=== PATIENT | female | born 1955 | race Caucasian/White ===

== ENCOUNTER 2017-09-12 22:23 | Inpatient (IN) | payer MEDICAID ==
[~2017-09-12 22:23] MED LIST: SUCCINYLCHOLINE CHLORIDE INJ 200 MG/10 ML VIAL ONE
[2017-09-12] MEDS ORDERED: SUCCINYLCHOLINE CHLORIDE INJ 200 MG/10 ML VIAL IV ONE (22:35)
[2017-09-12] MEDS ORDERED: ETOMIDATE INJ/PF 20 MG/10 ML SDV IV ONE ×2 (22:35→22:38)
[2017-09-12] MEDS ORDERED: CEFTRIAXONE 1 GM/D5W RTU 1 GM/50 ML RTUPB IV ONE (22:35)
[2017-09-12] MEDS ORDERED: PROPOFOL 100 ML IV ONE (22:38)
[2017-09-12 22:41] LABS: ABSOLUTE BASOPHILS # (AUTO) 0.1 10^3/uL (0.0-0.2); ABSOLUTE EOSINOPHILS # (AUTO) 0.3 10^3/uL (0.0-0.6); ABSOLUTE LYMPHOCYTES (AUTO) 1.5 10^3/uL (0.5-4.7); ABSOLUTE MONOCYTES (AUTO) 0.5 10^3/uL (0.1-1.4); ABSOLUTE NEUT (AUTO) 5.8 10^3/uL (1.7-8.2); BASOPHILS % (AUTO) 0.8 % (0-2); EOSINOPHILS % (AUTO) 3.3 % (0-6); HEMATOCRIT 36.4 % (36.0-47.0); LYMPHOCYTES % (AUTO) 17.9 % (13-45); MEAN CORPUSCULAR HEMOGLOBIN 29.7 pg (27.0-33.4); MEAN CORPUSCULAR HGB CONC 33.1 g/dL (32.0-36.0); MEAN CORPUSCULAR VOLUME 90 fl (80-97); MONOCYTES % (AUTO) 6.7 % (3-13); PLATELET COUNT 219 10^3/uL (150-450); RED BLOOD COUNT 4.05 10^6/uL (3.72-5.28); SEGMENTED NEUTROPHILS % (AUTO) 71.3 % (42-78); TOTAL CELLS COUNTED % (AUTO) 100 %; VENOUS BLOOD BASE EXCESS 1.1 mmol/L; VENOUS BLOOD HCO3 33.1 mmol/L (20-32); WHITE BLOOD COUNT 8.1 10^3/uL (4.0-10.5)
--- NOTE | 2017-09-12 22:42 | ER Document Report ---
ED General - General Stated Complaint: UNRESPONSIVE Time Seen by Provider: 09/12/17 22:23 Mode of Arrival: Medic Information source: Patient, Emergency Med Personnel Cannot obtain history due to: Unstable vital signs, Altered mental status Notes: Genevieve jang unknown age presents from home where she was found minimally responsive , O2 sats 42%. EMS notes patient was noted to have a history of COPD significant respiratory distress. They began bagging her and intermittently should become alert but was quite confused - HPI Onset: Other - unclear Onset/Duration: Sudden, Waxing and waning Quality of pain: No pain Severity: Severe Pain Level: Denies Associated symptoms: Nonproductive cough, Shortness of breath, Weakness Exacerbated by: Denies Relieved by: Denies Similar symptoms previously: No Recently seen / treated by doctor: No Past Medical History - General Information source: Emergency Med Personnel Cannot obtain history due to: Unstable vital signs, Altered mental status - Social History Smoking Status: Unknown if Ever Smoked Cigarette use (# per day): No Chew tobacco use (# tins/day): No Smoking Education Provided: No Family History: Reviewed & Not Pertinent - Unable to review due to patient's mental status Review of Systems - Review of Systems Notes: PHYSICAL EXAMINATION: GENERAL: Very ill-appearing female significant respiratory distress HEAD: Atraumatic, normocephalic. EYES: Pupils equal round and reactive to light, extraocular movements intact, conjunctiva are normal. ENT: Nares patent, oropharynx clear without exudates. Moist mucous membranes. NECK: Normal range of motion, supple without lymphadenopathy LUNGS coarse rhonchi at the right wheezing inspiratory expiratory all throughout HEART: Tachycardic ABDOMEN: Slightly distended abdomen Female : deferred Musculoskeletal: Normal range of motion, no pitting or edema. No cyanosis. NEUROLOGICAL: GCS 6 PSYCH: Unable to assess SKIN: Warm, Dry, normal turgor, no rashes or lesions noted. -: Yes ROS unobtainable due to patient's medical condition Physical Exam - Vital signs Vitals: Resp Pulse Ox 21 H 98 09/12/17 22:25 09/12/17 22:25 Course - Re-evaluation Re-evalutation: 09/12/17 22:40 Patient's GCS was noted to be 6, she did respond to some painful stimuli with opening her eyes momentarily and then become quite drowsy and unresponsive again , patient was on 15 L nonrebreather satting 94% but was not protecting her airway, therefore decision was made to intubate the patient immediately upon arrival 09/12/17 22:48 Patient's PCO2 is noted to be 102 pH of 7.1 09/13/17 00:06 Patient will be admitted to the hospitalist service, repeat VBG has been ordered patient will be taken off propofol and switched to Versed - Vital Signs Vital signs: Temp Pulse Resp BP Pulse Ox 25 H 107/92 H 100 09/12/17 23:16 09/12/17 23:16 09/13/17 00:01 - Laboratory Result Diagrams: 09/12/17 22:25 09/12/17 22:25 Laboratory results interpreted by me: 09/12/17 09/12/17 09/12/17 22:25 22:25 22:25 VBG pH 7.13 L* VBG pCO2 102.4 H* VBG HCO3 33.1 H Carbon Dioxide 34 H Glucose 171 H Lactic Acid 3.1 H - Diagnostic Test Radiology reviewed: Image reviewed - 1 view chest x-ray post intubation notes well placed ET tube, Reports reviewed - EKG Interpretation by Me EKG shows normal: Sinus rhythm, [place], Intervals, QRS Complexes Rate: Tachycardia When compared to previous EKG there are: Previous EKG unavailable Procedures - Intubation Orotracheal Time of Intubation: 20:20 Airway evaluation: Other - no teeth or denture Mallampati Classification: Class 4 Medications: Etomidate, Succinylcholine Intubation method: Orotracheal Blade type: Fahad Blade size: 4 ETT size: 7.0 ETT secured at: Gums ETT secured at (cm): 20 Breath Sounds after Intubation: Equal End tidal CO2 confirmed: Yes Post Intubation Xray: Yes Intubation Complications: No complications Critical Care Note - Critical Care Note Total time excluding time spent on procedures (mins): 84 Comments: 84 minutes of critical care time spent in direct contact evaluating and reevaluating the patient, treating symptoms, reviewing labs and studies and speaking with family and consultants excluding any procedures Discharge - Discharge Clinical Impression: COPD exacerbation, Respiratory failure requiring intubation, Hypercapnia Condition: Critical Disposition: ADMITTED INPATIENT Admitting Provider: Hospitalist Unit Admitted: ICU
[2017-09-12 22:43] LABS: VENOUS BLOOD PCO2 102.4 mmHg (35-63); VENOUS BLOOD PH 7.13 (7.30-7.42)
[2017-09-12 22:50] LABS: PROTHROMBIN TIME 13.7 SEC (11.4-15.4)
[2017-09-12 22:53] LABS: ALANINE AMINOTRANSFERASE 22 U/L (9-52); ALKALINE PHOSPHATASE 95 U/L (38-126); ANION GAP 9 (5-19); ASPARTATE AMINO TRANSFERASE 30 U/L (14-36); BILIRUBIN,DIRECT 0.3 mg/dL (0.0-0.4); BILIRUBIN,TOTAL 0.4 mg/dL (0.2-1.3); BLOOD UREA NITROGEN 10 mg/dL (7-20); CALCIUM 9.1 mg/dL (8.4-10.2); CARBON DIOXIDE 34 mmol/L (22-30); CHLORIDE 98 mmol/L (98-107); GLUCOSE 171 mg/dL (75-110); POTASSIUM 4.7 mmol/L (3.6-5.0); SODIUM 141.2 mmol/L (137-145); TOTAL PROTEIN 7.4 g/dL (6.3-8.2)
--- NOTE | 2017-09-12 23:19 | RADIOLOGY REPORT (SQ) ---
EXAM DESCRIPTION: CHEST SINGLE VIEW COMPLETED DATE/TIME: 09/12/2017 11:01 pm REASON FOR STUDY: post intubation COMPARISON: None. EXAM PARAMETERS: NUMBER OF VIEWS: One view. TECHNIQUE: Single frontal radiographic view of the chest acquired. RADIATION DOSE: NA LIMITATIONS: None. FINDINGS: LUNGS AND PLEURA: Mild bronchial wall thickening- central interstitial markings. No cons olidation, masses or pneumothorax. No pleural effusion. MEDIASTINUM AND HILAR STRUCTURES: No masses. Contour normal. HEART AND VASCULAR STRUCTURES: Heart normal in size. Normal vasculature. BONES: No acute findings. HARDWARE: Endotracheal tube tip overlies the mid trachea, approximately 3.7 cm above the level of the vane. Nasogastric catheter is present coiled in the body of the stomach. OTHER: No other significant finding. IMPRESSION: Endotracheal tube tip overlies the mid trachea, approximately 3.7 cm above the level of the vane. Nasogastric catheter is present coiled in the body of the stomach.Mild bronchial wall th ickening- central interstitial markings. No consolidation, masses or pneumothorax. No pleural effusi on. TECHNICAL DOCUMENTATION: JOB ID: [id number] [id number] 2010 [employer]- All Rights Reserved Reading location - IP/workstation name: [employer]
[2017-09-12] MEDS ORDERED: CEFAZOLIN INJ 1 GM VIAL ONE (23:48)
[2017-09-13] MEDS: NORMAL SALINE 1000 ML 1,000 ML IV PRN ×5 (00:01→20:06)
--- NOTE | 2017-09-13 00:04 | EKG REPORT ---
SEVERITY:- ABNORMAL ECG - SINUS TACHYCARDIA PROBABLE INFERIOR INFARCT, OLD : Confirmed by: Zen Mancilla 13-Sep-2017 00:03:40
[2017-09-13] MEDS: MIDAZOLAM HCL 50 MG/100 ML RTUINJ IV PRN (00:30)
[2017-09-13 00:43] LABS: APPEARANCE,URINE CLEAR; BILIRUBIN,URINE NEGATIVE (NEGATIVE); COLOR,URINE YELLOW; GLUCOSE, URINE NEGATIVE (NEGATIVE); KETONES,URINE NEGATIVE (NEGATIVE); LEUKOCYTE ESTERASE,URINE NEGATIVE (NEGATIVE); NITRITE,URINE NEGATIVE (NEGATIVE); PROTEIN,URINE NEGATIVE (NEGATIVE); URINE SPECIFIC GRAVITY 1.014
[2017-09-13] MEDS ORDERED: DEXTROSE 5%-WATER 250 ML with NOREPINEPHRINE BITARTRATE 4 MG IV PRN ×2 (01:28)
[2017-09-13] MEDS ORDERED: PROMETHAZINE HCL INJ 25 MG/1 ML VIAL IV PRN (01:28)
[2017-09-13] MEDS ORDERED: ALBUTEROL SULFATE 0.083% NEB 2.5 MG/3 ML AMPUL NEB PRN (01:28)
[2017-09-13] MEDS ORDERED: METHYLPREDNISOLONE INJ 40 MG/1 ML SDV IV ONE (02:00)
[2017-09-13] MEDS: IPRATROPIUM/ALBUTEROL 0.5-2.5 MG/3 ML AMPUL NEB SCH ×4 (02:06→20:38)
[2017-09-13 02:30] LABS: ARTERIAL BLOOD BASE EXCESS 0 mmol/L; ARTERIAL BLOOD H2CO3 2.24 mmol/L (1.05-1.35); ARTERIAL BLOOD HCO3 29.3 mmol/L (20-26); ARTERIAL BLOOD O2 SATURATION 99.4 % (94-98); ARTERIAL BLOOD PH 7.21 (7.35-7.45); ARTERIAL BLOOD PO2 250.8 mmHg (80-100); ARTERIAL BLOOD TOTAL CO2 31.6 mmol/L (21-25)
[2017-09-13 02:32] LABS: ARTERIAL BLOOD FIO2 60%
[2017-09-13 02:34] LABS: ARTERIAL BLOOD PCO2 74.4 mmHg (35-45)
[2017-09-13] MEDS ORDERED: LEVOFLOXACIN 500 MG/D5W RTU 500 MG/100 ML RTUPB IV ONE (03:00)
[2017-09-13] MEDS ORDERED: NOREPINEPHRINE BITARTRATE INJ/PF 4 MG/4 ML SDV IV ONE (04:02)
[2017-09-13] MEDS: PROPOFOL 100 ML IV PRN ×5 (04:30→22:09)
[2017-09-13] MEDS: HEPARIN SOD (PORCINE) 5,000 UNIT/ML 1 ML SYRINGE SUBCUT SCH ×3 (07:07→21:09)
[2017-09-13 07:22] LABS: HEMATOCRIT 34.6 % (36.0-47.0); HEMOGLOBIN 11.6 g/dL (12.0-15.5); MEAN CORPUSCULAR HEMOGLOBIN 29.8 pg (27.0-33.4); MEAN CORPUSCULAR HGB CONC 33.7 g/dL (32.0-36.0); MEAN CORPUSCULAR VOLUME 88 fl (80-97); PLATELET COUNT 201 10^3/uL (150-450); RED BLOOD COUNT 3.91 10^6/uL (3.72-5.28); WHITE BLOOD COUNT 9.7 10^3/uL (4.0-10.5)
[2017-09-13 07:40] LABS: ALANINE AMINOTRANSFERASE 27 U/L (9-52); ALBUMIN 3.2 g/dL (3.5-5.0); ALKALINE PHOSPHATASE 94 U/L (38-126); ANION GAP 8 (5-19); ASPARTATE AMINO TRANSFERASE 29 U/L (14-36); BILIRUBIN,DIRECT 0.4 mg/dL (0.0-0.4); BILIRUBIN,TOTAL 0.5 mg/dL (0.2-1.3); BLOOD UREA NITROGEN 8 mg/dL (7-20); CALCIUM 8.1 mg/dL (8.4-10.2); CARBON DIOXIDE 28 mmol/L (22-30); CHLORIDE 105 mmol/L (98-107); GLUCOSE 182 mg/dL (75-110); POTASSIUM 4.5 mmol/L (3.6-5.0); SODIUM 141.3 mmol/L (137-145); TOTAL PROTEIN 6.1 g/dL (6.3-8.2)
[2017-09-13 07:41] LABS: LIPASE 14.5 U/L (23-300)
--- NOTE | 2017-09-13 08:17 | PDOC H&P ---
History of Present Illness Patient complains of: Minimal responsiveness and hypoxia with reported oxygen saturation of 42% on room air. History of Present Illness: MARIAM GRANDE is a 65 year old female history of most likely COPD was admitted with above-mentioned complaints. The patient was admitted as a Mariam Grande. She was intubated in the ED so most of the history was obtained from the ED physician/ notes and nursing staff. According to the ED note, EMS was called to this patient's residence since she was found by unidentified person minimally responsive who told them that she had lung disease. Upon arrival, EMS found her very lethargic with oxygen saturation of 42%. They started bagging her and her oxygen saturation improved to 90% so she was transported to the hospital and got intubated in the ED. Per ED nursing staff, the patient was very somnolent but had episodes of full responsiveness although she was incoherent. There is no other history provided at this time. In the ED, her temperature was 97.2, heart rate 124, respiratory rate 21, blood pressure 125/92 with oxygen saturation of 98% on room air. She received 1 g Rocephin 1 and 2 L of normal saline since her blood pressure dropped after she was intubated and started on Propofol drip. She was then switched to Versed drip since Proprofol was not providing enough sedation and she was breathing over the vent. Past Medical History Medical History: Other Pulmonary Medical History: Reports: Chronic Obstructive Pulmonary Disease (COPD ) - unable to obtain at this time since patient is intubated and sedated. Past Surgical History Past Surgical History: Reports: Other - Unable to obtain at this time since the patient is intubated and sedated. Social History Smoking Status: Unknown if Ever Smoked Amount of Alcoholic Beverages Per Day: unknown Drugs: Other - unknown. - Advance Directive Resuscitation Status: Full Code Family History Family History: Other - Unable to obtain at this time since the patient is intubated and sedated. Parental Family History Reviewed: No - unable to obtain since patient is intubated and sedated. Children Family History Reviewed: No Sibling(s) Family History Reviewed.: No Medication/Allergy Home Medications: Unobtainable [Unobtainable] 09/13/17 Allergies/Adverse Reactions: No Known Allergies Allergy (Unverified 09/13/17 03:58) Review of Systems ROS unobtainable: Other - Unable to obtain at this time since the patient is intubated and sedated. Physical Exam Vital Signs: Temp Pulse Resp BP Pulse Ox 25 H 107/92 H 100 09/12/17 23:16 09/12/17 23:16 09/13/17 00:01 Intake & Output 09/11/17 09/12/17 09/13/17 06:59 06:59 06:59 Weight 53.7 kg General appearance: PRESENT: no acute distress, other - intubated and sedated. Head exam: PRESENT: atraumatic, normocephalic Eye exam: PRESENT: PERRLA - minimally reactive to light. Mouth exam: PRESENT: other - intubated. Neck exam: ABSENT: JVD Respiratory exam: PRESENT: decreased breath sounds. ABSENT: rales, rhonchi, wheezes Cardiovascular exam: PRESENT: +S1, +S2, tachycardia Pulses: PRESENT: normal dorsalis pedis pul GI/Abdominal exam: PRESENT: normal bowel sounds. ABSENT: distended, rebound, tenderness Rectal exam: PRESENT: deferred Musculoskeletal exam: PRESENT: other - unable to assess since intubated and sedated. Neurological exam: PRESENT: other - intubated and sedated. Skin exam: PRESENT: dry, warm. ABSENT: rash Results Laboratory Results: 09/12/17 22:25 09/12/17 22:25 09/12/17 09/12/17 09/12/17 22:25 22:25 22:25 WBC 8.1 RBC 4.05 Hgb 12.0 Hct 36.4 MCV 90 MCH 29.7 MCHC 33.1 RDW 13.0 Plt Count 219 Seg Neutrophils % 71.3 Lymphocytes % 17.9 Monocytes % 6.7 Eosinophils % 3.3 Basophils % 0.8 Absolute Neutrophils 5.8 Absolute Lymphocytes 1.5 Absolute Monocytes 0.5 Absolute Eosinophils 0.3 Absolute Basophils 0.1 VBG pH VBG pCO2 VBG HCO3 VBG Base Excess Sodium 141.2 Potassium 4.7 Chloride 98 Carbon Dioxide 34 H Anion Gap 9 BUN 10 Creatinine 0.84 Est GFR ( Amer) > 60 Est GFR (Non-Af Amer) > 60 Glucose 171 H Lactic Acid 3.1 H Calcium 9.1 Total Bilirubin 0.4 AST 30 ALT 22 Alkaline Phosphatase 95 Total Protein 7.4 Albumin 4.0 Urine Color Urine Appearance Urine pH Ur Specific Kendall Urine Protein Urine Glucose (UA) Urine Ketones Urine Blood Urine Nitrite Ur Leukocyte Esterase Urine WBC (Auto) Urine RBC (Auto) 09/12/17 09/12/17 22:25 23:40 WBC RBC Hgb Hct MCV MCH MCHC RDW Plt Count Seg Neutrophils % Lymphocytes % Monocytes % Eosinophils % Basophils % Absolute Neutrophils Absolute Lymphocytes Absolute Monocytes Absolute Eosinophils Absolute Basophils VBG pH 7.13 L* VBG pCO2 102.4 H* VBG HCO3 33.1 H VBG Base Excess 1.1 Sodium Potassium Chloride Carbon Dioxide Anion Gap BUN Creatinine Est GFR ( Amer) Est GFR (Non-Af Amer) Glucose Lactic Acid Calcium Total Bilirubin AST ALT Alkaline Phosphatase Total Protein Albumin Urine Color YELLOW Urine Appearance CLEAR Urine pH 5.0 Ur Specific Kendall 1.014 Urine Protein NEGATIVE Urine Glucose (UA) NEGATIVE Urine Ketones NEGATIVE Urine Blood NEGATIVE Urine Nitrite NEGATIVE Ur Leukocyte Esterase NEGATIVE Urine WBC (Auto) 1 Urine RBC (Auto) 1 EKG Comments: 12 lead EKG, sinus rhythm, ventricular rate 120, axis -60, QTC prolongation, poor R-wave propagation, low voltage. No previous EKG to compare. Impressions: Chest X-Ray 09/12/17 22:35 IMPRESSION: Endotracheal tube tip overlies the mid trachea, approximately 3.7 cm above the level of the vane. Nasogastric catheter is present coiled in the body of the stomach.Mild bronchial wall thickening- central interstitial markings. No consolidation, masses or pneumothorax. No pleural effusion. Assessment & Plan - Diagnosis (1) Acute encephalopathy Is this a current diagnosis for this admission?: Yes Plan: Most likely secondary to hypoxia and/or medications, less likely metabolic or infectious. UA and chest x-ray reviewed. The patient is currently intubated. Will follow-up UDS, alcohol, TSH and B12, ammonia levels. Further management as detailed below. (2) Acute and chronic respiratory failure, unspecified whether with hypoxia or hypercapnia Qualifiers: Respiratory failure complication: unspecified whether with hypoxia or hypercapnia Qualified Code(s): J96.20 - Acute and chronic respiratory failure , unspecified whether with hypoxia or hypercapnia Is this a current diagnosis for this admission?: Yes Plan: Secondary to COPD exacerbation most likely. She was intubated in the ED. Will cycle cardiac enzymes and repeat 12-lead EKG. Will also check proBNP and an echocardiogram. Will continue scheduled duonebs, IV Solu-Medrol and Levaquin. Pulmonary may need to be consulted for vent management. (3) Hypotension Qualifiers: Hypotension type: hypotension due to drug Qualified Code(s): I95.2 - Hypotension due to drugs Is this a current diagnosis for this admission?: Yes Plan: post intubation. The patient was initially on Propofol drip but since it was sedating enough she was switched to Versed drip. Her systolic blood pressure dropped down to 80s with MAP of 68. Will follow-up blood and urine cultures and start antibiotics as indicated. Will start pressors if indicated. (4) Lactic acidosis Is this a current diagnosis for this admission?: Yes Plan: Secondary to ischemia most likely. Her lactic acid dropped from 3.1-1.2 and there is no evidence of gap acidosis. Not sure if she was on any medications that can increase her lactic acid level. - Time Time Spent: Greater than 70 Minutes - Inpatient Certification Based on my medical assessment, after consideration of the patient's comorbidities, presenting symptoms, or acuity I expect that the services needed warrant INPATIENT care.: Yes I certify that my determination is in accordance with my understanding of Medicare's requirements for reasonable and necessary INPATIENT services [42 CFR 412.3e].: Yes
[2017-09-13 08:24] LABS: URINE AMPHETAMINES SCREEN NEGATIVE; URINE BARBITURATES SCREEN NEGATIVE; URINE BENZODIAZEPINES SCREEN NEGATIVE; URINE COCAINE SCREEN NEGATIVE; URINE MARIJUANA (THC) SCREEN NEGATIVE; URINE METHADONE SCREEN NEGATIVE; URINE PHENCYCLIDINE SCREEN NEGATIVE
[2017-09-13 09:13] LABS: ALCOHOL < 10 mg/dL (NONE DETECTED)
[2017-09-13 09:38] LABS: ARTERIAL BLOOD BASE EXCESS 1.4 mmol/L; ARTERIAL BLOOD FIO2 45%; ARTERIAL BLOOD H2CO3 1.68 mmol/L (1.05-1.35); ARTERIAL BLOOD HCO3 28.4 mmol/L (20-26); ARTERIAL BLOOD O2 SATURATION 97.1 % (94-98); ARTERIAL BLOOD PCO2 55.9 mmHg (35-45); ARTERIAL BLOOD PH 7.32 (7.35-7.45); ARTERIAL BLOOD PO2 100.6 mmHg (80-100); ARTERIAL BLOOD TOTAL CO2 30.1 mmol/L (21-25)
[2017-09-13] MEDS ORDERED: DEXTROSE 50%-WATER 25 GM/50 ML DISP.SYRIN IV PRN ×2 (10:09)
[2017-09-13] MEDS ORDERED: GLUCAGON,HUMAN RECOMB 1 MG INJ IM PRN (10:09)
[2017-09-13] MEDS ORDERED: DEXTROSE 40% GEL 15 GM TUBE PO PRN ×2 (10:09)
[2017-09-13] MEDS ORDERED: INSULIN LISPRO 100 UNIT/ML 3 ML VIAL SUBCUT PRN (10:09)
[2017-09-13] MEDS: PANTOPRAZOLE SODIUM 40 MG VIAL IV SCH (11:12)
--- NOTE | 2017-09-13 12:42 | XCELERA REPORT ---
[address] [address] Transthoracic Echocardiogram Report Name: ADY YEUNG Age: 61 yrs Gender: Female : 1955 Patient Status: Inpatient Patient Location: ICU^611^A Study Date: 09/13/2017 09:32 AM Height: 57 in Weight: 118 lb BSA: 1.4 m2 Procedure: A complete two-dimensional transthoracic echocardiogram was performed (2D, M-mode, spectral and color flow Doppler). The study was technically difficult with many images being suboptimal in quality. Reason For Study: hypoxia Ordering Physician: WALKER COTTON Performed By: Lena Graf Interpretation Summary The study was technically difficult with many images being suboptimal in quality. The left ventricular ejection fraction is preserved. Consider additional methods to assess LVEF such as MUGA scan, CTA heart, cardiac MRI, STEF, etc. if clinically indicated. There is borderline concentric left ventricular hypertrophy. The left ventricle is grossly normal size. Doppler measurements suggest pseudonormalized left ventricular relaxation, which is associated with grade II/IV or mild to moderate diastolic dysfunction Not all wall segments were well visualized. Wall motion cannot be accurately commented on, but no definite regional wall motion abnormalities noted. The right ventricle is mildly dilated. The right atrium is mildly dilated. The left atrial size is normal. There is no mitral valve stenosis. There is a trace amount of mitral regurgitation There is no aortic valve stenosis No aortic regurgitation is present. There is a trace to mild amount of tricuspid regurgitation Right ventricular systolic pressure is estimated to be elevated at 30- 40mmHg. There is mild pulmonary hypertension by echo The aortic root is not well visualized. The inferior vena cava appeared normal and decreased < 50% with respiration (RAP 10-15 mmHg) There is no pericardial effusion. MMode/2D Measurements & Calculations RVDd: 3.1 cm LVIDd: 3.3 cm FS: 44.1 % Ao root diam: 2.7 cm IVSd: 0.81 cm LVIDs: 1.9 cm EDV(Teich): 45.1 ml LVPWd: 0.83 cmESV(Teich): 10.6 ml Ao root area: 5.7 cm2 EF(Teich): 76.5 % LA dimension: 2.4 cm LVOT diam: 1.7 cm LVOT area: 2.3 cm2 Doppler Measurements & Calculations MV E max delma: MV P1/2t max delma: Ao V2 max: LV V1 max P.3 cm/sec 93.3 cm/sec 130.3 cm/sec 4.4 mmHg MV A max delma: MV P1/2t: 60.1 msec Ao max PG: LV V1 max: 137.7 cm/sec MVA(P1/2t): 3.7 cm2 6.8 mmHg 105.1 cm/sec MV E/A: 0.67 MV dec slope: WILLIE(V,D): 1.9 cm2 455.0 cm/sec2 PA V2 max: TR max delma: 84.4 cm/sec 243.2 cm/sec PA max P.8 mmHgTR max P.7 mmHg Left Ventricle The left ventricle is grossly normal size. There is borderline concentric left ventricular hypertrophy. The left ventricular ejection fraction is preserved. Consider additional methods to assess LVEF such as MUGA scan, CTA heart, cardiac MRI, STEF, etc. if clinically indicated. Doppler measurements suggest pseudonormalized left ventricular relaxation, which is associated with grade II/IV or mild to moderate diastolic dysfunction. Not all wall segments were well visualized. Wall motion cannot be accurately commented on, but no definite regional wall motion abnormalities noted. Right Ventricle The right ventricle is mildly dilated. The right ventricular systolic function is normal. Atria The right atrium is mildly dilated. The left atrial size is normal. A patent foramen ovale is suspected. Mitral Valve There is mild to moderate mitral annular calcification. There is no mitral valve stenosis. There is a trace amount of mitral regurgitation. Aortic Valve The aortic valve is not well visualized secondary to technical limitations. There is no aortic valve stenosis. No aortic regurgitation is present. Tricuspid Valve The tricuspid valve is not well visualized, but is grossly normal. There is no tricuspid stenosis. There is a trace to mild amount of tricuspid regurgitation. Right ventricular systolic pressure is estimated to be elevated at 30-40mmHg. There is mild pulmonary hypertension by echo. Pulmonic Valve The pulmonic valve is not well visualized. Great Vessels The aortic root is not well visualized. The inferior vena cava appeared normal and decreased < 50% with respiration (RAP 10-15 mmHg). Effusions There is no pericardial effusion. : WALKER COTTON > Zen Mancilla
--- NOTE | 2017-09-13 13:19 | EKG REPORT ---
SEVERITY:- BORDERLINE ECG - SINUS RHYTHM LEFT AXIS DEVIATION LOW VOLTAGE THROUGHOUT : Confirmed by: Ramu London MD 13-Sep-2017 13:18:16
[2017-09-13] MEDS: METHYLPREDNISOLONE INJ 40 MG/1 ML SDV IV SCH ×2 (13:38→21:09)
[2017-09-13] MEDS ORDERED: IPRATROPIUM/ALBUTEROL 0.5-2.5 MG/3 ML AMPUL NEB SCH (14:00)
[2017-09-13] MEDS ORDERED: LORAZEPAM 0.5 MG TABLET PO PRN (15:05)
--- NOTE | 2017-09-13 15:07 | PDOC PROGRESS REPORT ---
Subjective Progress Note for:: 09/13/17 Subjective:: Unable to obtain since sedated Review of systems Unable to obtain since sedated All significant laboratories and diagnostics have been reviewed Reason For Visit: ACUTE ON CHRONIC RESPIRATORY FAILURE Physical Exam Vital Signs: Temp Pulse Resp BP Pulse Ox 98 16 107/64 97 09/13/17 08:57 09/13/17 08:30 09/13/17 08:30 09/13/17 08:51 Intake & Output 09/12/17 09/13/17 09/14/17 06:59 06:59 06:59 Output Total 500 Balance -500 General appearance: PRESENT: other - sedated Head exam: PRESENT: atraumatic, normocephalic Eye exam: PRESENT: conjunctiva pink, EOMI, PERRLA Ear exam: PRESENT: normal external ear exam Mouth exam: PRESENT: moist Neck exam: PRESENT: full ROM. ABSENT: JVD, lymphadenopathy, tenderness Respiratory exam: PRESENT: clear to auscultation madhavi Cardiovascular exam: PRESENT: RRR. ABSENT: diastolic murmur, systolic murmur Vascular exam: PRESENT: normal capillary refill GI/Abdominal exam: PRESENT: normal bowel sounds, soft. ABSENT: tenderness Extremities exam: ABSENT: pedal edema Musculoskeletal exam: ABSENT: ambulatory Neurological exam: PRESENT: other - Sedated Skin exam: PRESENT: normal color Results Laboratory Results: 09/13/17 07:08 09/13/17 07:08 09/13/17 09/13/17 09/13/17 01:56 02:15 02:59 WBC RBC Hgb Hct MCV MCH MCHC RDW Plt Count Carbonic Acid 2.24 H HCO3/H2CO3 Ratio 13:1 ABG pH 7.21 L ABG pCO2 74.4 H* ABG pO2 250.8 H ABG HCO3 29.3 H ABG O2 Saturation 99.4 H ABG Base Excess 0 FiO2 60% Sodium Potassium Chloride Carbon Dioxide Anion Gap BUN Creatinine Est GFR ( Amer) Est GFR (Non-Af Amer) Glucose Lactic Acid 1.2 Calcium Magnesium Total Bilirubin AST ALT Alkaline Phosphatase Ammonia 16.0 Total Protein Albumin Lipase Vitamin B12 TSH 09/13/17 09/13/17 09/13/17 07:08 07:08 07:08 WBC 9.7 RBC 3.91 Hgb 11.6 L Hct 34.6 L MCV 88 MCH 29.8 MCHC 33.7 RDW 13.0 Plt Count 201 Carbonic Acid HCO3/H2CO3 Ratio ABG pH ABG pCO2 ABG pO2 ABG HCO3 ABG O2 Saturation ABG Base Excess FiO2 Sodium 141.3 Potassium 4.5 Chloride 105 Carbon Dioxide 28 Anion Gap 8 BUN 8 Creatinine 0.62 Est GFR ( Amer) > 60 Est GFR (Non-Af Amer) > 60 Glucose 182 H Lactic Acid Calcium 8.1 L Magnesium 1.7 Total Bilirubin 0.5 AST 29 ALT 27 Alkaline Phosphatase 94 Ammonia Total Protein 6.1 L Albumin 3.2 L Lipase 14.5 L Vitamin B12 TSH 09/13/17 09/13/17 09/13/17 07:08 07:08 09:30 WBC RBC Hgb Hct MCV MCH MCHC RDW Plt Count Carbonic Acid 1.68 H HCO3/H2CO3 Ratio 16:1 ABG pH 7.32 L ABG pCO2 55.9 H ABG pO2 100.6 H ABG HCO3 28.4 H ABG O2 Saturation 97.1 ABG Base Excess 1.4 FiO2 45% Sodium Potassium Chloride Carbon Dioxide Anion Gap BUN Creatinine Est GFR ( Amer) Est GFR (Non-Af Amer) Glucose Lactic Acid Calcium Magnesium Total Bilirubin AST ALT Alkaline Phosphatase Ammonia Total Protein Albumin Lipase Vitamin B12 411.0 TSH 1.28 09/13/17 09/13/17 01:56 07:08 Troponin I 0.018 0.016 Impressions: Chest X-Ray 09/12/17 22:35 IMPRESSION: Endotracheal tube tip overlies the mid trachea, approximately 3.7 cm above the level of the vane. Nasogastric catheter is present coiled in the body of the stomach.Mild bronchial wall thickening- central interstitial markings. No consolidation, masses or pneumothorax. No pleural effusion. Assessment & Plan - Diagnosis (1) Acute and chronic respiratory failure with hypoxia Is this a current diagnosis for this admission?: Yes Plan: Continue with ventilatory support. Will consult Dr. Mario (2) Acute encephalopathy Is this a current diagnosis for this admission?: Yes Plan: Appears to be secondary to CO2 narcosis (3) COPD exacerbation Is this a current diagnosis for this admission?: Yes Plan: We will continue nebulizer treatment and IV steroids. Continue Levaquin IV (4) Hypotension Qualifiers: Hypotension type: hypotension due to drug Qualified Code(s): I95.2 - Hypotension due to drugs Is this a current diagnosis for this admission?: Yes Plan: Will support with IV fluids and Levophed (5) Lactic acidosis Is this a current diagnosis for this admission?: Yes Plan: Likely due to hypoperfusion. Resolved - Time Time Spent with patient: 15-24 minutes Medications reviewed and adjusted accordingly: Yes Anticipated discharge: Home Within: Other - Uncertain at this time - Inpatient Certification Based on my medical assessment, after consideration of the patient's comorbidities, presenting symptoms, or acuity I expect that the services needed warrant INPATIENT care.: Yes I certify that my determination is in accordance with my understanding of Medicare's requirements for reasonable and necessary INPATIENT services [42 CFR 412.3e].: Yes Medical Necessity: Need Close Monitoring Due to Risk of Patient Decompensation, Need For IV Fluids, Need For Continuous Telemetry Monitoring, Need for Nebulizer Therapy and Monitoring of Response
--- NOTE | 2017-09-13 15:56 | PDOC CONSULTATION ---
Consultation Consult Date: 09/13/17 Consult reason:: Acute respiratory failure History of Present Illness Admission Date/PCP: 09/13/17 00:24 History of Present Illness: MARIAM CANTU is a 65 year old female Found unresponsive from on partially clothed was taken to the emergency room she remained on this unresponsive was found to be hypoxic she subsequently was intubated and currently presents in the ICU no family members are available or information from old records Past Medical History Pulmonary Medical History: Reports: Chronic Obstructive Pulmonary Disease (COPD ) - unable to obtain at this time since patient is intubated and sedated. Past Surgical History Past Surgical History: Reports: Other - Unable to obtain at this time since the patient is intubated and sedated. Social History Information Source: [facility] Records Smoking Status: Unknown if Ever Smoked Drugs: Other - unknown. - Advance Directive Resuscitation Status: Full Code Family History Family History: Other - Unable to obtain at this time since the patient is intubated and sedated. Parental Family History Reviewed: No Children Family History Reviewed: No Sibling(s) Family History Reviewed.: No Medication/Allergy Home Medications: Budesonide/Formoterol Fumarate [Symbicort Hfa 160-4.5 Mcg Inhaler 6 gm] 2 puff IH Q12 09/13/17 Bupropion HCl [Wellbutrin 75 Mg Tablet] 75 mg PO DAILY 09/13/17 Ergocalciferol (Vitamin D2) [Drisdol 50,000 Unit (1.25MG) Capsule] 50,000 unit PO .QWEEKLY MDD WILL UPDATE WHEN AWAKE 09/13/17 Lorazepam [Ativan 0.5 mg Tablet] 0.5 mg PO Q12HP PRN 09/13/17 Omeprazole 20 mg PO QAM 09/13/17 Paroxetine HCl [Paxil 20 mg Tablet] 20 mg PO QHS 09/13/17 Promethazine HCl [Phenergan 25 mg Tablet] 25 mg PO BIDP PRN 09/13/17 Tiotropium [place] [Spiriva Handihaler 18 mcg/dose (30 Dose)] 1 cap IH DAILY Tizanidine HCl [Zanaflex 4 Mg Tablet] 4 mg PO Q8HP PRN 09/13/17 Allergies/Adverse Reactions: No Known Allergies Allergy (Unverified 09/13/17 03:58) Review of Systems ROS unobtainable: Due to endotracheal tube Physical Exam Vital Signs: Temp Pulse Resp BP Pulse Ox 98 16 107/64 97 09/13/17 08:57 09/13/17 08:30 09/13/17 08:30 09/13/17 08:51 Intake & Output 09/12/17 09/13/17 09/14/17 06:59 06:59 06:59 Output Total 500 Balance -500 General appearance: PRESENT: no acute distress, disheveled, well-developed, well -nourished. ABSENT: cooperative Head exam: PRESENT: atraumatic, normocephalic Eye exam: PRESENT: conjunctiva pale. ABSENT: EOMI, nystagmus, periorbital swelling, scleral icterus Mouth exam: PRESENT: dry mucosa, neck supple, tongue midline, other - ET tube Neck exam: ABSENT: carotid bruit, JVD, lymphadenopathy, thyromegaly, tracheal deviation, tracheostomy Respiratory exam: PRESENT: decreased breath sounds, prolonged expiratory phas, rales, rhonchi, symmetrical, unlabored. ABSENT: retraction, stridor, tachypnea Cardiovascular exam: PRESENT: RRR, +S1, +S2, tachycardia Pulses: PRESENT: normal radial pulses GI/Abdominal exam: PRESENT: diminished bowel sounds, soft Extremities exam: ABSENT: clubbing, joint swelling, pedal edema Musculoskeletal exam: ABSENT: deformity, dislocation Neurological exam: ABSENT: awake, oriented to person Skin exam: PRESENT: dry, warm Results Laboratory Results: 09/13/17 07:08 09/13/17 07:08 09/13/17 09/13/17 09/13/17 01:56 02:15 02:59 WBC RBC Hgb Hct MCV MCH MCHC RDW Plt Count Carbonic Acid 2.24 H HCO3/H2CO3 Ratio 13:1 ABG pH 7.21 L ABG pCO2 74.4 H* ABG pO2 250.8 H ABG HCO3 29.3 H ABG O2 Saturation 99.4 H ABG Base Excess 0 FiO2 60% Sodium Potassium Chloride Carbon Dioxide Anion Gap BUN Creatinine Est GFR ( Amer) Est GFR (Non-Af Amer) Glucose Lactic Acid 1.2 Calcium Magnesium Total Bilirubin AST ALT Alkaline Phosphatase Ammonia 16.0 Total Protein Albumin Lipase Vitamin B12 TSH 09/13/17 09/13/17 09/13/17 07:08 07:08 07:08 WBC 9.7 RBC 3.91 Hgb 11.6 L Hct 34.6 L MCV 88 MCH 29.8 MCHC 33.7 RDW 13.0 Plt Count 201 Carbonic Acid HCO3/H2CO3 Ratio ABG pH ABG pCO2 ABG pO2 ABG HCO3 ABG O2 Saturation ABG Base Excess FiO2 Sodium 141.3 Potassium 4.5 Chloride 105 Carbon Dioxide 28 Anion Gap 8 BUN 8 Creatinine 0.62 Est GFR ( Amer) > 60 Est GFR (Non-Af Amer) > 60 Glucose 182 H Lactic Acid Calcium 8.1 L Magnesium 1.7 Total Bilirubin 0.5 AST 29 ALT 27 Alkaline Phosphatase 94 Ammonia Total Protein 6.1 L Albumin 3.2 L Lipase 14.5 L Vitamin B12 TSH 09/13/17 09/13/17 07:08 07:08 WBC RBC Hgb Hct MCV MCH MCHC RDW Plt Count Carbonic Acid HCO3/H2CO3 Ratio ABG pH ABG pCO2 ABG pO2 ABG HCO3 ABG O2 Saturation ABG Base Excess FiO2 Sodium Potassium Chloride Carbon Dioxide Anion Gap BUN Creatinine Est GFR ( Amer) Est GFR (Non-Af Amer) Glucose Lactic Acid Calcium Magnesium Total Bilirubin AST ALT Alkaline Phosphatase Ammonia Total Protein Albumin Lipase Vitamin B12 411.0 TSH 1.28 09/13/17 09/13/17 01:56 07:08 Troponin I 0.018 0.016 Impressions: Chest X-Ray 09/12/17 22:35 IMPRESSION: Endotracheal tube tip overlies the mid trachea, approximately 3.7 cm above the level of the vane. Nasogastric catheter is present coiled in the body of the stomach.Mild bronchial wall thickening- central interstitial markings. No consolidation, masses or pneumothorax. No pleural effusion. Assessment & Plan - Diagnosis (1) Acute and chronic respiratory failure with hypoxia Is this a current diagnosis for this admission?: Yes Plan: Hypoxia and hypercapnia as well as patient unable to protect airway (2) Acute encephalopathy Is this a current diagnosis for this admission?: Yes Plan: Currently etiology not known (3) COPD exacerbation Is this a current diagnosis for this admission?: Yes Plan: Generic Name Dose Route Start Last Admin Trade Name Freq PRN Reason Stop Dose Admin Albuterol 2.5 mg 09/13/17 01:28 Ventolin 0.083% Neb 2.5 Mg/3 Ml Ampul NEB 10/13/17 01:27 RTQ4HP PRN SHORTNESS OF BREATH Albuterol/Ipratropium 3 ml 09/13/17 02:00 09/13/17 14:34 Duoneb 3 Ml Ampul NEB 10/13/17 01:59 Not Given RTQ6 LAMBERTO Methylprednisolone Sodium Succinate 60 mg 09/13/17 14:00 09/13/17 13:38 Solu-Medrol Inj/Pf 40 Mg/1 Ml Sdv IV 10/13/17 13:59 60 mg Q8 LAMBERTO (4) Hypotension Qualifiers: Hypotension type: hypotension due to drug Qualified Code(s): I95.2 - Hypotension due to drugs Is this a current diagnosis for this admission?: Yes Plan: vasopressor - Time Total Critical Time (Minutes): 55
[2017-09-13] MEDS ORDERED: ERGOCALCIFEROL (VITAMIN D2) 50000 UNIT (1.25 MG) CAPSULE PO SCH (16:00)
[2017-09-13] MEDS: PAROXETINE HCL 20 MG TABLET PO SCH (21:08)
[2017-09-14] MEDS: MIDAZOLAM HCL 50 MG/100 ML RTUINJ IV PRN ×2 (01:35→17:03)
[2017-09-14] MEDS: IPRATROPIUM/ALBUTEROL 0.5-2.5 MG/3 ML AMPUL NEB SCH ×4 (02:15→20:16)
[2017-09-14 04:11] LABS: HEMATOCRIT 31.7 % (36.0-47.0); HEMOGLOBIN 10.6 g/dL (12.0-15.5); MEAN CORPUSCULAR HEMOGLOBIN 29.6 pg (27.0-33.4); MEAN CORPUSCULAR HGB CONC 33.6 g/dL (32.0-36.0); MEAN CORPUSCULAR VOLUME 88 fl (80-97); PLATELET COUNT 161 10^3/uL (150-450); RED BLOOD COUNT 3.59 10^6/uL (3.72-5.28); RED CELL DISTRIBUTION WIDTH 13.3 % (11.5-14.0); WHITE BLOOD COUNT 5.5 10^3/uL (4.0-10.5)
[2017-09-14 04:24] LABS: ALANINE AMINOTRANSFERASE 27 U/L (9-52); ALBUMIN 2.7 g/dL (3.5-5.0); ALKALINE PHOSPHATASE 75 U/L (38-126); ANION GAP 10 (5-19); ASPARTATE AMINO TRANSFERASE 23 U/L (14-36); BLOOD UREA NITROGEN 6 mg/dL (7-20); CARBON DIOXIDE 25 mmol/L (22-30); CHLORIDE 110 mmol/L (98-107); GLUCOSE 175 mg/dL (75-110); POTASSIUM 3.9 mmol/L (3.6-5.0); SODIUM 144.9 mmol/L (137-145); TOTAL PROTEIN 5.4 g/dL (6.3-8.2)
[2017-09-14 04:28] LABS: BILIRUBIN,TOTAL < 0.1 mg/dL (0.2-1.3)
[2017-09-14 05:15] LABS: ARTERIAL BLOOD BASE EXCESS 1.4 mmol/L; ARTERIAL BLOOD H2CO3 1.29 mmol/L (1.05-1.35); ARTERIAL BLOOD HCO3 26.3 mmol/L (20-26); ARTERIAL BLOOD O2 SATURATION 98.5 % (94-98); ARTERIAL BLOOD PCO2 42.7 mmHg (35-45); ARTERIAL BLOOD PH 7.41 (7.35-7.45); ARTERIAL BLOOD PO2 123.8 mmHg (80-100); ARTERIAL BLOOD TOTAL CO2 27.6 mmol/L (21-25)
[2017-09-14 05:18] LABS: ARTERIAL BLOOD FIO2 45%
[2017-09-14] MEDS: METHYLPREDNISOLONE INJ 40 MG/1 ML SDV IV SCH ×3 (06:00→21:10)
[2017-09-14] MEDS: HEPARIN SOD (PORCINE) 5,000 UNIT/ML 1 ML SYRINGE SUBCUT SCH ×3 (06:01→21:10)
--- NOTE | 2017-09-14 08:48 | RADIOLOGY REPORT (SQ) ---
EXAM DESCRIPTION: CHEST SINGLE VIEW COMPLETED DATE/TIME: 09/14/2017 6:52 am REASON FOR STUDY: resp failure COMPARISON: AP chest 09/12/2017 EXAM PARAMETERS: NUMBER OF VIEWS: One view. TECHNIQUE: Single frontal radiographic view of the chest acquired. RADIATION DOSE: NA LIMITATIONS: None. FINDINGS: LUNGS AND PLEURA: Patchy consolidation right lower lobe just above the hemidiaphragm, atel ectasis versus pneumonia. Left lung clear. No pleural effusions. No pneumothorax. MEDIASTINUM AND HILAR STRUCTURES: No masses. Contour normal. HEART AND VASCULAR STRUCTURES: Heart normal in size. Normal vasculature. BONES: No acute findings. HARDWARE: Endotracheal tube tip 3 cm above the vane. Nasogastric tube tip and side port in the sto mach. OTHER: No other significant finding. IMPRESSION: New right basilar airspace disease atelectasis versus pneumonia. Endotracheal tube tip 3 cm above the vane TECHNICAL DOCUMENTATION: JOB ID: [id number] [email or web address]- All Rights Reserved Reading location - IP/workstation name: [email or web address]
[2017-09-14] MEDS: PROPOFOL 100 ML IV PRN ×3 (09:57→20:41)
[2017-09-14] MEDS: PANTOPRAZOLE SODIUM 40 MG VIAL IV SCH (09:58)
[2017-09-14] MEDS: BUPROPION HCL 75 MG TABLET PO SCH (09:58)
[2017-09-14] MEDS ORDERED: LEVOFLOXACIN 500 MG/D5W RTU 500 MG/100 ML RTUPB IV SCH (10:00)
--- NOTE | 2017-09-14 12:56 | PDOC PROGRESS REPORT ---
Subjective Progress Note for:: 09/14/17 Subjective:: Unable to obtain since sedated. Daughter to bedside and states that her mother does not take her medicines regularly. She is supposed to use oxygen but she leaves the oxygen tank at her house. Patient's daughter also state that she has always taking care of her mother. Currently she lives with boyfriend that is a bad influence according to daughter. Patient does have history of hepatitis C. Accordingly the latest counts are low. Family was updated about patient's medical condition. Advised that probably patient will benefit from psychiatric evaluation since persists making bad choices in her life. Daughter advised to go to [facility]. Review of systems Unable to obtain since sedated All significant laboratories and diagnostics have been reviewed Reason For Visit: ACUTE ON CHRONIC RESPIRATORY FAILURE Physical Exam Vital Signs: Temp Pulse Resp BP Pulse Ox 97.2 F 92 20 119/68 99 09/14/17 05:55 09/14/17 02:15 09/14/17 06:00 09/14/17 05:20 09/14/17 06:00 Intake & Output 09/13/17 09/14/17 09/15/17 06:59 06:59 06:59 Intake Total 3724 Output Total 2055 Balance 1669 Weight 55.7 kg General appearance: PRESENT: other - sedated Head exam: PRESENT: atraumatic, normocephalic Eye exam: PRESENT: conjunctiva pink, EOMI, PERRLA Ear exam: PRESENT: normal external ear exam Mouth exam: PRESENT: neck supple Neck exam: ABSENT: full ROM, JVD, lymphadenopathy, tenderness Respiratory exam: PRESENT: clear to auscultation madhavi Cardiovascular exam: PRESENT: RRR. ABSENT: diastolic murmur, systolic murmur Vascular exam: PRESENT: normal capillary refill GI/Abdominal exam: PRESENT: normal bowel sounds, soft. ABSENT: distended Extremities exam: ABSENT: full ROM, pedal edema Musculoskeletal exam: ABSENT: ambulatory Neurological exam: PRESENT: other - sedated Skin exam: PRESENT: normal color Results Laboratory Results: 09/14/17 03:49 09/14/17 03:49 09/13/17 09/13/17 09/13/17 07:08 07:08 09:30 WBC RBC Hgb Hct MCV MCH MCHC RDW Plt Count Carbonic Acid 1.68 H HCO3/H2CO3 Ratio 16:1 ABG pH 7.32 L ABG pCO2 55.9 H ABG pO2 100.6 H ABG HCO3 28.4 H ABG O2 Saturation 97.1 ABG Base Excess 1.4 FiO2 45% Sodium Potassium Chloride Carbon Dioxide Anion Gap BUN Creatinine Est GFR ( Amer) Est GFR (Non-Af Amer) Glucose Lactic Acid Calcium Magnesium Total Bilirubin AST ALT Alkaline Phosphatase Total Protein Albumin Vitamin B12 411.0 TSH 1.28 09/13/17 09/13/17 09/14/17 09:50 12:45 03:49 WBC 5.5 RBC 3.59 L Hgb 10.6 L Hct 31.7 L MCV 88 MCH 29.6 MCHC 33.6 RDW 13.3 Plt Count 161 Carbonic Acid HCO3/H2CO3 Ratio ABG pH ABG pCO2 ABG pO2 ABG HCO3 ABG O2 Saturation ABG Base Excess FiO2 Sodium Potassium Chloride Carbon Dioxide Anion Gap BUN Creatinine Est GFR ( Amer) Est GFR (Non-Af Amer) Glucose Lactic Acid 0.6 L 0.7 Calcium Magnesium Total Bilirubin AST ALT Alkaline Phosphatase Total Protein Albumin Vitamin B12 TSH 09/14/17 09/14/17 03:49 04:50 WBC RBC Hgb Hct MCV MCH MCHC RDW Plt Count Carbonic Acid 1.29 HCO3/H2CO3 Ratio 20:1 ABG pH 7.41 ABG pCO2 42.7 ABG pO2 123.8 H ABG HCO3 26.3 H ABG O2 Saturation 98.5 H ABG Base Excess 1.4 FiO2 45% Sodium 144.9 Potassium 3.9 Chloride 110 H Carbon Dioxide 25 Anion Gap 10 BUN 6 L Creatinine 0.52 Est GFR ( Amer) > 60 Est GFR (Non-Af Amer) > 60 Glucose 175 H Lactic Acid Calcium 8.0 L Magnesium 1.8 Total Bilirubin < 0.1 L AST 23 ALT 27 Alkaline Phosphatase 75 Total Protein 5.4 L Albumin 2.7 L Vitamin B12 TSH 09/13/17 09/13/17 09/13/17 01:56 07:08 12:45 Troponin I 0.018 0.016 < 0.012 NT-Pro-B Natriuret Pep 09/14/17 03:49 Troponin I NT-Pro-B Natriuret Pep 859 Assessment & Plan - Diagnosis (1) Acute and chronic respiratory failure with hypoxia Is this a current diagnosis for this admission?: Yes Plan: Continues requiring ventilatory support. Dr Mario managing ventilator (2) Acute encephalopathy Is this a current diagnosis for this admission?: Yes Plan: Appears to be secondary to CO2 narcosis (3) COPD exacerbation Is this a current diagnosis for this admission?: Yes Plan: We will continue nebulizer treatment and IV steroids. Discontinue Levaquin IV and place on Zosyn since new right lower lobe infiltrate (4) Hypotension Qualifiers: Hypotension type: hypotension due to drug Qualified Code(s): I95.2 - Hypotension due to drugs Is this a current diagnosis for this admission?: Yes Plan: Improving (5) Lactic acidosis Is this a current diagnosis for this admission?: Yes Plan: Likely due to hypoperfusion. Resolved (6) Diastolic dysfunction with acute on chronic heart failure Is this a current diagnosis for this admission?: Yes Plan: Will start Lasix IV (7) Pulmonary hypertension Is this a current diagnosis for this admission?: Yes Plan: May relate to diastolic dysfunction vs cor pulmonale - Time Time Spent with patient: 15-24 minutes Medications reviewed and adjusted accordingly: Yes Anticipated discharge: Acute Rehab Within: Other - Unable to tell at this time - Inpatient Certification Based on my medical assessment, after consideration of the patient's comorbidities, presenting symptoms, or acuity I expect that the services needed warrant INPATIENT care.: Yes I certify that my determination is in accordance with my understanding of Medicare's requirements for reasonable and necessary INPATIENT services [42 CFR 412.3e].: Yes Medical Necessity: Need Close Monitoring Due to Risk of Patient Decompensation, Need for Nebulizer Therapy and Monitoring of Response, Need for IV Antibiotics
[2017-09-14] MEDS: FUROSEMIDE INJ/PF 20 MG/2 ML SDV IV SCH (17:04)
[2017-09-14] MEDS: PIPERACILLIN SODIUM/TAZOBACTAM 3.375 GM in NORMAL SALINE 100 ML IV SCH ×2 (17:07→23:32)
--- NOTE | 2017-09-14 18:32 | PDOC PROGRESS REPORT ---
Subjective Progress Note for:: 09/14/17 Subjective:: Intubated and sedated Reason For Visit: ACUTE ON CHRONIC RESPIRATORY FAILURE Physical Exam Vital Signs: Temp Pulse Resp BP Pulse Ox 97.0 F 94 20 97/57 L 99 09/14/17 08:00 09/14/17 08:35 09/14/17 08:35 09/14/17 08:00 09/14/17 08:35 Intake & Output 09/13/17 09/14/17 09/15/17 06:59 06:59 06:59 Intake Total 3724 Output Total 2055 60 Balance 1669 -60 Weight 55.7 kg General appearance: PRESENT: no acute distress, disheveled, well-developed, well -nourished. ABSENT: cooperative Head exam: PRESENT: atraumatic, normocephalic Eye exam: PRESENT: conjunctiva pale. ABSENT: nystagmus, periorbital swelling, scleral icterus Mouth exam: PRESENT: dry mucosa, neck supple, tongue midline, other - ET tube in place Teeth exam: PRESENT: edentulous Neck exam: ABSENT: carotid bruit, JVD, lymphadenopathy, thyromegaly, tracheal deviation, tracheostomy Respiratory exam: PRESENT: decreased breath sounds, prolonged expiratory phas, rales, rhonchi, symmetrical, unlabored. ABSENT: retraction, stridor, tachypnea Cardiovascular exam: PRESENT: RRR, +S1, +S2 Pulses: PRESENT: normal radial pulses GI/Abdominal exam: PRESENT: diminished bowel sounds, soft Gentrourinary exam: PRESENT: indwelling catheter Extremities exam: ABSENT: calf tenderness, clubbing, joint swelling Musculoskeletal exam: ABSENT: deformity, dislocation Neurological exam: ABSENT: awake, oriented to person Skin exam: PRESENT: dry, warm Results Laboratory Results: 09/14/17 03:49 09/14/17 03:49 09/13/17 09/13/17 09/13/17 07:08 09:30 09:50 WBC RBC Hgb Hct MCV MCH MCHC RDW Plt Count Carbonic Acid 1.68 H HCO3/H2CO3 Ratio 16:1 ABG pH 7.32 L ABG pCO2 55.9 H ABG pO2 100.6 H ABG HCO3 28.4 H ABG O2 Saturation 97.1 ABG Base Excess 1.4 FiO2 45% Sodium Potassium Chloride Carbon Dioxide Anion Gap BUN Creatinine Est GFR ( Amer) Est GFR (Non-Af Amer) Glucose Lactic Acid 0.6 L Calcium Magnesium Total Bilirubin AST ALT Alkaline Phosphatase Total Protein Albumin Vitamin B12 411.0 09/13/17 09/14/17 09/14/17 12:45 03:49 03:49 WBC 5.5 RBC 3.59 L Hgb 10.6 L Hct 31.7 L MCV 88 MCH 29.6 MCHC 33.6 RDW 13.3 Plt Count 161 Carbonic Acid HCO3/H2CO3 Ratio ABG pH ABG pCO2 ABG pO2 ABG HCO3 ABG O2 Saturation ABG Base Excess FiO2 Sodium 144.9 Potassium 3.9 Chloride 110 H Carbon Dioxide 25 Anion Gap 10 BUN 6 L Creatinine 0.52 Est GFR ( Amer) > 60 Est GFR (Non-Af Amer) > 60 Glucose 175 H Lactic Acid 0.7 Calcium 8.0 L Magnesium 1.8 Total Bilirubin < 0.1 L AST 23 ALT 27 Alkaline Phosphatase 75 Total Protein 5.4 L Albumin 2.7 L Vitamin B12 09/14/17 04:50 WBC RBC Hgb Hct MCV MCH MCHC RDW Plt Count Carbonic Acid 1.29 HCO3/H2CO3 Ratio 20:1 ABG pH 7.41 ABG pCO2 42.7 ABG pO2 123.8 H ABG HCO3 26.3 H ABG O2 Saturation 98.5 H ABG Base Excess 1.4 FiO2 45% Sodium Potassium Chloride Carbon Dioxide Anion Gap BUN Creatinine Est GFR ( Amer) Est GFR (Non-Af Amer) Glucose Lactic Acid Calcium Magnesium Total Bilirubin AST ALT Alkaline Phosphatase Total Protein Albumin Vitamin B12 09/13/17 09/13/17 09/13/17 01:56 07:08 12:45 Troponin I 0.018 0.016 < 0.012 NT-Pro-B Natriuret Pep 09/14/17 03:49 Troponin I NT-Pro-B Natriuret Pep 859 Impressions: Chest X-Ray 09/14/17 06:00 IMPRESSION: New right basilar airspace disease atelectasis versus pneumonia. Endotracheal tube tip 3 cm above the vane Assessment & Plan - Diagnosis (1) Acute and chronic respiratory failure with hypoxia Is this a current diagnosis for this admission?: Yes Plan: Became tachypnea and tachycardic as well as highly agitated during sedation vacation patient unable to protect airway (2) Acute encephalopathy Is this a current diagnosis for this admission?: Yes Plan: Currently etiology not known (3) COPD exacerbation Is this a current diagnosis for this admission?: Yes Plan: Generic Name Dose Route Start Last Admin Trade Name Freq PRN Reason Stop Dose Admin Albuterol 2.5 mg 09/13/17 01:28 Ventolin 0.083% Neb 2.5 Mg/3 Ml Ampul NEB 10/13/17 01:27 RTQ4HP PRN SHORTNESS OF BREATH Albuterol/Ipratropium 3 ml 09/13/17 02:00 09/13/17 14:34 Duoneb 3 Ml Ampul NEB 10/13/17 01:59 Not Given RTQ6 LAMBERTO Methylprednisolone Sodium Succinate 60 mg 09/13/17 14:00 09/13/17 13:38 Solu-Medrol Inj/Pf 40 Mg/1 Ml Sdv IV 10/13/17 13:59 60 mg Q8 LAMBERTO (4) Hypotension Qualifiers: Hypotension type: hypotension due to drug Qualified Code(s): I95.2 - Hypotension due to drugs Is this a current diagnosis for this admission?: Yes - Time Total Critical Time (Minutes): 40
[2017-09-14] MEDS: PAROXETINE HCL 20 MG TABLET PO SCH (21:10)
[2017-09-15] MEDS: PROPOFOL 100 ML IV PRN ×2 (01:52→05:31)
[2017-09-15] MEDS: IPRATROPIUM/ALBUTEROL 0.5-2.5 MG/3 ML AMPUL NEB SCH ×4 (02:20→21:01)
[2017-09-15 04:06] LABS: HEMATOCRIT 32.2 % (36.0-47.0); HEMOGLOBIN 10.8 g/dL (12.0-15.5); MEAN CORPUSCULAR HEMOGLOBIN 29.7 pg (27.0-33.4); MEAN CORPUSCULAR HGB CONC 33.6 g/dL (32.0-36.0); MEAN CORPUSCULAR VOLUME 89 fl (80-97); RED BLOOD COUNT 3.64 10^6/uL (3.72-5.28); RED CELL DISTRIBUTION WIDTH 13.6 % (11.5-14.0); WHITE BLOOD COUNT 4.6 10^3/uL (4.0-10.5)
[2017-09-15 04:18] LABS: ANION GAP 8 (5-19); BLOOD UREA NITROGEN 11 mg/dL (7-20); CALCIUM 8.3 mg/dL (8.4-10.2); CARBON DIOXIDE 27 mmol/L (22-30); CHLORIDE 109 mmol/L (98-107); GLUCOSE 165 mg/dL (75-110); POTASSIUM 3.4 mmol/L (3.6-5.0)
[2017-09-15 04:26] LABS: ABSOLUTE LYMPHOCYTES# (MANUAL) 0.1 10^3/uL (0.5-4.7); ABSOLUTE MONOCYTES # (MANUAL) 0.1 10^3/uL (0.1-1.4); ABSOLUTE NEUTROPHILS# (MANUAL) 4.4 10^3/uL (1.7-8.2); BASOPHILS % (MANUAL) 0 % (0-2); EOSINOPHILS % (MANUAL) 0 % (0-6); LYMPHOCYTES % (MANUAL) 3 % (13-45); MONOCYTES % (MANUAL) 2 % (3-13); SEGMENTED NEUTROPHILS % (MAN) 95 % (42-78); TOTAL CELLS COUNTED 100
[2017-09-15 04:27] LABS: PLATELET CLUMPS PRESENT; PLATELET COMMENT ADEQUATE
[2017-09-15 04:29] LABS: HYPOCHROMASIA SLIGHT; POLYCHROMASIA SLIGHT
[2017-09-15 04:30] LABS: PLATELET COUNT 187 10^3/uL (150-450)
[2017-09-15] MEDS: PIPERACILLIN SODIUM/TAZOBACTAM 3.375 GM in NORMAL SALINE 100 ML IV SCH ×4 (05:14→23:31)
[2017-09-15] MEDS: FUROSEMIDE INJ/PF 20 MG/2 ML SDV IV SCH ×2 (05:14→17:00)
[2017-09-15] MEDS: METHYLPREDNISOLONE INJ 40 MG/1 ML SDV IV SCH ×3 (05:15→17:00)
[2017-09-15] MEDS: HEPARIN SOD (PORCINE) 5,000 UNIT/ML 1 ML SYRINGE SUBCUT SCH ×3 (05:15→21:26)
[2017-09-15 05:19] LABS: ARTERIAL BLOOD BASE EXCESS 3.3 mmol/L; ARTERIAL BLOOD H2CO3 1.05 mmol/L (1.05-1.35); ARTERIAL BLOOD HCO3 26.4 mmol/L (20-26); ARTERIAL BLOOD O2 SATURATION 98.5 % (94-98); ARTERIAL BLOOD PO2 114.1 mmHg (80-100); ARTERIAL BLOOD TOTAL CO2 27.5 mmol/L (21-25)
[2017-09-15 05:20] LABS: ARTERIAL BLOOD FIO2 45%
[2017-09-15] MEDS: MIDAZOLAM HCL 50 MG/100 ML RTUINJ IV PRN (05:31)
[2017-09-15] MEDS ORDERED: POTASSIUM CHLORIDE 20 MEQ/15 ML UDCUP PO ONE (06:49)
--- NOTE | 2017-09-15 07:38 | RADIOLOGY REPORT (SQ) ---
EXAM DESCRIPTION: CHEST SINGLE VIEW CLINICAL HISTORY: 61 years Female, debra failure COMPARISON: One day prior. NUMBER OF VIEWS/TECHNIQUE: 1/AP FINDINGS: Small right basilar opacity-effusion, prominent interstitium, normal cardiac silhouette, atherosclerosis, adequate appearing endotracheal tube, adequate appearing enteric tube. No pneumothorax. No acute bone defect. IMPRESSION: No significant change.
[2017-09-15] MEDS: PANTOPRAZOLE SODIUM 40 MG VIAL IV SCH (09:02)
[2017-09-15] MEDS: BUPROPION HCL 75 MG TABLET PO SCH (09:41)
--- NOTE | 2017-09-15 11:23 | PDOC PROGRESS REPORT ---
Subjective Progress Note for:: 09/15/17 Subjective:: Intubated and sedated Reason For Visit: ACUTE ON CHRONIC RESPIRATORY FAILURE Physical Exam Vital Signs: Temp Pulse Resp BP Pulse Ox 97.9 F 90 20 114/63 98 09/14/17 23:53 09/15/17 07:41 09/15/17 06:21 09/15/17 06:21 09/15/17 06:21 Intake & Output 09/14/17 09/15/17 09/16/17 06:59 06:59 06:59 Intake Total 3724 1973 Output Total 7 5450 Balance 1669 -847 Weight 55.7 kg 55 kg General appearance: PRESENT: no acute distress, cooperative, disheveled Head exam: PRESENT: atraumatic, normocephalic Eye exam: PRESENT: conjunctiva pale, EOMI. ABSENT: nystagmus, periorbital swelling, scleral icterus Mouth exam: PRESENT: dry mucosa, neck supple, tongue midline, other - ET tube Neck exam: ABSENT: carotid bruit, JVD, lymphadenopathy, thyromegaly, tracheal deviation, tracheostomy Respiratory exam: PRESENT: decreased breath sounds, prolonged expiratory phas, rales, rhonchi, symmetrical, unlabored. ABSENT: retraction, stridor, tachypnea Cardiovascular exam: PRESENT: RRR, +S1, +S2, tachycardia Pulses: PRESENT: normal radial pulses GI/Abdominal exam: PRESENT: diminished bowel sounds, soft - [id number] Gentrourinary exam: PRESENT: indwelling catheter Extremities exam: PRESENT: joint swelling. ABSENT: calf tenderness, clubbing Musculoskeletal exam: ABSENT: deformity, dislocation Neurological exam: PRESENT: awake Skin exam: PRESENT: dry, warm Results Laboratory Results: 09/15/17 03:51 09/15/17 03:51 09/15/17 09/15/17 09/15/17 03:51 03:51 05:00 WBC 4.6 RBC 3.64 L Hgb 10.8 L Hct 32.2 L MCV 89 MCH 29.7 MCHC 33.6 RDW 13.6 Plt Count 187 Seg Neutrophils % Not Reportable Lymphocytes % Not Reportable Monocytes % Not Reportable Eosinophils % Not Reportable Basophils % Not Reportable Absolute Neutrophils Not Reportable Absolute Lymphocytes Not Reportable Absolute Monocytes Not Reportable Absolute Eosinophils Not Reportable Absolute Basophils Not Reportable Carbonic Acid 1.05 HCO3/H2CO3 Ratio 25:1 ABG pH 7.50 H ABG pCO2 35.0 ABG pO2 114.1 H ABG HCO3 26.4 H ABG O2 Saturation 98.5 H ABG Base Excess 3.3 FiO2 45% Sodium 144.0 Potassium 3.4 L Chloride 109 H Carbon Dioxide 27 Anion Gap 8 BUN 11 Creatinine 0.60 Est GFR ( Amer) > 60 Est GFR (Non-Af Amer) > 60 Glucose 165 H Calcium 8.3 L Magnesium 1.7 09/13/17 09/13/17 09/13/17 01:56 07:08 12:45 Troponin I 0.018 0.016 < 0.012 NT-Pro-B Natriuret Pep 09/14/17 03:49 Troponin I NT-Pro-B Natriuret Pep 859 Impressions: Chest X-Ray 09/15/17 06:00 IMPRESSION: No significant change. Assessment & Plan - Diagnosis (1) Acute and chronic respiratory failure with hypoxia Is this a current diagnosis for this admission?: Yes Plan: extubate (2) Acute encephalopathy Is this a current diagnosis for this admission?: Yes Plan: improved (3) COPD exacerbation Is this a current diagnosis for this admission?: Yes Plan: Generic Name Dose Route Start Last Admin Trade Name Freq PRN Reason Stop Dose Admin Albuterol 2.5 mg 09/13/17 01:28 Ventolin 0.083% Neb 2.5 Mg/3 Ml Ampul NEB 10/13/17 01:27 [id number] PRN SHORTNESS OF BREATH Albuterol/Ipratropium 3 ml 09/13/17 02:00 09/13/17 14:34 Duoneb 3 Ml Ampul NEB 10/13/17 01:59 Not Given RTQ6 LAMBERTO Methylprednisolone Sodium Succinate 60 mg 09/13/17 14:00 09/13/17 13:38 Solu-Medrol Inj/Pf 40 Mg/1 Ml Sdv IV 10/13/17 13:59 60 mg Q8 LAMBERTO (4) Hypotension Qualifiers: Hypotension type: hypotension due to drug Qualified Code(s): I95.2 - Hypotension due to drugs Is this a current diagnosis for this admission?: Yes - Time Total Critical Time (Minutes): 55
--- NOTE | 2017-09-15 15:18 | PDOC PROGRESS REPORT ---
Subjective Progress Note for:: 09/15/17 Subjective:: Unable to obtain since sedated. Daughter is at bedside and updated about patient 's medical condition Review of systems Unable to obtain since sedated All significant laboratories and diagnostics have been reviewed Reason For Visit: ACUTE ON CHRONIC RESPIRATORY FAILURE Physical Exam Vital Signs: Temp Pulse Resp BP Pulse Ox 97.9 F 100 20 114/63 98 09/14/17 23:53 09/15/17 02:20 09/15/17 06:21 09/15/17 06:21 09/15/17 06:21 Intake & Output 09/13/17 09/14/17 09/15/17 06:59 06:59 06:59 Intake Total 3724 1973 Output Total 9857 8700 Balance 1669 -847 Weight 55.7 kg 55 kg General appearance: PRESENT: other - Sedated Head exam: PRESENT: atraumatic, normocephalic Eye exam: PRESENT: conjunctiva pink, EOMI, PERRLA Ear exam: PRESENT: normal external ear exam Mouth exam: PRESENT: moist Neck exam: PRESENT: full ROM. ABSENT: JVD, lymphadenopathy, tenderness Respiratory exam: PRESENT: clear to auscultation madhavi Cardiovascular exam: PRESENT: RRR. ABSENT: diastolic murmur, systolic murmur Vascular exam: PRESENT: normal capillary refill GI/Abdominal exam: PRESENT: normal bowel sounds, soft. ABSENT: tenderness Extremities exam: PRESENT: full ROM, pedal edema Musculoskeletal exam: PRESENT: ambulatory Neurological exam: PRESENT: other - Sedated Skin exam: PRESENT: normal color Results Laboratory Results: 09/15/17 03:51 09/15/17 03:51 09/15/17 09/15/17 09/15/17 03:51 03:51 05:00 WBC 4.6 RBC 3.64 L Hgb 10.8 L Hct 32.2 L MCV 89 MCH 29.7 MCHC 33.6 RDW 13.6 Plt Count 187 Seg Neutrophils % Not Reportable Lymphocytes % Not Reportable Monocytes % Not Reportable Eosinophils % Not Reportable Basophils % Not Reportable Absolute Neutrophils Not Reportable Absolute Lymphocytes Not Reportable Absolute Monocytes Not Reportable Absolute Eosinophils Not Reportable Absolute Basophils Not Reportable Carbonic Acid 1.05 HCO3/H2CO3 Ratio 25:1 ABG pH 7.50 H ABG pCO2 35.0 ABG pO2 114.1 H ABG HCO3 26.4 H ABG O2 Saturation 98.5 H ABG Base Excess 3.3 FiO2 45% Sodium 144.0 Potassium 3.4 L Chloride 109 H Carbon Dioxide 27 Anion Gap 8 BUN 11 Creatinine 0.60 Est GFR ( Amer) > 60 Est GFR (Non-Af Amer) > 60 Glucose 165 H Calcium 8.3 L Magnesium 1.7 09/13/17 09/13/17 09/13/17 01:56 07:08 12:45 Troponin I 0.018 0.016 < 0.012 NT-Pro-B Natriuret Pep 09/14/17 03:49 Troponin I NT-Pro-B Natriuret Pep 859 Assessment & Plan - Diagnosis (1) Acute and chronic respiratory failure with hypoxia Is this a current diagnosis for this admission?: Yes Plan: Continues requiring ventilatory support. Dr Mario managing ventilator. Patient got agitated yesterday and did not tolerate weaning off (2) Acute encephalopathy Is this a current diagnosis for this admission?: Yes Plan: Appears to be secondary to CO2 narcosis. Order ammonia level (3) COPD exacerbation Is this a current diagnosis for this admission?: Yes Plan: We will continue nebulizer treatment and IV steroids. (4) Hypotension Qualifiers: Hypotension type: hypotension due to drug Qualified Code(s): I95.2 - Hypotension due to drugs Is this a current diagnosis for this admission?: Yes Plan: Resolved (5) Lactic acidosis Is this a current diagnosis for this admission?: Yes Plan: Likely due to hypoperfusion. Resolved (6) Diastolic dysfunction with acute on chronic heart failure Is this a current diagnosis for this admission?: Yes Plan: Continue Lasix IV and will start Norvasc (7) Pulmonary hypertension Is this a current diagnosis for this admission?: Yes Plan: May relate to diastolic dysfunction vs cor pulmonale (8) PNA (pneumonia) Qualifiers: Pneumonia type: due to unspecified organism Laterality: left Lung location: lower lobe of lung Qualified Code(s): J18.1 - Lobar pneumonia, unspecified organism Is this a current diagnosis for this admission?: Yes Plan: Continue Zosyn IV (9) HTN (hypertension) Qualifiers: Hypertension type: essential hypertension Qualified Code(s): I10 - Essential (primary) hypertension Is this a current diagnosis for this admission?: Yes Plan: Start Norvasc (10) History of hepatitis C Is this a current diagnosis for this admission?: No Plan: As per daughter stable - Time Time Spent with patient: 15-24 minutes Medications reviewed and adjusted accordingly: Yes Anticipated discharge: Acute Rehab - Unable to determine at this time - Inpatient Certification Based on my medical assessment, after consideration of the patient's comorbidities, presenting symptoms, or acuity I expect that the services needed warrant INPATIENT care.: Yes I certify that my determination is in accordance with my understanding of Medicare's requirements for reasonable and necessary INPATIENT services [42 CFR 412.3e].: Yes Medical Necessity: Need Close Monitoring Due to Risk of Patient Decompensation, Need for Nebulizer Therapy and Monitoring of Response, Need for IV Antibiotics
[2017-09-15] MEDS: ACETAMINOPHEN 325 MG TABLET PO PRN ×2 (16:47→21:26)
[2017-09-15] MEDS: AMLODIPINE BESYLATE 5 MG TABLET PO SCH (16:49)
[2017-09-15] MEDS: PAROXETINE HCL 20 MG TABLET PO SCH (21:25)
[2017-09-16] MEDS: IPRATROPIUM/ALBUTEROL 0.5-2.5 MG/3 ML AMPUL NEB SCH ×4 (02:55→20:13)
[2017-09-16 04:13] LABS: ABSOLUTE LYMPHOCYTES (AUTO) 0.7 10^3/uL (0.5-4.7); ABSOLUTE MONOCYTES (AUTO) 0.4 10^3/uL (0.1-1.4); ABSOLUTE NEUT (AUTO) 3.6 10^3/uL (1.7-8.2); BASOPHILS % (AUTO) 0.1 % (0-2); HEMATOCRIT 37.3 % (36.0-47.0); HEMOGLOBIN 12.3 g/dL (12.0-15.5); LYMPHOCYTES % (AUTO) 14.3 % (13-45); MEAN CORPUSCULAR HEMOGLOBIN 29.1 pg (27.0-33.4); MEAN CORPUSCULAR HGB CONC 32.9 g/dL (32.0-36.0); MEAN CORPUSCULAR VOLUME 88 fl (80-97); MONOCYTES % (AUTO) 8.5 % (3-13); PLATELET COUNT 190 10^3/uL (150-450); RED BLOOD COUNT 4.23 10^6/uL (3.72-5.28); RED CELL DISTRIBUTION WIDTH 13.6 % (11.5-14.0); SEGMENTED NEUTROPHILS % (AUTO) 77.1 % (42-78); TOTAL CELLS COUNTED % (AUTO) 100 %; WHITE BLOOD COUNT 4.7 10^3/uL (4.0-10.5)
[2017-09-16 04:34] LABS: ALANINE AMINOTRANSFERASE 40 U/L (9-52); ALBUMIN 3.4 g/dL (3.5-5.0); ALKALINE PHOSPHATASE 75 U/L (38-126); ANION GAP 13 (5-19); ASPARTATE AMINO TRANSFERASE 63 U/L (14-36); BILIRUBIN,DIRECT 0.5 mg/dL (0.0-0.4); BILIRUBIN,TOTAL 0.5 mg/dL (0.2-1.3); BLOOD UREA NITROGEN 18 mg/dL (7-20); CALCIUM 8.6 mg/dL (8.4-10.2); CARBON DIOXIDE 31 mmol/L (22-30); CHLORIDE 104 mmol/L (98-107); GLUCOSE 120 mg/dL (75-110); POTASSIUM 3.4 mmol/L (3.6-5.0); SODIUM 147.8 mmol/L (137-145); TOTAL PROTEIN 6.6 g/dL (6.3-8.2)
[2017-09-16] MEDS: PIPERACILLIN SODIUM/TAZOBACTAM 3.375 GM in NORMAL SALINE 100 ML IV SCH ×4 (05:39→23:14)
[2017-09-16] MEDS: METHYLPREDNISOLONE INJ 40 MG/1 ML SDV IV SCH ×2 (05:40→17:55)
[2017-09-16] MEDS: FUROSEMIDE INJ/PF 20 MG/2 ML SDV IV SCH (05:40)
[2017-09-16] MEDS: HEPARIN SOD (PORCINE) 5,000 UNIT/ML 1 ML SYRINGE SUBCUT SCH ×3 (05:40→21:40)
[2017-09-16 06:11] LABS: ARTERIAL BLOOD BASE EXCESS 7.2 mmol/L; ARTERIAL BLOOD H2CO3 1.18 mmol/L (1.05-1.35); ARTERIAL BLOOD HCO3 30.7 mmol/L (20-26); ARTERIAL BLOOD O2 SATURATION 95.7 % (94-98); ARTERIAL BLOOD PCO2 39.3 mmHg (35-45); ARTERIAL BLOOD PH 7.51 (7.35-7.45); ARTERIAL BLOOD PO2 71.4 mmHg (80-100); ARTERIAL BLOOD TOTAL CO2 31.9 mmol/L (21-25)
[2017-09-16 06:14] LABS: ARTERIAL BLOOD FIO2 2L
--- NOTE | 2017-09-16 06:45 | RADIOLOGY REPORT (SQ) ---
EXAM DESCRIPTION: CHEST SINGLE VIEW CLINICAL HISTORY: 61 years Female, resp failure COMPARISON: One day prior. NUMBER OF VIEWS/TECHNIQUE: 1/AP FINDINGS: Interval extubation. Small bilateral costophrenic obscuration/effusion, normal cardiac silhouette, and prominent interstitium. No pneumothorax. No acute bone defect. IMPRESSION: Interval extubation. Else, stable.
[2017-09-16] MEDS ORDERED: POTASSIUM CHLORIDE 20 MEQ/15 ML UDCUP PO ONE (07:38)
--- NOTE | 2017-09-16 11:53 | PDOC PROGRESS REPORT ---
Subjective Progress Note for:: 09/16/17 Subjective:: awake alert Reason For Visit: ACUTE ON CHRONIC RESPIRATORY FAILURE Physical Exam Vital Signs: Temp Pulse Resp BP Pulse Ox 98.6 F 92 14 136/71 H 95 09/16/17 05:43 09/16/17 07:44 09/16/17 06:03 09/16/17 06:03 09/16/17 06:03 Intake & Output 09/15/17 09/16/17 09/17/17 06:59 06:59 06:59 Intake Total 1973 749 Output Total 2820 1150 Balance -847 -460 Weight 55 kg 50 kg General appearance: PRESENT: no acute distress, cooperative, disheveled, well- developed, well-nourished Head exam: PRESENT: atraumatic, normocephalic Eye exam: PRESENT: conjunctiva pale, EOMI. ABSENT: nystagmus, periorbital swelling, scleral icterus Mouth exam: PRESENT: moist, neck supple, tongue midline Neck exam: ABSENT: carotid bruit, JVD, lymphadenopathy, thyromegaly, tracheal deviation, tracheostomy Respiratory exam: PRESENT: decreased breath sounds, prolonged expiratory phas, rales, rhonchi, unlabored. ABSENT: retraction, stridor, tachypnea Cardiovascular exam: PRESENT: RRR, +S1, +S2 Pulses: PRESENT: normal radial pulses GI/Abdominal exam: PRESENT: diminished bowel sounds, soft Extremities exam: ABSENT: calf tenderness, clubbing, joint swelling Musculoskeletal exam: ABSENT: deformity, dislocation Neurological exam: PRESENT: awake Skin exam: PRESENT: dry, warm Results Laboratory Results: 09/16/17 04:04 09/16/17 04:04 09/16/17 09/16/17 09/16/17 04:04 04:04 04:04 WBC 4.7 RBC 4.23 Hgb 12.3 Hct 37.3 MCV 88 MCH 29.1 MCHC 32.9 RDW 13.6 Plt Count 190 Seg Neutrophils % 77.1 Lymphocytes % 14.3 Monocytes % 8.5 Eosinophils % 0.0 Basophils % 0.1 Absolute Neutrophils 3.6 Absolute Lymphocytes 0.7 Absolute Monocytes 0.4 Absolute Eosinophils 0.0 Absolute Basophils 0.0 Carbonic Acid HCO3/H2CO3 Ratio ABG pH ABG pCO2 ABG pO2 ABG HCO3 ABG O2 Saturation ABG Base Excess FiO2 Sodium 147.8 H Potassium 3.4 L Chloride 104 Carbon Dioxide 31 H Anion Gap 13 BUN 18 Creatinine 0.72 Est GFR ( Amer) > 60 Est GFR (Non-Af Amer) > 60 Glucose 120 H Calcium 8.6 Magnesium 2.0 Total Bilirubin 0.5 AST 63 H ALT 40 Alkaline Phosphatase 75 Ammonia 14.6 Total Protein 6.6 Albumin 3.4 L 09/16/17 05:35 WBC RBC Hgb Hct MCV MCH MCHC RDW Plt Count Seg Neutrophils % Lymphocytes % Monocytes % Eosinophils % Basophils % Absolute Neutrophils Absolute Lymphocytes Absolute Monocytes Absolute Eosinophils Absolute Basophils Carbonic Acid 1.18 HCO3/H2CO3 Ratio 26:1 ABG pH 7.51 H ABG pCO2 39.3 ABG pO2 71.4 L ABG HCO3 30.7 H ABG O2 Saturation 95.7 ABG Base Excess 7.2 FiO2 2L Sodium Potassium Chloride Carbon Dioxide Anion Gap BUN Creatinine Est GFR ( Amer) Est GFR (Non-Af Amer) Glucose Calcium Magnesium Total Bilirubin AST ALT Alkaline Phosphatase Ammonia Total Protein Albumin 09/13/17 09/13/17 09/13/17 01:56 07:08 12:45 Troponin I 0.018 0.016 < 0.012 NT-Pro-B Natriuret Pep 09/14/17 03:49 Troponin I NT-Pro-B Natriuret Pep 859 Impressions: Chest X-Ray 09/16/17 06:00 IMPRESSION: Interval extubation. Else, stable. Assessment & Plan - Diagnosis (1) Acute and chronic respiratory failure with hypoxia Is this a current diagnosis for this admission?: Yes Plan: extubate (2) Acute encephalopathy Is this a current diagnosis for this admission?: Yes Plan: improved (3) COPD exacerbation Is this a current diagnosis for this admission?: Yes Plan: Generic Name Dose Route Start Last Admin Trade Name Freq PRN Reason Stop Dose Admin Albuterol 2.5 mg 09/13/17 01:28 Ventolin 0.083% Neb 2.5 Mg/3 Ml Ampul NEB 10/13/17 01:27 [id number] PRN SHORTNESS OF BREATH Albuterol/Ipratropium 3 ml 09/13/17 02:00 09/13/17 14:34 Duoneb 3 Ml Ampul NEB 10/13/17 01:59 Not Given RTQ6 LAMBERTO Methylprednisolone Sodium Succinate 60 mg 09/13/17 14:00 09/13/17 13:38 Solu-Medrol Inj/Pf 40 Mg/1 Ml Sdv IV 10/13/17 13:59 60 mg Q8 LAMBERTO (4) Hypotension Qualifiers: Hypotension type: hypotension due to drug Qualified Code(s): I95.2 - Hypotension due to drugs Is this a current diagnosis for this admission?: No - Time Total Critical Time (Minutes): 35
[2017-09-16] MEDS: BUPROPION HCL 75 MG TABLET PO SCH (11:55)
[2017-09-16] MEDS ORDERED: POTASSIUM CHLORIDE 20 MEQ/15 ML UDCUP ONE (11:58)
--- NOTE | 2017-09-16 14:14 | PDOC PROGRESS REPORT ---
Subjective Progress Note for:: 09/16/17 Subjective:: Patient denies any complaints but would like to have Joy removed. Patient states that she cannot remember what happened to her Patient extubated on September 15 and tolerated extubation Review of systems All organ systems evaluated and negative except as in subjective All significant laboratories and diagnostics have been reviewed Reason For Visit: ACUTE ON CHRONIC RESPIRATORY FAILURE Physical Exam Vital Signs: Temp Pulse Resp BP Pulse Ox 98.6 F 93 14 136/71 H 95 09/16/17 05:43 09/16/17 02:55 09/16/17 06:03 09/16/17 06:03 09/16/17 06:03 Intake & Output 09/15/17 09/16/17 09/17/17 06:59 06:59 06:59 Intake Total 1973 749 Output Total 2820 7270 Balance -847 4602 Weight 55 kg 50 kg General appearance: PRESENT: no acute distress, cooperative, well-developed, well-nourished Head exam: PRESENT: atraumatic, normocephalic Eye exam: PRESENT: conjunctiva pink, EOMI, PERRLA Ear exam: PRESENT: normal external ear exam Mouth exam: PRESENT: moist Neck exam: PRESENT: full ROM. ABSENT: JVD, lymphadenopathy, tenderness Respiratory exam: PRESENT: clear to auscultation madhavi Cardiovascular exam: PRESENT: RRR. ABSENT: diastolic murmur, systolic murmur Vascular exam: PRESENT: normal capillary refill GI/Abdominal exam: PRESENT: normal bowel sounds, soft. ABSENT: tenderness Extremities exam: PRESENT: full ROM. ABSENT: pedal edema Musculoskeletal exam: PRESENT: ambulatory Neurological exam: PRESENT: alert, awake, oriented to person, oriented to place , oriented to time, oriented to situation Psychiatric exam: PRESENT: appropriate affect, normal mood Skin exam: PRESENT: pallor Results Laboratory Results: 09/16/17 04:04 09/16/17 04:04 09/16/17 09/16/17 09/16/17 04:04 04:04 04:04 WBC 4.7 RBC 4.23 Hgb 12.3 Hct 37.3 MCV 88 MCH 29.1 MCHC 32.9 RDW 13.6 Plt Count 190 Seg Neutrophils % 77.1 Lymphocytes % 14.3 Monocytes % 8.5 Eosinophils % 0.0 Basophils % 0.1 Absolute Neutrophils 3.6 Absolute Lymphocytes 0.7 Absolute Monocytes 0.4 Absolute Eosinophils 0.0 Absolute Basophils 0.0 Carbonic Acid HCO3/H2CO3 Ratio ABG pH ABG pCO2 ABG pO2 ABG HCO3 ABG O2 Saturation ABG Base Excess FiO2 Sodium 147.8 H Potassium 3.4 L Chloride 104 Carbon Dioxide 31 H Anion Gap 13 BUN 18 Creatinine 0.72 Est GFR ( Amer) > 60 Est GFR (Non-Af Amer) > 60 Glucose 120 H Calcium 8.6 Magnesium 2.0 Total Bilirubin 0.5 AST 63 H ALT 40 Alkaline Phosphatase 75 Ammonia 14.6 Total Protein 6.6 Albumin 3.4 L 09/16/17 05:35 WBC RBC Hgb Hct MCV MCH MCHC RDW Plt Count Seg Neutrophils % Lymphocytes % Monocytes % Eosinophils % Basophils % Absolute Neutrophils Absolute Lymphocytes Absolute Monocytes Absolute Eosinophils Absolute Basophils Carbonic Acid 1.18 HCO3/H2CO3 Ratio 26:1 ABG pH 7.51 H ABG pCO2 39.3 ABG pO2 71.4 L ABG HCO3 30.7 H ABG O2 Saturation 95.7 ABG Base Excess 7.2 FiO2 2L Sodium Potassium Chloride Carbon Dioxide Anion Gap BUN Creatinine Est GFR ( Amer) Est GFR (Non-Af Amer) Glucose Calcium Magnesium Total Bilirubin AST ALT Alkaline Phosphatase Ammonia Total Protein Albumin 09/13/17 09/13/17 09/13/17 01:56 07:08 12:45 Troponin I 0.018 0.016 < 0.012 NT-Pro-B Natriuret Pep 09/14/17 03:49 Troponin I NT-Pro-B Natriuret Pep 859 Impressions: Chest X-Ray 09/16/17 06:00 IMPRESSION: Interval extubation. Else, stable. Assessment & Plan - Diagnosis (1) Acute and chronic respiratory failure with hypoxia Is this a current diagnosis for this admission?: Yes Plan: Extubated yesterday currently on nasal cannula. Patient advised to use oxygen as prescribed on a regular basis to improve respiratory status instead of leaving it at her daughter's house (2) Acute encephalopathy Is this a current diagnosis for this admission?: Yes Plan: Appears to be secondary to CO2 narcosis. Resolved. Ammonia level normal (3) COPD exacerbation Is this a current diagnosis for this admission?: Yes Plan: We will continue nebulizer treatment and IV steroids. (4) Hypotension Qualifiers: Hypotension type: hypotension due to drug Qualified Code(s): I95.2 - Hypotension due to drugs Is this a current diagnosis for this admission?: Yes Plan: Resolved. Due to starting of propofol (5) Lactic acidosis Is this a current diagnosis for this admission?: Yes Plan: Likely due to hypoperfusion. Resolved (6) Diastolic dysfunction with acute on chronic heart failure Is this a current diagnosis for this admission?: Yes Plan: Continue Norvasc and transition to oral Lasix (7) Pulmonary hypertension Is this a current diagnosis for this admission?: Yes Plan: May relate to diastolic dysfunction vs cor pulmonale. Optimize respiratory status and continue Lasix (8) PNA (pneumonia) Qualifiers: Pneumonia type: due to unspecified organism Laterality: left Lung location: lower lobe of lung Qualified Code(s): J18.1 - Lobar pneumonia, unspecified organism Is this a current diagnosis for this admission?: Yes Plan: Continue Zosyn IV (9) HTN (hypertension) Qualifiers: Hypertension type: essential hypertension Qualified Code(s): I10 - Essential (primary) hypertension Is this a current diagnosis for this admission?: Yes Plan: Start Norvasc (10) History of hepatitis C Is this a current diagnosis for this admission?: No Plan: As per daughter stable (11) Hypokalemia Is this a current diagnosis for this admission?: Yes Plan: Replace p.o. and trend - Time Time Spent with patient: 15-24 minutes Medications reviewed and adjusted accordingly: Yes Anticipated discharge: Acute Rehab Within: within 48 hours - Inpatient Certification Based on my medical assessment, after consideration of the patient's comorbidities, presenting symptoms, or acuity I expect that the services needed warrant INPATIENT care.: Yes I certify that my determination is in accordance with my understanding of Medicare's requirements for reasonable and necessary INPATIENT services [42 CFR 412.3e].: Yes Medical Necessity: Need Close Monitoring Due to Risk of Patient Decompensation, Need for Nebulizer Therapy and Monitoring of Response, Need for IV Antibiotics
--- NOTE | 2017-09-16 15:49 | Progress Note ---
Provider Note Provider Note: ID Consult Note Asked to review the patient's chart by Pharmacy. Pt not seen and examined. Reviewed VS, labs, imaging reports, provider reports. Ms. Loza is a 61 yo woman who was admitted on 09/13/17 with acute hypoxic respiratory failure and decreased responsiveness. She required intubation and mechanical ventilation. Her workup included chest x-rays that showed R basilar infiltrate. Blood cultures were negative x 3 days. Urine culture was negative. Tracheal aspirate grew Strep pneumoniae and normal jone. She was empirically given Levaquin on presentation for suspected COPD exacerbation, which was then changed to Zosyn. She was successfully extubated to supplemental O2 by [place]. Impression/Recommendations acute hypoxic respiratory failure due to pneumococcal pneumonia - The patient had hypoxia, respiratory failure, RLL infiltrate, and Strep pneumo isolated from tracheal aspirate; she is not bacteremic, and she improved on treatment that ought to be active against Strep pneumo, although broader than required now that the pathogen has been identified - Zosyn can be de-escalated to Rocephin 2 g IV daily to target Strep pneumo. - Duration of therapy is usually in the range of 5-7 days, depending on clinical response. Kei Richter MD, [facility] Infectious Diseases pager [phone]
[2017-09-16] MEDS: AMLODIPINE BESYLATE 5 MG TABLET PO SCH (17:55)
[2017-09-16] MEDS: PAROXETINE HCL 20 MG TABLET PO SCH (21:39)
[2017-09-17] MEDS: IPRATROPIUM/ALBUTEROL 0.5-2.5 MG/3 ML AMPUL NEB SCH ×4 (02:39→19:55)
[2017-09-17 04:04] LABS: ABSOLUTE LYMPHOCYTES (AUTO) 0.9 10^3/uL (0.5-4.7); ABSOLUTE MONOCYTES (AUTO) 0.5 10^3/uL (0.1-1.4); ABSOLUTE NEUT (AUTO) 3.2 10^3/uL (1.7-8.2); BASOPHILS % (AUTO) 0.5 % (0-2); EOSINOPHILS % (AUTO) 0.5 % (0-6); MEAN CORPUSCULAR HEMOGLOBIN 29.4 pg (27.0-33.4); MEAN CORPUSCULAR HGB CONC 33.4 g/dL (32.0-36.0); MEAN CORPUSCULAR VOLUME 88 fl (80-97); MONOCYTES % (AUTO) 10.6 % (3-13); PLATELET COUNT 190 10^3/uL (150-450); RED BLOOD COUNT 4.42 10^6/uL (3.72-5.28); RED CELL DISTRIBUTION WIDTH 13.6 % (11.5-14.0); SEGMENTED NEUTROPHILS % (AUTO) 69.4 % (42-78); TOTAL CELLS COUNTED % (AUTO) 100 %; WHITE BLOOD COUNT 4.6 10^3/uL (4.0-10.5)
[2017-09-17 04:21] LABS: ANION GAP 5 (5-19); BLOOD UREA NITROGEN 14 mg/dL (7-20); CALCIUM 8.7 mg/dL (8.4-10.2); CARBON DIOXIDE 38 mmol/L (22-30); CHLORIDE 100 mmol/L (98-107); GLUCOSE 125 mg/dL (75-110); POTASSIUM 3.8 mmol/L (3.6-5.0); SODIUM 143.4 mmol/L (137-145)
[2017-09-17] MEDS: PIPERACILLIN SODIUM/TAZOBACTAM 3.375 GM in NORMAL SALINE 100 ML IV SCH (05:54)
[2017-09-17] MEDS: METHYLPREDNISOLONE INJ 40 MG/1 ML SDV IV SCH (05:55)
[2017-09-17] MEDS: HEPARIN SOD (PORCINE) 5,000 UNIT/ML 1 ML SYRINGE SUBCUT SCH ×3 (05:55→21:10)
[2017-09-17] MEDS ORDERED: LANSOPRAZOLE 15 MG TAB.RAP.DR PO ONE (08:25)
[2017-09-17] MEDS: LORAZEPAM 0.5 MG TABLET PO PRN ×2 (08:57→14:24)
[2017-09-17] MEDS: IBUPROFEN 800 MG TABLET PO PRN (09:11)
[2017-09-17] MEDS: LACTOBACILLUS ACIDOPHILUS 250 MG TAB PO SCH ×2 (09:13→17:07)
[2017-09-17] MEDS: BUPROPION HCL 75 MG TABLET PO SCH (09:14)
[2017-09-17] MEDS ORDERED: TIZANIDINE HCL 4 MG TABLET PO ONE (09:30)
[2017-09-17] MEDS ORDERED: CEFTRIAXONE 2 GM/D5W RTU 2 GM/50 ML RTUPB IV SCH (10:00)
[2017-09-17] MEDS ORDERED: FUROSEMIDE 20 MG TABLET PO SCH (10:00)
[2017-09-17] MEDS ORDERED: PREDNISONE 20 MG TABLET PO SCH (10:00)
[2017-09-17] MEDS: TIZANIDINE HCL 4 MG TABLET PO SCH ×2 (13:23→17:08)
--- NOTE | 2017-09-17 15:39 | RADIOLOGY REPORT (SQ) ---
EXAM DESCRIPTION: CTA CHEST COMPLETED DATE/TIME: 09/17/2017 3:27 pm REASON FOR STUDY: eval for PE COMPARISON: None. TECHNIQUE: CT scan of the chest performed using helical scanning technique with dynamic intravenous contrast injection. Images reviewed with lung, soft tissue and bone windows. Reconstructed coronal and sagittal MPR images reviewed. Additional 3 dimensional post-processing performed to develop Maximal Intensity Projection images (MN P). All images stored on PACS. All CT scanners at this facility use dose modulation, iterative reconstruction, and/or weight based d osing when appropriate to reduce radiation dose to as low as reasonably achievable (ALARA). [facility]: Dose Right [facility]: CareDose [facility]: Dose Right [facility]: Teradose 4D [facility]: McPhy CONTRAST TYPE AND DOSE: contrast/concentration: Isovue 370.00 mg/ml; Total Contrast Delivered: 56.0 ml; Total Saline Delivered: 101.0 ml Contrast bolus optimized for the pulmonary arteries. Not diagnostic for the aorta. RENAL FUNCTION: GFR > 60. RADIATION DOSE: CT Rad equipment meets quality standard of care and radiation dose reduction techniq ues were employed. CTDIvol: 6.1 - 9.4 mGy. DLP: 228 mGy-cm. . LIMITATIONS: None. FINDINGS: LUNGS AND PLEURA: No masses, infiltrates, pneumothorax. No pleural effusions, calcificati ons. AORTA AND GREAT VESSELS: No aneurysm. Contrast bolus not optimized for the aorta. HEART: No pericardial effusion. PULMONARY ARTERIES: No emboli visualized in the main pulmonary arteries or the segmental branches. HILAR AND MEDIASTINAL STRUCTURES: No identified masses or abnormal nodes. HARDWARE: None in the chest. UPPER ABDOMEN: Limited exam. Cirrhosis. Chronic pancreatitis. THYROID AND OTHER SOFT TISSUES: No masses. No adenopathy. BONES: No acute findings. 3D MIPS: Confirm above findings. OTHER: No other significant finding. IMPRESSION: No PE. No acute findings in the chest. COMMENT: Quality ID # [id number]: Final reports with documentation of one or more dose reduction techniques (e.g., Automated exposure control, adjustment of the mA and/or kV according to patient size, use of iterative reconstruction technique) TECHNICAL DOCUMENTATION: JOB ID: [id number] [employer]- All Rights Reserved Reading location - IP/workstation name: [facility]
[2017-09-17] MEDS: AMLODIPINE BESYLATE 5 MG TABLET PO SCH (17:07)
--- NOTE | 2017-09-17 19:00 | PDOC PROGRESS REPORT ---
Subjective Progress Note for:: 09/17/17 Subjective:: Patient is breathing well this morning. She has a dry cough. No sputum. No chest pain. When she coughs her throat hurts and we talked about the likelihood that this is related to the ET tube that has now been removed. She feels that her heart is racing a little bit. She feels slightly anxious. No fevers or chills. She finally slept well last night. Appetite is improving. She is weak but ready to try to walk around the unit. No obvious pleuritic chest pain. Reason For Visit: ACUTE ON CHRONIC RESPIRATORY FAILURE Physical Exam Vital Signs: Temp Pulse Resp BP Pulse Ox 98.0 F 97 20 136/79 H 97 09/17/17 16:00 09/17/17 16:00 09/17/17 18:00 09/17/17 16:35 09/17/17 16:35 Intake & Output 09/16/17 09/17/17 09/18/17 06:59 06:59 06:59 Intake Total 749 824 864 Output Total 5350 1577 1310 Balance -4601 -753 -446 Weight 50 kg 48.5 kg General appearance: PRESENT: no acute distress, cooperative, thin Head exam: PRESENT: atraumatic, normocephalic Eye exam: PRESENT: EOMI. ABSENT: scleral icterus Ear exam: PRESENT: normal external ear exam Mouth exam: PRESENT: moist, neck supple, tongue midline Neck exam: PRESENT: lymphadenopathy. ABSENT: tenderness Respiratory exam: PRESENT: clear to auscultation madhavi, decreased breath sounds, unlabored. ABSENT: rales, rhonchi, wheezes Cardiovascular exam: PRESENT: tachycardia. ABSENT: systolic murmur Pulses: PRESENT: normal radial pulses Vascular exam: PRESENT: normal capillary refill GI/Abdominal exam: PRESENT: normal bowel sounds, soft. ABSENT: distended, mass , tenderness Rectal exam: PRESENT: deferred Extremities exam: ABSENT: pedal edema, tenderness Musculoskeletal exam: PRESENT: normal inspection Neurological exam: PRESENT: alert, awake, oriented to person, oriented to place , oriented to situation, CN II-XII grossly intact Psychiatric exam: PRESENT: anxious, appropriate affect Skin exam: PRESENT: dry, intact, warm Results Laboratory Results: 09/17/17 03:47 09/17/17 03:47 09/17/17 09/17/17 03:47 03:47 WBC 4.6 RBC 4.42 Hgb 13.0 Hct 39.0 MCV 88 MCH 29.4 MCHC 33.4 RDW 13.6 Plt Count 190 Seg Neutrophils % 69.4 Lymphocytes % 19.0 Monocytes % 10.6 Eosinophils % 0.5 Basophils % 0.5 Absolute Neutrophils 3.2 Absolute Lymphocytes 0.9 Absolute Monocytes 0.5 Absolute Eosinophils 0.0 Absolute Basophils 0.0 Sodium 143.4 Potassium 3.8 Chloride 100 Carbon Dioxide 38 H Anion Gap 5 BUN 14 Creatinine 0.65 Est GFR ( Amer) > 60 Est GFR (Non-Af Amer) > 60 Glucose 125 H Calcium 8.7 Magnesium 1.7 09/13/17 11:18 Tracheal Aspirate Gram Stain - Final 09/13/17 11:18 Tracheal Aspirate Sputum Culture - Final Streptococcus Pneumoniae Normal Marivel 09/13/17 09/13/17 09/13/17 01:56 07:08 12:45 Troponin I 0.018 0.016 < 0.012 NT-Pro-B Natriuret Pep 09/14/17 03:49 Troponin I NT-Pro-B Natriuret Pep 859 Impressions: Chest X-Ray 09/16/17 06:00 IMPRESSION: Interval extubation. Else, stable. Chest/Abdomen CTA 09/17/17 00:00 IMPRESSION: No PE. No acute findings in the chest. Assessment & Plan - Diagnosis (1) Acute and chronic respiratory failure with hypoxia Is this a current diagnosis for this admission?: Yes Plan: Multifactorial with COPD, heart failure and pneumonia all playing roles. Underlying conditions are being treated. Patient was intubated in the ER and yesterday with extubated. She is doing well and will continue current care. (2) CO2 narcosis Is this a current diagnosis for this admission?: Yes Plan: Resolved. This was th likely the main cause of her encephalopathy. (3) COPD exacerbation Is this a current diagnosis for this admission?: Yes Plan: Improving. No wheezing today. We will begin steroid taper. Patient has been tachycardic and feeling anxious and so I have stopped her [id number]-[id number] duo nebs and now they are as needed only. (4) Diastolic dysfunction with acute on chronic heart failure Is this a current diagnosis for this admission?: Yes Plan: Much improved. Continue oral Lasix. (5) History of hepatitis C Is this a current diagnosis for this admission?: No Plan: Patient was treated with Harvoni. 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 (6) Hypotension Qualifiers: Hypotension type: hypotension due to drug Qualified Code(s): I95.2 - Hypotension due to drugs Is this a current diagnosis for this admission?: Yes Plan: Resolved. Amlodipine restarted. Lasix restarted and she is tolerating these well. (7) PNA (pneumonia) Qualifiers: Pneumonia type: due to unspecified organism Laterality: left Lung location: lower lobe of lung Qualified Code(s): J18.1 - Lobar pneumonia, unspecified organism Is this a current diagnosis for this admission?: Yes Plan: Is growing strep pneumo in her lungs. We have de-escalated from Zosyn to ceftriaxone. Will continue antibiotics for 5-7 days. - Time Time Spent with patient: 35 or more minutes Smoking Cessation Education: 3 to 10 minutes Medications reviewed and adjusted accordingly: Yes - Inpatient Certification Based on my medical assessment, after consideration of the patient's comorbidities, presenting symptoms, or acuity I expect that the services needed warrant INPATIENT care.: Yes I certify that my determination is in accordance with my understanding of Medicare's requirements for reasonable and necessary INPATIENT services [42 CFR 412.3e].: Yes Medical Necessity: Need Close Monitoring Due to Risk of Patient Decompensation, Need For Continuous Telemetry Monitoring, Risk of Complication if Not Cared For in Hospital
[2017-09-17] MEDS: MELATONIN 3 MG TABLET PO SCH (21:09)
[2017-09-17] MEDS: BUDESONIDE/FORMOTEROL 160-4.5 MCG 60 PUFF/6 GM MDI IH SCH (21:09)
[2017-09-17] MEDS: PAROXETINE HCL 20 MG TABLET PO SCH (21:09)
[2017-09-18] MEDS: IBUPROFEN 800 MG TABLET PO PRN ×2 (03:10→12:16)
[2017-09-18] MEDS: LORAZEPAM 0.5 MG TABLET PO PRN (04:33)
[2017-09-18 04:59] LABS: HEMATOCRIT 40.2 % (36.0-47.0); HEMOGLOBIN 13.3 g/dL (12.0-15.5); MEAN CORPUSCULAR HEMOGLOBIN 29.2 pg (27.0-33.4); MEAN CORPUSCULAR HGB CONC 33.1 g/dL (32.0-36.0); MEAN CORPUSCULAR VOLUME 88 fl (80-97); PLATELET COUNT 167 10^3/uL (150-450); RED BLOOD COUNT 4.56 10^6/uL (3.72-5.28); RED CELL DISTRIBUTION WIDTH 13.2 % (11.5-14.0); WHITE BLOOD COUNT 4.9 10^3/uL (4.0-10.5)
[2017-09-18] MEDS: HEPARIN SOD (PORCINE) 5,000 UNIT/ML 1 ML SYRINGE SUBCUT SCH ×2 (05:29→13:50)
[2017-09-18 05:31] LABS: ANION GAP 9 (5-19); BLOOD UREA NITROGEN 17 mg/dL (7-20); CALCIUM 9.1 mg/dL (8.4-10.2); CARBON DIOXIDE 33 mmol/L (22-30); CHLORIDE 98 mmol/L (98-107); GLUCOSE 167 mg/dL (75-110); POTASSIUM 3.3 mmol/L (3.6-5.0); SODIUM 139.9 mmol/L (137-145)
[2017-09-18] MEDS: ACETAMINOPHEN 325 MG TABLET PO PRN ×2 (05:35→17:57)
[2017-09-18] MEDS ORDERED: PROMETHAZINE HCL 25 MG TABLET PO PRN (07:59)
[2017-09-18] MEDS ORDERED: LANSOPRAZOLE 15 MG TAB.RAP.DR PO ONE (09:00)
[2017-09-18 09:30] LABS: CREATINE KINASE MB 0.63 ng/mL (<4.55)
[2017-09-18 09:36] LABS: TROPONIN I < 0.012 ng/mL
[2017-09-18] MEDS ORDERED: PREDNISONE 20 MG TABLET PO SCH (10:00)
[2017-09-18] MEDS: POTASSIUM CHLORIDE 10 MEQ TABLET.SA PO SCH ×2 (10:05→13:49)
[2017-09-18] MEDS: LISINOPRIL 10 MG TABLET PO SCH (10:06)
[2017-09-18] MEDS: LACTOBACILLUS ACIDOPHILUS 250 MG TAB PO SCH ×2 (10:06→17:57)
[2017-09-18] MEDS: LORAZEPAM 0.5 MG TABLET PO SCH ×2 (10:07→17:59)
[2017-09-18] MEDS: BUPROPION HCL 75 MG TABLET PO SCH (10:07)
[2017-09-18] MEDS: TIZANIDINE HCL 4 MG TABLET PO SCH ×3 (10:08→18:00)
[2017-09-18] MEDS: BUDESONIDE/FORMOTEROL 160-4.5 MCG 60 PUFF/6 GM MDI IH SCH (10:09)
[2017-09-18] MEDS: TIOTROPIUM BROMIDE DPI 5 CAP/KIT (18 MCG/CAP) IH SCH (10:10)
[2017-09-18] MEDS: CEFUROXIME 500 MG TABLET PO SCH ×2 (10:25→18:00)
[2017-09-18 16:06] LABS: CREATINE KINASE MB 0.44 ng/mL (<4.55)
[2017-09-18 16:07] LABS: TROPONIN I < 0.012 ng/mL
--- NOTE | 2017-09-18 17:48 | PDOC PROGRESS REPORT ---
Subjective Progress Note for:: 09/18/17 Subjective:: Patient slept relatively well last night. No chest pain or difficulty breathing. No cough or sputum production. No fever or chills. She is feeling weak and would like to get up out of bed to chair and walk around the unit. She is eating relatively well. Is a little bit anxious. Reason For Visit: ACUTE ON CHRONIC RESPIRATORY FAILURE Physical Exam Vital Signs: Temp Pulse Resp BP Pulse Ox 97.8 F 113 H 14 118/74 95 09/18/17 12:00 09/18/17 08:00 09/18/17 12:00 09/18/17 12:11 09/18/17 12:00 Intake & Output 09/17/17 09/18/17 09/19/17 06:59 06:59 06:59 Intake Total 824 2135 Output Total 1577 2560 126 Balance -753 -425 -126 Weight 48.5 kg 49.5 kg General appearance: PRESENT: no acute distress, cooperative, thin Head exam: PRESENT: atraumatic, normocephalic Eye exam: PRESENT: EOMI, scleral icterus Mouth exam: PRESENT: tongue midline Respiratory exam: PRESENT: clear to auscultation madhavi, unlabored. ABSENT: rales , rhonchi, wheezes Cardiovascular exam: PRESENT: RRR. ABSENT: systolic murmur Pulses: PRESENT: normal radial pulses GI/Abdominal exam: PRESENT: normal bowel sounds, soft. ABSENT: distended, tenderness Extremities exam: PRESENT: +2 edema Neurological exam: PRESENT: alert, awake, oriented to person, oriented to place , oriented to situation, CN II-XII grossly intact Psychiatric exam: PRESENT: anxious, appropriate affect Skin exam: PRESENT: dry, intact, warm Results Laboratory Results: 09/18/17 04:47 09/18/17 04:47 09/18/17 09/18/17 09/18/17 04:47 04:47 08:45 WBC 4.9 RBC 4.56 Hgb 13.3 Hct 40.2 MCV 88 MCH 29.2 MCHC 33.1 RDW 13.2 Plt Count 167 Sodium 139.9 Potassium 3.3 L Chloride 98 Carbon Dioxide 33 H Anion Gap 9 BUN 17 Creatinine 0.57 Est GFR ( Amer) > 60 Est GFR (Non-Af Amer) > 60 Glucose 167 H Calcium 9.1 Magnesium 1.8 TSH 2.63 04/23/18 04/23/18 04/23/18 01:56 07:08 12:45 Creatine Kinase CK-MB (CK-2) Troponin I 0.018 0.016 < 0.012 NT-Pro-B Natriuret Pep 09/14/17 09/18/17 09/18/17 03:49 08:45 08:45 Creatine Kinase 27 L CK-MB (CK-2) 0.63 Troponin I < 0.012 NT-Pro-B Natriuret Pep 859 09/18/17 09/18/17 15:08 15:08 Creatine Kinase 23 L CK-MB (CK-2) 0.44 Troponin I < 0.012 NT-Pro-B Natriuret Pep Impressions: Chest X-Ray 09/16/17 06:00 IMPRESSION: Interval extubation. Else, stable. Chest/Abdomen CTA 09/17/17 00:00 IMPRESSION: No PE. No acute findings in the chest. Assessment & Plan - Diagnosis (1) Acute and chronic respiratory failure with hypoxia Is this a current diagnosis for this admission?: Yes Plan: This was a LT factorial acute respiratory failure with hypoxemia. Patient has COPD and also she has a strep pneumo pneumonia. She was extubated several days ago and has been doing well since. CTA of the chest was negative for PE. (2) CO2 narcosis Is this a current diagnosis for this admission?: Yes (3) COPD exacerbation Is this a current diagnosis for this admission?: Yes Plan: Probably due to continued tobacco use and pneumonia. She is back to her baseline. (4) Diastolic dysfunction with acute on chronic heart failure Is this a current diagnosis for this admission?: Yes Plan: Stable. Continue current Lasix dosing. She will remain on Lasix for discharge. (5) History of hepatitis C Is this a current diagnosis for this admission?: No Plan: Treated with Harvoni. Followed by gastroenterology. (6) Hypotension Qualifiers: Hypotension type: hypotension due to drug Qualified Code(s): I95.2 - Hypotension due to drugs Is this a current diagnosis for this admission?: Yes Plan: Resolved. Monitor blood pressure on telemetry. Her home meds have been restarted now. (7) PNA (pneumonia) Qualifiers: Pneumonia type: due to unspecified organism Laterality: left Lung location: lower lobe of lung Qualified Code(s): J18.1 - Lobar pneumonia, unspecified organism Is this a current diagnosis for this admission?: Yes Plan: Cryptococcal pneumonia. She is on a third-generation cefuroxime 500 mg po BID.For a total of 5 days. (8) Chronic back pain Is this a current diagnosis for this admission?: Yes Plan: Improved now that she has been started on her home dosing of tizanidine. (9) Anxiety disorder Qualifiers: Anxiety disorder type: generalized anxiety disorder Qualified Code(s): F41.1 - Generalized anxiety disorder Is this a current diagnosis for this admission?: Yes Plan: Improved now that she has been started on her home dosing of Ativan. (10) Tachycardia Is this a current diagnosis for this admission?: Yes Plan: Improved today. Improved with treatment of anxiety and back pain. Improved with discontinuation of ljenqf-[id number]-wwlbn duo nebs. Negative CTA of the chest. Cardiac enzymes negative. Continue to monitor closely. - Time Time Spent with patient: 35 or more minutes Medications reviewed and adjusted accordingly: Yes Anticipated discharge: Home - Inpatient Certification Based on my medical assessment, after consideration of the patient's comorbidities, presenting symptoms, or acuity I expect that the services needed warrant INPATIENT care.: Yes I certify that my determination is in accordance with my understanding of Medicare's requirements for reasonable and necessary INPATIENT services [42 CFR 412.3e].: Yes Medical Necessity: Significant Comorbidiites Make Outpatient Treatment Too Risky , Need Close Monitoring Due to Risk of Patient Decompensation, Risk of Complication if Not Cared For in Hospital
[2017-09-18] MEDS: AMLODIPINE BESYLATE 5 MG TABLET PO SCH (17:59)
[2017-09-18 22:00] LABS: CREATINE KINASE MB 0.41 ng/mL (<4.55)
[2017-09-18 22:03] LABS: TROPONIN I < 0.012 ng/mL
[2017-09-19] MEDS: MELATONIN 3 MG TABLET PO SCH (01:15)
[2017-09-19] MEDS: BUDESONIDE/FORMOTEROL 160-4.5 MCG 60 PUFF/6 GM MDI IH SCH ×2 (01:16→09:23)
[2017-09-19] MEDS: PAROXETINE HCL 20 MG TABLET PO SCH (01:16)
[2017-09-19] MEDS: HEPARIN SOD (PORCINE) 5,000 UNIT/ML 1 ML SYRINGE SUBCUT SCH ×3 (01:18→13:16)
[2017-09-19] MEDS: IBUPROFEN 800 MG TABLET PO PRN (05:48)
[2017-09-19] MEDS ORDERED: LANSOPRAZOLE 15 MG TAB.RAP.DR PO SCH (08:00)
[2017-09-19] MEDS ORDERED: LORAZEPAM 0.5 MG TABLET PO PRN (08:10)
[2017-09-19] MEDS: TIOTROPIUM BROMIDE DPI 5 CAP/KIT (18 MCG/CAP) IH SCH (09:23)
[2017-09-19] MEDS ORDERED: LORAZEPAM 1 MG TABLET ONE (09:23)
[2017-09-19] MEDS: CEFUROXIME 500 MG TABLET PO SCH (09:24)
[2017-09-19] MEDS: LISINOPRIL 10 MG TABLET PO SCH (09:24)
[2017-09-19] MEDS: TIZANIDINE HCL 4 MG TABLET PO SCH ×2 (09:25→13:15)
[2017-09-19] MEDS: LACTOBACILLUS ACIDOPHILUS 250 MG TAB PO SCH (09:25)
[2017-09-19] MEDS: BUPROPION HCL 75 MG TABLET PO SCH (09:26)
[2017-09-19 09:27] LABS: ANION GAP 11 (5-19); BLOOD UREA NITROGEN 18 mg/dL (7-20); CALCIUM 9.4 mg/dL (8.4-10.2); CARBON DIOXIDE 33 mmol/L (22-30); CHLORIDE 94 mmol/L (98-107); GLUCOSE 144 mg/dL (75-110); POTASSIUM 4.5 mmol/L (3.6-5.0); SODIUM 137.5 mmol/L (137-145)
[2017-09-19] MEDS ORDERED: PREDNISONE 10 MG TABLET PO SCH (10:00)
[2017-09-19] MEDS ORDERED: LORAZEPAM 1 MG TABLET PO ONE (10:00)
--- NOTE | 2017-09-19 14:15 | PDOC DISCHARGE SUMMARY ---
General - Admit/Disc Date/PCP Admission Date/Primary Care Provider: 09/13/17 00:24 Dr. Herrera Discharge Date: 09/19/17 - Discharge Diagnosis (1) Acute and chronic respiratory failure with hypoxia Is this a current diagnosis for this admission?: Yes Summary: Patient has known COPD. He wears oxygen at night at home. She is trying to quit smoking. She was found by neighbors obtunded. She was brought into the hospital with acute on chronic respiratory failure and underwent intubation. She was found to have a strep pneumo pneumonia. She was extubated, treated complete movement for strep pneumo pneumonia. Is back to her baseline. (2) CO2 narcosis Is this a current diagnosis for this admission?: Yes Summary: Secondary to lung infection and underlying COPD. Patient is now back to baseline. She is started back on her COPD meds as prescribed by her primary doctor. (3) COPD exacerbation Is this a current diagnosis for this admission?: Yes Summary: She was treated initially with intubation. She was successfully extubated. She has been on bronchodilators and steroids with a taper. I believe that the steroids are causing her to feel anxious and have a little bit of tachycardia and these are overall improving with steroid taper. She has been on steroids since the admission and due to the tachycardia and feelings of anxiety I am not going to discharge her on steroids. She is not wheezing. She feels back to baseline from a pulmonary perspective. She is motivated to quit smoking. (4) Diastolic dysfunction with acute on chronic heart failure Is this a current diagnosis for this admission?: Yes Summary: This was found on echocardiogram. Patient was diuresed with Lasix. I am sending her back out to her primary care doctor for continued care for the diastolic heart failure. She is being discharged on an JAIDA inhibitor and low- dose carvedilol. (5) History of hepatitis C Is this a current diagnosis for this admission?: No Summary: Treated with Harvoni, she reports full cure (6) Hypotension Is this a current diagnosis for this admission?: Yes Summary: Occurred after propofol administration. Resolved. Now she is on amlodipine and lisinopril for hypertension. (7) PNA (pneumonia) Is this a current diagnosis for this admission?: Yes Summary: Completed 7 days of treatment with Levaquin and then cephalosporins. (8) Chronic back pain Is this a current diagnosis for this admission?: Yes Summary: Patient continued on her tizanidine once she was extubated. Her chronic back pain is at baseline. (9) Anxiety disorder Is this a current diagnosis for this admission?: Yes Summary: When she was extubated she was started on her home Ativan. This made her feel somewhat less anxious but the anxiety did continue. She also felt a little jittery. She received several extra doses of Ativan. I think that the continued feelings of anxiety have to do with the prednisone which is being discontinued on day of discharge. (10) Tachycardia Is this a current diagnosis for this admission?: Yes Summary: Patient had an elevated d-dimer on admission. With this in the tachycardia we obtain CTA of the chest to evaluate for PE and none was found. She also had cardiac enzymes trended and those were negative. EKG not consistent with an acute coronary syndrome. Also we stopped her albuterol secondary to the tachycardia and she did well without it. I think the persistent mild tachycardia is related to steroids which are making her feel a little bit anxious as well. We anticipate that this will resolve in the next few days. She knows to return to medical care if it does not and if she continues to feel jittery and anxious. - Additional Information Resuscitation Status: Full Code Prescriptions: Amlodipine Besylate [Norvasc 5 mg Tablet] 5 mg PO QPM 30 Days #30 tablet Lisinopril [Prinivil 10 mg Tablet] 20 mg PO DAILY 30 Days #30 tablet Home Medications: Budesonide/Formoterol Fumarate [Symbicort HFA 160-4.5 mcg Inhaler 6 gm] 2 puff IH Q12 09/13/17 Bupropion HCl [Wellbutrin 75 mg Tablet] 75 mg PO DAILY 09/13/17 Ergocalciferol (Vitamin D2) [Drisdol 50,000 unit (1.25MG) Capsule] 50,000 unit PO .QWEEKLY MDD WILL UPDATE WHEN AWAKE 09/13/17 Lorazepam [Ativan 0.5 mg Tablet] 0.5 mg PO Q12HP PRN 09/13/17 Omeprazole 20 mg PO QAM 09/13/17 Paroxetine HCl [Paxil 20 mg Tablet] 20 mg PO QHS 09/13/17 Promethazine HCl [Phenergan 25 mg Tablet] 25 mg PO BIDP PRN 09/13/17 Tiotropium Coffey [Spiriva Handihaler 18 mcg/dose (30 Dose)] 1 cap IH DAILY Tizanidine HCl [Zanaflex 4 mg Tablet] 4 mg PO Q8HP PRN 09/13/17 Amlodipine Besylate [Norvasc 5 mg Tablet] 5 mg PO QPM 30 Days #30 tablet Lisinopril [Prinivil 10 mg Tablet] 20 mg PO DAILY 30 Days #30 tablet 09/19/17 Lorazepam [Ativan 0.5 mg Tablet] 0.5 mg PO Q8HP PRN tablet 09/19/17 History of Present Illness Patient complains of: pt obtunded: Minimal responsiveness and hypoxia with reported oxygen saturation of 42% on room air. History of Present Illness: ADY YEUNG is a 61 year old woman with history of most likely COPD was admitted with above-mentioned complaints. The patient was admitted as a [place] [place]. She was intubated in the ED so most of the history was obtained from the ED physician/notes and nursing staff. According to the ED note, EMS was called to this patient's residence since she was found by unidentified person minimally responsive who told them that she had lung disease. Upon arrival, EMS found her very lethargic with oxygen saturation of 42%. They started bagging her and her oxygen saturation improved to 90% so she was transported to the hospital and got intubated in the ED. Per ED nursing staff, the patient was very somnolent but had episodes of full responsiveness although she was incoherent. There is no other history provided at this time. In the ED, her temperature was 97.2, heart rate 124, respiratory rate 21, blood pressure 125/92 with oxygen saturation of 98% on room air. She received 1 g Rocephin 1 and 2 L of normal saline since her blood pressure dropped after she was intubated and started on Propofol drip. She was then switched to Versed drip since Proprofol was not providing enough sedation and she was breathing over the vent. Physical Exam Vital Signs: Temp Pulse Resp BP Pulse Ox 98.6 F 96 16 143/71 H 95 09/19/17 12:00 09/19/17 08:00 09/18/17 16:00 09/19/17 07:56 09/18/17 12:00 Intake & Output 09/18/17 09/19/17 09/20/17 06:59 06:59 06:59 Intake Total 2135 0 500 Output Total 2560 2626 200 Balance -425 -2626 300 Weight 49.5 kg General appearance: PRESENT: no acute distress, cooperative, thin Head exam: PRESENT: atraumatic, normocephalic Eye exam: PRESENT: EOMI Mouth exam: PRESENT: moist, tongue midline Respiratory exam: PRESENT: decreased breath sounds, prolonged expiratory phas, unlabored. ABSENT: rales, rhonchi, wheezes Cardiovascular exam: PRESENT: tachycardia. ABSENT: systolic murmur Pulses: PRESENT: normal radial pulses GI/Abdominal exam: PRESENT: normal bowel sounds, soft. ABSENT: distended, tenderness Extremities exam: ABSENT: pedal edema Neurological exam: PRESENT: alert, awake, oriented to person, oriented to place , oriented to situation, CN II-XII grossly intact Psychiatric exam: PRESENT: anxious, appropriate affect Skin exam: PRESENT: dry, intact, warm Results Laboratory Results: 09/18/17 04:47 09/19/17 09:03 09/19/17 09:03 Sodium 137.5 Potassium 4.5 Chloride 94 L Carbon Dioxide 33 H Anion Gap 11 BUN 18 Creatinine 0.64 Est GFR ( Amer) > 60 Est GFR (Non-Af Amer) > 60 Glucose 144 H Calcium 9.4 09/13/17 09/13/17 09/13/17 01:56 07:08 12:45 Creatine Kinase CK-MB (CK-2) Troponin I 0.018 0.016 < 0.012 NT-Pro-B Natriuret Pep 09/14/17 09/18/17 09/18/17 03:49 08:45 08:45 Creatine Kinase 27 L CK-MB (CK-2) 0.63 Troponin I < 0.012 NT-Pro-B Natriuret Pep 859 09/18/17 09/18/17 09/18/17 15:08 15:08 21:13 Creatine Kinase 23 L 20 L CK-MB (CK-2) 0.44 Troponin I < 0.012 NT-Pro-B Natriuret Pep 09/18/17 21:13 Creatine Kinase CK-MB (CK-2) 0.41 Troponin I < 0.012 NT-Pro-B Natriuret Pep Impressions: Chest X-Ray 09/16/17 06:00 IMPRESSION: Interval extubation. Else, stable. Chest/Abdomen CTA 09/17/17 00:00 IMPRESSION: No PE. No acute findings in the chest. Qualifiers - * PATIENT BEING DISCHARGED WITH ANY OF THE FOLLOWING DIAGNOSIS: Heart Failure HF Pt being discharged on ACEI for LVEF less than 40%?: No Reason(s) for not prescribing ACEI:: Not indicated HF Pt being discharged on ARBS for LVEF less than 40%?: No Reason(s) for not prescribing ARBS:: Not indicated HF Pt with Afib discharged with Warfarin?: No Reason(s) for not prescribing Warfarin:: Not indicated HF Pt discharged on evidence-based Beta Lalito:: Yes Plan Discharge Plan: Discharge to home. Return to medical care with concerning symptoms. Close follow-up with primary care doctor recommended. Precription's sent to her pharmacy [facility] on [address]. Time Spent: Greater than 30 Minutes
[2017-09-19 14:29] VITALS: BP 113/68
--- NOTE | 2017-09-19 15:41 | PDOC PROGRESS REPORT ---
Subjective Progress Note for:: 09/17/17 Subjective:: awake alert Reason For Visit: ACUTE ON CHRONIC RESPIRATORY FAILURE Physical Exam Vital Signs: Temp Pulse Resp BP Pulse Ox 98.0 F 112 H 15 132/63 H 95 09/17/17 08:00 09/17/17 08:41 09/17/17 10:00 09/17/17 09:08 09/17/17 09:08 Intake & Output 09/16/17 09/17/17 09/18/17 06:59 06:59 06:59 Intake Total 749 824 Output Total 5350 1577 200 Balance -4601 -753 -200 Weight 50 kg 48.5 kg General appearance: PRESENT: no acute distress, cooperative, disheveled Head exam: PRESENT: atraumatic, normocephalic Eye exam: PRESENT: conjunctiva pale, EOMI. ABSENT: nystagmus, periorbital swelling, scleral icterus Mouth exam: PRESENT: moist, neck supple, tongue midline Neck exam: ABSENT: carotid bruit, JVD, lymphadenopathy, thyromegaly, tracheal deviation, tracheostomy Respiratory exam: PRESENT: decreased breath sounds, prolonged expiratory phas, rhonchi, unlabored Cardiovascular exam: PRESENT: RRR, +S1, +S2 Pulses: PRESENT: normal radial pulses GI/Abdominal exam: PRESENT: diminished bowel sounds, soft Extremities exam: ABSENT: calf tenderness, clubbing, joint swelling Musculoskeletal exam: ABSENT: deformity, dislocation Neurological exam: PRESENT: alert, awake Skin exam: PRESENT: dry, warm Results Laboratory Results: 09/17/17 03:47 09/17/17 03:47 09/17/17 09/17/17 03:47 03:47 WBC 4.6 RBC 4.42 Hgb 13.0 Hct 39.0 MCV 88 MCH 29.4 MCHC 33.4 RDW 13.6 Plt Count 190 Seg Neutrophils % 69.4 Lymphocytes % 19.0 Monocytes % 10.6 Eosinophils % 0.5 Basophils % 0.5 Absolute Neutrophils 3.2 Absolute Lymphocytes 0.9 Absolute Monocytes 0.5 Absolute Eosinophils 0.0 Absolute Basophils 0.0 Sodium 143.4 Potassium 3.8 Chloride 100 Carbon Dioxide 38 H Anion Gap 5 BUN 14 Creatinine 0.65 Est GFR ( Amer) > 60 Est GFR (Non-Af Amer) > 60 Glucose 125 H Calcium 8.7 Magnesium 1.7 09/13/17 11:18 Tracheal Aspirate Gram Stain - Final 09/13/17 11:18 Tracheal Aspirate Sputum Culture - Final Streptococcus Pneumoniae Normal Marivel 09/13/17 09/13/17 09/13/17 01:56 07:08 12:45 Troponin I 0.018 0.016 < 0.012 NT-Pro-B Natriuret Pep 09/14/17 03:49 Troponin I NT-Pro-B Natriuret Pep 859 Impressions: Chest X-Ray 09/16/17 06:00 IMPRESSION: Interval extubation. Else, stable. Assessment & Plan - Diagnosis (1) Acute and chronic respiratory failure with hypoxia Is this a current diagnosis for this admission?: Yes Plan: stable post extubation (2) Acute encephalopathy Is this a current diagnosis for this admission?: Yes Plan: improved (3) COPD exacerbation Is this a current diagnosis for this admission?: Yes Plan: Generic Name Dose Route Start Last Admin Trade Name Freq PRN Reason Stop Dose Admin Albuterol 2.5 mg 09/13/17 01:28 Ventolin 0.083% Neb 2.5 Mg/3 Ml Ampul NEB 10/13/17 01:27 RTQ4HP PRN SHORTNESS OF BREATH Albuterol/Ipratropium 3 ml 09/13/17 02:00 09/13/17 14:34 Duoneb 3 Ml Ampul NEB 10/13/17 01:59 Not Given RTQ6 LAMBERTO Methylprednisolone Sodium Succinate 60 mg 09/13/17 14:00 09/13/17 13:38 Solu-Medrol Inj/Pf 40 Mg/1 Ml Sdv IV 10/13/17 13:59 60 mg Q8 LAMBERTO (4) Hypotension Qualifiers: Hypotension type: hypotension due to drug Qualified Code(s): I95.2 - Hypotension due to drugs Is this a current diagnosis for this admission?: Yes Plan: vasopressor - Time Total Critical Time (Minutes): 35
== END 2017-09-19 16:32 | disposition home or self-care (01) | DRG 208 ==
LOC: ER 22:23 → EH 09-13 00:24 → EDBD 09-13 00:24 → ICU 09-13 08:50
PROVIDERS: ADMIT Internal Medicine Geriatric Medicine; ATTEND Internal Medicine Geriatric Medicine
PROC: 5A1945Z Respiratory Ventilation, 24-96 Consecutive Hours (ICD-10-PCS; principal; 2017-09-12)
PROC: 0BH17EZ Insertion of Endotracheal Airway into Trachea, Via Natural or Artificial Opening (ICD-10-PCS; 2017-09-12)
PROC: 3E0F73Z Introduction of Anti-inflammatory into Respiratory Tract, Via Natural or Artificial Opening (ICD-10-PCS; 2017-09-13)
PROC: 5A09357 Assistance with Respiratory Ventilation, Less than 24 Consecutive Hours, Continuous Positive Airway Pressure (ICD-10-PCS; 2017-09-15)
DX: J96.21 Acute and chronic respiratory failure with hypoxia (principal); J13 Pneumonia due to Streptococcus pneumoniae; I50.33 Acute on chronic diastolic (congestive) heart failure; G93.40 Encephalopathy, unspecified; J44.1 Chronic obstructive pulmonary disease with (acute) exacerbation; J44.0 Chronic obstructive pulmonary disease with (acute) lower respiratory infection; E87.2 Acidosis; Z78.1 Physical restraint status; G89.29 Other chronic pain; M54.9 Dorsalgia, unspecified; R79.1 Abnormal coagulation profile; R00.0 Tachycardia, unspecified; I95.2 Hypotension due to drugs; I45.81 Long QT syndrome; I11.0 Hypertensive heart disease with heart failure; E87.6 Hypokalemia; F41.1 Generalized anxiety disorder; Z99.81 Dependence on supplemental oxygen; Z86.19 Personal history of other infectious and parasitic diseases; Z79.899 Other long term (current) drug therapy
CPT/HCPCS: 36415; 51702; 71045; 71275; 80048; 80053; 80307; 81001; 82140; 82550; 82553; 82607; 82803; 82962; 83605; 83690; 83735; 83880; 84443; 84484; 85025; 85027; 85379; 85610; 87040; 87070; 87077; 87086; 87205; 93005; 93010; 93306; 94002; 94003; 94640; 94799; 96365; 99291; 99292; J0330; J0696; J1644; J1815; J1940; J1956; J2250; J2543; J2550; J2704; J2920; J3490; J7030; J7060; J7512; J7620; S0164

== ENCOUNTER 2018-05-16 13:51 | Inpatient (IN) | payer MEDICAID ==
--- NOTE | 2018-05-16 14:42 | RADIOLOGY REPORT (SQ) ---
EXAM DESCRIPTION: CHEST SINGLE VIEW COMPLETED DATE/TIME: 05/16/2018 2:27 pm REASON FOR STUDY: BED 21 DB COMPARISON: CT angio chest 09/17/2017 AP chest 09/16/2017 EXAM PARAMETERS: NUMBER OF VIEWS: One view. TECHNIQUE: Single frontal radiographic view of the chest acquired. RADIATION DOSE: NA LIMITATIONS: None. FINDINGS: LUNGS AND PLEURA: Reticulonodular infiltrate in the periphery of the right lung, question new mild interstitial pulmonary edema. Chronic blunting of the right and left lateral costophrenic sulci. No pleural effusion or pneumothor ax. MEDIASTINUM AND HILAR STRUCTURES: No masses. Contour normal. HEART AND VASCULAR STRUCTURES: Heart normal in size. BONES: No acute findings. HARDWARE: None in the chest. OTHER: No other significant finding. IMPRESSION: Increased interstitial markings in the periphery of the right lung, question asymmetric interstitial pulmonary edema TECHNICAL DOCUMENTATION: JOB ID: [id number] [employer]- All Rights Reserved Reading location - IP/workstation name: [email or web address]
[2018-05-16 14:53] LABS: HEMATOCRIT 38.3 % (36.0-47.0); HEMOGLOBIN 12.8 g/dL (12.0-15.5); MEAN CORPUSCULAR HEMOGLOBIN 29.9 pg (27.0-33.4); MEAN CORPUSCULAR HGB CONC 33.5 g/dL (32.0-36.0); MEAN CORPUSCULAR VOLUME 89 fl (80-97); PLATELET COUNT 471 10^3/uL (150-450); RED BLOOD COUNT 4.29 10^6/uL (3.72-5.28); WHITE BLOOD COUNT 10.1 10^3/uL (4.0-10.5)
[2018-05-16 15:11] LABS: BLOOD UREA NITROGEN 6 mg/dL (7-20); CALCIUM 9.3 mg/dL (8.4-10.2); GLUCOSE 133 mg/dL (75-110)
[2018-05-16 15:12] LABS: ABSOLUTE LYMPHOCYTES# (MANUAL) 0.2 10^3/uL (0.5-4.7); ABSOLUTE MONOCYTES # (MANUAL) 0.6 10^3/uL (0.1-1.4); ABSOLUTE NEUTROPHILS# (MANUAL) 9.2 10^3/uL (1.7-8.2); ALANINE AMINOTRANSFERASE 17 U/L (9-52); ALBUMIN 3.7 g/dL (3.5-5.0); ALKALINE PHOSPHATASE 140 U/L (38-126); ASPARTATE AMINO TRANSFERASE 26 U/L (14-36); BASOPHILS % (MANUAL) 0 % (0-2); BILIRUBIN,DIRECT 0.3 mg/dL (0.0-0.4); BILIRUBIN,TOTAL 0.4 mg/dL (0.2-1.3); CHLORIDE 88 mmol/L (98-107); CREATINE KINASE 44 U/L (30-135); EOSINOPHILS % (MANUAL) 1 % (0-6); LYMPHOCYTES % (MANUAL) 2 % (13-45); MONOCYTES % (MANUAL) 6 % (3-13); POTASSIUM 4.7 mmol/L (3.6-5.0); SEGMENTED NEUTROPHILS % (MAN) 91 % (42-78); SODIUM 137.6 mmol/L (137-145); TOTAL CELLS COUNTED 100; TOTAL PROTEIN 7.8 g/dL (6.3-8.2); TOXIC GRANULATION 1+
[2018-05-16 15:13] LABS: PLATELET COMMENT ADEQUATE; PLATELET LARGE PRESENT
[2018-05-16 15:18] LABS: ANION GAP 10 (5-19)
[2018-05-16 15:23] LABS: CARBON DIOXIDE 40 mmol/L (22-30); CREATINE KINASE MB 3.65 ng/mL (<4.55)
[2018-05-16 15:26] LABS: TROPONIN I < 0.012 ng/mL
[2018-05-16] MEDS ORDERED: METHYLPREDNISOLONE INJ 125 MG/2 ML SDV IV ONE (16:17)
[2018-05-16] MEDS ORDERED: IPRATROPIUM/ALBUTEROL 0.5-2.5 MG/3 ML AMPUL NEB ONE (17:21)
--- NOTE | 2018-05-16 17:29 | ER Document Report ---
ED Respiratory Problem - General Chief Complaint: Respiratory Distress Stated Complaint: SHORTNESS OF BREATH Time Seen by Provider: 05/16/18 14:42 Notes: Patient is increasingly short of breath with difficulty breathing over the recent few days. She has a history of severe COPD and is on oxygen at home at 2 L whenever needed, and she wears it most of the time. When EMS picked patient up this afternoon, however, she was not wearing her oxygen and her O2 sat was 90%. She uses home inhalers but does not have a nebulizer. Continues to smoke, although she stopped smoking cigarettes about a week ago and is smoking the vaporized device. She says that she is having a productive cough with congestion. Unaware of any fever, however. EMS gave the patient a nebulizer treatment with albuterol and Atrovent. Patient has liver disease, secondary to hepatitis C. That has been treated. She is supposed to be on lactulose daily, but supposedly is not taking it during the past month. TRAVEL OUTSIDE OF THE [place] IN LAST 30 DAYS: No - Related Data Allergies/Adverse Reactions: acetaminophen [From Tylenol] Allergy (Mild, Verified 05/16/18 15:01) GI upset Past Medical History - Social History Smoking Status: Current Every Day Smoker Chew tobacco use (# tins/day): No Frequency of alcohol use: None Drug Abuse: None Family History: DM, Other Patient has suicidal ideation: No Patient has homicidal ideation: No - Past Medical History Cardiac Medical History: Denies: Hx Coronary Artery Disease Pulmonary Medical History: Reports: Hx COPD, Hx Pneumonia GI Medical History: Reports: Hx Cirrhosis, Hx Gastroesophageal Reflux Disease, Hx Hepatitis - Hepatitis c, Hx Liver Failure Musculoskeletal Medical History: Reports Hx Musculoskeletal Deformity, Reports Hx Musculoskeletal Trauma Psychiatric Medical History: Reports: Hx Anxiety, Hx Depression Infectious Medical History: Reports: Hx Hepatitis - c Past Surgical History: Reports: Hx Section, Hx Cholecystectomy, Hx Gynecologic Surgery - ovarian wedge., Hx Orthopedic Surgery - carpel tunnel, Hx Tonsillectomy, Other - Unable to obtain at this time since the patient is intubated and sedated. - Immunizations Immunizations up to date: Yes Hx Diphtheria, Pertussis, Tetanus Vaccination: Yes Review of Systems - Review of Systems Notes: REVIEW OF SYSTEMS: CONSTITUTIONAL : Denies fever. EENT: Denies eye, ear, nose or mouth or throat pain or other symptoms. CARDIOVASCULAR: Denies chest pain. RESPIRATORY: See HPI. GASTROINTESTINAL: Denies abdominal pain or nausea, vomiting, or diarrhea. GENITOURINARY: Denies difficulty or painful urinating, urinary frequency, blood in urine. MUSCULOSKELETAL: Denies back or neck pain. Denies joint pain or swelling. SKIN: Denies rash or skin lesions. NEUROLOGICAL: Denies LOC or altered mental status. Denies headache. Denies sensory loss or motor deficits. ALL OTHER SYSTEMS REVIEWED AND NEGATIVE. Physical Exam - Vital signs Vitals: Temp Resp Pulse Ox 98.6 F 25 H 89 L 05/16/18 13:58 05/16/18 13:58 05/16/18 13:58 Interpretation: Hypoxic Notes: PHYSICAL EXAMINATION: GENERAL: Frail, small framed individual weighs about 90 pounds. In no acute distress. O2 sat 89% on room air. HEAD: Atraumatic, normocephalic. EYES: Pupils equal round and reactive to light, extraocular movements intact. ENT: oropharynx clear without exudates. Moist mucous membranes. NECK: Normal range of motion, supple. LUNGS: Patient has mild diffuse scattered wheezes bilaterally. No rales heard. HEART: Regular rate and rhythm without murmurs. ABDOMEN: Soft, nontender. No guarding or rebound. No masses. BACK: No tenderness throughout entire back. EXTREMITIES: Normal range of motion without pain. Negative Homans bilaterally. No significant soft tissue swelling or edema present. NEUROLOGICAL: Normal speech, normal gait. Normal sensory, motor, and reflex exams. Awake, alert, and oriented x3. Cranial nerves normal. PSYCH: Normal mood, normal affect. SKIN: Warm, dry, no rashes. Course - Re-evaluation Re-evalutation: 05/16/18 17:29 Patient was given a couple of nebulizer treatments and Solu-Medrol 125 mg IV. - Vital Signs Vital signs: Temp Pulse Resp BP Pulse Ox 98.6 F 21 H 117/72 89 L 05/16/18 13:58 05/16/18 14:03 05/16/18 14:03 05/16/18 14:27 - Laboratory Result Diagrams: 05/16/18 14:14 05/16/18 14:14 Laboratory results interpreted by me: 05/16/18 05/16/18 05/16/18 14:14 14:14 16:26 Plt Count 471 H Seg Neuts % (Manual) 91 H Lymphocytes % (Manual) 2 L Abs Neuts (Manual) 9.2 H Abs Lymphs (Manual) 0.2 L Chloride 88 L Carbon Dioxide 40 H* BUN 6 L Glucose 133 H Alkaline Phosphatase 140 H Ammonia < 8.7 L - Diagnostic Test Radiology results interpreted by me: 05/16/18 17:47 Chest x-ray shows COPD. Some pleural reaction on the right which is been there for some time. - EKG Interpretation by Me EKG shows normal: Sinus rhythm Rate: Normal Rhythm: NSR Additional EKG results interpreted by me: 05/16/18 17:51 EKG shows normal sinus rhythm. Low voltage. No acute changes. Discharge - Discharge Clinical Impression: Acute and chronic respiratory failure with hypoxia, Tobacco abuse, COPD with acute exacerbation Condition: Stable Disposition: ADMITTED INPATIENT Admitting Provider: Hospitalist Unit Admitted: Telemetry Referrals: MAIKEL EVANS MD [Primary Care Provider] - Follow up as needed
--- NOTE | 2018-05-16 17:44 | EKG REPORT ---
SEVERITY:- BORDERLINE ECG - SINUS RHYTHM BORDERLINE LEFT AXIS DEVIATION LOW VOLTAGE IN FRONTAL LEADS BORDERLINE INFERIOR Q WAVES : Confirmed by: Zen Mancilla 16-May-2018 17:44:06
[2018-05-16] MEDS ORDERED: ALBUTEROL SULFATE 0.083% NEB 2.5 MG/3 ML AMPUL NEB PRN (17:58)
[2018-05-16] MEDS ORDERED: NORMAL SALINE 1000 ML 1,000 ML IV PRN (17:59)
[2018-05-16] MEDS ORDERED: AMLODIPINE BESYLATE 5 MG TABLET PO SCH (18:00)
--- NOTE | 2018-05-16 18:09 | PDOC H&P ---
History of Present Illness Admission Date/PCP: MAIKEL EVANS MD Patient complains of: SOB, cough History of Present Illness: ADY YEUNG is a 62 year old female, patient of Dr. Herrera who has a PMH of COPD-on O2 at night and intermittent during the day, history of hepatitis C, cirrhosis, diastolic dysfunction and hypertension who present with SOB. She says she has been feeling generally weak in the past 4 days and started developing progressive SOB and wheezing at home. She also reports of associated minimally productive cough. She denies recent sick contacts. Denies fever or chills. In the ER, she was noted to have bilateral wheezing with sats at 89% on room air. Chest x-ray shows a right lung infiltrate. She denies chest pain or palpitations. Past Medical History Cardiac Medical History: Denies: Coronary Artery Disease Pulmonary Medical History: Reports: Chronic Obstructive Pulmonary Disease (COPD), Pneumonia GI Medical History: Reports: Cirrhosis, Gastroesophageal Reflux Disease, Hepatitis - c Psychiatric Medical History: Reports: Depression Hematology: Denies: Anemia Past Surgical History Past Surgical History: Reports: Section, Cholecystectomy, Orthopedic Surgery - carpel tunnel, Tonsillectomy, Other - Unable to obtain at this time since the patient is intubated and sedated. Denies: Hysterectomy Social History Smoking Status: Current Every Day Smoker Frequency of Alcohol Use: None Hx Recreational Drug Use: No Drugs: None, Other Hx Prescription Drug Abuse: No Family History Family History: DM, Other Parental Family History Reviewed: Yes - no premature CAD Children Family History Reviewed: No Sibling(s) Family History Reviewed.: No Medication/Allergy Home Medications: Budesonide/Formoterol Fumarate [Symbicort HFA 160-4.5 mcg Inhaler 6 gm] 2 puff IH BID 10/24/16 Lorazepam [Ativan 0.5 mg Tablet] 0.5 mg PO Q8HP PRN 10/24/16 Omeprazole 20 mg PO DAILY 10/24/16 Oxycodone HCl [Oxy-Ir 5 mg Tablet] 7.5 mg PO Q12HP PRN 10/24/16 Paroxetine HCl [Paxil] 10 mg PO QAM 10/24/16 Tiotropium Rebecca [Spiriva Handihaler 18 mcg/dose (30 Dose)] 18 mcg IH DAILY 10/24/16 Guaifenesin [Mucinex Sr 600 mg Tablet.sa] 600 mg PO Q12 #14 tablet.sa 10/27/16 Levofloxacin [Levaquin 500 mg Tablet] 500 mg PO DAILY #10 tablet 10/27/16 Prednisone [Deltasone 20 mg Tablet] 20 mg PO DAILY #7 tablet 10/27/16 Budesonide/Formoterol Fumarate [Symbicort HFA 160-4.5 mcg Inhaler 6 gm] 2 puff IH Q12 09/13/17 Bupropion HCl [Wellbutrin 75 mg Tablet] 75 mg PO DAILY 09/13/17 Ergocalciferol (Vitamin D2) [Drisdol 50,000 unit (1.25MG) Capsule] 50,000 unit PO .QWEEKLY MDD WILL UPDATE WHEN AWAKE 09/13/17 Lorazepam [Ativan 0.5 mg Tablet] 0.5 mg PO Q12HP PRN 09/13/17 Omeprazole 20 mg PO QAM 09/13/17 Paroxetine HCl [Paxil 20 mg Tablet] 20 mg PO QHS 09/13/17 Promethazine HCl [Phenergan 25 mg Tablet] 25 mg PO BIDP PRN 09/13/17 Tiotropium Rebecca [Spiriva Handihaler 18 mcg/dose (30 Dose)] 1 cap IH DAILY 09/13/17 Tizanidine HCl [Zanaflex 4 mg Tablet] 4 mg PO Q8HP PRN 09/13/17 Amlodipine Besylate [Norvasc 5 mg Tablet] 5 mg PO QPM 30 Days #30 tablet 09/19/17 Carvedilol [Coreg 3.125 mg Tablet] 3.125 mg PO Q12 #60 tablet 09/19/17 Lisinopril [Prinivil 10 mg Tablet] 20 mg PO DAILY 30 Days #30 tablet 09/19/17 Lorazepam [Ativan 0.5 mg Tablet] 0.5 mg PO Q8HP PRN tablet 09/19/17 Allergies/Adverse Reactions: acetaminophen [From Tylenol] Allergy (Mild, Verified 05/16/18 15:01) GI upset Review of Systems All systems: reviewed and no additional remarkable complaints except as stated - as mentioned in HPI Physical Exam Vital Signs: Temp Pulse Resp BP Pulse Ox 98.6 F 21 H 117/72 89 L 05/16/18 13:58 05/16/18 14:03 05/16/18 14:03 05/16/18 14:27 Intake & Output 05/15/18 05/16/18 05/17/18 06:59 06:59 06:59 Weight 95 lb 0.308 oz General appearance: PRESENT: no acute distress, thin Head exam: PRESENT: atraumatic, normocephalic Eye exam: PRESENT: conjunctiva pink, EOMI, PERRLA. ABSENT: scleral icterus Ear exam: PRESENT: normal external ear exam Mouth exam: PRESENT: moist, tongue midline Neck exam: ABSENT: carotid bruit, JVD, lymphadenopathy, thyromegaly Respiratory exam: PRESENT: rhonchi, wheezes - bilateral wheezing. ABSENT: rales Cardiovascular exam: PRESENT: RRR. ABSENT: diastolic murmur, rubs, systolic murmur Pulses: PRESENT: normal dorsalis pedis pul GI/Abdominal exam: PRESENT: normal bowel sounds, soft. ABSENT: distended, guarding, mass, organolmegaly, rebound, tenderness Rectal exam: PRESENT: deferred Neurological exam: PRESENT: awake, oriented to person, oriented to place, oriented to time, oriented to situation, CN II-XII grossly intact. ABSENT: mot or sensory deficit Results Laboratory Results: 05/16/18 14:14 05/16/18 14:14 05/16/18 05/16/18 05/16/18 14:14 14:14 16:26 WBC 10.1 RBC 4.29 Hgb 12.8 Hct 38.3 MCV 89 MCH 29.9 MCHC 33.5 RDW 13.0 Plt Count 471 H Seg Neutrophils % Not Reportable Lymphocytes % Not Reportable Monocytes % Not Reportable Eosinophils % Not Reportable Basophils % Not Reportable Absolute Neutrophils Not Reportable Absolute Lymphocytes Not Reportable Absolute Monocytes Not Reportable Absolute Eosinophils Not Reportable Absolute Basophils Not Reportable Sodium 137.6 Potassium 4.7 Chloride 88 L Carbon Dioxide 40 H* Anion Gap 10 BUN 6 L Creatinine 0.60 Est GFR ( Amer) > 60 Est GFR (Non-Af Amer) > 60 Glucose 133 H Calcium 9.3 Total Bilirubin 0.4 AST 26 ALT 17 Alkaline Phosphatase 140 H Ammonia < 8.7 L Total Protein 7.8 Albumin 3.7 Urine Color Urine Appearance Urine pH Ur Specific Maud Urine Protein Urine Glucose (UA) Urine Ketones Urine Blood Urine Nitrite Ur Leukocyte Esterase Urine WBC (Auto) Urine RBC (Auto) 05/16/18 16:26 WBC RBC Hgb Hct MCV MCH MCHC RDW Plt Count Seg Neutrophils % Lymphocytes % Monocytes % Eosinophils % Basophils % Absolute Neutrophils Absolute Lymphocytes Absolute Monocytes Absolute Eosinophils Absolute Basophils Sodium Potassium Chloride Carbon Dioxide Anion Gap BUN Creatinine Est GFR ( Amer) Est GFR (Non-Af Amer) Glucose Calcium Total Bilirubin AST ALT Alkaline Phosphatase Ammonia Total Protein Albumin Urine Color Cancelled Urine Appearance Cancelled Urine pH Cancelled Ur Specific Maud Cancelled Urine Protein Cancelled Urine Glucose (UA) Cancelled Urine Ketones Cancelled Urine Blood Cancelled Urine Nitrite Cancelled Ur Leukocyte Esterase Cancelled Urine WBC (Auto) Cancelled Urine RBC (Auto) Cancelled 05/16/18 05/16/18 05/16/18 14:14 14:14 14:14 Creatine Kinase 44 CK-MB (CK-2) 3.65 Troponin I < 0.012 NT-Pro-B Natriuret Pep 628 Impressions: Chest X-Ray 05/16/18 13:53 IMPRESSION: Increased interstitial markings in the periphery of the right lung, question asymmetric interstitial pulmonary edema Assessment & Plan - Diagnosis (1) Acute respiratory failure with hypoxia and hypercarbia Is this a current diagnosis for this admission?: Yes Plan: Secondary to COPD exacerbation and pneumonia. Sats improved from 89% to 93% on 2L of NC. Will keep her on BIPAP tonight. (2) COPD with acute exacerbation Is this a current diagnosis for this admission?: Yes Plan: Continue IV steroids. Start scheduled breathing treatments. Start Levaquin for right sided pneumonia. Will also check for flu testing. Bicarb 40 on BMP. Will also check an ABG. (3) Pneumonia Is this a current diagnosis for this admission?: Yes Plan: Chest x-ray does show right sided infiltrate. Patient reports of minimally productive cough. Levaquin as mentioned. Sputum culture ordered. - Time Time Spent: 30 to 50 Minutes
[2018-05-16] MEDS: LEVOFLOXACIN 750 MG/D5W RTU 750 MG/150 ML RTUPB IV SCH (18:42)
[2018-05-16 18:56] LABS: ARTERIAL BLOOD BASE EXCESS 12.9 mmol/L; ARTERIAL BLOOD FIO2 2L; ARTERIAL BLOOD H2CO3 1.96 mmol/L (1.05-1.35); ARTERIAL BLOOD HCO3 40.1 mmol/L (20-24); ARTERIAL BLOOD O2 SATURATION 97.3 % (94-98); ARTERIAL BLOOD PCO2 65.2 mmHg (35-45); ARTERIAL BLOOD PH 7.41 (7.35-7.45); ARTERIAL BLOOD PO2 97.9 mmHg (80-100); ARTERIAL BLOOD TOTAL CO2 42.1 mmol/L (21-25)
[2018-05-16 19:20] LABS: A TYPE INFLUENZA AG POSITIVE (NEGATIVE); B INFLUENZA AG POSITIVE (NEGATIVE)
[2018-05-16] MEDS: IPRATROPIUM/ALBUTEROL 0.5-2.5 MG/3 ML AMPUL NEB SCH (20:22)
[2018-05-16] MEDS: METHYLPREDNISOLONE INJ 40 MG/1 ML SDV IV SCH (20:22)
[2018-05-16] MEDS: HEPARIN SOD (PORCINE) 5,000 UNIT/ML 1 ML SYRINGE SUBCUT SCH (22:57)
[2018-05-17] MEDS: IPRATROPIUM/ALBUTEROL 0.5-2.5 MG/3 ML AMPUL NEB SCH ×7 (00:07→23:30)
[2018-05-17] MEDS: METHYLPREDNISOLONE INJ 40 MG/1 ML SDV IV SCH ×3 (02:05→18:24)
[2018-05-17] MEDS ORDERED: (PENDING PHARMACY ID) (Levalbuterol Tartrate [Xopenex Hfa] 1 PUFF) IH PRN (11:16)
--- NOTE | 2018-05-17 11:30 | PDOC PROGRESS REPORT ---
Subjective Progress Note for:: 05/17/18 Subjective:: 05/[id number]-old female with history of COPD on home oxygen, history of hepatitis C liver cirrhosis hypertension diastolic dysfunction came into the ER with shortness of breath. No acute events in the last 24 hours under pulse oxes are on the 99% patient main concern is the anxiety. Reason For Visit: COPD EXACERBATION, PNA Physical Exam Vital Signs: Temp Pulse Resp BP Pulse Ox 97.5 F 110 H 19 153/83 H 100 05/17/18 08:31 05/17/18 09:11 05/17/18 10:40 05/17/18 08:48 05/17/18 10:40 Intake & Output 05/16/18 05/17/18 05/18/18 06:59 06:59 06:59 Intake Total 475 Balance 475 Weight 43.7 kg General appearance: PRESENT: mild distress Head exam: PRESENT: atraumatic Eye exam: PRESENT: PERRLA Neck exam: ABSENT: carotid bruit, JVD, lymphadenopathy, thyromegaly Respiratory exam: PRESENT: decreased breath sounds, rhonchi, wheezes Cardiovascular exam: PRESENT: tachycardia GI/Abdominal exam: PRESENT: normal bowel sounds, soft. ABSENT: distended, gua rding, mass, organolmegaly, rebound, tenderness Neurological exam: PRESENT: alert, awake, oriented to person, oriented to place, oriented to time, oriented to situation, CN II-XII grossly intact. ABSENT: motor sensory deficit Psychiatric exam: PRESENT: appropriate affect, normal mood. ABSENT: homicidal ideation, suicidal ideation Results Laboratory Results: 05/16/18 14:14 05/16/18 14:14 05/16/18 05/16/18 05/16/18 14:14 14:14 16:26 WBC 10.1 RBC 4.29 Hgb 12.8 Hct 38.3 MCV 89 MCH 29.9 MCHC 33.5 RDW 13.0 Plt Count 471 H Seg Neutrophils % Not Reportable Lymphocytes % Not Reportable Monocytes % Not Reportable Eosinophils % Not Reportable Basophils % Not Reportable Absolute Neutrophils Not Reportable Absolute Lymphocytes Not Reportable Absolute Monocytes Not Reportable Absolute Eosinophils Not Reportable Absolute Basophils Not Reportable Carbonic Acid HCO3/H2CO3 Ratio ABG pH ABG pCO2 ABG pO2 ABG HCO3 ABG O2 Saturation ABG Base Excess FiO2 Sodium 137.6 Potassium 4.7 Chloride 88 L Carbon Dioxide 40 H* Anion Gap 10 BUN 6 L Creatinine 0.60 Est GFR ( Amer) > 60 Est GFR (Non-Af Amer) > 60 Glucose 133 H Calcium 9.3 Total Bilirubin 0.4 AST 26 ALT 17 Alkaline Phosphatase 140 H Ammonia < 8.7 L Total Protein 7.8 Albumin 3.7 Urine Color Urine Appearance Urine pH Ur Specific [place] Urine Protein Urine Glucose (UA) Urine Ketones Urine Blood Urine Nitrite Ur Leukocyte Esterase Urine WBC (Auto) Urine RBC (Auto) 05/16/18 05/16/18 16:26 18:24 WBC RBC Hgb Hct MCV MCH MCHC RDW Plt Count Seg Neutrophils % Lymphocytes % Monocytes % Eosinophils % Basophils % Absolute Neutrophils Absolute Lymphocytes Absolute Monocytes Absolute Eosinophils Absolute Basophils Carbonic Acid 1.96 H HCO3/H2CO3 Ratio 20:1 ABG pH 7.41 ABG pCO2 65.2 H ABG pO2 97.9 ABG HCO3 40.1 H ABG O2 Saturation 97.3 ABG Base Excess 12.9 FiO2 2L Sodium Potassium Chloride Carbon Dioxide Anion Gap BUN Creatinine Est GFR ( Amer) Est GFR (Non-Af Amer) Glucose Calcium Total Bilirubin AST ALT Alkaline Phosphatase Ammonia Total Protein Albumin Urine Color Cancelled Urine Appearance Cancelled Urine pH Cancelled Ur Specific [place] Cancelled Urine Protein Cancelled Urine Glucose (UA) Cancelled Urine Ketones Cancelled Urine Blood Cancelled Urine Nitrite Cancelled Ur Leukocyte Esterase Cancelled Urine WBC (Auto) Cancelled Urine RBC (Auto) Cancelled 05/16/18 05/16/18 05/16/18 14:14 14:14 14:14 Creatine Kinase 44 CK-MB (CK-2) 3.65 Troponin I < 0.012 NT-Pro-B Natriuret Pep 628 Impressions: Chest X-Ray 05/16/18 13:53 IMPRESSION: Increased interstitial markings in the periphery of the right lung, question asymmetric interstitial pulmonary edema Assessment & Plan - Diagnosis (1) Acute and chronic respiratory failure with hypoxia Is this a current diagnosis for this admission?: Yes Plan: 05/17/2018-patient came in with acute on chronic respiratory failure with hypoxia and hypercapnia improving. This is secondary to COPD exacerbation and right-sided pneumonia. Patient is on BiPAP at the time of examination. (2) COPD with acute exacerbation Is this a current diagnosis for this admission?: Yes Plan: 05/09/2018-patient is on IV steroids, nebulizer treatments, started on Levaquin for right-sided pneumonia. She is on droplet isolation. Flu testing is pending. The bicarb on ABG is 40. I am going to repeat the ABG today. (3) Pneumonia Is this a current diagnosis for this admission?: Yes Plan: 05/17/2018 chest x-ray shows questionable right-sided infiltrate. Patient on Levaquin. Sputum cultures and blood cultures are pending. - Time Time Spent with patient: 15-24 minutes Smoking Cessation Education: 3 to 10 minutes Medications reviewed and adjusted accordingly: Yes Anticipated discharge: Home
[2018-05-17] MEDS: LANSOPRAZOLE 15 MG TAB.RAP.DR PO SCH (12:16)
[2018-05-17] MEDS: ALPRAZOLAM 0.25 MG TABLET PO PRN ×2 (12:27→21:12)
[2018-05-17] MEDS: LISINOPRIL 10 MG TABLET PO SCH (12:27)
[2018-05-17] MEDS: HEPARIN SOD (PORCINE) 5,000 UNIT/ML 1 ML SYRINGE SUBCUT SCH ×2 (12:28→21:14)
[2018-05-17 13:18] LABS: ARTERIAL BLOOD BASE EXCESS 6.6 mmol/L; ARTERIAL BLOOD H2CO3 1.47 mmol/L (1.05-1.35); ARTERIAL BLOOD HCO3 31.8 mmol/L (20-24); ARTERIAL BLOOD O2 SATURATION 98.3 % (94-98); ARTERIAL BLOOD PCO2 48.7 mmHg (35-45); ARTERIAL BLOOD PH 7.43 (7.35-7.45); ARTERIAL BLOOD PO2 116.6 mmHg (80-100); ARTERIAL BLOOD TOTAL CO2 33.3 mmol/L (21-25)
[2018-05-17 13:20] LABS: ARTERIAL BLOOD FIO2 2L
[2018-05-17] MEDS: BUSPIRONE HCL 10 MG TABLET PO SCH ×2 (15:44→21:12)
[2018-05-17] MEDS: TIOTROPIUM BROMIDE DPI 5 CAP/KIT (18 MCG/CAP) IH SCH (15:44)
[2018-05-17] MEDS: LEVOFLOXACIN 750 MG/D5W RTU 750 MG/150 ML RTUPB IV SCH (18:23)
[2018-05-17] MEDS: BUDESONIDE/FORMOTEROL 160-4.5 MCG 60 PUFF/6 GM MDI IH SCH (18:24)
[2018-05-17] MEDS: PAROXETINE HCL 20 MG TABLET PO SCH (21:12)
[2018-05-17] MEDS ORDERED: (PENDING PHARMACY ID) (Paroxetine Hcl [Paxil] 30 MG) PO SCH (22:00)
[2018-05-17] MEDS ORDERED: IBUPROFEN 800 MG TABLET PO PRN (22:12)
[2018-05-18] MEDS: METHYLPREDNISOLONE INJ 40 MG/1 ML SDV IV SCH ×3 (02:26→22:09)
[2018-05-18] MEDS: IPRATROPIUM/ALBUTEROL 0.5-2.5 MG/3 ML AMPUL NEB SCH ×5 (05:35→21:06)
[2018-05-18 05:40] LABS: MEAN CORPUSCULAR VOLUME 88 fl (80-97); PLATELET COUNT 355 10^3/uL (150-450); RED BLOOD COUNT 3.28 10^6/uL (3.72-5.28); RED CELL DISTRIBUTION WIDTH 12.8 % (11.5-14.0); WHITE BLOOD COUNT 6.1 10^3/uL (4.0-10.5)
[2018-05-18 05:42] LABS: HEMOGLOBIN 9.8 g/dL (12.0-15.5)
[2018-05-18 06:14] LABS: ABSOLUTE LYMPHOCYTES# (MANUAL) 0.2 10^3/uL (0.5-4.7); ABSOLUTE MONOCYTES # (MANUAL) 0.1 10^3/uL (0.1-1.4); ABSOLUTE NEUTROPHILS# (MANUAL) 5.8 10^3/uL (1.7-8.2); BASOPHILS % (MANUAL) 0 % (0-2); EOSINOPHILS % (MANUAL) 0 % (0-6); LYMPHOCYTES % (MANUAL) 4 % (13-45); MONOCYTES % (MANUAL) 1 % (3-13); SEGMENTED NEUTROPHILS % (MAN) 95 % (42-78); TOTAL CELLS COUNTED 100
[2018-05-18 06:16] LABS: HYPOCHROMASIA 2+; PLATELET CLUMPS PRESENT; PLATELET COMMENT ADEQUATE
[2018-05-18 06:22] LABS: ALANINE AMINOTRANSFERASE 17 U/L (9-52); ALBUMIN 2.8 g/dL (3.5-5.0); ALKALINE PHOSPHATASE 94 U/L (38-126); ANION GAP 5 (5-19); ASPARTATE AMINO TRANSFERASE 22 U/L (14-36); BILIRUBIN,DIRECT 0.1 mg/dL (0.0-0.4); BILIRUBIN,TOTAL 0.1 mg/dL (0.2-1.3); BLOOD UREA NITROGEN 14 mg/dL (7-20); CALCIUM 8.3 mg/dL (8.4-10.2); CARBON DIOXIDE 33 mmol/L (22-30); CHLORIDE 91 mmol/L (98-107); GLUCOSE 174 mg/dL (75-110); TOTAL PROTEIN 5.9 g/dL (6.3-8.2)
[2018-05-18] MEDS: BUSPIRONE HCL 10 MG TABLET PO SCH ×3 (06:39→22:10)
[2018-05-18] MEDS: LANSOPRAZOLE 15 MG TAB.RAP.DR PO SCH (06:39)
[2018-05-18] MEDS: LISINOPRIL 10 MG TABLET PO SCH ×2 (09:22→09:23)
[2018-05-18] MEDS: HEPARIN SOD (PORCINE) 5,000 UNIT/ML 1 ML SYRINGE SUBCUT SCH ×2 (09:23→22:14)
[2018-05-18] MEDS ORDERED: (PENDING PHARMACY ID) (Diltiazem Hcl [Diltiazem Er] 120 MG) PO SCH (10:00)
--- NOTE | 2018-05-18 12:03 | PDOC PROGRESS REPORT ---
Subjective Progress Note for:: 05/18/18 Subjective:: 05/[id number]-qrox-old female with history of COPD on home oxygen, history of hepatitis C liver cirrhosis hypertension diastolic dysfunction came into the ER with shortness of breath. No acute events in the last 24 hours under pulse oxes are on the 99% patient main concern is the anxiety. 05/18/2000 [id number] female admitted for COPD exacerbation and right lower lobe pneumonia she was positive for flu no acute events in the last 24 hours. Patient is complaining of nausea we started her on Zofran today. Reason For Visit: COPD EXACERBATION, PNA Physical Exam Vital Signs: Temp Pulse Resp BP Pulse Ox 98.0 F 118 H 18 142/75 H 96 05/18/18 11:04 05/18/18 11:04 05/18/18 11:04 05/18/18 11:04 05/18/18 11:04 Intake & Output 05/17/18 05/18/18 05/19/18 06:59 06:59 06:59 Intake Total 475 1506 Balance 475 1506 Weight 43.7 kg 46.6 kg General appearance: PRESENT: mild distress Head exam: PRESENT: atraumatic Eye exam: PRESENT: PERRLA Neck exam: ABSENT: carotid bruit, JVD, lymphadenopathy, thyromegaly Respiratory exam: PRESENT: decreased breath sounds, wheezes Cardiovascular exam: PRESENT: tachycardia GI/Abdominal exam: PRESENT: normal bowel sounds, soft. ABSENT: distended, guarding, mass, organolmegaly, rebound, tenderness Neurological exam: PRESENT: alert, awake, oriented to person, oriented to place, oriented to time, oriented to situation, CN II-XII grossly intact. ABSENT: motor sensory deficit Psychiatric exam: PRESENT: appropriate affect, normal mood. ABSENT: homicidal ideation, suicidal ideation Results Laboratory Results: 05/18/18 04:47 05/18/18 04:47 05/17/18 05/18/18 05/18/18 13:04 04:47 04:47 WBC 6.1 RBC 3.28 L Hgb 9.8 L D Hct 29.0 L MCV 88 MCH 30.0 MCHC 34.0 RDW 12.8 Plt Count 355 Seg Neutrophils % Not Reportable Lymphocytes % Not Reportable Monocytes % Not Reportable Eosinophils % Not Reportable Basophils % Not Reportable Absolute Neutrophils Not Reportable Absolute Lymphocytes Not Reportable Absolute Monocytes Not Reportable Absolute Eosinophils Not Reportable Absolute Basophils Not Reportable Carbonic Acid 1.47 H HCO3/H2CO3 Ratio 21:1 ABG pH 7.43 ABG pCO2 48.7 H ABG pO2 116.6 H ABG HCO3 31.8 H ABG O2 Saturation 98.3 H ABG Base Excess 6.6 FiO2 2L Sodium 129.0 L Potassium 5.0 Chloride 91 L Carbon Dioxide 33 H Anion Gap 5 BUN 14 Creatinine 0.64 Est GFR ( Amer) > 60 Est GFR (Non-Af Amer) > 60 Glucose 174 H Calcium 8.3 L Magnesium 1.3 L Total Bilirubin 0.1 L AST 22 ALT 17 Alkaline Phosphatase 94 Total Protein 5.9 L Albumin 2.8 L 05/16/18 05/16/18 05/16/18 14:14 14:14 14:14 Creatine Kinase 44 CK-MB (CK-2) 3.65 Troponin I < 0.012 NT-Pro-B Natriuret Pep 628 Impressions: Chest X-Ray 05/16/18 13:53 IMPRESSION: Increased interstitial markings in the periphery of the right lung, question asymmetric interstitial pulmonary edema Assessment & Plan - Diagnosis (1) Acute and chronic respiratory failure with hypoxia Is this a current diagnosis for this admission?: Yes Plan: 05/17/2018-patient came in with acute on chronic respiratory failure with hypoxia and hypercapnia improving. This is secondary to COPD exacerbation and right-sided pneumonia. Patient is on BiPAP at the time of examination. 05/18/2018-the plan today is to use the BiPAP as needed basis. Pulse oxes are 94-96% on 2 L today. Cocci and hypercapnia are improving. Latest ABG pH is 7.43/PCO2 48/PO2 116 bicarb is 31.8 pulse ox is 98%. Plan is to continue the present management. (2) COPD with acute exacerbation Is this a current diagnosis for this admission?: Yes Plan: 05/17/2018-patient is on IV steroids, nebulizer treatments, started on Levaquin for right-sided pneumonia. She is on droplet isolation. Flu testing is pending. The bicarb on ABG is 40. I am going to repeat the ABG today. 05/18/2018-patient has a long history of COPD on home oxygen admitted for COPD exacerbation patient is on IV Solu-Medrol getting scheduled nebs and she is also on Levaquin for right-sided pneumonia. Plan is to continue the present management. (3) Pneumonia Is this a current diagnosis for this admission?: Yes Plan: 05/17/2018 chest x-ray shows questionable right-sided infiltrate. Patient on Levaquin. Sputum cultures and blood cultures are pending. 05/18/2018 chest x-ray shows right-sided infiltrate patient is a Levaquin sputum cultures and blood cultures negative so far. (4) Influenza A Is this a current diagnosis for this admission?: Yes Plan: 05/18/2018 patient is positive for influenza A and B. We started her on droplet isolation and she is on Tamiflu 75 mg p.o. twice daily. - Time Time Spent with patient: 15-24 minutes Smoking Cessation Education: over 10 minutes Medications reviewed and adjusted accordingly: Yes Anticipated discharge: Home
[2018-05-18] MEDS: ONDANSETRON HCL INJ/PF 4 MG/2 ML SDV IV PRN (12:06)
[2018-05-18] MEDS: BUPROPION HCL 75 MG TABLET PO SCH (13:12)
[2018-05-18] MEDS: TIOTROPIUM BROMIDE DPI 5 CAP/KIT (18 MCG/CAP) IH SCH (13:12)
[2018-05-18] MEDS: BUDESONIDE/FORMOTEROL 160-4.5 MCG 60 PUFF/6 GM MDI IH SCH ×2 (13:12→17:08)
[2018-05-18] MEDS: ALPRAZOLAM 0.25 MG TABLET PO PRN ×2 (13:16→18:10)
[2018-05-18] MEDS: IBUPROFEN 600 MG TABLET PO PRN (14:23)
[2018-05-18] MEDS: LEVOFLOXACIN 750 MG/D5W RTU 750 MG/150 ML RTUPB IV SCH (17:06)
[2018-05-18] MEDS: DILTIAZEM HCL 120 MG CAP.SR.24H PO SCH (17:07)
[2018-05-18] MEDS: OSELTAMIVIR PHOSPHATE 75 MG CAPSULE PO SCH (17:08)
[2018-05-18] MEDS: PAROXETINE HCL 20 MG TABLET PO SCH (22:09)
[2018-05-19] MEDS: IPRATROPIUM/ALBUTEROL 0.5-2.5 MG/3 ML AMPUL NEB SCH ×7 (00:07→23:55)
[2018-05-19] MEDS: LANSOPRAZOLE 15 MG TAB.RAP.DR PO SCH (06:11)
[2018-05-19] MEDS: BUSPIRONE HCL 10 MG TABLET PO SCH ×3 (06:11→22:06)
[2018-05-19 07:17] LABS: HEMATOCRIT 30.6 % (36.0-47.0); HEMOGLOBIN 10.2 g/dL (12.0-15.5); MEAN CORPUSCULAR HGB CONC 33.4 g/dL (32.0-36.0); MEAN CORPUSCULAR VOLUME 90 fl (80-97); PLATELET COUNT 384 10^3/uL (150-450); RED BLOOD COUNT 3.41 10^6/uL (3.72-5.28); RED CELL DISTRIBUTION WIDTH 13.3 % (11.5-14.0); WHITE BLOOD COUNT 5.1 10^3/uL (4.0-10.5)
[2018-05-19 07:51] LABS: ALANINE AMINOTRANSFERASE 22 U/L (9-52); ALBUMIN 2.8 g/dL (3.5-5.0); ALKALINE PHOSPHATASE 72 U/L (38-126); ANION GAP 5 (5-19); ASPARTATE AMINO TRANSFERASE 26 U/L (14-36); BILIRUBIN,DIRECT 0.3 mg/dL (0.0-0.4); BILIRUBIN,TOTAL 0.3 mg/dL (0.2-1.3); BLOOD UREA NITROGEN 12 mg/dL (7-20); CALCIUM 8.5 mg/dL (8.4-10.2); CARBON DIOXIDE 33 mmol/L (22-30); CHLORIDE 98 mmol/L (98-107); GLUCOSE 170 mg/dL (75-110); SODIUM 136.4 mmol/L (137-145)
[2018-05-19 07:54] LABS: ABSOLUTE LYMPHOCYTES# (MANUAL) 0.5 10^3/uL (0.5-4.7); ABSOLUTE MONOCYTES # (MANUAL) 0.2 10^3/uL (0.1-1.4); ABSOLUTE NEUTROPHILS# (MANUAL) 4.4 10^3/uL (1.7-8.2); BASOPHILS % (MANUAL) 0 % (0-2); EOSINOPHILS % (MANUAL) 0 % (0-6); HYPOCHROMASIA SLIGHT; LYMPHOCYTES % (MANUAL) 9 % (13-45); MONOCYTES % (MANUAL) 4 % (3-13); PLATELET COMMENT ADEQUATE; SEGMENTED NEUTROPHILS % (MAN) 86 % (42-78); TOTAL CELLS COUNTED 100; TOXIC GRANULATION 2+; TOXIC VACUOLATION PRESENT
[2018-05-19] MEDS: HEPARIN SOD (PORCINE) 5,000 UNIT/ML 1 ML SYRINGE SUBCUT SCH ×2 (10:08→22:07)
[2018-05-19] MEDS: DILTIAZEM HCL 120 MG CAP.SR.24H PO SCH (10:11)
[2018-05-19] MEDS: TIOTROPIUM BROMIDE DPI 5 CAP/KIT (18 MCG/CAP) IH SCH (10:12)
[2018-05-19] MEDS: BUDESONIDE/FORMOTEROL 160-4.5 MCG 60 PUFF/6 GM MDI IH SCH ×2 (10:12→17:26)
[2018-05-19] MEDS: METHYLPREDNISOLONE INJ 40 MG/1 ML SDV IV SCH (10:13)
[2018-05-19] MEDS: LISINOPRIL 10 MG TABLET PO SCH (10:13)
[2018-05-19] MEDS: BUPROPION HCL 75 MG TABLET PO SCH (10:15)
[2018-05-19] MEDS: OSELTAMIVIR PHOSPHATE 75 MG CAPSULE PO SCH ×2 (10:15→17:26)
--- NOTE | 2018-05-19 12:41 | PDOC PROGRESS REPORT ---
Subjective Progress Note for:: 05/19/18 Subjective:: 05/17/[id number]-otpg-old female with history of COPD on home oxygen, history of hepatitis C liver cirrhosis hypertension diastolic dysfunction came into the ER with shortness of breath. No acute events in the last 24 hours under pulse oxes are on the 99% patient main concern is the anxiety. 05/18/2018 62-year-old female admitted for COPD exacerbation and right lower lobe pneumonia she was positive for flu no acute events in the last 24 hours. Patient is complaining of nausea we started her on Zofran today. 2017-no acute events in the last 24 hours. Patient is complaining of anxiety spells presently she is on Xanax 0.25 mg twice a day she wants to bump it up to 2.5 mg twice a day. She is afebrile. She is getting Tamiflu for influenza A/B positive. Reason For Visit: COPD EXACERBATION, PNA Physical Exam Vital Signs: Temp Pulse Resp BP Pulse Ox 98.0 F 109 H 16 151/72 H 100 05/19/18 12:06 05/19/18 12:06 05/19/18 12:06 05/19/18 12:06 05/19/18 12:06 Intake & Output 05/18/18 05/19/18 05/20/18 06:59 06:59 06:59 Intake Total 1506 1560 Balance 1506 1560 Weight 46.6 kg 47.1 kg General appearance: PRESENT: no acute distress Head exam: PRESENT: atraumatic Eye exam: PRESENT: PERRLA Mouth exam: PRESENT: moist Neck exam: ABSENT: carotid bruit, JVD, lymphadenopathy, thyromegaly Respiratory exam: PRESENT: decreased breath sounds. ABSENT: rhonchi, wheezes Cardiovascular exam: PRESENT: tachycardia GI/Abdominal exam: PRESENT: normal bowel sounds, soft. ABSENT: distended, guarding, mass, organolmegaly, rebound, tenderness Neurological exam: PRESENT: alert, awake, oriented to person, oriented to place, oriented to time, oriented to situation, CN II-XII grossly intact. ABSENT: motor sensory deficit Psychiatric exam: PRESENT: appropriate affect, normal mood. ABSENT: homicidal ideation, suicidal ideation Results Laboratory Results: 05/19/18 06:22 05/19/18 06:22 05/19/18 05/19/18 06:22 06:22 WBC 5.1 RBC 3.41 L Hgb 10.2 L Hct 30.6 L MCV 90 MCH 30.0 MCHC 33.4 RDW 13.3 Plt Count 384 Seg Neutrophils % Not Reportable Lymphocytes % Not Reportable Monocytes % Not Reportable Eosinophils % Not Reportable Basophils % Not Reportable Absolute Neutrophils Not Reportable Absolute Lymphocytes Not Reportable Absolute Monocytes Not Reportable Absolute Eosinophils Not Reportable Absolute Basophils Not Reportable Sodium 136.4 L Potassium 5.0 Chloride 98 Carbon Dioxide 33 H Anion Gap 5 BUN 12 Creatinine 0.57 Est GFR ( Amer) > 60 Est GFR (Non-Af Amer) > 60 Glucose 170 H Calcium 8.5 Total Bilirubin 0.3 AST 26 ALT 22 Alkaline Phosphatase 72 Total Protein 6.0 L Albumin 2.8 L 05/16/18 18:24 Sputum Gram Stain - Final 05/16/18 18:24 Sputum Sputum Culture - Final Morax.(Branhamella)Catarrhalis Greatly Reduced Normal Jone 05/16/18 05/16/18 05/16/18 14:14 14:14 14:14 Creatine Kinase 44 CK-MB (CK-2) 3.65 Troponin I < 0.012 NT-Pro-B Natriuret Pep 628 Impressions: Chest X-Ray 05/16/18 13:53 IMPRESSION: Increased interstitial markings in the periphery of the right lung, question asymmetric interstitial pulmonary edema Assessment & Plan - Diagnosis (1) Acute and chronic respiratory failure with hypoxia Is this a current diagnosis for this admission?: Yes Plan: 05/17/2018-patient came in with acute on chronic respiratory failure with hypoxia and hypercapnia improving. This is secondary to COPD exacerbation and right-sided pneumonia. Patient is on BiPAP at the time of examination. 05/18/2018-the plan today is to use the BiPAP as needed basis. Pulse oxes are 94-96% on 2 L today. hypoxia and hypercapnia are improving. Latest ABG pH is 7.43/PCO2 48/PO2 116 bicarb is 31.8 pulse ox is 98%. Plan is to continue the present management. 05/19/2018-patient is on 2 L oxygen via nasal cannula pulse ox is 94-96%. Patient is using BiPAP on as needed basis. Plan is to continue the present management. (2) COPD with acute exacerbation Is this a current diagnosis for this admission?: Yes Plan: 05/17/2018-patient is on IV steroids, nebulizer treatments, started on Levaquin for right-sided pneumonia. She is on droplet isolation. Flu testing is pending. The bicarb on ABG is 40. I am going to repeat the ABG today. 05/18/2018-patient has a long history of COPD on home oxygen admitted for COPD exacerbation patient is on IV Solu-Medrol getting scheduled nebs and she is also on Levaquin for right-sided pneumonia. Plan is to continue the present management. 2017-patient presently on IV Solu-Medrol, getting scheduled nebulizations, also levofloxacin for recent pneumonia. The cultures are negative so far. I am planning to decrease IV Solu-Medrol 40 mg every 12 hours to once a day dose. (3) Pneumonia Is this a current diagnosis for this admission?: Yes Plan: 05/17/2018 chest x-ray shows questionable right-sided infiltrate. Patient on Levaquin. Sputum cultures and blood cultures are pending. 05/18/2018 chest x-ray shows right-sided infiltrate patient is a Levaquin sputum cultures and blood cultures negative so far. 05/19/2018-patient is on IV Levaquin for right-sided infiltrate. Sputum culture came back positive for Branhemella catarrhalis. Probably it is normal respiratory jone. Pt Is afebrile. (4) Influenza A Is this a current diagnosis for this admission?: Yes Plan: 05/18/2018 patient is positive for influenza A and B. We started her on droplet isolation and she is on Tamiflu 75 mg p.o. twice daily. 05/19/2018 for influenza a and B patient is on Tamiflu 75 mg p.o. twice daily. - Time Time Spent with patient: 15-24 minutes Smoking Cessation Education: 3 to 10 minutes Medications reviewed and adjusted accordingly: Yes Anticipated discharge: Home
[2018-05-19] MEDS: ALPRAZOLAM 0.5 MG TABLET PO PRN ×2 (15:23→22:06)
[2018-05-19] MEDS: LEVOFLOXACIN 750 MG/D5W RTU 750 MG/150 ML RTUPB IV SCH (17:25)
[2018-05-19] MEDS: PAROXETINE HCL 20 MG TABLET PO SCH (22:05)
[2018-05-20] MEDS: IPRATROPIUM/ALBUTEROL 0.5-2.5 MG/3 ML AMPUL NEB SCH ×5 (03:58→20:50)
[2018-05-20] MEDS: BUSPIRONE HCL 10 MG TABLET PO SCH ×3 (05:35→21:00)
[2018-05-20] MEDS: LANSOPRAZOLE 15 MG TAB.RAP.DR PO SCH (05:35)
[2018-05-20] MEDS: METHYLPREDNISOLONE INJ 40 MG/1 ML SDV IV SCH (09:33)
[2018-05-20] MEDS: ALPRAZOLAM 0.5 MG TABLET PO PRN ×2 (09:34→15:19)
[2018-05-20] MEDS: HEPARIN SOD (PORCINE) 5,000 UNIT/ML 1 ML SYRINGE SUBCUT SCH ×2 (09:34→21:01)
[2018-05-20] MEDS: LISINOPRIL 10 MG TABLET PO SCH (09:34)
[2018-05-20] MEDS: DILTIAZEM HCL 120 MG CAP.SR.24H PO SCH (09:34)
[2018-05-20] MEDS: BUDESONIDE/FORMOTEROL 160-4.5 MCG 60 PUFF/6 GM MDI IH SCH ×2 (09:35→18:18)
[2018-05-20] MEDS: OSELTAMIVIR PHOSPHATE 75 MG CAPSULE PO SCH ×2 (09:36→18:32)
[2018-05-20] MEDS: BUPROPION HCL 75 MG TABLET PO SCH (09:37)
[2018-05-20] MEDS: IBUPROFEN 600 MG TABLET PO PRN (11:58)
--- NOTE | 2018-05-20 14:13 | PDOC PROGRESS REPORT ---
Subjective Progress Note for:: 05/20/18 Subjective:: 05/17/[id number]-hlcy-old female with history of COPD on home oxygen, history of hepatitis C liver cirrhosis hypertension diastolic dysfunction came into the ER with shortness of breath. No acute events in the last 24 hours under pulse oxes are on the 99% patient main concern is the anxiety. 05/18/2018 62-year-old female admitted for COPD exacerbation and right lower lobe pneumonia she was positive for flu no acute events in the last 24 hours. Patient is complaining of nausea we started her on Zofran today. 2017-no acute events in the last 24 hours. Patient is complaining of anxiety spells presently she is on Xanax 0.25 mg twice a day she wants to bump it up to 2.5 mg twice a day. She is afebrile. She is getting Tamiflu for influenza A/B positive. 05/20/2018-no acute events in the last 24 hours. Patient is complaining of not feeling well complaining of increased cough shortness of breath and wheezing today. Patient is afebrile. She is positive for influenza A and B. She is nn Tamiflu. Reason For Visit: COPD EXACERBATION, PNA Physical Exam Vital Signs: Temp Pulse Resp BP Pulse Ox 98.2 F 96 18 130/62 H 96 05/20/18 03:21 05/20/18 12:50 05/20/18 12:50 05/20/18 03:21 05/20/18 12:50 Intake & Output 05/19/18 05/20/18 05/21/18 06:59 06:59 06:59 Intake Total 1560 1140 Balance 1560 1140 Weight 47.1 kg 47.1 kg General appearance: PRESENT: mild distress Head exam: PRESENT: atraumatic Eye exam: PRESENT: PERRLA Mouth exam: PRESENT: moist Neck exam: ABSENT: carotid bruit, JVD, lymphadenopathy, thyromegaly Respiratory exam: PRESENT: decreased breath sounds, wheezes Cardiovascular exam: PRESENT: tachycardia GI/Abdominal exam: PRESENT: normal bowel sounds, soft. ABSENT: distended, guarding, mass, organolmegaly, rebound, tenderness Neurological exam: PRESENT: alert, awake, oriented to person, oriented to place, oriented to time, oriented to situation, CN II-XII grossly intact. ABSENT: motor sensory deficit Psychiatric exam: PRESENT: appropriate affect, normal mood. ABSENT: homicidal ideation, suicidal ideation Results Laboratory Results: 05/19/18 06:22 05/19/18 06:22 05/16/18 18:24 Sputum Gram Stain - Final 05/16/18 18:24 Sputum Sputum Culture - Final Morax.(Branhamella)Catarrhalis Greatly Reduced Normal Jone 05/16/18 05/16/18 05/16/18 14:14 14:14 14:14 Creatine Kinase 44 CK-MB (CK-2) 3.65 Troponin I < 0.012 NT-Pro-B Natriuret Pep 628 Impressions: Chest X-Ray 05/16/18 13:53 IMPRESSION: Increased interstitial markings in the periphery of the right lung, question asymmetric interstitial pulmonary edema Assessment & Plan - Diagnosis (1) Acute and chronic respiratory failure with hypoxia Is this a current diagnosis for this admission?: Yes Plan: 05/17/2018-patient came in with acute on chronic respiratory failure with hypoxia and hypercapnia improving. This is secondary to COPD exacerbation and right-sided pneumonia. Patient is on BiPAP at the time of examination. 05/18/2018-the plan today is to use the BiPAP as needed basis. Pulse oxes are 94-96% on 2 L today. hypoxia and hypercapnia are improving. Latest ABG pH is 7.43/PCO2 48/PO2 116 bicarb is 31.8 pulse ox is 98%. Plan is to continue the present management. 05/19/2018-patient is on 2 L oxygen via nasal cannula pulse ox is 94-96%. Patient is using BiPAP on as needed basis. Plan is to continue the present management. 05/20/2018-pulse ox on 2 L is 96%. Patient is using BiPAP on as needed basis. Acute on chronic respiratory failure with hypoxia and hypercapnia are improving. (2) COPD with acute exacerbation Is this a current diagnosis for this admission?: Yes Plan: 05/17/2018-patient is on IV steroids, nebulizer treatments, started on Levaquin for right-sided pneumonia. She is on droplet isolation. Flu testing is pending. The bicarb on ABG is 40. I am going to repeat the ABG today. 05/18/2018-patient has a long history of COPD on home oxygen admitted for COPD exacerbation patient is on IV Solu-Medrol getting scheduled nebs and she is also on Levaquin for right-sided pneumonia. Plan is to continue the present management. 2017-patient presently on IV Solu-Medrol, getting scheduled nebu lizations, also levofloxacin for recent pneumonia. The cultures are negative so far. I am planning to decrease IV Solu-Medrol 40 mg every 12 hours to once a day dose. 05/20/2018-patient has chronic history of COPD she is on IV steroids and scheduled nebulizer treatments she is also on Levaquin for right-sided pneumonia. The cultures are negative so far. (3) Pneumonia Is this a current diagnosis for this admission?: Yes Plan: 05/17/2018 chest x-ray shows questionable right-sided infiltrate. Patient on Levaquin. Sputum cultures and blood cultures are pending. 05/18/2018 chest x-ray shows right-sided infiltrate patient is a Levaquin sputum cultures and blood cultures negative so far. 05/19/2018-patient is on IV Levaquin for right-sided infiltrate. Sputum culture came back positive for Branhemella catarrhalis. Probably it is normal respiratory jone. Pt Is afebrile. 05/20/2018 chest x-ray shows right-sided infiltrate she is on levofloxacin 750 mg IV daily blood cultures are negative plan is to continue the present management. (4) Influenza A Is this a current diagnosis for this admission?: Yes Plan: 05/18/2018 patient is positive for influenza A and B. We started her on droplet isolation and she is on Tamiflu 75 mg p.o. twice daily. 05/19/2018 for influenza a and B patient is on Tamiflu 75 mg p.o. twice daily. 05/20/2018 patient is positive for influenza AMB on Tamiflu 75 mg p.o. twice daily she is also on droplet isolation. - Time Time Spent with patient: 15-24 minutes Smoking Cessation Education: 3 to 10 minutes Medications reviewed and adjusted accordingly: Yes Anticipated discharge: Home
[2018-05-20] MEDS: LEVOFLOXACIN 750 MG/D5W RTU 750 MG/150 ML RTUPB IV SCH (18:18)
[2018-05-20] MEDS: TIOTROPIUM BROMIDE DPI 5 CAP/KIT (18 MCG/CAP) IH SCH (20:02)
[2018-05-20] MEDS: PAROXETINE HCL 20 MG TABLET PO SCH (21:00)
[2018-05-21] MEDS: IPRATROPIUM/ALBUTEROL 0.5-2.5 MG/3 ML AMPUL NEB SCH ×4 (03:48→18:10)
[2018-05-21] MEDS: BUSPIRONE HCL 10 MG TABLET PO SCH ×3 (05:03→21:30)
[2018-05-21] MEDS: LANSOPRAZOLE 15 MG TAB.RAP.DR PO SCH (05:03)
[2018-05-21] MEDS: ALPRAZOLAM 0.5 MG TABLET PO PRN ×2 (06:19→21:30)
[2018-05-21] MEDS: ONDANSETRON HCL INJ/PF 4 MG/2 ML SDV IV PRN (08:19)
[2018-05-21] MEDS: HEPARIN SOD (PORCINE) 5,000 UNIT/ML 1 ML SYRINGE SUBCUT SCH ×2 (09:46→21:31)
[2018-05-21] MEDS: METHYLPREDNISOLONE INJ 40 MG/1 ML SDV IV SCH (09:46)
[2018-05-21] MEDS: LISINOPRIL 10 MG TABLET PO SCH (09:47)
[2018-05-21] MEDS: DILTIAZEM HCL 120 MG CAP.SR.24H PO SCH (09:47)
[2018-05-21] MEDS: BUDESONIDE/FORMOTEROL 160-4.5 MCG 60 PUFF/6 GM MDI IH SCH ×2 (09:48→17:19)
[2018-05-21] MEDS: BUPROPION HCL 75 MG TABLET PO SCH (09:49)
[2018-05-21] MEDS: OSELTAMIVIR PHOSPHATE 75 MG CAPSULE PO SCH ×2 (09:49→17:18)
[2018-05-21] MEDS: TIOTROPIUM BROMIDE DPI 5 CAP/KIT (18 MCG/CAP) IH SCH (12:11)
--- NOTE | 2018-05-21 12:41 | PDOC PROGRESS REPORT ---
Subjective Progress Note for:: 05/21/18 Subjective:: 05/17/[id number]-iwfy-old female with history of COPD on home oxygen, history of hepatitis C liver cirrhosis hypertension diastolic dysfunction came into the ER with shortness of breath. No acute events in the last 24 hours under pulse oxes are on the 99% patient main concern is the anxiety. 05/18/2018 62-year-old female admitted for COPD exacerbation and right lower lobe pneumonia she was positive for flu no acute events in the last 24 hours. Patient is complaining of nausea we started her on Zofran today. 2017-no acute events in the last 24 hours. Patient is complaining of anxiety spells presently she is on Xanax 0.25 mg twice a day she wants to bump it up to 2.5 mg twice a day. She is afebrile. She is getting Tamiflu for influenza A/B positive. 05/20/2018-no acute events in the last 24 hours. Patient is complaining of not feeling well complaining of increased cough shortness of breath and wheezing today. Patient is afebrile. She is positive for influenza A and B. She is on Tamiflu. 05/21/2018 no acute events in the last 24 hours. Patient is afebrile. Pulse ox on 2 L is 99%. Patient is complaints of nausea she got on Zofran today. Patient is refusing scheduled nebulization treatments. Reason For Visit: COPD EXACERBATION, PNA Physical Exam Vital Signs: Temp Pulse Resp BP Pulse Ox 97.9 F 103 H 20 136/64 H 99 05/21/18 11:35 05/21/18 11:35 05/21/18 11:35 05/21/18 11:35 05/21/18 11:35 Intake & Output 05/20/18 05/21/18 05/22/18 06:59 06:59 06:59 Intake Total 1140 1865 Balance 1140 1865 Weight 47.1 kg 47.1 kg General appearance: PRESENT: no acute distress Head exam: PRESENT: atraumatic Eye exam: PRESENT: PERRLA Mouth exam: PRESENT: moist Neck exam: ABSENT: carotid bruit, JVD, lymphadenopathy, thyromegaly Respiratory exam: PRESENT: decreased breath sounds, wheezes Cardiovascular exam: PRESENT: tachycardia GI/Abdominal exam: PRESENT: normal bowel sounds, soft. ABSENT: distended, gua rding, mass, organolmegaly, rebound, tenderness Neurological exam: PRESENT: alert, awake, oriented to person, oriented to place, oriented to time, oriented to situation, CN II-XII grossly intact. ABSENT: motor sensory deficit Psychiatric exam: PRESENT: appropriate affect, normal mood. ABSENT: homicidal ideation, suicidal ideation Results Laboratory Results: 05/19/18 06:22 05/19/18 06:22 05/16/18 05/16/18 05/16/18 14:14 14:14 14:14 Creatine Kinase 44 CK-MB (CK-2) 3.65 Troponin I < 0.012 NT-Pro-B Natriuret Pep 628 Impressions: Chest X-Ray 05/16/18 13:53 IMPRESSION: Increased interstitial markings in the periphery of the right lung, question asymmetric interstitial pulmonary edema Assessment & Plan - Diagnosis (1) Acute and chronic respiratory failure with hypoxia Is this a current diagnosis for this admission?: Yes Plan: 05/17/2018-patient came in with acute on chronic respiratory failure with hypoxia and hypercapnia improving. This is secondary to COPD exacerbation and right-sided pneumonia. Patient is on BiPAP at the time of examination. 05/18/2018-the plan today is to use the BiPAP as needed basis. Pulse oxes are 94-96% on 2 L today. hypoxia and hypercapnia are improving. Latest ABG pH is 7.43/PCO2 48/PO2 116 bicarb is 31.8 pulse ox is 98%. Plan is to continue the present management. 05/19/2018-patient is on 2 L oxygen via nasal cannula pulse ox is 94-96%. Patient is using BiPAP on as needed basis. Plan is to continue the present management. 05/20/2018-pulse ox on 2 L is 96%. Patient is using BiPAP on as needed basis. Acute on chronic respiratory failure with hypoxia and hypercapnia are improving. 05/21/2018 pulse ox is 99% on 2 L. She is using BiPAP on as needed basis. On examination chest bilateral entry was severely decreased secondary to COPD bilateral mild wheezing still present. The physical findings are much better than yesterday. The acute on chronic respiratory failure with hypoxia and hypercapnia resolving. Plan is to continue the present management. (2) COPD with acute exacerbation Is this a current diagnosis for this admission?: Yes Plan: 05/17/2018-patient is on IV steroids, nebulizer treatments, started on Levaquin for right-sided pneumonia. She is on droplet isolation. Flu testing is pending. The bicarb on ABG is 40. I am going to repeat the ABG today. 05/18/2018-patient has a long history of COPD on home oxygen admitted for COPD exacerbation patient is on IV Solu-Medrol getting scheduled nebs and she is also on Levaquin for right-sided pneumonia. Plan is to continue the present kaity gement. 2017-patient presently on IV Solu-Medrol, getting scheduled nebulizations, also levofloxacin for recent pneumonia. The cultures are negative so far. I am planning to decrease IV Solu-Medrol 40 mg every 12 hours to once a day dose. 05/20/2018-patient has chronic history of COPD she is on IV steroids and scheduled nebulizer treatments she is also on Levaquin for right-sided pneum onia. The cultures are negative so far. 05/21/2018 patient is on IV steroids Solu-Medrol 40 mg daily I switched her to prednisone 20 mg p.o. twice daily. She is getting levofloxacin for right-sided pneumonia. She is also on Tamiflu for influenza A and B. Going to follow her on regular basis. (3) Pneumonia Is this a current diagnosis for this admission?: Yes Plan: 05/17/2018 chest x-ray shows questionable right-sided infiltrate. Patient on Levaquin. Sputum cultures and blood cultures are pending. 05/18/2018 chest x-ray shows right-sided infiltrate patient is a Levaquin sputum cultures and blood cultures negative so far. 05/19/2018-patient is on IV Levaquin for right-sided infiltrate. Sputum culture came back positive for Branhemella catarrhalis. Probably it is normal respiratory jone. Pt Is afebrile. 05/20/2018 chest x-ray shows right-sided infiltrate she is on levofloxacin 750 mg IV daily blood cultures are negative plan is to continue the present management. 05/21/2018 patient has right-sided infiltrate on levofloxacin. Cultures are negative so far. Patient is afebrile. (4) Influenza A Is this a current diagnosis for this admission?: Yes Plan: 05/18/2018 patient is positive for influenza A and B. We started her on droplet isolation and she is on Tamiflu 75 mg p.o. twice daily. 05/19/2018 for influenza a and B patient is on Tamiflu 75 mg p.o. twice daily. 05/20/2018 patient is positive for influenza AMB on Tamiflu 75 mg p.o. twice daily she is also on droplet isolation. 05/21/2018 patient is positive for influenza A and B she is on droplet isolation. She is getting Tamiflu 75 mg p.o. twice daily. - Time Time Spent with patient: 15-24 minutes Smoking Cessation Education: over 10 minutes Medications reviewed and adjusted accordingly: Yes Anticipated discharge: Home
[2018-05-21] MEDS: PREDNISONE 20 MG TABLET PO SCH (17:17)
[2018-05-21] MEDS: LEVOFLOXACIN 750 MG/D5W RTU 750 MG/150 ML RTUPB IV SCH (17:18)
[2018-05-21] MEDS: PAROXETINE HCL 20 MG TABLET PO SCH (21:30)
[2018-05-22] MEDS: BUSPIRONE HCL 10 MG TABLET PO SCH ×3 (05:16→21:21)
[2018-05-22] MEDS: LANSOPRAZOLE 15 MG TAB.RAP.DR PO SCH (05:16)
[2018-05-22] MEDS: HEPARIN SOD (PORCINE) 5,000 UNIT/ML 1 ML SYRINGE SUBCUT SCH ×2 (10:28→21:21)
[2018-05-22] MEDS: DILTIAZEM HCL 120 MG CAP.SR.24H PO SCH (10:28)
[2018-05-22] MEDS: PREDNISONE 20 MG TABLET PO SCH ×2 (10:28→17:07)
[2018-05-22] MEDS: LISINOPRIL 10 MG TABLET PO SCH (10:29)
[2018-05-22] MEDS: BUPROPION HCL 75 MG TABLET PO SCH (10:30)
[2018-05-22] MEDS: OSELTAMIVIR PHOSPHATE 75 MG CAPSULE PO SCH ×2 (10:31→17:08)
[2018-05-22] MEDS: TIOTROPIUM BROMIDE DPI 5 CAP/KIT (18 MCG/CAP) IH SCH (10:31)
[2018-05-22] MEDS: BUDESONIDE/FORMOTEROL 160-4.5 MCG 60 PUFF/6 GM MDI IH SCH ×2 (10:31→17:07)
[2018-05-22] MEDS: ALPRAZOLAM 0.5 MG TABLET PO PRN ×2 (10:40→21:21)
--- NOTE | 2018-05-22 12:16 | PDOC PROGRESS REPORT ---
Subjective Progress Note for:: 05/22/18 Subjective:: 05/17/[id number]-uyhz-old female with history of COPD on home oxygen, history of hepatitis C liver cirrhosis hypertension diastolic dysfunction came into the ER with shortness of breath. No acute events in the last 24 hours under pulse oxes are on the 99% patient main concern is the anxiety. 05/18/2018 62-year-old female admitted for COPD exacerbation and right lower lobe pneumonia she was positive for flu no acute events in the last 24 hours. Patient is complaining of nausea we started her on Zofran today. 2017-no acute events in the last 24 hours. Patient is complaining of anxiety spells presently she is on Xanax 0.25 mg twice a day she wants to bump it up to 2.5 mg twice a day. She is afebrile. She is getting Tamiflu for influenza A/B positive. 05/20/2018-no acute events in the last 24 hours. Patient is complaining of not feeling well complaining of increased cough shortness of breath and wheezing today. Patient is afebrile. She is positive for influenza A and B. She is on Tamiflu. 05/21/2018 no acute events in the last 24 hours. Patient is afebrile. Pulse ox on 2 L is 99%. Patient is complaints of nausea she got on Zofran today. Patient is refusing scheduled nebulization treatments. 05/22/2018-no acute events in the last 24 hours. Patient pulse oxes are 100% on 2 L. Patient is still complaining of shortness of breath and wheezing Reason For Visit: COPD EXACERBATION, PNA Physical Exam Vital Signs: Temp Pulse Resp BP Pulse Ox 97.6 F 80 18 110/48 L 100 05/22/18 07:22 05/22/18 07:22 05/22/18 07:22 05/22/18 07:22 05/22/18 07:22 Intake & Output 05/21/18 05/22/18 05/23/18 06:59 06:59 06:59 Intake Total 1865 1020 Balance 1865 1020 Weight 47.1 kg 47.8 kg General appearance: PRESENT: no acute distress Head exam: PRESENT: atraumatic Eye exam: PRESENT: PERRLA Mouth exam: PRESENT: moist Neck exam: ABSENT: carotid bruit, JVD, lymphadenopathy, thyromegaly Respiratory exam: PRESENT: decreased breath sounds, wheezes Cardiovascular exam: PRESENT: tachycardia GI/Abdominal exam: PRESENT: normal bowel sounds, soft. ABSENT: distended, guarding, mass, organolmegaly, rebound, tenderness Neurological exam: PRESENT: alert, awake, oriented to person, oriented to place, oriented to time, oriented to situation, CN II-XII grossly intact. ABSENT: motor sensory deficit Psychiatric exam: PRESENT: appropriate affect, normal mood. ABSENT: homicidal ideation, suicidal ideation Results Laboratory Results: 05/19/18 06:22 05/19/18 06:22 05/16/18 21:45 Blood Blood Culture - Final NO GROWTH IN 5 DAYS 05/16/18 18:24 Blood Blood Culture - Final NO GROWTH IN 5 DAYS 05/16/18 05/16/18 05/16/18 14:14 14:14 14:14 Creatine Kinase 44 CK-MB (CK-2) 3.65 Troponin I < 0.012 NT-Pro-B Natriuret Pep 628 Impressions: Chest X-Ray 05/16/18 13:53 IMPRESSION: Increased interstitial markings in the periphery of the right lung, question asymmetric interstitial pulmonary edema Assessment & Plan - Diagnosis (1) Acute and chronic respiratory failure with hypoxia Is this a current diagnosis for this admission?: Yes Plan: 05/17/2018-patient came in with acute on chronic respiratory failure with hypoxia and hypercapnia improving. This is secondary to COPD exacerbation and right-sided pneumonia. Patient is on BiPAP at the time of examination. 05/18/2018-the plan today is to use the BiPAP as needed basis. Pulse oxes are 94-96% on 2 L today. hypoxia and hypercapnia are improving. Latest ABG pH is 7.43/PCO2 48/PO2 116 bicarb is 31.8 pulse ox is 98%. Plan is to continue the present management. 05/19/2018-patient is on 2 L oxygen via nasal cannula pulse ox is 94-96%. Julian bush is using BiPAP on as needed basis. Plan is to continue the present management. 05/20/2018-pulse ox on 2 L is 96%. Patient is using BiPAP on as needed basis. Acute on chronic respiratory failure with hypoxia and hypercapnia are improving. 05/21/2018 pulse ox is 99% on 2 L. She is using BiPAP on as needed basis. On examination chest bilateral entry was severely decreased secondary to COPD bilateral mild wheezing still present. The physical findings are much better than yesterday. The acute on chronic respiratory failure with hypoxia and hypercapnia resolving. Plan is to continue the present management. 05/22/2018-pulse ox is 99 200% on 2 L. Patient is not using the BiPAP anymore. On examination chest bilateral entry was severely decreased few areas of wheezing is present bilaterally. Acute on chronic respiratory failure with hypoxia and hypercapnia resolving. Plan is to continue the present management. Patient is on levofloxacin 750 mg IV daily and Tamiflu 75 mg p.o. twice daily and I am going to stop levofloxacin today. Cultures are negative. (2) COPD with acute exacerbation Is this a current diagnosis for this admission?: Yes Plan: 05/17/2018-patient is on IV steroids, nebulizer treatments, started on Levaquin for right-sided pneumonia. She is on droplet isolation. Flu testing is pe nding. The bicarb on ABG is 40. I am going to repeat the ABG today. 05/18/2018-patient has a long history of COPD on home oxygen admitted for COPD exacerbation patient is on IV Solu-Medrol getting scheduled nebs and she is also on Levaquin for right-sided pneumonia. Plan is to continue the present management. 2017-patient presently on IV Solu-Medrol, getting scheduled nebulizations, also levofloxacin for recent pneumonia. The cultures are negative so far. I am planning to decrease IV Solu-Medrol 40 mg every 12 hours to once a day dose. 05/20/2018-patient has chronic history of COPD she is on IV steroids and scheduled nebulizer treatments she is also on Levaquin for right-sided pneumonia. The cultures are negative so far. 05/21/2018 patient is on IV steroids Solu-Medrol 40 mg daily I switched her to prednisone 20 mg p.o. twice daily. She is getting levofloxacin for right-sided pneumonia. She is also on Tamiflu for influenza A and B. Going to follow her on regular basis. 05/22/2018-patient has history of COPD secondary to smoking. Patient is presently on prednisone 20 mg p.o. twice daily. She is also a right-sided pneumonia. She finished a course of levofloxacin. She is afebrile. Blood cultures are negative. She is getting Tamiflu for influenza a and B. (3) Pneumonia Is this a current diagnosis for this admission?: Yes Plan: 05/17/2018 chest x-ray shows questionable right-sided infiltrate. Patient on Levaquin. Sputum cultures and blood cultures are pending. 05/18/2018 chest x-ray shows right-sided infiltrate patient is a Levaquin sputum cultures and blood cultures negative so far. 05/19/2018-patient is on IV Levaquin for right-sided infiltrate. Sputum culture came back positive for Branhemella catarrhalis. Probably it is normal respiratory jone. Pt Is afebrile. 05/20/2018 chest x-ray shows right-sided infiltrate she is on levofloxacin 750 mg IV daily blood cultures are negative plan is to continue the present management. 05/21/2018 patient has right-sided infiltrate on levofloxacin. Cultures are negative so far. Patient is afebrile. 05/22/2018-patient received 1 week course of IV Levaquin. I am going to discontinue the antibiotic today. Patient is afebrile for the last 72 hours. (4) Influenza A Is this a current diagnosis for this admission?: Yes Plan: 05/18/2018 patient is positive for influenza A and B. We started her on droplet isolation and she is on Tamiflu 75 mg p.o. twice daily. 05/19/2018 for influenza a and B patient is on Tamiflu 75 mg p.o. twice daily. 05/20/2018 patient is positive for influenza AMB on Tamiflu 75 mg p.o. twice daily she is also on droplet isolation. 05/21/2018 patient is positive for influenza A and B she is on droplet isolation. She is getting Tamiflu 75 mg p.o. twice daily. 09/20/2017-. Patient is positive for influenza A and B she is on Tamiflu 75 mg p.o. twice daily I am going to give a course of 10 days. - Time Time Spent with patient: 15-24 minutes Medications reviewed and adjusted accordingly: Yes Anticipated discharge: Home
[2018-05-22] MEDS: IBUPROFEN 600 MG TABLET PO PRN (14:25)
[2018-05-22] MEDS: PAROXETINE HCL 20 MG TABLET PO SCH (21:20)
[2018-05-23] MEDS: LANSOPRAZOLE 15 MG TAB.RAP.DR PO SCH (05:55)
[2018-05-23] MEDS: BUSPIRONE HCL 10 MG TABLET PO SCH ×2 (05:55→14:34)
[2018-05-23] MEDS: LISINOPRIL 10 MG TABLET PO SCH (10:39)
[2018-05-23] MEDS: TIOTROPIUM BROMIDE DPI 5 CAP/KIT (18 MCG/CAP) IH SCH (10:44)
[2018-05-23] MEDS: BUDESONIDE/FORMOTEROL 160-4.5 MCG 60 PUFF/6 GM MDI IH SCH (10:45)
[2018-05-23] MEDS: HEPARIN SOD (PORCINE) 5,000 UNIT/ML 1 ML SYRINGE SUBCUT SCH (10:45)
[2018-05-23] MEDS: BUPROPION HCL 75 MG TABLET PO SCH (10:46)
[2018-05-23] MEDS: ALPRAZOLAM 0.5 MG TABLET PO PRN (10:46)
[2018-05-23] MEDS: PREDNISONE 20 MG TABLET PO SCH (10:46)
[2018-05-23] MEDS: DILTIAZEM HCL 120 MG CAP.SR.24H PO SCH (11:04)
[2018-05-23 12:27] VITALS: BP 116/60
[2018-05-23] MEDS: OSELTAMIVIR PHOSPHATE 75 MG CAPSULE PO SCH (14:33)
[2018-05-23] MEDS: IBUPROFEN 600 MG TABLET PO PRN (14:34)
--- NOTE | 2018-05-23 14:41 | PDOC DISCHARGE SUMMARY ---
General - Admit/Disc Date/PCP Admission Date/Primary Care Provider: 05/16/18 18:37 MAIKEL EVANS MD Discharge Date: 05/23/18 - Discharge Diagnosis (1) Acute and chronic respiratory failure with hypoxia Is this a current diagnosis for this admission?: Yes Summary: 05/17/2018-patient came in with acute on chronic respiratory failure with hypoxia and hypercapnia improving. This is secondary to COPD exacerbation and right-sided pneumonia. Patient is on BiPAP at the time of examination. 05/18/2018-the plan today is to use the BiPAP as needed basis. Pulse oxes are 94-96% on 2 L today. hypoxia and hypercapnia are improving. Latest ABG pH is 7.43/PCO2 48/PO2 116 bicarb is 31.8 pulse ox is 98%. Plan is to continue the present management. 05/19/2018-patient is on 2 L oxygen via nasal cannula pulse ox is 94-96%. Patient is using BiPAP on as needed basis. Plan is to continue the present management. 05/20/2018-pulse ox on 2 L is 96%. Patient is using BiPAP on as needed basis. Acute on chronic respiratory failure with hypoxia and hypercapnia are improving. 05/21/2018 pulse ox is 99% on 2 L. She is using BiPAP on as needed basis. On examination chest bilateral entry was severely decreased secondary to COPD bilateral mild wheezing still present. The physical findings are much better than yesterday. The acute on chronic respiratory failure with hypoxia and hy percapnia resolving. Plan is to continue the present management. 05/22/2018-pulse ox is 99 % on 2 L. Patient is not using the BiPAP anymore. On examination chest bilateral entry was severely decreased few areas of wheezing is present bilaterally. Acute on chronic respiratory failure with hypoxia and hypercapnia resolving. Plan is to continue the present management. Patient is on levofloxacin 750 mg IV daily and Tamiflu 75 mg p.o. twice daily and I am going to stop levofloxacin today. Cultures are negative. 05/23-patient looks much better denies any complaints today. Pulse ox is 100% on 2 L. On examination chest bilateral entry was decreased but no wheezing no crepitations. Hypoxia and hypercapnia resolving. Patient was also treated for influenza a and B+ with Tamiflu 75 mg p.o. twice daily. Antibiotics were discontinued yesterday. T-max is 97.6. Is going to go home on Tamiflu 75 mg p.o. twice daily for 5 days. Also gave her prednisone 20 mg p.o. twice daily for 5 days. Strongly advised to continue use the home oxygen at home. Patient is on 2-3 L of oxygen via nasal cannula at home. (2) COPD with acute exacerbation Is this a current diagnosis for this admission?: Yes Summary: 05/17/2018-patient is on IV steroids, nebulizer treatments, started on Levaquin for right-sided pneumonia. She is on droplet isolation. Flu testing is pending. The bicarb on ABG is 40. I am going to repeat the ABG today. 05/18/2018-patient has a long history of COPD on home oxygen admitted for COPD exacerbation patient is on IV Solu-Medrol getting scheduled nebs and she is also on Levaquin for right-sided pneumonia. Plan is to continue the present management. 2017-patient presently on IV Solu-Medrol, getting scheduled nebulizations, also levofloxacin for recent pneumonia. The cultures are negative so far. I am planning to decrease IV Solu-Medrol 40 mg every 12 hours to once a day dose. 05/20/2018-patient has chronic history of COPD she is on IV steroids and scheduled nebulizer treatments she is also on Levaquin for right-sided pneumonia. The cultures are negative so far. 05/21/2018 patient is on IV steroids Solu-Medrol 40 mg daily I switched her to prednisone 20 mg p.o. twice daily. She is getting levofloxacin for right-sided pneumonia. She is also on Tamiflu for influenza A and B. Going to follow her on regular basis. 05/22/2018-patient has history of COPD secondary to smoking. Patient is presently on prednisone 20 mg p.o. twice daily. She is also a right-sided pneumonia. She finished a course of levofloxacin. She is afebrile. Blood cultures are negative. She is getting Tamiflu for influenza a and B. 05/23/2018 patient has history of COPD on home oxygen according to the patient oxygen requirements are between 2-3 L. I put a request for meeting/event planner to resume the home oxygen. Patient is also go home on prednisone 10 mg p.o. twice daily twice a day for 5 days. (3) Pneumonia Is this a current diagnosis for this admission?: Yes Summary: 05/17/2018 chest x-ray shows questionable right-sided infiltrate. Patient on Levaquin. Sputum cultures and blood cultures are pending. 05/18/2018 chest x-ray shows right-sided infiltrate patient is a Levaquin sputum cultures and blood cultures negative so far. 05/19/2018-patient is on IV Levaquin for right-sided infiltrate. Sputum culture came back positive for Branhemella catarrhalis. Probably it is normal respiratory jone. Pt Is afebrile. 05/20/2018 chest x-ray shows right-sided infiltrate she is on levofloxacin 750 mg IV daily blood cultures are negative plan is to continue the present management. 05/21/2018 patient has right-sided infiltrate on levofloxacin. Cultures are negative so far. Patient is afebrile. 05/22/2018-patient received 1 week course of IV Levaquin. I am going to discontinue the antibiotic today. Patient is afebrile for the last 72 hours. 05/23/2018-initial chest x-ray shows right-sided infiltrate cultures are negative. She was treated with 1 week of IV Levaquin. We discontinued IV ant ibiotic therapies yesterday and pt is patient is afebrile. (4) Influenza A Is this a current diagnosis for this admission?: Yes Summary: 05/18/2018 patient is positive for influenza A and B. We started her on droplet isolation and she is on Tamiflu 75 mg p.o. twice daily. 05/19/2018 for influenza a and B patient is on Tamiflu 75 mg p.o. twice daily. 05/20/2018 patient is positive for influenza AMB on Tamiflu 75 mg p.o. twice daily she is also on droplet isolation. 05/21/2018 patient is positive for influenza A and B she is on droplet isolation. She is getting Tamiflu 75 mg p.o. twice daily. 05/23/2018-. Patient is positive for influenza A and B she is on Tamiflu 75 mg p.o. twice daily I am going to give a course of 5 more days to complete the course. - Additional Information Resuscitation Status: Full Code Discharge Diet: Cardiac Discharge Activity: Activity As Tolerated, Balance Activity w/Rest, Slowly Increase Activity Prescriptions: Oseltamivir Phosphate [Tamiflu 75 mg Capsule] 75 mg PO BID #10 capsule Prednisone [Deltasone 20 mg Tablet] 20 mg PO BID #10 tablet Home Medications: Budesonide/Formoterol Fumarate [Symbicort HFA 160-4.5 mcg Inhaler 6 gm] 2 puff IH BID 10/24/16 Omeprazole 20 mg PO DAILY 10/24/16 Tiotropium [place] [Spiriva Handihaler 18 mcg/dose (30 Dose)] 1 puff IH DAILY 10/24/16 Bupropion HCl [Wellbutrin 75 mg Tablet] 75 mg PO DAILY 09/13/17 Alprazolam [Xanax 0.25 mg Tablet] 0.25 mg PO BIDP PRN 05/16/18 Buspirone HCl [Buspar 10 mg Tablet] 10 mg PO TID 05/16/18 Diltiazem HCl [Diltiazem ER] 120 mg PO DAILY 05/16/18 Levalbuterol Tartrate [Xopenex Hfa] 1 puff IH Q4HP PRN 05/16/18 Lisinopril [Prinivil 10 mg Tablet] 10 mg PO DAILY 05/16/18 Paroxetine HCl [Paxil] 30 mg PO QHS 05/16/18 Oseltamivir Phosphate [Tamiflu 75 mg Capsule] 75 mg PO BID #10 capsule 05/23/18 Prednisone [Deltasone 20 mg Tablet] 20 mg PO BID #10 tablet 05/23/18 History of Present Illness History of Present Illness: ADY YEUNG is a 62 year old female patient of Dr. Herrera who has a PMH of COPD-on O2 at night and intermittent during the day, history of hepatitis C, cirrhosis, diastolic dysfunction and hy pertension who present with SOB. She says she has been feeling generally weak in the past 4 days and started developing progressive SOB and wheezing at home. She also reports of associated minimally productive cough. She denies recent sick contacts. Denies fever or chills. In the ER, she was noted to have bilateral wheezing with sats at 89% on room air. Chest x-ray shows a right lung infiltrate. She denies chest pain or palpitations. Physical Exam Vital Signs: Temp Pulse Resp BP Pulse Ox 98.0 F 99 19 116/60 100 05/23/18 13:45 05/23/18 13:45 05/23/18 13:45 05/23/18 13:45 05/23/18 13:45 Intake & Output 05/22/18 05/23/18 05/24/18 06:59 06:59 06:59 Intake Total 1020 1498 Balance 1020 1498 Weight 47.8 kg 47.3 kg General appearance: PRESENT: no acute distress Head exam: PRESENT: atraumatic Eye exam: PRESENT: PERRLA Mouth exam: PRESENT: moist Neck exam: ABSENT: carotid bruit, JVD, lymphadenopathy, thyromegaly Respiratory exam: PRESENT: decreased breath sounds Cardiovascular exam: PRESENT: RRR. ABSENT: diastolic murmur, rubs, systolic murmur GI/Abdominal exam: PRESENT: normal bowel sounds, soft. ABSENT: distended, guarding, mass, organolmegaly, rebound, tenderness Extremities exam: PRESENT: full ROM. ABSENT: calf tenderness, clubbing, pedal edema Neurological exam: PRESENT: alert, awake, oriented to person, oriented to place, oriented to time, oriented to situation, CN II-XII grossly intact. ABSENT: motor sensory deficit Psychiatric exam: PRESENT: appropriate affect, normal mood. ABSENT: homicidal ideation, suicidal ideation Results Laboratory Results: 05/19/18 06:22 05/19/18 06:22 05/16/18 05/16/18 05/16/18 14:14 14:14 14:14 Creatine Kinase 44 CK-MB (CK-2) 3.65 Troponin I < 0.012 NT-Pro-B Natriuret Pep 628 Impressions: Chest X-Ray 05/16/18 13:53 IMPRESSION: Increased interstitial markings in the periphery of the right lung, question asymmetric interstitial pulmonary edema Qualifiers - * PATIENT BEING DISCHARGED WITH ANY OF THE FOLLOWING DIAGNOSIS: No VTE patient discharged on overlapping Therapy?: Yes
== END 2018-05-23 14:50 | disposition home or self-care (01) | DRG 190 ==
LOC: ER 13:51 → EH 18:37 → 4S 21:07
PROVIDERS: ADMIT Hospitalist; ATTEND Hospitalist
PROC: 3E0F73Z Introduction of Anti-inflammatory into Respiratory Tract, Via Natural or Artificial Opening (ICD-10-PCS; 2018-05-16)
PROC: 5A09457 Assistance with Respiratory Ventilation, 24-96 Consecutive Hours, Continuous Positive Airway Pressure (ICD-10-PCS; principal; 2018-05-17)
DX: J44.1 Chronic obstructive pulmonary disease with (acute) exacerbation (principal); J18.9 Pneumonia, unspecified organism; J96.22 Acute and chronic respiratory failure with hypercapnia; J96.21 Acute and chronic respiratory failure with hypoxia; J10.00 Influenza due to other identified influenza virus with unspecified type of pneumonia; J44.0 Chronic obstructive pulmonary disease with (acute) lower respiratory infection; K21.9 Gastro-esophageal reflux disease without esophagitis; F32.9 Major depressive disorder, single episode, unspecified; F17.210 Nicotine dependence, cigarettes, uncomplicated; K74.60 Unspecified cirrhosis of liver; Z99.81 Dependence on supplemental oxygen; Z79.899 Other long term (current) drug therapy; Z90.49 Acquired absence of other specified parts of digestive tract; Z88.6 Allergy status to analgesic agent; Z86.19 Personal history of other infectious and parasitic diseases; Z83.3 Family history of diabetes mellitus
CPT/HCPCS: 36415; 36600; 71045; 80053; 82140; 82550; 82553; 82803; 83735; 83880; 84484; 85025; 87040; 87070; 87205; 87804; 93005; 93010; 94640; 94660; 96374; 99285; J1644; J1956; J2405; J2920; J2930; J3490; J7030; J7512; J7620

== ENCOUNTER → 2018-06-02 | Outpatient (CLI) | payer MEDICAID ==
--- NOTE | 2018-06-02 11:16 | WOMENS IMAGING REPORT ---
EXAM DESCRIPTION: U/S ABDOMEN LIMITED COMPLETED DATE/TIME: 06/02/2018 11:03 am REASON FOR STUDY: K70.30 K70.30 ALCOHOLIC CIRRHOSIS OF LIVER WITHOUT ASCITES R10.11 RIGHT UPPER QU ADRANT PAIN COMPARISON: None. TECHNIQUE: Dynamic and static grayscale images acquired of the abdomen and recorded on PACS. Additio nal selected color Doppler and spectral images recorded. LIMITATIONS: Limited visualization. Poor acoustical window FINDINGS: PANCREAS: Obscured. LIVER: Normal size Moderate to marked fatty infiltration. Sub capsular nodularity. LIVER VASCULATURE: Normal directional flow of the main portal vein and hepatic veins. GALLBLADDER: Surgically absent. ULTRASOUND-DETECTED NATH'S SIGN: Not applicable. INTRAHEPATIC DUCTS AND COMMON DUCT: CBD and intrahepatic ducts normal caliber. No filling defects. INFERIOR VENA CAVA: Normal flow. AORTA: No aneurysm. RIGHT KIDNEY: Normal size. Normal echogenicity. No solid or suspicious masses. No hydronephros is. No calcifications. PERITONEAL AND RIGHT PLEURAL SPACE: No ascites or effusions. OTHER: No other significant findings. IMPRESSION: Cirrhosis. Fatty liver. No ascites. TECHNICAL DOCUMENTATION: JOB ID: [id number]- All Rights Reserved Reading location - IP/workstation name: [email or web address]
== END ==
LOC: WI 10:32
PROVIDERS: ATTEND Internal Medicine Gastroenterology
DX: K70.30 Alcoholic cirrhosis of liver without ascites (principal); R10.11 Right upper quadrant pain
CPT/HCPCS: 76705

== ENCOUNTER 2018-11-04 15:17 | Inpatient (IN) | payer MEDICAID ==
[2018-11-04] MEDS ORDERED: IPRATROPIUM/ALBUTEROL 0.5-2.5 MG/3 ML AMPUL NEB ONE ×2 (15:22→16:15)
[2018-11-04 16:01] LABS: ABSOLUTE EOSINOPHILS # (AUTO) 0.1 10^3/uL (0.0-0.6); ABSOLUTE LYMPHOCYTES (AUTO) 0.2 10^3/uL (0.5-4.7); ABSOLUTE MONOCYTES (AUTO) 0.5 10^3/uL (0.1-1.4); ABSOLUTE NEUT (AUTO) 3.3 10^3/uL (1.7-8.2); BASOPHILS % (AUTO) 0.4 % (0-2); EOSINOPHILS % (AUTO) 1.4 % (0-6); HEMATOCRIT 32.3 % (36.0-47.0); HEMOGLOBIN 10.7 g/dL (12.0-15.5); LYMPHOCYTES % (AUTO) 5.8 % (13-45); MEAN CORPUSCULAR HEMOGLOBIN 28.5 pg (27.0-33.4); MEAN CORPUSCULAR HGB CONC 33.3 g/dL (32.0-36.0); MEAN CORPUSCULAR VOLUME 86 fl (80-97); MONOCYTES % (AUTO) 11.1 % (3-13); PLATELET COUNT 200 10^3/uL (150-450); RED BLOOD COUNT 3.76 10^6/uL (3.72-5.28); RED CELL DISTRIBUTION WIDTH 13.5 % (11.5-14.0); SEGMENTED NEUTROPHILS % (AUTO) 81.3 % (42-78); TOTAL CELLS COUNTED % (AUTO) 100 %; WHITE BLOOD COUNT 4.1 10^3/uL (4.0-10.5)
[2018-11-04 16:08] LABS: ALANINE AMINOTRANSFERASE 21 U/L (9-52); ALBUMIN 4.3 g/dL (3.5-5.0); ALKALINE PHOSPHATASE 99 U/L (38-126); ANION GAP 11 (5-19); ASPARTATE AMINO TRANSFERASE 22 U/L (14-36); BILIRUBIN,DIRECT 0.4 mg/dL (0.0-0.4); BILIRUBIN,TOTAL 0.6 mg/dL (0.2-1.3); BLOOD UREA NITROGEN 19 mg/dL (7-20); CALCIUM 9.3 mg/dL (8.4-10.2); CARBON DIOXIDE 31 mmol/L (22-30); CHLORIDE 88 mmol/L (98-107); GLUCOSE 179 mg/dL (75-110); POTASSIUM 4.4 mmol/L (3.6-5.0); TOTAL PROTEIN 7.8 g/dL (6.3-8.2)
--- NOTE | 2018-11-04 16:13 | RADIOLOGY REPORT (SQ) ---
EXAM DESCRIPTION: CHEST SINGLE VIEW COMPLETED DATE/TIME: 11/04/2018 4:01 pm REASON FOR STUDY: dyspnea COMPARISON: 05/16/2018 NUMBER OF VIEWS: One view. TECHNIQUE: Single frontal radiographic view of the chest acquired. LIMITATIONS: None. FINDINGS: LUNGS AND PLEURA: There is bilateral perihilar airspace disease. This appears slightly mo re prominent than noted in April. There is minimal blunting of the costophrenic angles consistent with pleural thickening or small effusions. The effusions appear smaller than noted in April. MEDIASTINUM AND HILAR STRUCTURES: No masses. Contour normal. HEART AND VASCULAR STRUCTURES: Heart normal in size. Normal vasculature. BONES: No acute findings. HARDWARE: None in the chest. OTHER: No other significant finding. IMPRESSION: Bilateral perihilar airspace disease right greater than left. Findings are suspicious f or atypical pneumonia. Possibly edema. There are small effusions. TECHNICAL DOCUMENTATION: JOB ID: [id number] [employer]- All Rights Reserved Reading location - IP/workstation name: [email or web address]
[2018-11-04 16:17] LABS: CREATINE KINASE MB 4.99 ng/mL (<4.55); NT PRO BNP 1000 pg/mL (5-900)
[2018-11-04 16:21] LABS: TROPONIN I < 0.012 ng/mL
[2018-11-04] MEDS ORDERED: LEVOFLOXACIN 750 MG/D5W RTU 750 MG/150 ML RTUPB IV ONE (16:55)
[2018-11-04] MEDS ORDERED: FUROSEMIDE INJ/PF 20 MG/2 ML SDV IV ONE (16:55)
[2018-11-04 17:06] LABS: APPEARANCE,URINE SLIGHTLY-CLOUDY; BILIRUBIN,URINE NEGATIVE (NEGATIVE); COLOR,URINE YELLOW; GLUCOSE, URINE NEGATIVE (NEGATIVE); KETONES,URINE NEGATIVE (NEGATIVE); LEUKOCYTE ESTERASE,URINE NEGATIVE (NEGATIVE); NITRITE,URINE NEGATIVE (NEGATIVE); PROTEIN,URINE 30 mg/dL (NEGATIVE); URINE SPECIFIC GRAVITY 1.013; UROBILINOGEN,URINE NEGATIVE mg/dL (<2.0)
--- NOTE | 2018-11-04 18:37 | EKG REPORT ---
SEVERITY:- OTHERWISE NORMAL ECG - SINUS TACHYCARDIA : Confirmed by: Ramu London MD 04-Nov-2018 18:37:18
--- NOTE | 2018-11-04 19:38 | RADIOLOGY REPORT (SQ) ---
EXAM DESCRIPTION: CT HEAD WITHOUT COMPLETED DATE/TIME: 11/04/2018 7:27 pm REASON FOR STUDY: altered mental status COMPARISON: None. TECHNIQUE: Axial images acquired through the brain without intravenous contrast. Images reviewed wi th bone, brain and subdural windows. Additional sagittal and coronal reconstructions were generated. Images stored on PACS. All CT scanners at this facility use dose modulation, iterative reconstruction, and/or weight based d osing when appropriate to reduce radiation dose to as low as reasonably achievable (ALARA). [facility]: Dose Right [facility]: CareDose [facility]: Dose Right [facility]: Teradose 4D [facility]: Smart Krikle RADIATION DOSE: CT Rad equipment meets quality standard of care and radiation dose reduction techniq ues were employed. CTDIvol: 53.2 mGy. DLP: 1017 mGy-cm. mGy. LIMITATIONS: None. FINDINGS: VENTRICLES: Appropriate for the patient's age. CEREBRUM: No masses. No hemorrhage. No midline shift. No evidence for acute infarction. Normal gra y/white matter differentiation. No areas of low density in the white matter. CEREBELLUM: No masses. No hemorrhage. No alteration of density. No evidence for acute infarction. EXTRAAXIAL SPACES: No fluid collections. No masses. ORBITS AND GLOBE: No intra- or extraconal masses. Normal contour of globe without masses. CALVARIUM: No fracture. PARANASAL SINUSES: No fluid or mucosal thickening. SOFT TISSUES: No mass or hematoma. OTHER: No other significant finding. IMPRESSION: NORMAL BRAIN CT WITHOUT CONTRAST. EVIDENCE OF ACUTE STROKE: NO. COMMENT: Quality ID # [id number]: Final reports with documentation of one or more dose reduction techniques (e.g., Automated exposure control, adjustment of the mA and/or kV according to patient size, use of iterative reconstruction technique) TECHNICAL DOCUMENTATION: JOB ID: [id number] [employer]- All Rights Reserved Reading location - IP/workstation name: [email or web address]
[2018-11-04 20:24] LABS: ARTERIAL BLOOD BASE EXCESS 3.5 mmol/L; ARTERIAL BLOOD HCO3 33.8 mmol/L (20-24); ARTERIAL BLOOD O2 SATURATION 94.9 % (94-98); ARTERIAL BLOOD PH 7.24 (7.35-7.45); ARTERIAL BLOOD PO2 88.8 mmHg (80-100); ARTERIAL BLOOD TOTAL CO2 36.2 mmol/L (21-25)
[2018-11-04 20:28] LABS: ARTERIAL BLOOD FIO2 92
[2018-11-04 20:30] LABS: ARTERIAL BLOOD PCO2 79.9 mmHg (35-45)
[2018-11-04] MEDS ORDERED: LORAZEPAM INJ 2 MG/1 ML VIAL IV ONE (21:04)
--- NOTE | 2018-11-04 21:26 | ER Document Report ---
ED General - General Chief Complaint: Shortness Of Breath Stated Complaint: DIFFICULTY BREATHING Time Seen by Provider: 11/04/18 15:42 Primary Care Provider: MAIKEL EVANS MD [Primary Care Provider] - Follow up as needed TRAVEL OUTSIDE OF THE [place] IN LAST 30 DAYS: No - HPI Notes: Patient is a 63-year-old female who presents to the emergency department for difficulty breathing. She is a very difficult historian. She states initially that she started feeling short of breath yesterday. She states she always coughs. She never lies flat. She states she quit smoking, but continues to vape. She denies any pain. I asked her about her medications. She produces a bag with multiple psychiatric medications, but no medications to treat cirrhosis or CHF, from which she suffers. I asked the patient if she is ever been on a medication like Lasix. She states "I went to see my doctor yesterday, and he started me on that." I asked her how she got to her doctor's office. She states that her daughter took her. Her voice was slightly altered. I asked her significant other, who I later find out as her boyfriend, if this is normal for her. He states to me that she is speaking normally. - Related Data Allergies/Adverse Reactions: acetaminophen [From Tylenol] Allergy (Mild, Verified 05/16/18 20:52) GI upset Past Medical History - General Information source: Patient, Relative, Friend, [facility] Records - Social History Smoking Status: Current Every Day Smoker Frequency of alcohol use: None Drug Abuse: None Family History: DM, Other Patient has suicidal ideation: No Patient has homicidal ideation: No - Past Medical History Cardiac Medical History: Reports: Hx Congestive Heart Failure Denies: Hx Coronary Artery Disease Pulmonary Medical History: Reports: Hx COPD, Hx Pneumonia Renal/ Medical History: Denies: Hx Peritoneal Dialysis GI Medical History: Reports: Hx Cirrhosis, Hx Gastroesophageal Reflux Disease, Hx Hepatitis - c, Hx Liver Failure Musculoskeletal Medical History: Reports Hx Musculoskeletal Deformity, Reports Hx Musculoskeletal Trauma Psychiatric Medical History: Reports: Hx Anxiety, Hx Depression Infectious Medical History: Reports: Hx Hepatitis - c Past Surgical History: Reports: Hx Section, Hx Cholecystectomy, Hx Gynecologic Surgery - ovarian wedge., Hx Orthopedic Surgery - carpel tunnel, Hx Tonsillectomy, Other - Unable to obtain at this time since the patient is intubated and sedated.. Denies: Hx Hysterectomy - Immunizations Immunizations up to date: Yes Hx Diphtheria, Pertussis, Tetanus Vaccination: Yes Review of Systems - Review of Systems Constitutional: No symptoms reported EENT: No symptoms reported Cardiovascular: No symptoms reported Respiratory: See HPI Gastrointestinal: No symptoms reported Genitourinary: No symptoms reported Musculoskeletal: No symptoms reported Skin: No symptoms reported Neurological/Psychological: No symptoms reported Physical Exam - Vital signs Vitals: Temp Pulse Resp BP Pulse Ox 97.6 F 112 H 20 158/72 H 91 L 11/04/18 15:21 11/04/18 15:21 11/04/18 15:21 11/04/18 15:21 11/04/18 15:21 - Notes Notes: This is a 63-year-old female who appears much older than her stated age, in no acute distress. Head is normocephalic and atraumatic. Pupils are equal and round, reactive to light. Oral mucosa is moist. No nuchal rigidity. Heart is re gular rate and rhythm, lungs reveal scattered rhonchi, expiratory wheezes, and inspiratory crackles at bilateral bases. Abdomen soft nontender, normoactive bowel sounds. Extremities without cyanosis, clubbing, edema. Posterior calves are nontender. Patient is awake and alert, oriented x3, but occasionally answers questions inappropriately. She has no gross facial asymmetry. She moves all 4 extremities spontaneously. Course - Re-evaluation Re-evalutation: 11/04/18 21:28 Patient presents to the emergency department for evaluation. She was placed on oxygen by nasal cannula, laboratory vesication's were obtained, EKG and x-ray were ordered. EKG felt to reveal any acute abnormality with the exception of mild tachycardia. Chest x-ray showed edema versus atypical pneumonia. She was treated with Levaquin and Lasix for this. She does have a very mild hyponatremia. During the course of her stay, I did continue to asked the patient why she was not on any medications for CHF. She states that she was at a doctor's appointment with her daughter yesterday. We did decide to contact her daughter, and an attempt to get a more complete history. The daughter states to me that she is very noncompliant. She states she fell twice yesterday. She states she took her to her doctor about 2 months ago, certainly not yesterday. She explains to me that her mother's voice is not normally like that. Her significant other has provided false history in the past. She insists that something has changed, and asks for further evaluation. Further investigation was ordered, including CT scan of the head, ABG. CT scan of the head was unremarkable, but ABG revealed significant CO2 retention and respiratory acidosis. Patient was placed on BiPAP. She did have some anxiety with that so Ativan was ordered. I spoke with Dr. Jefferson, he will admit the patient for further care. - Vital Signs Vital signs: Temp Pulse Resp BP Pulse Ox 97.6 F 112 H 23 H 144/91 H 90 L 11/04/18 15:21 11/04/18 15:21 11/04/18 20:02 11/04/18 19:00 11/04/18 20:02 - Laboratory Result Diagrams: 11/04/18 15:34 11/04/18 15:34 Laboratory results interpreted by me: 11/04/18 11/04/18 11/04/18 15:34 15:34 15:34 Hgb 10.7 L Hct 32.3 L Seg Neutrophils % 81.3 H Lymphocytes % 5.8 L Absolute Lymphocytes 0.2 L Carbonic Acid ABG pH ABG pCO2 ABG HCO3 ABG Total CO2 Sodium 130.0 L Chloride 88 L Carbon Dioxide 31 H Est GFR (Non-Af Amer) 56 L Glucose 179 H Ammonia CK-MB (CK-2) 4.99 H NT-Pro-B Natriuret Pep 1000 H Urine Protein Urine Blood 11/04/18 11/04/18 11/04/18 16:39 19:20 19:59 Hgb Hct Seg Neutrophils % Lymphocytes % Absolute Lymphocytes Carbonic Acid 2.40 H ABG pH 7.24 L ABG pCO2 79.9 H* ABG HCO3 33.8 H ABG Total CO2 36.2 H Sodium Chloride Carbon Dioxide Est GFR (Non-Af Amer) Glucose Ammonia < 8.7 L CK-MB (CK-2) NT-Pro-B Natriuret Pep Urine Protein 30 H Urine Blood SMALL H - Diagnostic Test Radiology reviewed: Reports reviewed Radiology results interpreted by me: 11/04/18 21:30 Chest X-Ray 11/04/18 15:51 IMPRESSION: Bilateral perihilar airspace disease right greater than left. Findings are suspicious for atypical pneumonia. Possibly edema. There are small effusions. Head CT 11/04/18 18:52 IMPRESSION: NORMAL BRAIN CT WITHOUT CONTRAST. EVIDENCE OF ACUTE STROKE: NO. - EKG Interpretation by Me Additional EKG results interpreted by me: 11/04/18 21:30 Sinus tachycardia with a rate of 106 bpm. Normal axis and intervals, no acute ST changes concerning for ischemia or infarction. No significant change when compared to prior study. Critical Care Note - Critical Care Note Total time excluding time spent on procedures (mins): 20 Discharge - Discharge Clinical Impression: COPD exacerbation, Acute encephalopathy, Acute respiratory failure with hypercapnia Condition: Stable Disposition: ADMITTED INPATIENT Admitting Provider: Ronny (Hospitalist) Unit Admitted: IMCU Referrals: MAIKEL EVANS MD [Primary Care Provider] - Follow up as needed
[2018-11-04] MEDS ORDERED: MORPHINE SULFATE 10 MG/ML INJ IV PRN (22:17)
[2018-11-04] MEDS ORDERED: ACETAMINOPHEN 325 MG TABLET PO PRN (22:17)
[2018-11-04] MEDS ORDERED: MAG HYDROX/AL HYDROX/SIMETH SUSP 30 ML UDCUP PO PRN (22:17)
[2018-11-04] MEDS ORDERED: LEVALBUTEROL HCL NEB 0.63 MG/3 ML AMPUL NEB PRN (22:17)
[2018-11-04] MEDS ORDERED: NICOTINE 21 MG/24 HR PATCH.TD24 TD PRN (22:17)
[2018-11-04] MEDS ORDERED: MAGNESIUM HYDROXIDE SUSP 30 ML UDCUP PO PRN (22:17)
[2018-11-04] MEDS ORDERED: ONDANSETRON HCL INJ/PF 4 MG/2 ML SDV IV PRN (22:20)
[2018-11-04] MEDS ORDERED: TEMAZEPAM 7.5 MG CAPSULE PO PRN (22:20)
[2018-11-04 23:25] LABS: CREATINE KINASE MB 5.79 ng/mL (<4.55)
[2018-11-04 23:29] LABS: TROPONIN I < 0.012 ng/mL
[2018-11-04 23:30] LABS: FREE T3 3.92 pg/mL (2.77-5.27); FREE T4 (FREE THYROXINE) 1.36 ng/dL (0.78-2.19)
[2018-11-04 23:36] LABS: ARTERIAL BLOOD BASE EXCESS 1.8 mmol/L; ARTERIAL BLOOD H2CO3 2.81 mmol/L (1.05-1.35); ARTERIAL BLOOD O2 SATURATION 89.7 % (94-98); ARTERIAL BLOOD PO2 74.3 mmHg (80-100); ARTERIAL BLOOD TOTAL CO2 35.8 mmol/L (21-25)
[2018-11-04 23:39] LABS: ARTERIAL BLOOD FIO2 30%; ARTERIAL BLOOD PCO2 93.5 mmHg (35-45); ARTERIAL BLOOD PH 7.17 (7.35-7.45)
[2018-11-05] MEDS: LEVALBUTEROL HCL NEB 1.25 MG/3 ML AMPUL NEB SCH ×2 (00:16→08:18)
[2018-11-05] MEDS: BUSPIRONE HCL 10 MG TABLET PO SCH ×3 (00:21→13:30)
--- NOTE | 2018-11-05 01:19 | PDOC H&P ---
History of Present Illness Admission Date/PCP: 11/04/2018 21:15 Lalito Herrera MD Patient complains of: Dyspnea History of Present Illness: ADY LOZA is a 63 year old female who presented to the emergency room with an acute onset of dyspnea. Patient gives a history of the she suddenly developed dyspnea a few hours prior to her arrival at the emergency room. She describes her dyspnea as severe and per her significant other who accompanied her to the emergency room she is also experiencing mental confusion since the onset of her dyspnea. She denies any other accompanying or associated signs or symptoms. She admits numerous prior similar episodes associated with her COPD and CHF. She has not identified any aggravating or ameliorating factors for her current episode of acute dyspnea. In the emergency room she was noted to have acute respiratory failure with hypoxia and hypercapnia and was subsequently started on BiPAP with significant improvement. Her BNP was elevated to 1000. I reviewed her chest x-ray from today (and several prior films for comparison) which shows acute changes of increased intravascular markings and small bilateral pleural effusions consistent with acute pulmonary edema, with chronic areas of interstitial fibrosis and moderate hyperinflation all consistent with moderate COPD. Past Medical History Past Medical History: The patient is a poor historian thus the veracity of her responses for the past medical history, past surgical history, social history, family medical history and review of systems is somewhat suspect. Cardiac Medical History: Reports: Congestive Heart Failure - Chronic diastolic congestive heart failure per echocardiogram, Hypertension Denies: Atrial Fibrillation, Coronary Artery Disease, Myocardial Infarction, Hyperlipidema Pulmonary Medical History: Reports: Chronic Obstructive Pulmonary Disease (COPD), Pneumonia, Respiratory Failure, Other - On home O2 @2L/min at night and prn. Denies: Asthma EENT Medical History: Denies: Cataracts, Ears - Hearing aids Neurological Medical History: Denies: Hemorrhagic CVA, Ischemic CVA, Seizures Endocrine Medical History: Denies: Diabetes Mellitus Type 1, Diabetes Mellitus Type 2, Hyperthyroidism, Hypothyroidism, Obesity Renal/ Medical History: Denies: Chronic Kidney Disease, Nephrolithiasis Malignancy Medical History: Reports: None GI Medical History: Reports: Cirrhosis, Gastroesophageal Reflux Disease, Hepatitis - Hepatitis C Denies: Crohn's Disease, Ulcerative Colitis Musculoskeltal Medical History: Denies: Arthritis, Gout Skin Medical History: Denies: Eczema, Psoriasis Psychiatric Medical History: Reports: Depression, Tobacco Dependency Denies: Alcohol Dependency, Substance Abuse Traumatic Medical History: Reports: None Hematology: Reports: Anemia - Chronic Denies: Bleeding Tendencies Infectious Medical History: Reports: Hepatitis C Past Surgical History Past Surgical History: Reports: Section, Cholecystectomy, Orthopedic Surgery - carpel tunnel, Tonsillectomy Social History Information Source: Patient Lives with: Spouse/Significant other Smoking Status: Current Every Day Smoker Frequency of Alcohol Use: None Hx Recreational Drug Use: No Drugs: None, Other Hx Prescription Drug Abuse: No - Advance Directive Resuscitation Status: Full Code Surrogate healthcare decision maker:: Doristika Loza Family History Family History: DM. denies: CAD Parental Family History Reviewed: Yes Children Family History Reviewed: No Sibling(s) Family History Reviewed.: Yes Medication/Allergy Home Medications: Budesonide/Formoterol Fumarate [Symbicort HFA 160-4.5 mcg Inhaler 6 gm] 2 puff IH BID 10/24/16 Omeprazole 20 mg PO DAILY 10/24/16 Tiotropium [place] [Spiriva Handihaler 18 mcg/dose (30 Dose)] 1 puff IH DAILY 10/24/16 Bupropion HCl [Wellbutrin 75 mg Tablet] 75 mg PO DAILY 09/13/17 Alprazolam [Xanax 0.25 mg Tablet] 0.25 mg PO BIDP PRN 05/16/18 Buspirone HCl [Buspar 10 mg Tablet] 10 mg PO TID 05/16/18 Diltiazem HCl [Diltiazem ER] 120 mg PO DAILY 05/16/18 Levalbuterol Tartrate [Xopenex Hfa] 1 puff IH Q4HP PRN 05/16/18 Lisinopril [Prinivil 10 mg Tablet] 10 mg PO DAILY 05/16/18 Paroxetine HCl [Paxil] 30 mg PO QHS 05/16/18 Oseltamivir Phosphate [Tamiflu 75 mg Capsule] 75 mg PO BID #10 capsule 05/23/18 Prednisone [Deltasone 20 mg Tablet] 20 mg PO BID #10 tablet 05/23/18 Allergies/Adverse Reactions: acetaminophen [From Tylenol] Allergy (Mild, Verified 05/16/18 20:52) GI upset Review of Systems Constitutional: ABSENT: chills, fever(s) Eyes: ABSENT: visual disturbances, other - Eye pain Ears: ABSENT: hearing changes, other - Ear pain Nose, Mouth, and Throat: ABSENT: mouth pain, sore throat Cardiovascular: PRESENT: as per HPI, dyspnea on exertion. ABSENT: chest pain, edema, palpitations Respiratory: PRESENT: as per HPI, dyspnea. ABSENT: cough Gastrointestinal: ABSENT: abdominal pain, constipation, diarrhea, nausea, vomiting Genitourinary: ABSENT: dysuria, hematuria Musculoskeletal: ABSENT: back pain, joint swelling, muscle weakness Integumentary: ABSENT: pruritus, rash Neurological: PRESENT: as per HPI, confusion. ABSENT: convulsions, focal weakness, memory loss, syncope Psychiatric: ABSENT: anxiety, depression, hallucinations Endocrine: ABSENT: cold intolerance, heat intolerance Hematologic/Lymphatic: ABSENT: easy bleeding, easy bruising Physical Exam Vital Signs: Temp Pulse Resp BP Pulse Ox 97.6 F 112 H 23 H 144/91 H 90 L 11/04/18 15:21 11/04/18 15:21 11/04/18 20:02 11/04/18 19:00 11/04/18 20:02 Intake & Output 11/02/18 11/03/18 11/04/18 23:59 23:59 23:59 Intake Total 150 Balance 150 Weight 49.895 kg General appearance: PRESENT: no acute distress, cooperative, thin, other - On BiPAP Head exam: PRESENT: atraumatic, normocephalic Eye exam: ABSENT: conjunctival injection, scleral icterus Ear exam: PRESENT: normal external ear exam. ABSENT: bleeding, drainage Mouth exam: PRESENT: dry mucosa, neck supple Neck exam: PRESENT: JVD - Bilateral at 30 degrees elevation. ABSENT: thyromeg ludmila, tracheal deviation Respiratory exam: PRESENT: decreased breath sounds - Bibasilar decreased breath sounds, prolonged expiratory phas - Moderately prolonged expiratory phase in all law, rales - Fine rales in the lower one third of the bilateral lung law, symmetrical, wheezes - Moderate expiratory wheezes in all law, other - On BiPAP Cardiovascular exam: PRESENT: gallop - S4 gallop noted, RRR. ABSENT: clicks, rubs Pulses: PRESENT: normal radial pulses, normal dorsalis pedis pul Vascular exam: PRESENT: normal capillary refill. ABSENT: pallor GI/Abdominal exam: PRESENT: normal bowel sounds, soft Rectal exam: PRESENT: deferred Extremities exam: ABSENT: joint swelling, pedal edema Musculoskeletal exam: PRESENT: full ROM, normal inspection Neurological exam: PRESENT: alert, oriented to person, oriented to place, oriented to time, oriented to situation, CN II-XII grossly intact. ABSENT: motor sensory deficit Psychiatric exam: PRESENT: appropriate affect, normal mood Skin exam: PRESENT: dry, intact, warm. ABSENT: jaundice, rash, urticaria Results Laboratory Results: 11/04/18 15:34 11/04/18 15:34 11/04/18 11/04/18 11/04/18 15:34 15:34 16:39 WBC 4.1 RBC 3.76 Hgb 10.7 L Hct 32.3 L MCV 86 MCH 28.5 MCHC 33.3 RDW 13.5 Plt Count 200 Seg Neutrophils % 81.3 H Lymphocytes % 5.8 L Monocytes % 11.1 Eosinophils % 1.4 Basophils % 0.4 Absolute Neutrophils 3.3 Absolute Lymphocytes 0.2 L Absolute Monocytes 0.5 Absolute Eosinophils 0.1 Absolute Basophils 0.0 Carbonic Acid HCO3/H2CO3 Ratio ABG pH ABG pCO2 ABG pO2 ABG HCO3 ABG O2 Saturation ABG Base Excess FiO2 Sodium 130.0 L Potassium 4.4 Chloride 88 L Carbon Dioxide 31 H Anion Gap 11 BUN 19 Creatinine 1.00 Est GFR ( Amer) > 60 Est GFR (Non-Af Amer) 56 L Glucose 179 H Calcium 9.3 Total Bilirubin 0.6 AST 22 ALT 21 Alkaline Phosphatase 99 Ammonia Total Protein 7.8 Albumin 4.3 Urine Color YELLOW Urine Appearance SLIGHTLY-CLOUDY Urine pH 5.0 Ur Specific [place] 1.013 Urine Protein 30 H Urine Glucose (UA) NEGATIVE Urine Ketones NEGATIVE Urine Blood SMALL H Urine Nitrite NEGATIVE Ur Leukocyte Esterase NEGATIVE Urine WBC (Auto) 8 Urine RBC (Auto) 0 11/04/18 11/04/18 19:20 19:59 WBC RBC Hgb Hct MCV MCH MCHC RDW Plt Count Seg Neutrophils % Lymphocytes % Monocytes % Eosinophils % Basophils % Absolute Neutrophils Absolute Lymphocytes Absolute Monocytes Absolute Eosinophils Absolute Basophils Carbonic Acid 2.40 H HCO3/H2CO3 Ratio 14:1 ABG pH 7.24 L ABG pCO2 79.9 H* ABG pO2 88.8 ABG HCO3 33.8 H ABG O2 Saturation 94.9 ABG Base Excess 3.5 FiO2 92 Sodium Potassium Chloride Carbon Dioxide Anion Gap BUN Creatinine Est GFR ( Amer) Est GFR (Non-Af Amer) Glucose Calcium Total Bilirubin AST ALT Alkaline Phosphatase Ammonia < 8.7 L Total Protein Albumin Urine Color Urine Appearance Urine pH Ur Specific [place] Urine Protein Urine Glucose (UA) Urine Ketones Urine Blood Urine Nitrite Ur Leukocyte Esterase Urine WBC (Auto) Urine RBC (Auto) 11/04/18 15:34 CK-MB (CK-2) 4.99 H Troponin I < 0.012 NT-Pro-B Natriuret Pep 1000 H Impressions: Chest X-Ray 11/04/18 15:51 IMPRESSION: Bilateral perihilar airspace disease right greater than left. Findings are suspicious for atypical pneumonia. Possibly edema. There are small effusions. Head CT 11/04/18 18:52 IMPRESSION: NORMAL BRAIN CT WITHOUT CONTRAST. EVIDENCE OF ACUTE STROKE: NO. Assessment and Plan - Diagnosis (1) Acute pulmonary edema with congestive heart failure Is this a current diagnosis for this admission?: Yes Plan: Patient will be treated for her acute pulmonary edema with intravenous Lasix, and nitroglycerin paste. Patient will have morphine sulfate 2 mg IV q. one hour as needed for severe dyspnea. She will be monitored closely on the IMCU floor. Daily CBC, metabolic profiles and magnesium levels will be followed as part of her therapeutic evaluation and monitoring. (2) Acute and chronic respiratory failure with hypercapnia Is this a current diagnosis for this admission?: Yes Plan: Patient be treated with supplemental oxygen and BiPAP. Further intervention will be determined and provided as necessary. (3) COPD with acute exacerbation Is this a current diagnosis for this admission?: Yes Plan: Patient will be treated with an aggressive pulmonary toilet utilizing Xopenex and Pulmicort via nebulizer therapy. Additionally she will receive supplemental oxygen and BiPAP as required. Her arterial blood gases will be followed closely as well her vital signs and compliance monitor. She will also receive intravenous Solu-Medrol with a bolus dose of 125 mg followed by 40 mg every 8 hours for 6 doses. (4) Chronic diastolic congestive heart failure Is this a current diagnosis for this admission?: Yes Plan: Patient has recently been off of her medication for heart failure. She will be restarted on appropriate heart failure medications over hospital course. Daily CBCs, metabolic profiles and magnesium levels will be followed to monitor her heart failure and therapy. (5) Tobacco abuse Is this a current diagnosis for this admission?: Yes Plan: Patient has been advised to discontinue use of cigarettes. Cessation counseling has been provided briefly. A nicotine patch is available for the patient's use. (6) Cirrhosis Qualifiers: Hepatic cirrhosis type: other cirrhosis Qualified Code(s): K74.69 - Other cirrhosis of liver Is this a current diagnosis for this admission?: Yes Plan: Patient will be continued on her usual doses of lactulose as required for her cirrhosis due to hepatitis C. - Time Time Spent with patient: 15-24 minutes Smoking Cessation Education: 3 to 10 minutes Medications reviewed and adjusted accordingly: Yes Anticipated discharge: Home - Inpatient Certification Based on my medical assessment, after consideration of the patient's comorbidities, presenting symptoms, or acuity I expect that the services needed warrant INPATIENT care.: Yes I certify that my determination is in accordance with my understanding of Medicare's requirements for reasonable and necessary INPATIENT services [42 CFR 412.3e].: Yes Medical Necessity: Significant Comorbidiites Make Outpatient Treatment Too Risky, Need Close Monitoring Due to Risk of Patient Decompensation, Need For Continuous Telemetry Monitoring, Need for Nebulizer Therapy and Monitoring of Response, Risk of Complication if Not Cared For in Hospital
[2018-11-05] MEDS: NITROGLYCERIN 2% OINTMENT 1 GM PACKET TP SCH ×2 (01:21→05:07)
[2018-11-05] MEDS: FUROSEMIDE INJ/PF 20 MG/2 ML SDV IV SCH ×3 (01:21→09:23)
[2018-11-05 02:02] LABS: ARTERIAL BLOOD BASE EXCESS 2.7 mmol/L; ARTERIAL BLOOD H2CO3 1.86 mmol/L (1.05-1.35); ARTERIAL BLOOD HCO3 30.2 mmol/L (20-24); ARTERIAL BLOOD PCO2 61.8 mmHg (35-45); ARTERIAL BLOOD PH 7.31 (7.35-7.45); ARTERIAL BLOOD PO2 83.4 mmHg (80-100); ARTERIAL BLOOD TOTAL CO2 32.1 mmol/L (21-25)
[2018-11-05 02:09] LABS: ARTERIAL BLOOD FIO2 28%
--- NOTE | 2018-11-05 03:24 | ADVANCED CARE ---
- Diagnosis (1) Acute pulmonary edema with congestive heart failure Diagnosis Current: Yes (2) Acute and chronic respiratory failure with hypercapnia Diagnosis Current: Yes (3) COPD with acute exacerbation Diagnosis Current: Yes (4) Chronic diastolic congestive heart failure Diagnosis Current: Yes (5) Tobacco abuse Diagnosis Current: Yes (6) Cirrhosis Diagnosis Current: Yes Attendance: The patient, myself and her significant other Resuscitation Status: Full Code Discussion: I discussed with the patient the fact that she may require intubation and ventilation. She seemed to understand but also seemed to be confused about whether or not this was something she never done even though I pointed out to her that she had been intubated on the last several admissions. She did not remember that at this time and I was concerned that her CO2 narcosis may be affecting her mentation. I discussed the possibility that she may require intubation with her significant other and he was unsure as to whether or not it was something that she would care to have done. I did ascertain from the patient that she intended for her surrogate medical decision maker to be Doris Loza, her daughter. The patient's significant other also agreed that she had on numerous occasions indicated that Doris Loza would be her choice to make decisions for her if she were unable to make them for herself. No discussion of the living will was undertaken. Care Planning Goals: #1. patient's CODE STATUS will be full code #2. Doris Loza will be listed as the patient's surrogate medical decision maker. Document(s) Completed: 1. Medical record and orders are created to reflect the patient's full CODE STATUS 2. Doris Loza is officially listed as the patient's surrogate medical decision maker. Time Spent: 19 minutes
[2018-11-05] MEDS: HEPARIN SOD (PORCINE) 5,000 UNIT/ML 1 ML SYRINGE SUBCUT SCH ×2 (05:06→13:30)
[2018-11-05 05:24] LABS: HEMATOCRIT 30.5 % (36.0-47.0); HEMOGLOBIN 10.4 g/dL (12.0-15.5); MEAN CORPUSCULAR HEMOGLOBIN 28.8 pg (27.0-33.4); MEAN CORPUSCULAR VOLUME 85 fl (80-97); PLATELET COUNT 176 10^3/uL (150-450); RED BLOOD COUNT 3.61 10^6/uL (3.72-5.28); RED CELL DISTRIBUTION WIDTH 13.3 % (11.5-14.0); WHITE BLOOD COUNT 4.2 10^3/uL (4.0-10.5)
[2018-11-05 05:49] LABS: ALANINE AMINOTRANSFERASE 18 U/L (9-52); ALBUMIN 4.1 g/dL (3.5-5.0); ALKALINE PHOSPHATASE 90 U/L (38-126); ANION GAP 12 (5-19); ASPARTATE AMINO TRANSFERASE 18 U/L (14-36); BILIRUBIN,DIRECT 0.3 mg/dL (0.0-0.4); BILIRUBIN,TOTAL 0.4 mg/dL (0.2-1.3); BLOOD UREA NITROGEN 15 mg/dL (7-20); CALCIUM 9.6 mg/dL (8.4-10.2); CARBON DIOXIDE 32 mmol/L (22-30); CHLORIDE 87 mmol/L (98-107); CHOLESTEROL 160.77 mg/dL (0-200); CREATINE KINASE 72 U/L (30-135); GLUCOSE 174 mg/dL (75-110); POTASSIUM 4.7 mmol/L (3.6-5.0); TOTAL PROTEIN 7.4 g/dL (6.3-8.2); TRIGLYCERIDES 87 mg/dL (<150)
[2018-11-05 06:00] LABS: CREATINE KINASE MB 5.12 ng/mL (<4.55); DIRECT LDL 77 mg/dL (<100); TROPONIN I 0.02 ng/mL
[2018-11-05] MEDS ORDERED: PANTOPRAZOLE SODIUM 20 MG TABLET.DR PO SCH (06:00)
[2018-11-05 06:50] LABS: ARTERIAL BLOOD BASE EXCESS 8.1 mmol/L; ARTERIAL BLOOD H2CO3 1.62 mmol/L (1.05-1.35); ARTERIAL BLOOD HCO3 33.9 mmol/L (20-24); ARTERIAL BLOOD O2 SATURATION 95.4 % (94-98); ARTERIAL BLOOD PCO2 53.9 mmHg (35-45); ARTERIAL BLOOD PH 7.42 (7.35-7.45); ARTERIAL BLOOD PO2 77.1 mmHg (80-100); ARTERIAL BLOOD TOTAL CO2 35.6 mmol/L (21-25)
[2018-11-05 06:51] LABS: ARTERIAL BLOOD FIO2 26%
[2018-11-05] MEDS ORDERED: BUDESONIDE NEB 0.5 MG/2 ML AMPUL NEB SCH (08:00)
[2018-11-05] MEDS: DOCUSATE SODIUM 100 MG CAPSULE PO SCH ×2 (09:23→09:27)
[2018-11-05] MEDS ORDERED: BUPROPION HCL 75 MG TABLET PO SCH (10:00)
[2018-11-05] MEDS ORDERED: LISINOPRIL 10 MG TABLET PO SCH (10:00)
[2018-11-05] MEDS ORDERED: TIOTROPIUM BROMIDE DPI 5 CAP/KIT (18 MCG/CAP) IH SCH (10:00)
[2018-11-05] MEDS ORDERED: LACTULOSE SYRUP 20 GM/30 ML UDCUP PO SCH (10:00)
[2018-11-05] MEDS ORDERED: METOPROLOL SUCCINATE 25 MG TAB.SR.24H PO SCH ×2 (10:00→12:30)
[2018-11-05 11:06] LABS: CREATINE KINASE MB 3.65 ng/mL (<4.55)
[2018-11-05 11:11] LABS: TROPONIN I < 0.012 ng/mL
--- NOTE | 2018-11-05 11:52 | PDOC PROGRESS REPORT ---
Subjective Progress Note for:: 11/05/18 Subjective:: ADY YEUNG is a 63 year old female who presented to the emergency room with an acute onset of dyspnea. Patient gives a history of the she suddenly developed dyspnea a few hours prior to her arrival at the emergency room. She describes her dyspnea as severe and per her significant other who accompanied her to the emergency room she is also experiencing mental confusion since the onset of her dyspnea. She denies any other accompanying or associated signs or symptoms. She admits numerous prior similar episodes associated with her COPD and CHF. She has not identified any aggravating or ameliorating factors for her current episode of acute dyspnea. In the emergency room she was noted to have acute respiratory failure with hypoxia and hypercapnia and was subsequently started on BiPAP with significant improvement. Her BNP was elevated to 1000. I reviewed her chest x-ray from today (and several prior films for comparison) which shows acute changes of increased intravascular markings and small bilateral pleural effusions consistent with acute pulmonary edema, with chronic areas of interstitial fibrosis and moderate hyperinflation all consistent with moderate COPD. 11/05/2018. On my encounter patient is comfortably resting in bed, not in any ap parent distress, alert oriented x4, cooperative with physical examination. Denies any fever, chills, nausea, vomiting, diarrhea, constipation or any urinary symptoms. SBP 176-122, T-max 98.0, pulse 28370, RR 1624, SPO2 9099 2 L NC 11/04/2018 pH 7.17, PCO2 93.5, PO2 74.3, bicarb 33, FiO2 30%. 11/05/2018 pH 7.42, PCO2 52.9, PO2 77.1, bicarb 33.9, FiO2 26%. 131.0, potassium 4.7, bicarb 32, BUN 15, creatinine 0.68. Troponin less than 0.0122, proBNP 1000, WBC 4.2, hemoglobin 10.4, platelets 176. Reason For Visit: ACUTE RESPIRATORY FAILURE WITH HYPERCAPNIA Physical Exam Vital Signs: Temp Pulse Resp BP Pulse Ox 98.0 F 106 H 20 122/65 94 11/05/18 03:18 11/05/18 08:20 11/05/18 08:20 11/05/18 03:18 11/05/18 08:20 Intake & Output 11/04/18 11/05/18 11/06/18 06:59 06:59 06:59 Intake Total 250 Balance 250 Weight 50.4 kg General appearance: PRESENT: no acute distress, well-developed, well-nourished Head exam: PRESENT: atraumatic, normocephalic Respiratory exam: PRESENT: clear to auscultation madhavi, wheezes. ABSENT: rales, rhonchi GI/Abdominal exam: PRESENT: normal bowel sounds, soft. ABSENT: distended, guarding, mass, organolmegaly, rebound, tenderness Extremities exam: PRESENT: full ROM. ABSENT: calf tenderness, clubbing, pedal edema Neurological exam: PRESENT: alert, awake, oriented to person, oriented to place, oriented to time, oriented to situation, CN II-XII grossly intact. ABSENT: motor sensory deficit Skin exam: PRESENT: dry, intact, warm. ABSENT: cyanosis, rash Results Laboratory Results: 11/05/18 05:15 11/05/18 05:15 11/04/18 11/04/18 11/04/18 15:34 15:34 16:39 WBC 4.1 RBC 3.76 Hgb 10.7 L Hct 32.3 L MCV 86 MCH 28.5 MCHC 33.3 RDW 13.5 Plt Count 200 Seg Neutrophils % 81.3 H Lymphocytes % 5.8 L Monocytes % 11.1 Eosinophils % 1.4 Basophils % 0.4 Absolute Neutrophils 3.3 Absolute Lymphocytes 0.2 L Absolute Monocytes 0.5 Absolute Eosinophils 0.1 Absolute Basophils 0.0 Carbonic Acid HCO3/H2CO3 Ratio ABG pH ABG pCO2 ABG pO2 ABG HCO3 ABG O2 Saturation ABG Base Excess FiO2 Sodium 130.0 L Potassium 4.4 Chloride 88 L Carbon Dioxide 31 H Anion Gap 11 BUN 19 Creatinine 1.00 Est GFR ( Amer) > 60 Est GFR (Non-Af Amer) 56 L Glucose 179 H Calcium 9.3 Magnesium Total Bilirubin 0.6 AST 22 ALT 21 Alkaline Phosphatase 99 Ammonia Total Protein 7.8 Albumin 4.3 Triglycerides Cholesterol LDL Cholesterol Direct VLDL Cholesterol HDL Cholesterol TSH Free T4 Free T3 pg/mL Urine Color YELLOW Urine Appearance SLIGHTLY-CLOUDY Urine pH 5.0 Ur Specific [place] 1.013 Urine Protein 30 H Urine Glucose (UA) NEGATIVE Urine Ketones NEGATIVE Urine Blood SMALL H Urine Nitrite NEGATIVE Ur Leukocyte Esterase NEGATIVE Urine WBC (Auto) 8 Urine RBC (Auto) 0 06/11/04/18 11/04/18 19:20 19:59 22:40 WBC RBC Hgb Hct MCV MCH MCHC RDW Plt Count Seg Neutrophils % Lymphocytes % Monocytes % Eosinophils % Basophils % Absolute Neutrophils Absolute Lymphocytes Absolute Monocytes Absolute Eosinophils Absolute Basophils Carbonic Acid 2.40 H HCO3/H2CO3 Ratio 14:1 ABG pH 7.24 L ABG pCO2 79.9 H* ABG pO2 88.8 ABG HCO3 33.8 H ABG O2 Saturation 94.9 ABG Base Excess 3.5 FiO2 92 Sodium Potassium Chloride Carbon Dioxide Anion Gap BUN Creatinine Est GFR ( Amer) Est GFR (Non-Af Amer) Glucose Calcium Magnesium Total Bilirubin AST ALT Alkaline Phosphatase Ammonia < 8.7 L Total Protein Albumin Triglycerides Cholesterol LDL Cholesterol Direct VLDL Cholesterol HDL Cholesterol TSH Free T4 1.36 Free T3 pg/mL 3.92 Urine Color Urine Appearance Urine pH Ur Specific [place] Urine Protein Urine Glucose (UA) Urine Ketones Urine Blood Urine Nitrite Ur Leukocyte Esterase Urine WBC (Auto) Urine RBC (Auto) 11/04/18 11/05/18 11/05/18 23:15 01:50 05:15 WBC RBC Hgb Hct MCV MCH MCHC RDW Plt Count Seg Neutrophils % Lymphocytes % Monocytes % Eosinophils % Basophils % Absolute Neutrophils Absolute Lymphocytes Absolute Monocytes Absolute Eosinophils Absolute Basophils Carbonic Acid 2.81 H 1.86 H HCO3/H2CO3 Ratio 11:1 16:1 ABG pH 7.17 L* 7.31 L ABG pCO2 93.5 H* 61.8 H ABG pO2 74.3 L 83.4 ABG HCO3 33.0 H 30.2 H ABG O2 Saturation 89.7 L 95.0 ABG Base Excess 1.8 2.7 FiO2 30% 28% Sodium 131.0 L Potassium 4.7 Chloride 87 L Carbon Dioxide 32 H Anion Gap 12 BUN 15 Creatinine 0.68 Est GFR ( Amer) > 60 Est GFR (Non-Af Amer) > 60 Glucose 174 H Calcium 9.6 Magnesium 1.6 Total Bilirubin 0.4 AST 18 ALT 18 Alkaline Phosphatase 90 Ammonia Total Protein 7.4 Albumin 4.1 Triglycerides 87 Cholesterol 160.77 LDL Cholesterol Direct 77 VLDL Cholesterol 17.0 HDL Cholesterol 71 TSH Free T4 Free T3 pg/mL Urine Color Urine Appearance Urine pH Ur Specific [place] Urine Protein Urine Glucose (UA) Urine Ketones Urine Blood Urine Nitrite Ur Leukocyte Esterase Urine WBC (Auto) Urine RBC (Auto) 11/05/18 11/05/18 11/05/18 05:15 05:15 05:15 WBC 4.2 RBC 3.61 L Hgb 10.4 L Hct 30.5 L MCV 85 MCH 28.8 MCHC 34.0 RDW 13.3 Plt Count 176 Seg Neutrophils % Lymphocytes % Monocytes % Eosinophils % Basophils % Absolute Neutrophils Absolute Lymphocytes Absolute Monocytes Absolute Eosinophils Absolute Basophils Carbonic Acid HCO3/H2CO3 Ratio ABG pH ABG pCO2 ABG pO2 ABG HCO3 ABG O2 Saturation ABG Base Excess FiO2 Sodium Potassium Chloride Carbon Dioxide Anion Gap BUN Creatinine Est GFR ( Amer) Est GFR (Non-Af Amer) Glucose Calcium Magnesium Total Bilirubin AST ALT Alkaline Phosphatase Ammonia 12.2 Total Protein Albumin Triglycerides Cholesterol LDL Cholesterol Direct VLDL Cholesterol HDL Cholesterol TSH 0.52 Free T4 Free T3 pg/mL Urine Color Urine Appearance Urine pH Ur Specific [place] Urine Protein Urine Glucose (UA) Urine Ketones Urine Blood Urine Nitrite Ur Leukocyte Esterase Urine WBC (Auto) Urine RBC (Auto) 11/05/18 06:20 WBC RBC Hgb Hct MCV MCH MCHC RDW Plt Count Seg Neutrophils % Lymphocytes % Monocytes % Eosinophils % Basophils % Absolute Neutrophils Absolute Lymphocytes Absolute Monocytes Absolute Eosinophils Absolute Basophils Carbonic Acid 1.62 H HCO3/H2CO3 Ratio 20:1 ABG pH 7.42 ABG pCO2 53.9 H ABG pO2 77.1 L ABG HCO3 33.9 H ABG O2 Saturation 95.4 ABG Base Excess 8.1 FiO2 26% Sodium Potassium Chloride Carbon Dioxide Anion Gap BUN Creatinine Est GFR ( Amer) Est GFR (Non-Af Amer) Glucose Calcium Magnesium Total Bilirubin AST ALT Alkaline Phosphatase Ammonia Total Protein Albumin Triglycerides Cholesterol LDL Cholesterol Direct VLDL Cholesterol HDL Cholesterol TSH Free T4 Free T3 pg/mL Urine Color Urine Appearance Urine pH Ur Specific [place] Urine Protein Urine Glucose (UA) Urine Ketones Urine Blood Urine Nitrite Ur Leukocyte Esterase Urine WBC (Auto) Urine RBC (Auto) 11/04/18 11/04/18 11/04/18 15:34 22:40 22:40 Creatine Kinase 97 CK-MB (CK-2) 4.99 H 5.79 H Troponin I < 0.012 < 0.012 NT-Pro-B Natriuret Pep 1000 H 11/05/18 11/05/18 11/05/18 05:15 05:15 10:11 Creatine Kinase 72 60 CK-MB (CK-2) 5.12 H Troponin I 0.020 NT-Pro-B Natriuret Pep 11/05/18 10:22 Creatine Kinase CK-MB (CK-2) 3.65 Troponin I < 0.012 NT-Pro-B Natriuret Pep Impressions: Chest X-Ray 11/04/18 15:51 IMPRESSION: Bilateral perihilar airspace disease right greater than left. Findings are suspicious for atypical pneumonia. Possibly edema. There are small effusions. Head CT 11/04/18 18:52 IMPRESSION: NORMAL BRAIN CT WITHOUT CONTRAST. EVIDENCE OF ACUTE STROKE: NO. Assessment and Plan - Diagnosis (1) Acute and chronic respiratory failure with hypercapnia Is this a current diagnosis for this admission?: Yes Plan: Due to acute COPD/CHF exacerbation. Not on home oxygen. Significant improvement since admission. Continue supplemental oxygen, duo nebs, IV steroids, BiPAP, cardiac diet, volume restriction, IV Lasix, beta-blockers, JAIDA. 11/05/2018: SBP 176-122, T-max 98.0, pulse 26047, RR 1624, SPO2 9099 2 L NC pH 7.42, PCO2 52.9, PO2 77.1, bicarb 33.9, FiO2 26%. Troponin less than 0.0122, proBNP 1000, WBC 4.2, hemoglobin 10.4, platelets 176. 11/04/2018 pH 7.17, PCO2 93.5, PO2 74.3, bicarb 33, FiO2 30%. (2) Acute on chronic diastolic heart failure Is this a current diagnosis for this admission?: Yes Plan: Acute on chronic diastolic heart failure with preserved ejection fraction. Denies any history of CAD. proBNP 1000. Troponins <0.0 122. EKG sinus tachycardia. TSH/T3/T4 WNL. 09/13/2017. 2D echo preserved ejection fraction. II/IV moderate diastolic dysfunction. RVSP 30-44 mmHg mild pulmonary hypertension. Cardiac diet, volume restriction, JAIDA, beta blockers, IV Lasix, daily weights. Outpatient PCP and cardiology follow-up. (3) COPD with acute exacerbation Is this a current diagnosis for this admission?: Yes Plan: As per #1. (4) HTN (hypertension) Qualifiers: Hypertension type: essential hypertension Qualified Code(s): I10 - Es sential (primary) hypertension Is this a current diagnosis for this admission?: No Plan: Not controlled. Continue lisinopril 10 mg p.o. daily, Toprol-XL 25 mg p.o. daily, Lasix 20 mg p.o. twice daily. 11/05/2018: SBP 176-122, T-max 98.0, pulse 08170, RR 1624. (5) Tobacco abuse Is this a current diagnosis for this admission?: Yes Plan: As per patient she quit 3 months ago. NicoDerm patch. (6) Hyponatremia Is this a current diagnosis for this admission?: Yes Plan: Hypotonic hyponatremia. Likely due to acute diastolic heart failure. As per #2. BMP tomorrow. Monitor for seizures.
[2018-11-05] MEDS ORDERED: METHYLPREDNISOLONE INJ 40 MG/1 ML SDV IV SCH (12:30)
[2018-11-05 14:03] VITALS: BP 96/55
[2018-11-05] MEDS ORDERED: FUROSEMIDE 20 MG TABLET PO SCH (18:00)
== END 2018-11-05 15:04 | disposition left against medical advice (07) | DRG 189 ==
LOC: ER 15:17 → EH 21:40 → 3S 11-05 00:05
PROVIDERS: ADMIT Emergency Medicine; ATTEND Emergency Medicine
DX: J96.22 Acute and chronic respiratory failure with hypercapnia (principal); I50.33 Acute on chronic diastolic (congestive) heart failure; J44.1 Chronic obstructive pulmonary disease with (acute) exacerbation; E87.1 Hypo-osmolality and hyponatremia; I11.0 Hypertensive heart disease with heart failure; J96.01 Acute respiratory failure with hypoxia; K21.9 Gastro-esophageal reflux disease without esophagitis; K74.60 Unspecified cirrhosis of liver; B19.20 Unspecified viral hepatitis C without hepatic coma; F41.8 Other specified anxiety disorders; F17.290 Nicotine dependence, other tobacco product, uncomplicated; Z79.51 Long term (current) use of inhaled steroids; Z79.52 Long term (current) use of systemic steroids; Z79.899 Other long term (current) drug therapy
CPT/HCPCS: 36415; 36600; 70450; 71045; 80048; 80053; 80061; 80076; 81001; 82140; 82550; 82553; 82803; 83036; 83735; 83880; 84439; 84443; 84481; 84484; 85025; 85027; 87040; 93005; 93010; 94640; 94660; 96365; 96366; 96375; 99285; J1644; J1940; J1956; J2060; J2270; J2405; J2920; J3490; J7620

== ENCOUNTER 2018-12-07 10:37 | Inpatient (IN) | payer MEDICAID ==
[2018-12-07] MEDS ORDERED: KETOROLAC TROMETHAMINE INJ/PF 30 MG/1 ML SDV IV ONE (11:07)
[2018-12-07 11:12] LABS: ABSOLUTE EOSINOPHILS # (AUTO) 0.2 10^3/uL (0.0-0.6); ABSOLUTE LYMPHOCYTES (AUTO) 0.6 10^3/uL (0.5-4.7); ABSOLUTE MONOCYTES (AUTO) 0.5 10^3/uL (0.1-1.4); ABSOLUTE NEUT (AUTO) 6.1 10^3/uL (1.7-8.2); BASOPHILS % (AUTO) 0.4 % (0-2); HEMATOCRIT 33.4 % (36.0-47.0); HEMOGLOBIN 10.9 g/dL (12.0-15.5); LYMPHOCYTES % (AUTO) 8.1 % (13-45); MEAN CORPUSCULAR HEMOGLOBIN 27.8 pg (27.0-33.4); MEAN CORPUSCULAR HGB CONC 32.6 g/dL (32.0-36.0); MEAN CORPUSCULAR VOLUME 85 fl (80-97); MONOCYTES % (AUTO) 7.2 % (3-13); PLATELET COUNT 190 10^3/uL (150-450); RED BLOOD COUNT 3.92 10^6/uL (3.72-5.28); RED CELL DISTRIBUTION WIDTH 13.5 % (11.5-14.0); SEGMENTED NEUTROPHILS % (AUTO) 81.3 % (42-78); TOTAL CELLS COUNTED % (AUTO) 100 %; WHITE BLOOD COUNT 7.6 10^3/uL (4.0-10.5)
[2018-12-07 11:35] LABS: ALANINE AMINOTRANSFERASE 35 U/L (9-52); ALBUMIN 3.7 g/dL (3.5-5.0); ALKALINE PHOSPHATASE 104 U/L (38-126); ANION GAP 6 (5-19); ASPARTATE AMINO TRANSFERASE 79 U/L (14-36); BILIRUBIN,DIRECT 0.3 mg/dL (0.0-0.4); BILIRUBIN,TOTAL 0.3 mg/dL (0.2-1.3); BLOOD UREA NITROGEN 16 mg/dL (7-20); CALCIUM 9.2 mg/dL (8.4-10.2); CARBON DIOXIDE 35 mmol/L (22-30); CHLORIDE 99 mmol/L (98-107); GLUCOSE 119 mg/dL (75-110); POTASSIUM 4.4 mmol/L (3.6-5.0)
--- NOTE | 2018-12-07 11:39 | ER Document Report ---
Entered by DANIELLE GARY SCRIBE 12/07/18 1057 Acting as scribe for:ROSHNI STANLEY MD ED Fall <DA JUNG - Last Filed: 12/07/18 20:24> - General TRAVEL OUTSIDE OF THE [place] IN LAST 30 DAYS: No <ROSHNI STANLEY - Last Filed: 12/08/18 06:13> - General Chief Complaint: Fall Stated Complaint: FALL Time Seen by Provider: 12/07/18 10:43 Notes: Patient is a 63-year-old female arriving via EMS presenting to the emergency department after she had a fall. Patient states that she has been falling frequently recently, she felt dizzy yesterday and fell. Patient states that she thinks it is her back. Patient states that last night she fell out of bed, she could not get up till someone found her and called EMS. Patient states that her hips feel bad, especially when walking. Patient denies feeling like her legs give out. (DANIELLE GARY) Patient is a 63-year-old female arriving via EMS presenting to the emergency department after she had a fall. Patient states that she has been falling frequently recently, she felt dizzy yesterday and fell. Patient states that she thinks it is her back. Patient states that last night she fell out of bed, she could not get up till someone found her and called EMS. Patient states that her hips feel bad, especially when walking. Patient denies feeling like her legs give out. On further questioning, patient states he did not lay on the floor more than 20 minutes. (ROSHNI STANLEY) - Related data Allergies/Adverse Reactions: acetaminophen [From Tylenol] Allergy (Mild, Verified 05/16/18 20:52) GI upset Past Medical History - General Information source: Patient - Social History Smoking Status: Current Every Day Smoker Cigarette use (# per day): No - vape Chew tobacco use (# tins/day): No Frequency of alcohol use: None Drug Abuse: None Family History: DM - Past Medical History Cardiac Medical History: Reports: Hx Congestive Heart Failure - Chronic diastolic congestive heart failure per echocardiogram, Hx Hypertension Pulmonary Medical History: Reports: Hx COPD, Hx Pneumonia, Hx Respiratory Failure GI Medical History: Reports: Hx Cirrhosis, Hx Gastroesophageal Reflux Disease, Hx Hepatitis - Hepatitis C, Hx Liver Failure Musculoskeletal Medical History: Reports Hx Musculoskeletal Deformity, Reports Hx Musculoskeletal Trauma Psychiatric Medical History: Reports: Hx Anxiety, Hx Depression Infectious Medical History: Reports: Hx Hepatitis - Hepatitis C Past Surgical History: Reports: Hx Section, Hx Cholecystectomy, Hx Gynecologic Surgery - ovarian wedge., Hx Orthopedic Surgery - carpel tunnel, Hx Tonsillectomy, Other - Unable to obtain at this time since the patient is intubated and sedated. - Immunizations Immunizations up to date: Yes Hx Diphtheria, Pertussis, Tetanus Vaccination: Yes <JADENROSHNI - Last Filed: 12/08/18 06:13> Review of Systems - Review of Systems Constitutional: No symptoms reported EENT: No symptoms reported Cardiovascular: No symptoms reported Respiratory: No symptoms reported Gastrointestinal: No symptoms reported Genitourinary: No symptoms reported Female Genitourinary: No symptoms reported Musculoskeletal: See HPI, Other - fall Skin: No symptoms reported Hematologic/Lymphatic: No symptoms reported Neurological/Psychological: No symptoms reported -: Yes All other systems reviewed and negative <ROSHNI STANLEY - Last Filed: 12/08/18 06:13> Physical Exam <JADENROSHNI - Last Filed: 12/08/18 06:13> - Vital signs Vitals: Temp Pulse Resp BP Pulse Ox 98.1 F 98 16 108/50 L 94 12/07/18 10:43 12/07/18 10:43 12/07/18 10:43 12/07/18 10:43 12/07/18 10:43 - Notes Notes: Physical Exam: General: Alert, appears well. HEENT: Normocephalic. Atraumatic. PERRL. Extraocular movements intact. Oropharynx clear. Neck: Supple. Non-tender. Back: Lumbar musculature tenderness to palpation. Respiratory: No respiratory distress. Faint wheezes bilaterally. Cardiovascular: Regular rate and rhythm. Abdominal: Normal Inspection. Non-tender. No distension. Normal Bowel Sounds. Back: Non-tender. No deformity or step off. Extremities: Moves all four extremities. Upper extremities: Skin tear at the dorsal aspect of the forearm. Normal ROM. Lower extremities: Hyperreflexic, toes go down. No edema. Normal ROM. Neurological: Normal cognition. AAOx4. Normal speech. Psychological: Normal affect. Normal Mood. Skin: Warm. Dry. Normal color. (DANIELLE GARY) Physical Exam: General: Alert, appears well. HEENT: Normocephalic. Atraumatic. PERRL. Extraocular movements intact. Oropharynx clear. Neck: Supple. Non-tender. Back: Lumbar musculature tenderness to palpation. Respiratory: No respiratory distress. Faint wheezes bilaterally. Cardiovascular: Regular rate and rhythm. Abdominal: Normal Inspection. Non-tender. No distension. Normal Bowel Sounds. Back: Non-tender. No deformity or step off. Extremities: Moves all four extremities. Upper extremities: Skin tear at the dorsal aspect of the forearm. Normal ROM. Lower extremities: Hyperreflexic, toes go down. No edema. Normal ROM. Neurological: Normal cognition. AAOx4. Normal speech. Psychological: Normal affect. Normal Mood. Skin: Warm. Dry. Normal color. (ROSHNI STANLEY) Course - Laboratory Result Diagrams: 12/07/18 11:00 12/07/18 11:00 - Diagnostic Test Radiology reviewed: Image reviewed, Reports reviewed <DA JUNG - Last Filed: 12/07/18 20:24> - Laboratory Result Diagrams: 12/07/18 11:00 12/07/18 11:00 - Transfer of Care Care transferred to following provider: Dr. Jung <ROSHNI STANLEY - Last Filed: 12/08/18 06:13> - Re-evaluation Re-evalutation: Lumbar Spine X-Ray 12/07/18 10:56 IMPRESSION: No compression fractures related to the history of falls. Significant progression of disc degeneration L1-L2 predominately on the right. Marked progression of sclerotic change involving the adjacent cortical endplates and disc space narrowing may be related to disc degeneration and arthritic involvement however chronic inflammatory change cannot be excluded based on rapid progression and radiographic appearance. Stable moderate disc space narrowing L4-L5. . Lumbar Spine MRI 12/07/18 13:29 IMPRESSION: Multilevel significant central and foraminal encroachment. Advanced degenerative disc changes at L1-2. 12/07/18 17:07 Patient received in signout by Dr. Stanley with MRI pending. MRI was obtained and showed multi-level significant central and foraminal encroachment and advanced degenerative disc changes at L1 and L2. Patient reevaluated and has normal strength, range of motion. She is tender over the spinous processes of her entire lumbar spine. I did speak to Dr Montemayor who requested that the films be reviewed by neurosurgery prior to admission in case patient needs immediate neurosurgery intervention. 12/07/18 17:20 I spoke to Ta Gentile from neurosurgery at [facility] and reviewed the patient's MRI. He does not feel that this MRI warrants any immediate neurosurgery intervention. (DA JUNG) - Vital Signs Vital signs: Temp Pulse Resp BP Pulse Ox 98.2 F 81 18 160/83 H 94 12/07/18 19:00 12/07/18 19:00 12/07/18 19:00 12/07/18 19:00 12/07/18 19:00 - Laboratory Laboratory results interpreted by me: 12/07/18 12/07/18 12/07/18 11:00 11:00 11:00 Hgb 10.9 L Hct 33.4 L Seg Neutrophils % 81.3 H Lymphocytes % 8.1 L ESR Carbon Dioxide 35 H Glucose 119 H AST 79 H Ammonia Creatine Kinase 2205 H CK-MB (CK-2) 11.50 H C-Reactive Protein Urine Bilirubin Ur Leukocyte Esterase 12/07/18 12/07/18 12/07/18 11:00 11:00 11:09 Hgb Hct Seg Neutrophils % Lymphocytes % ESR 74 H Carbon Dioxide Glucose AST Ammonia < 8.7 L Creatine Kinase CK-MB (CK-2) C-Reactive Protein 157.7 H Urine Bilirubin Ur Leukocyte Esterase 12/07/18 11:56 Hgb Hct Seg Neutrophils % Lymphocytes % ESR Carbon Dioxide Glucose AST Ammonia Creatine Kinase CK-MB (CK-2) C-Reactive Protein Urine Bilirubin SMALL H Ur Leukocyte Esterase SMALL H - Transfer of Care Notes: 12/07/18 15:35 Patient has been discussed with Dr. Montemayor for possible admission. The patient is going to have an MRI of her lumbar spine prior to decisions about whether or not to keep her at this facility. (ROSHNI STANLEY) Discharge - Discharge Admitting Provider: Albina (Hospitalist) Unit Admitted: Telemetry <DA JUNG - Last Filed: 12/07/18 20:24> <ROSHNI STANLEY - Last Filed: 12/08/18 06:13> - Discharge Clinical Impression: Muscle weakness, Lumbar back pain Rhabdomyolysis Qualifiers: Rhabdomyolysis type: non-traumatic Qualified Code(s): M62.82 - Rhabdomyolysis Urinary tract infection Qualifiers: Urinary tract infection type: site unspecified Hematuria presence: without hematuria Qualified Code(s): N39.0 - Urinary tract infection, site not specified Condition: Good Disposition: ADMITTED INPATIENT Scribe Attestation: 12/07/18 11:39 I personally performed the services described in the documentation, reviewed and edited the documentation which was dictated to the scribe in my presence, and it accurately records my words and actions. (ROSHNI STANLEY) I personally performed the services described in the documentation, reviewed and edited the documentation which was dictated to the scribe in my presence, and it accurately records my words and actions.
[2018-12-07 11:42] LABS: CREATINE KINASE 2205 U/L (30-135)
[2018-12-07 11:47] LABS: TROPONIN I < 0.012 ng/mL
--- NOTE | 2018-12-07 12:00 | RADIOLOGY REPORT (SQ) ---
EXAM DESCRIPTION: L SPINE WHOLE COMPLETED DATE/TIME: 12/07/2018 11:32 am REASON FOR STUDY: Multiple falls, LBP, "back gives way" COMPARISON: 06/24/2016 NUMBER OF VIEWS: Five views including obliques. TECHNIQUE: AP, lateral, oblique, and sacral radiographic images acquired of the lumbar spine. LIMITATIONS: None. FINDINGS: MINERALIZATION: Normal. SEGMENTATION: Normal. No transitional anatomy. ALIGNMENT: Stable mild scoliotic angulation convex to the right. Stable since the previous study. VERTEBRAE: Maintained height. No fracture or worrisome bone lesion. DISCS: Severe disc degeneration L1-L2 greater on the right where there is extensive sclerotic change of the adjacent cortical endplates and disc space narrowing. Significant progression since the previ ous study. Most likely related to chronic disc degeneration however associated chronic inflammation or discitis cannot be excluded based on radiographic appearance and rapid change. Moderate disc spac e narrowing L4-L5. POSTERIOR ELEMENTS: Pedicles and facets are intact. No pars defect or posterior arch defects. HARDWARE: None in the spine. PARASPINAL SOFT TISSUES: Calcification left upper quadrant may be related to chronic pancreatitis is noted previously. PELVIS: Intact as visualized. No fractures or worrisome bone lesions. SI joints intact. OTHER: No other significant finding. IMPRESSION: No compression fractures related to the history of falls. Significant progression of di sc degeneration L1-L2 predominately on the right. Marked progression of sclerotic change involving t he adjacent cortical endplates and disc space narrowing may be related to disc degeneration and arthr itic involvement however chronic inflammatory change cannot be excluded based on rapid progression an d radiographic appearance. Stable moderate disc space narrowing L4-L5. . TECHNICAL DOCUMENTATION: JOB ID: [id number] [employer]- All Rights Reserved Reading location - IP/workstation name: [email or web address]
[2018-12-07 12:04] LABS: APPEARANCE,URINE CLOUDY; BILIRUBIN,URINE SMALL (NEGATIVE); COLOR,URINE YELLOW; GLUCOSE, URINE NEGATIVE (NEGATIVE); KETONES,URINE NEGATIVE (NEGATIVE); LEUKOCYTE ESTERASE,URINE SMALL (NEGATIVE); NITRITE,URINE NEGATIVE (NEGATIVE); PROTEIN,URINE NEGATIVE (NEGATIVE); URINE SPECIFIC GRAVITY 1.017; UROBILINOGEN,URINE NEGATIVE mg/dL (<2.0)
[2018-12-07 12:18] LABS: ADD MANUAL MICROSCOPIC YES; BACTERIA,URINE TRACE /HPF
[2018-12-07] MEDS ORDERED: NORMAL SALINE 1000 ML 1,000 ML IV ONE ×2 (12:43→15:36)
[2018-12-07] MEDS ORDERED: OXYCODONE HCL IR 5 MG TABLET PO ONE (13:57)
[2018-12-07 14:38] LABS: C-REACTIVE PROTEIN 157.7 mg/L (<10.0)
--- NOTE | 2018-12-07 16:40 | RADIOLOGY REPORT (SQ) ---
EXAM DESCRIPTION: MRI LUMBAR SPINE WITHOUT COMPLETED DATE/TIME: 12/07/2018 4:12 pm REASON FOR STUDY: Low back pain COMPARISON: Lumbar MRI 03/13/2017, 10/09/2013 TECHNIQUE: Sagittal and Axial imaging includes T1, T2, STIR and gradient echo sequences. Coronal T2/ HASTE imaging. LIMITATIONS: None. FINDINGS: VISUALIZED UPPER ABDOMEN: Limited evaluation. No acute or suspicious findings suggested. SEGMENTATION: No transitional anatomy. The lowest well-developed disc space is labeled L5-S1. ALIGNMENT: Anatomic. VERTEBRAE: No compression deformities. BONE MARROW: Markedly abnormal L1-2 space with high-grade disc space loss of height, [id number] gray earance and mixed edematous and sclerotic vertebral body endplate changes. No paraspinal phlegmon or abscess. DISC SIGNAL: Diffuse decreased T2 weighted intervertebral disc signal. High-grade disc space loss of height at L1-2 and L4-5 POSTERIOR ELEMENTS: Generally intact. No pars defect evident. HARDWARE: None in the spine. CORD AND CONUS: Normal in size and signal intensity. Conus at the T12-L1 level. SOFT TISSUES: No aortic aneurysm seen. No bulky retroperitoneal adenopathy or mass. No paraspinal mas s or fluid. T10-11: At the top of the field of view. Bilateral facet arthropathy causes mild foraminal narrowin g. No central stenosis. T11-12: Bilateral facet arthropathy and minimal posterior disc bulging. No central or foraminal fitz nosis. T12-L1: No central or foraminal stenosis L1-L2: Broad diffuse posterior disc bulging, mild posterior bony spurring, mild bilateral facet and l igament hypertrophy. Borderline central canal narrowing. Mild bilateral foraminal stenosis right gr eater than left. L2-L3: Mild posterior disc bulging, mild bilateral facet and ligament hypertrophy. No central stenos is. Mild bilateral inferior foraminal narrowing. L3-L4: Broad diffuse posterior disc bulge and bony spurring is present with bulky bilateral facet hyp ertrophy. There is mild central canal narrowing. Moderate bilateral foraminal narrowing is present without exiting L3 nerve root impingement. L4-L5: Broad diffuse posterior disc bulge and bony spurring is present with moderate bilateral facet and ligament hypertrophy. Borderline central canal narrowing. Moderate right, mild left foraminal n arrowing. No exiting L4 nerve root impingement L5-S1: Mild diffuse posterior disc bulging, mild bilateral facet and ligament hypertrophy. No centra l stenosis. Mild bilateral inferior foraminal narrowing without exit L5 nerve root impingement LOWER THORACIC: Incompletely imaged. No stenosis seen. SACRUM: Visualized upper sacrum intact. OTHER: No other significant findings. IMPRESSION: Multilevel significant central and foraminal encroachment. Advanced degenerative disc changes at L1-2. TECHNICAL DOCUMENTATION: JOB ID: [id number] [employer]- All Rights Reserved Reading location - IP/workstation name: [email or web address]
[2018-12-07] MEDS ORDERED: MORPHINE SULFATE 10 MG/ML INJ IV ONE (17:09)
[2018-12-07] MEDS ORDERED: PROMETHAZINE HCL 25 MG TABLET PO PRN (18:43)
[2018-12-07] MEDS ORDERED: MAG HYDROX/AL HYDROX/SIMETH SUSP 30 ML UDCUP PO PRN (18:43)
[2018-12-07] MEDS ORDERED: OXYCODONE-ACETAMINOPHEN 5-325 MG TABLET PO PRN (18:43)
[2018-12-07] MEDS ORDERED: ACETAMINOPHEN 325 MG TABLET PO PRN (18:43)
[2018-12-07] MEDS ORDERED: ALBUTEROL SULFATE HFA (90 MCG/PUFF) 200 PUFF/8.5 GM MDI IH PRN (18:53)
[2018-12-07] MEDS ORDERED: IPRATROPIUM/ALBUTEROL 0.5-2.5 MG/3 ML AMPUL NEB PRN (18:55)
[2018-12-07] MEDS: OXYCODONE HCL IR 5 MG TABLET PO PRN (20:01)
--- NOTE | 2018-12-07 20:58 | PDOC H&P ---
History of Present Illness Admission Date/PCP: 12/07/18 17:43 JAYY ESCOBAR Patient complains of: Increased back pain with multiple falls History of Present Illness: ADY LOZA is a 63 year old female with a history of COPD, anxiety and depression and significant degenerative disc disease with chronic back pain. She states that over the last week or so she has been experiencing multiple falls. She does not have any prodrome of dizziness. Several of the falls came in the morning when she was getting out of bed and stood from a sitting position. Several have occurred while she is ambulating. She fell today and states that she was only on the floor for 20 to 30 minutes. She denies loss of consciousness. She does report occasional lightheadedness and nausea but no vomiting. Urinalysis was suggestive of cystitis. MRI showed multilevel disc di sease but no acute compression. She was referred to the hospital service for admission and evaluation. Past Medical History Cardiac Medical History: Reports: Congestive Heart Failure - Chronic diastolic congestive heart failure per echocardiogram, Hypertension Denies: Atrial Fibrillation, Coronary Artery Disease, Myocardial Infarction, Hyperlipidema Pulmonary Medical History: Reports: Chronic Obstructive Pulmonary Disease (COPD) , Pneumonia, Respiratory Failure Denies: Asthma Neurological Medical History: Denies: Seizures Endocrine Medical History: Denies: Diabetes Mellitus Type 1, Diabetes Mellitus Type 2, Hyperthyroidism, Hypothyroidism GI Medical History: Reports: Cirrhosis, Gastroesophageal Reflux Disease, Hepatitis - Hepatitis C Denies: Crohn's Disease, Ulcerative Colitis Musculoskeltal Medical History: Denies: Arthritis, Gout Skin Medical History: Denies: Eczema, Psoriasis Psychiatric Medical History: Reports: Depression Hematology: Reports: Anemia - Chronic Denies: Bleeding Tendencies Past Surgical History Past Surgical History: Reports: Section, Cholecystectomy, Orthopedic Surgery - carpel tunnel, Tonsillectomy, Other - Unable to obtain at this time since the patient is intubated and sedated. Denies: Hysterectomy Social History Information Source: Patient, [facility] Lives with: Alone Smoking Status: Current Every Day Smoker Frequency of Alcohol Use: None Hx Recreational Drug Use: No Drugs: None, Other Hx Prescription Drug Abuse: No - Advance Directive Resuscitation Status: Do Not Resuscitate Surrogate healthcare decision maker:: She has her daughter Doris Loza as the designated decision maker Family History Family History: DM, Other - Patient reports to this provider that she is adopted Parental Family History Reviewed: No - Patient is adopted Children Family History Reviewed: Yes Sibling(s) Family History Reviewed.: NA Medication/Allergy Home Medications: Budesonide/Formoterol Fumarate [Symbicort HFA 160-4.5 mcg Inhaler 6 gm] 2 puff I H Q12 10/24/16 Omeprazole 20 mg PO DAILY 10/24/16 Alprazolam [Xanax 0.25 mg Tablet] 0.25 mg PO BIDP PRN 05/16/18 Buspirone HCl [Buspar 10 mg Tablet] 10 mg PO Q8 05/16/18 Paroxetine HCl [Paxil] 30 mg PO QHS 05/16/18 Albuterol Sulfate [Proair Hfa Inhalation Aerosol 8.5 gm Mdi] 2 puff IH Q4HP PRN 11/05/18 Bupropion HCl [Wellbutrin 100 mg Tablet] 100 mg PO DAILY 11/05/18 Promethazine HCl [Phenergan 25 mg Tablet] 25 mg PO BIDP PRN 11/05/18 Ibuprofen [Motrin 800 mg Tablet] 800 mg PO Q8HP PRN 12/07/18 Allergies/Adverse Reactions: acetaminophen [From Tylenol] Allergy (Mild, Verified 05/16/18 20:52) GI upset Review of Systems Constitutional: PRESENT: fatigue. ABSENT: chills, fever(s), headache(s) Eyes: ABSENT: visual disturbances Ears: ABSENT: hearing changes Nose, Mouth, and Throat: ABSENT: mouth pain, sore throat, vertigo Cardiovascular: ABSENT: chest pain, dyspnea on exertion, edema, palpitations Respiratory: ABSENT: cough, dyspnea, sputum Gastrointestinal: PRESENT: heartburn, nausea. ABSENT: abdominal pain, constipation, diarrhea, vomiting Genitourinary: ABSENT: difficulty urinating, dysuria, hematuria Musculoskeletal: PRESENT: back pain - Chronic Integumentary: ABSENT: diaphoresis, rash, wounds Neurological: PRESENT: abnormal speech - Slow speech, frequent falls. ABSENT: restless legs, syncope, tremor(s), vertigo Psychiatric: ABSENT: anxiety, depression, hallucinations Endocrine: ABSENT: cold intolerance, flushing, heat intolerance, polydipsia, polyphagia, polyuria Hematologic/Lymphatic: ABSENT: easy bleeding, easy bruising Allergic/Immunologic: ABSENT: seasonal rhinorrhea Physical Exam Vital Signs: Temp Pulse Resp BP Pulse Ox 97.9 F 90 18 127/89 H 94 12/07/18 16:37 12/07/18 16:37 12/07/18 16:37 12/07/18 16:37 12/07/18 16:37 Intake & Output 12/06/18 12/07/18 12/08/18 06:59 06:59 06:59 Weight 51.2 kg General appearance: PRESENT: no acute distress, cooperative, thin, well- developed Head exam: PRESENT: atraumatic, normocephalic Eye exam: PRESENT: conjunctiva pale, EOMI, PERRLA. ABSENT: scleral icterus Ear exam: PRESENT: normal external ear exam Mouth exam: PRESENT: dry mucosa, tongue midline Neck exam: PRESENT: full ROM. ABSENT: JVD, lymphadenopathy, thyromegaly, tracheostomy Respiratory exam: PRESENT: clear to auscultation madhavi, symmetrical, unlabored. ABSENT: accessory muscle use, rales, rhonchi, tachypnea, wheezes Cardiovascular exam: PRESENT: RRR, +S1, +S2. ABSENT: systolic murmur Pulses: PRESENT: normal radial pulses, normal dorsalis pedis pul GI/Abdominal exam: PRESENT: normal bowel sounds, soft. ABSENT: distended, guarding, tenderness Rectal exam: PRESENT: deferred Gentrourinary exam: ABSENT: indwelling catheter Extremities exam: ABSENT: calf tenderness, joint swelling, pedal edema Musculoskeletal exam: PRESENT: normal inspection Neurological exam: PRESENT: alert, awake, oriented to person, oriented to place, oriented to time, oriented to situation, CN II-XII grossly intact, other - Slow to develop answers to questions Psychiatric exam: PRESENT: flat affect. ABSENT: agitated, anxious Focused psych exam: ABSENT: delusional, restlessness Skin exam: PRESENT: dry, pallor, warm. ABSENT: rash Results Laboratory Results: 12/07/18 11:00 12/07/18 11:00 12/07/18 12/07/18 12/07/18 11:00 11:00 11:00 WBC 7.6 RBC 3.92 Hgb 10.9 L Hct 33.4 L MCV 85 MCH 27.8 MCHC 32.6 RDW 13.5 Plt Count 190 Seg Neutrophils % 81.3 H Lymphocytes % 8.1 L Monocytes % 7.2 Eosinophils % 3.0 Basophils % 0.4 Absolute Neutrophils 6.1 Absolute Lymphocytes 0.6 Absolute Monocytes 0.5 Absolute Eosinophils 0.2 Absolute Basophils 0.0 Sodium 140.0 Potassium 4.4 Chloride 99 Carbon Dioxide 35 H Anion Gap 6 BUN 16 Creatinine 0.73 Est GFR ( Amer) > 60 Est GFR (Non-Af Amer) > 60 Glucose 119 H Calcium 9.2 Magnesium 1.7 Total Bilirubin 0.3 AST 79 H ALT 35 Alkaline Phosphatase 104 Ammonia C-Reactive Protein 157.7 H Total Protein 7.0 Albumin 3.7 Urine Color Urine Appearance Urine pH Ur Specific [place] Urine Protein Urine Glucose (UA) Urine Ketones Urine Blood Urine Nitrite Ur Leukocyte Esterase 12/07/18 12/07/18 11:09 11:56 WBC RBC Hgb Hct MCV MCH MCHC RDW Plt Count Seg Neutrophils % Lymphocytes % Monocytes % Eosinophils % Basophils % Absolute Neutrophils Absolute Lymphocytes Absolute Monocytes Absolute Eosinophils Absolute Basophils Sodium Potassium Chloride Carbon Dioxide Anion Gap BUN Creatinine Est GFR ( Amer) Est GFR (Non-Af Amer) Glucose Calcium Magnesium Total Bilirubin AST ALT Alkaline Phosphatase Ammonia < 8.7 L C-Reactive Protein Total Protein Albumin Urine Color YELLOW Urine Appearance CLOUDY Urine pH 5.0 Ur Specific [place] 1.017 Urine Protein NEGATIVE Urine Glucose (UA) NEGATIVE Urine Ketones NEGATIVE Urine Blood NEGATIVE Urine Nitrite NEGATIVE Ur Leukocyte Esterase SMALL H 12/07/18 12/07/18 11:00 11:00 Creatine Kinase 2205 H CK-MB (CK-2) 11.50 H Troponin I < 0.012 Impressions: Lumbar Spine X-Ray 12/07/18 10:56 IMPRESSION: No compression fractures related to the history of falls. Significant progression of disc degeneration L1-L2 predominately on the right. Marked progression of sclerotic change involving the adjacent cortical endplates and disc space narrowing may be related to disc degeneration and arthritic involvement however chronic inflammatory change cannot be excluded based on rapid progression and radiographic appearance. Stable moderate disc space narrowing L4-L5. . Lumbar Spine MRI 12/07/18 13:29 IMPRESSION: Multilevel significant central and foraminal encroachment. Advanced degenerative disc changes at L1-2. Assessment and Plan - Diagnosis (1) Urinary tract infection Qualifiers: Urinary tract infection type: site unspecified Hematuria presence: without hematuria Qualified Code(s): N39.0 - Urinary tract infection, site not specified Is this a current diagnosis for this admission?: Yes Plan: 12/07/2018-the patient's UA is suggestive of infection. I will place her on IV ceftriaxone awaiting urine culture results. (2) Rhabdomyolysis Qualifiers: Rhabdomyolysis type: non-traumatic Qualified Code(s): M62.82 - Rhabdomyolysis Is this a current diagnosis for this admission?: Yes Plan: 12/07/2018-according to the patient she was only on the floor for approximately 20 to 30 minutes yet her creatinine kinase level is over 2000. She has positive inflammatory markers. C-reactive protein and sed rate are markedly elevated. I am unsure of the etiology of this. For the rhabdo she will get IV fluids and we will continue to monitor her creatinine kinase levels. (3) Chronic obstructive pulmonary disease (COPD) Qualifiers: COPD type: unspecified COPD Qualified Code(s): J44.9 - Chronic obstructive pulmonary disease, unspecified Is this a current diagnosis for this admission?: Yes Plan: 12/07/2018-her COPD appears to be stable. There is no evidence of infection. We will continue her inhaler therapy or formulary substitution as appropriate. Nebulizer treatments are available as needed. I do not feel there is a need for systemic steroids for her COPD. (4) Chronic pain Qualifiers: Chronic pain type: other chronic pain Qualified Code(s): G89.29 - Other chronic pain Is this a current diagnosis for this admission?: Yes Plan: 12/07/2018-chronic pain due to severe degenerative disc disease affecting despite all the lumbar levels. She takes ibuprofen at home but she reports this does not seem to help. I have ordered naproxen as a scheduled dose. We will try a Lidoderm patch. There is also oxycodone 5 mg on an as-needed basis. Her inflammatory markers are elevated. I am not sure how this relates to her pain. I have ordered an antinuclear antibody study with reflex tomorrow. (5) Anemia, normocytic normochromic Is this a current diagnosis for this admission?: Yes Plan: 12/07/2018-the patient has anemia. Her MCV is 85. We will continue to monitor her CBC especially since she will be getting IV fluids. (6) History of hepatitis C Is this a current diagnosis for this admission?: Yes Plan: 12/07/2018-the patient has a history of hepatitis C with cirrhosis. She was a heavy drinker and so the cirrhosis may more likely be related to alcohol. Will monitor transaminases. (7) Cirrhosis Qualifiers: Hepatic cirrhosis type: alcoholic cirrhosis Is this a current diagnosis for this admission?: Yes Plan: 12/07/2018-the patient has a history of heavy alcohol use. She has cirrhosis. This would account for the slight abnormality of her transaminases. Her elevated inflammatory markers could be related to her chronic liver disease. We will continue to monitor her enzymes. With her history of heavy alcohol use her presentation might be consistent with mild Warnicke's encephalopathy. It is hard to determine at this point. - Time Time Spent with patient: 35 or more minutes Medications reviewed and adjusted accordingly: Yes Anticipated discharge: Home - Inpatient Certification Based on my medical assessment, after consideration of the patient's clark rbidities, presenting symptoms, or acuity I expect that the services needed warrant INPATIENT care.: Yes I certify that my determination is in accordance with my understanding of Medicare's requirements for reasonable and necessary INPATIENT services [42 CFR 412.3e].: Yes Medical Necessity: Need For IV Fluids, Need for IV Antibiotics Post Hospital Care: D/C Research & Analytics Manager Documentation
--- NOTE | 2018-12-07 21:00 | ADVANCED CARE ---
- Diagnosis (1) Urinary tract infection Diagnosis Current: Yes (2) Rhabdomyolysis Diagnosis Current: Yes (3) Chronic obstructive pulmonary disease (COPD) Diagnosis Current: Yes (4) Chronic pain Diagnosis Current: Yes (5) Anemia, normocytic normochromic Diagnosis Current: Yes (6) History of hepatitis C Diagnosis Current: Yes (7) Cirrhosis Diagnosis Current: Yes Attendance: Myself and the patient Resuscitation Status: Do Not Resuscitate Discussion: The patient is already a DO NOT RESUSCITATE. She designated her daughter just come on to make decisions if she were incapacitated. She does not want attempts at resuscitation which is not unreasonable considering her past medical history. Care Planning Goals: To be determined Document(s) Completed: None at this time. Time Spent: 16 minutes
[2018-12-07] MEDS: BUSPIRONE HCL 10 MG TABLET PO SCH (21:30)
[2018-12-07] MEDS: PAROXETINE HCL 20 MG TABLET PO SCH (21:30)
[2018-12-07] MEDS: CEFTRIAXONE SODIUM 1,000 MG in DEXTROSE 5%-WATER 50 ML IV SCH (21:33)
[2018-12-07] MEDS ORDERED: (PENDING PHARMACY ID) (Paroxetine Hcl [Paxil] 30 MG) PO SCH (22:00)
[2018-12-07] MEDS ORDERED: FAMOTIDINE 20 MG TABLET PO SCH (22:00)
[2018-12-08] MEDS: OXYCODONE HCL IR 5 MG TABLET PO PRN ×3 (02:13→18:33)
[2018-12-08] MEDS: NORMAL SALINE 1000 ML 1,000 ML IV PRN ×3 (02:14→17:02)
[2018-12-08] MEDS: BUSPIRONE HCL 10 MG TABLET PO SCH ×3 (06:13→22:33)
[2018-12-08] MEDS: PANTOPRAZOLE SODIUM 40 MG TABLET.DR PO SCH (06:13)
[2018-12-08 06:26] LABS: ANION GAP 5 (5-19); BLOOD UREA NITROGEN 14 mg/dL (7-20); C-REACTIVE PROTEIN 62.1 mg/L (<10.0); CALCIUM 8.5 mg/dL (8.4-10.2); CARBON DIOXIDE 29 mmol/L (22-30); CHLORIDE 106 mmol/L (98-107); CREATINE KINASE 1166 U/L (30-135); GLUCOSE 110 mg/dL (75-110); POTASSIUM 4.4 mmol/L (3.6-5.0); SODIUM 140.2 mmol/L (137-145)
[2018-12-08] MEDS: NAPROXEN 375 MG TABLET PO SCH ×2 (08:03→17:01)
--- NOTE | 2018-12-08 08:24 | PDOC PROGRESS REPORT ---
Subjective Progress Note for:: 12/08/18 Subjective:: Patient is sitting in bed eating breakfast. She is complaining of aches and pains all over. Reason For Visit: RABDOMYOLYSIS,MUSCLE WEAKNESS,LUMBAR BACK PAIN, Physical Exam Vital Signs: Temp Pulse Resp BP Pulse Ox 98.2 F 81 18 160/83 H 94 12/07/18 19:00 12/07/18 19:00 12/07/18 19:00 12/07/18 19:00 12/07/18 19:00 Intake & Output 12/07/18 12/08/18 12/09/18 06:59 06:59 06:59 Intake Total 2450 Output Total 600 Balance 1850 Weight 51.9 kg General appearance: PRESENT: cooperative, mild distress, well-developed - But frail-appearing Head exam: PRESENT: atraumatic, normocephalic Eye exam: PRESENT: conjunctiva pale, scleral icterus Ear exam: PRESENT: normal external ear exam Mouth exam: PRESENT: dry mucosa, tongue midline Teeth exam: PRESENT: edentulous Respiratory exam: PRESENT: rhonchi - Right side, symmetrical, unlabored. ABSENT: rales, tachypnea, wheezes Cardiovascular exam: PRESENT: RRR, +S1, +S2 GI/Abdominal exam: PRESENT: normal bowel sounds, soft. ABSENT: distended, guarding, tenderness Rectal exam: PRESENT: deferred Gentrourinary exam: ABSENT: indwelling catheter Extremities exam: ABSENT: pedal edema Musculoskeletal exam: PRESENT: other - Decreased muscle mass Neurological exam: PRESENT: alert, awake, oriented to person, oriented to place, oriented to time, oriented to situation, CN II-XII grossly intact Psychiatric exam: PRESENT: appropriate affect - Affect reflects her discomfort. ABSENT: agitated, anxious Focused psych exam: ABSENT: delusional, restlessness Results Laboratory Results: 12/07/18 11:00 12/08/18 05:11 12/07/18 12/07/18 12/07/18 11:00 11:00 11:00 WBC 7.6 RBC 3.92 Hgb 10.9 L Hct 33.4 L MCV 85 MCH 27.8 MCHC 32.6 RDW 13.5 Plt Count 190 Seg Neutrophils % 81.3 H Lymphocytes % 8.1 L Monocytes % 7.2 Eosinophils % 3.0 Basophils % 0.4 Absolute Neutrophils 6.1 Absolute Lymphocytes 0.6 Absolute Monocytes 0.5 Absolute Eosinophils 0.2 Absolute Basophils 0.0 Sodium 140.0 Potassium 4.4 Chloride 99 Carbon Dioxide 35 H Anion Gap 6 BUN 16 Creatinine 0.73 Est GFR ( Amer) > 60 Est GFR (Non-Af Amer) > 60 Glucose 119 H Calcium 9.2 Magnesium 1.7 Total Bilirubin 0.3 AST 79 H ALT 35 Alkaline Phosphatase 104 Ammonia C-Reactive Protein 157.7 H Total Protein 7.0 Albumin 3.7 Urine Color Urine Appearance Urine pH Ur Specific Cross Urine Protein Urine Glucose (UA) Urine Ketones Urine Blood Urine Nitrite Ur Leukocyte Esterase 12/07/18 12/07/18 12/08/18 11:09 11:56 05:11 WBC RBC Hgb Hct MCV MCH MCHC RDW Plt Count Seg Neutrophils % Lymphocytes % Monocytes % Eosinophils % Basophils % Absolute Neutrophils Absolute Lymphocytes Absolute Monocytes Absolute Eosinophils Absolute Basophils Sodium 140.2 Potassium 4.4 Chloride 106 Carbon Dioxide 29 Anion Gap 5 BUN 14 Creatinine 0.63 Est GFR ( Amer) > 60 Est GFR (Non-Af Amer) > 60 Glucose 110 Calcium 8.5 Magnesium 1.7 Total Bilirubin AST ALT Alkaline Phosphatase Ammonia < 8.7 L C-Reactive Protein 62.1 H Total Protein Albumin Urine Color YELLOW Urine Appearance CLOUDY Urine pH 5.0 Ur Specific Cross 1.017 Urine Protein NEGATIVE Urine Glucose (UA) NEGATIVE Urine Ketones NEGATIVE Urine Blood NEGATIVE Urine Nitrite NEGATIVE Ur Leukocyte Esterase SMALL H 12/07/18 12/07/18 12/08/18 11:00 11:00 05:11 Creatine Kinase 2205 H 1166 H CK-MB (CK-2) 11.50 H Troponin I < 0.012 12/08/18 05:11 Creatine Kinase CK-MB (CK-2) 5.22 H Troponin I Impressions: Lumbar Spine X-Ray 12/07/18 10:56 IMPRESSION: No compression fractures related to the history of falls. Significant progression of disc degeneration L1-L2 predominately on the right. Marked progression of sclerotic change involving the adjacent cortical endplates and disc space narrowing may be related to disc degeneration and arthritic i nvolvement however chronic inflammatory change cannot be excluded based on rapid progression and radiographic appearance. Stable moderate disc space narrowing L4-L5. . Lumbar Spine MRI 12/07/18 13:29 IMPRESSION: Multilevel significant central and foraminal encroachment. Advanced degenerative disc changes at L1-2. Assessment and Plan - Diagnosis (1) Urinary tract infection Qualifiers: Urinary tract infection type: site unspecified Hematuria presence: without hematuria Qualified Code(s): N39.0 - Urinary tract infection, site not specified Is this a current diagnosis for this admission?: Yes Plan: 12/07/2018-the patient's UA is suggestive of infection. I will place her on IV ceftriaxone awaiting urine culture results. 12/08/2018-culture results still pending. Continue current antibiotics. (2) Rhabdomyolysis Qualifiers: Rhabdomyolysis type: non-traumatic Qualified Code(s): M62.82 - Rhabd omyolysis Is this a current diagnosis for this admission?: Yes Plan: 12/07/2018-according to the patient she was only on the floor for approximately 20 to 30 minutes yet her creatinine kinase level is over 2000. She has positive inflammatory markers. C-reactive protein and sed rate are markedly elevated. I am unsure of the etiology of this. For the rhabdo she will get IV fluids and we will continue to monitor her creatinine kinase levels. 12/08/2018-creatinine kinase has decreased. It is down to 1166. We will continue IV fluids and encourage p.o. fluids. Renal function remains normal. I have encouraged fluid oral intake as well (3) Chronic obstructive pulmonary disease (COPD) Qualifiers: COPD type: unspecified COPD Qualified Code(s): J44.9 - Chronic obstructive pulmonary disease, unspecified Is this a current diagnosis for this admission?: Yes Plan: 12/07/2018-her COPD appears to be stable. There is no evidence of infection. We will continue her inhaler therapy or formulary substitution as appropriate. Nebulizer treatments are available as needed. I do not feel there is a need for systemic steroids for her COPD. 12/08/2018-continue scheduled combination inhaler with nebs available if needed. No systemic steroids at this point required. (4) Chronic pain Qualifiers: Chronic pain type: other chronic pain Qualified Code(s): G89.29 - Other chronic pain Is this a current diagnosis for this admission?: Yes Plan: 12/07/2018-chronic pain due to severe degenerative disc disease affecting despite all the lumbar levels. She takes ibuprofen at home but she reports this does not seem to help. I have ordered naproxen as a scheduled dose. We will try a Lidoderm patch. There is also oxycodone 5 mg on an as-needed basis. Her inflammatory markers are elevated. I am not sure how this relates to her pain. I have ordered an antinuclear antibody study with reflex tomorrow. 12/08/2018-severe lumbar degenerative disc disease that causes pain. Also the patient reports aches and pains from her multiple falls. Trial of Lidoderm patch and naproxen instead of ibuprofen. Oxycodone available. Consider ketorolac as well. (5) Anemia, normocytic normochromic Is this a current diagnosis for this admission?: Yes Plan: 12/07/2018-the patient has anemia. Her MCV is 85. We will continue to monitor her CBC especially since she will be getting IV fluids. 12/08/2018-I will add an iron supplement and multivitamin. (6) History of hepatitis C Is this a current diagnosis for this admission?: Yes Plan: 12/07/2018-the patient has a history of hepatitis C with cirrhosis. She was a heavy drinker and so the cirrhosis may more likely be related to alcohol. Will monitor transaminases. 12/08/2018-we will continue to monitor. It is possible that this is the cause of the elevated inflammatory markers. No tenderness at this time. (7) Cirrhosis Qualifiers: Hepatic cirrhosis type: alcoholic cirrhosis Is this a current diagnosis for this admission?: Yes Plan: 12/07/2018-the patient has a history of heavy alcohol use. She has cirrhosis. This would account for the slight abnormality of her transaminases. Her elevated inflammatory markers could be related to her chronic liver disease. We will continue to monitor her enzymes. With her history of heavy alcohol use her presentation might be consistent with mild Warnicke's encephalopathy. It is hard to determine at this point. 12/08/2018-likely due to a combination of history of alcohol and hepatitis C. We will continue to monitor. - Time Time Spent with patient: 15-24 minutes Medications reviewed and adjusted accordingly: Yes Anticipated discharge: Home
[2018-12-08] MEDS: DOCUSATE SODIUM 100 MG CAPSULE PO SCH ×2 (09:23→17:01)
[2018-12-08] MEDS: MULTIVITAMIN TABLET PO SCH (09:23)
[2018-12-08] MEDS: BUPROPION HCL 100 MG TABLET PO SCH (09:24)
[2018-12-08] MEDS: FERROUS SULFATE 325 MG TABLET PO SCH (09:24)
[2018-12-08] MEDS: LACTOBACILLUS ACIDOPHILUS 250 MG TAB PO SCH ×2 (09:24→17:01)
[2018-12-08] MEDS: LIDOCAINE 5% (700 MG) TRANSDERMAL ADH..PATCH TP SCH (09:25)
[2018-12-08] MEDS: ENOXAPARIN SODIUM INJ 40 MG/0.4 ML DISP.SYRIN SUBCUT SCH (09:25)
[2018-12-08] MEDS: FLUTICASONE/VILANTEROL 200-25 MCG/DOSE IH SCH (09:25)
[2018-12-08] MEDS ORDERED: CEFTRIAXONE 1 GM/D5W RTU 1 GM/50 ML RTUPB IV SCH (10:00)
[2018-12-08] MEDS ORDERED: IPRATROPIUM/ALBUTEROL 0.5-2.5 MG/3 ML AMPUL NEB SCH (14:00)
[2018-12-08] MEDS: CEFTRIAXONE SODIUM 1,000 MG in DEXTROSE 5%-WATER 50 ML IV SCH (17:23)
[2018-12-08] MEDS: PAROXETINE HCL 20 MG TABLET PO SCH (22:32)
[2018-12-09 05:26] LABS: ANION GAP 6 (5-19); BLOOD UREA NITROGEN 11 mg/dL (7-20); CALCIUM 8.4 mg/dL (8.4-10.2); CARBON DIOXIDE 26 mmol/L (22-30); CHLORIDE 109 mmol/L (98-107); CREATINE KINASE 719 U/L (30-135); GLUCOSE 99 mg/dL (75-110); POTASSIUM 4.3 mmol/L (3.6-5.0); SODIUM 140.8 mmol/L (137-145)
[2018-12-09] MEDS: PANTOPRAZOLE SODIUM 40 MG TABLET.DR PO SCH (06:41)
[2018-12-09] MEDS: OXYCODONE HCL IR 5 MG TABLET PO PRN (06:41)
[2018-12-09] MEDS: BUSPIRONE HCL 10 MG TABLET PO SCH (06:41)
[2018-12-09] MEDS: NAPROXEN 375 MG TABLET PO SCH (07:37)
[2018-12-09] MEDS: NORMAL SALINE 1000 ML 1,000 ML IV PRN (09:00)
--- NOTE | 2018-12-09 09:00 | RADIOLOGY REPORT (SQ) ---
EXAM DESCRIPTION: CHEST SINGLE VIEW COMPLETED DATE/TIME: 12/09/2018 8:49 am REASON FOR STUDY: copd COMPARISON: Chest films 11/04/2018, 05/16/2018 CT angio chest 09/17/2017 EXAM PARAMETERS: NUMBER OF VIEWS: One view. TECHNIQUE: Single frontal radiographic view of the chest acquired. RADIATION DOSE: NA LIMITATIONS: None. FINDINGS: LUNGS AND PLEURA: There are Anshu lines at both lung bases worrisome for mild fluid overl oad or interstitial edema. Trace fluid in the right minor fissure. No fluffy alveolar infiltrates worrisome for alveolar edema or pneumonia. No pneumothorax. MEDIASTINUM AND HILAR STRUCTURES: No masses. Contour normal. HEART AND VASCULAR STRUCTURES: No cardiomegaly BONES: No acute findings. HARDWARE: None in the chest. OTHER: No other significant finding. IMPRESSION: Anshu lines from mild interstitial edema TECHNICAL DOCUMENTATION: JOB ID: [id number] [employer]- All Rights Reserved Reading location - IP/workstation name: [email or web address]
[2018-12-09] MEDS: FERROUS SULFATE 325 MG TABLET PO SCH (09:29)
[2018-12-09] MEDS: BUPROPION HCL 100 MG TABLET PO SCH (09:29)
[2018-12-09] MEDS: MULTIVITAMIN TABLET PO SCH (09:29)
[2018-12-09] MEDS: LACTOBACILLUS ACIDOPHILUS 250 MG TAB PO SCH (09:29)
[2018-12-09] MEDS: DOCUSATE SODIUM 100 MG CAPSULE PO SCH (09:29)
[2018-12-09] MEDS: FLUTICASONE/VILANTEROL 200-25 MCG/DOSE IH SCH (09:30)
[2018-12-09] MEDS: LIDOCAINE 5% (700 MG) TRANSDERMAL ADH..PATCH TP SCH (09:30)
[2018-12-09] MEDS: ENOXAPARIN SODIUM INJ 40 MG/0.4 ML DISP.SYRIN SUBCUT SCH (09:30)
[2018-12-09 11:52] VITALS: BP 133/63
[2018-12-09 16:05] LABS: ANTINUCLEAR ANTIBODIES Negative (Negative)
--- NOTE | 2018-12-09 18:10 | PDOC DISCHARGE SUMMARY ---
General - Admit/Disc Date/PCP Admission Date/Primary Care Provider: 12/07/18 17:43 JAYY VIVIENNEANALIA Discharge Date: 12/09/18 - Discharge Diagnosis (1) Urinary tract infection Is this a current diagnosis for this admission?: No Summary: The patient had a small positive leukocyte esterase with 10-20 white blood cells per high-power field. There is also trace bacteria noted. Urine was submitted for culture and the patient was placed on ceftriaxone. After 48 hours the urine culture was no growth and so they are in fact was no cystitis. (2) Rhabdomyolysis Is this a current diagnosis for this admission?: Yes Summary: The patient had an elevated creatinine kinase of 2200. Yesterday dropped to 1100 and it was 841 yesterday and 719 today. Because it continues to decrease I am going to send her home. I have encouraged her to drink lots of fluids. Her C-reactive protein was elevated as well. This may be an inflammatory condition. Her CHARLIE was negative however and her C-reactive protein dropped from 150-60. She will follow-up with Dr. Herrera and will need some repeat blood work. (3) Chronic obstructive pulmonary disease (COPD) Is this a current diagnosis for this admission?: Yes Summary: Her COPD has been stable during this admission. She will return to her outpatient inhaler regimen. Because the COPD was stable I did not place her on any steroid therapy. (4) Chronic pain Is this a current diagnosis for this admission?: Yes Summary: The patient has significant pain from her sciatica as well as severe degenerative lumbar disc disease. An MRI performed showed multilevel disease without severe compression. The case was discussed with neurosurgery at an outside hospital and they felt it was not the primary reason for her falling but she should have an outpatient follow-up with a specialist. She did tell me that Dr. Herrera has had her see a back specialist. This may likely have been neuro or orthopedic surgery. Her last MRI was believe over a year ago. It may be worth having a follow-up visit to compare the 2 studies. I have ordered home health to continue physical therapy at home. (5) Anemia, normocytic normochromic Is this a current diagnosis for this admission?: Yes Summary: Continue with healthy diet and suggest multivitamin and iron supplement. (6) History of hepatitis C Is this a current diagnosis for this admission?: Yes Summary: I believe her hepatitis C is not active at this time. She did not have marked elevation of her transaminases. It likely has contributed to cirrhosis. This certainly could contribute to an elevated C-reactive protein. (7) Cirrhosis Is this a current diagnosis for this admission?: Yes Summary: Patient has history of alcohol and hepatitis C. As noted above her transaminases are not markedly elevated. She does not exhibit any ascites. I believe her condition is quite stable at this time. - Additional Information Resuscitation Status: Do Not Resuscitate Discharge Diet: Regular Discharge Activity: Activity As Tolerated Prescriptions: Lidocaine [Lidoderm 5% (700 mg) Transdermal Patch] 1 patch TP DAILY 30 Days #30 adh..patch Oxycodone HCl [Oxy-Ir 5 mg Tablet] 5 mg PO Q6HP PRN 5 Days #10 tablet PRN Reason: Home Medications: Budesonide/Formoterol Fumarate [Symbicort HFA 160-4.5 mcg Inhaler 6 gm] 2 puff IH Q12 10/24/16 Omeprazole 20 mg PO DAILY 10/24/16 Alprazolam [Xanax 0.25 mg Tablet] 0.25 mg PO BIDP PRN 05/16/18 Buspirone HCl [Buspar 10 mg Tablet] 10 mg PO Q8 05/16/18 Paroxetine HCl [Paxil] 30 mg PO QHS 05/16/18 Albuterol Sulfate [Proair HFA Inhalation Aerosol 8.5 gm MDI] 2 puff IH Q4HP PRN 11/05/18 Bupropion HCl [Wellbutrin 100 mg Tablet] 100 mg PO DAILY 11/05/18 Promethazine HCl [Phenergan 25 mg Tablet] 25 mg PO BIDP PRN 11/05/18 Ibuprofen [Motrin 800 mg Tablet] 800 mg PO Q8HP PRN 12/07/18 Ferrous Sulfate [Feosol 325 mg Tablet] 325 mg PO DAILY tablet 12/09/18 Lidocaine [Lidoderm 5% (700 mg) Transdermal Patch] 1 patch TP DAILY 30 Days #30 adh..patch 12/09/18 Multivitamin [Tab-A-Dread (Multiple Vitamin) Tablet] 1 tab PO DAILY tablet 12/09/18 Oxycodone HCl [Oxy-Ir 5 mg Tablet] 5 mg PO Q6HP PRN 5 Days #10 tablet 12/09/18 History of Present Illness Patient complains of: Weakness and multiple falls History of Present Illness: ADY YEUNG is a 63 year old female with a history of COPD, anxiety and depression and significant degenerative disc disease with chronic back pain. She states that over the last week or so she has been experiencing multiple falls. She does not have any prodrome of dizziness. Several of the falls came in the morning when she was getting out of bed and stood from a sitting position. Several have occurred while she is ambulating. She fell today and states that she was only on the floor for 20 to 30 minutes. She denies loss of consciousness. She does report occasional lightheadedness and nausea but no vomiting. Urinalysis was suggestive of cystitis. MRI showed multilevel disc disease but no acute compression. She was referred to the hospital service for admission and evaluation. Hospital Course Hospital Course: The patient had a fairly unremarkable hospital course. With fluids the patient's creatinine kinase has been decreasing. She still has significant back pain but this is a chronic condition I have ordered home health to continue with physical therapy. Her back is been quite uncomfortable in the hospital bed. I explained that she would probably be more comfortable at home and home health should be able to visit her starting tomorrow. Physical Exam Vital Signs: Temp Pulse Resp BP Pulse Ox 98.5 F 87 16 133/63 H 94 12/09/18 11:51 12/09/18 11:51 12/09/18 11:51 12/09/18 11:51 12/09/18 11:51 Intake & Output 12/08/18 12/09/18 12/10/18 06:59 06:59 06:59 Intake Total 2450 4969 Output Total 600 2500 Balance 1850 2469 Weight 51.9 kg 52.2 kg General appearance: PRESENT: cooperative, mild distress, thin, well-developed Head exam: PRESENT: atraumatic, normocephalic, other - Temporal wasting Respiratory exam: PRESENT: clear to auscultation madhavi, symmetrical, unlabored. ABSENT: accessory muscle use, rales, rhonchi, tachypnea, wheezes Cardiovascular exam: PRESENT: RRR, +S1, +S2 GI/Abdominal exam: PRESENT: normal bowel sounds, soft. ABSENT: distended, tenderness Neurological exam: PRESENT: alert, awake, oriented to person, oriented to place, oriented to time, oriented to situation, CN II-XII grossly intact Psychiatric exam: PRESENT: appropriate affect. ABSENT: agitated, anxious Focused psych exam: ABSENT: delusional, restlessness Results Laboratory Results: 12/07/18 11:00 12/09/18 03:56 12/09/18 03:56 Sodium 140.8 Potassium 4.3 Chloride 109 H Carbon Dioxide 26 Anion Gap 6 BUN 11 Creatinine 0.62 Est GFR ( Amer) > 60 Est GFR (Non-Af Amer) > 60 Glucose 99 Calcium 8.4 Magnesium 1.6 12/07/18 12/07/18 12/08/18 11:00 11:00 05:11 Creatine Kinase 2205 H 1166 H CK-MB (CK-2) 11.50 H Troponin I < 0.012 12/08/18 12/08/18 12/09/18 05:11 16:30 03:56 Creatine Kinase 841 H 719 H CK-MB (CK-2) 5.22 H Troponin I Impressions: Lumbar Spine X-Ray 12/07/18 10:56 IMPRESSION: No compression fractures related to the history of falls. Significant progression of disc degeneration L1-L2 predominately on the right. Marked progression of sclerotic change involving the adjacent cortical endplates and disc space narrowing may be related to disc degeneration and arthritic involvement however chronic inflammatory change cannot be excluded based on rapid progression and radiographic appearance. Stable moderate disc space narrowing L4-L5. . Lumbar Spine MRI 12/07/18 13:29 IMPRESSION: Multilevel significant central and foraminal encroachment. Advanced degenerative disc changes at L1-2. Chest X-Ray 12/09/18 06:00 IMPRESSION: Anshu lines from mild interstitial edema Qualifiers - * PATIENT BEING DISCHARGED WITH ANY OF THE FOLLOWING DIAGNOSIS: No Acute Heart Failure - Is this a Heart Failure Patient?: No Plan Time Spent: Greater than 30 Minutes
== END 2018-12-09 13:10 | disposition home or self-care (01) | DRG 690 ==
LOC: ER 10:37 → EH 17:43 → 4N 18:53
PROVIDERS: ADMIT Hospitalist; ATTEND Hospitalist
DX: N39.0 Urinary tract infection, site not specified (principal); M62.82 Rhabdomyolysis; I50.32 Chronic diastolic (congestive) heart failure; M51.36 Other intervertebral disc degeneration, lumbar region; E86.0 Dehydration; F32.9 Major depressive disorder, single episode, unspecified; J44.9 Chronic obstructive pulmonary disease, unspecified; G89.29 Other chronic pain; D64.9 Anemia, unspecified; K70.30 Alcoholic cirrhosis of liver without ascites; B19.20 Unspecified viral hepatitis C without hepatic coma; F10.20 Alcohol dependence, uncomplicated; F41.9 Anxiety disorder, unspecified; I11.0 Hypertensive heart disease with heart failure; K21.9 Gastro-esophageal reflux disease without esophagitis; Z66 Do not resuscitate; F17.210 Nicotine dependence, cigarettes, uncomplicated; Z60.2 Problems related to living alone; Z79.899 Other long term (current) drug therapy; Z79.1 Long term (current) use of non-steroidal anti-inflammatories (NSAID); Z88.6 Allergy status to analgesic agent
CPT/HCPCS: 36415; 71045; 72110; 72148; 80048; 80053; 81001; 82140; 82550; 82553; 83735; 84484; 85025; 85652; 86038; 86140; 87040; 87086; 96361; 96374; 99285; J0696; J1650; J1885; J3490; J7030; J7060

== ENCOUNTER 2019-01-07 10:32 | Observation (INO) | payer MEDICAID ==
[2019-01-07 10:48] LABS: ABSOLUTE EOSINOPHILS # (AUTO) 0.3 10^3/uL (0.0-0.6); ABSOLUTE LYMPHOCYTES (AUTO) 0.9 10^3/uL (0.5-4.7); ABSOLUTE MONOCYTES (AUTO) 0.4 10^3/uL (0.1-1.4); ABSOLUTE NEUT (AUTO) 3.4 10^3/uL (1.7-8.2); BASOPHILS % (AUTO) 0.5 % (0-2); EOSINOPHILS % (AUTO) 5.3 % (0-6); HEMATOCRIT 38.2 % (36.0-47.0); HEMOGLOBIN 12.3 g/dL (12.0-15.5); LYMPHOCYTES % (AUTO) 17.4 % (13-45); MEAN CORPUSCULAR HEMOGLOBIN 26.8 pg (27.0-33.4); MEAN CORPUSCULAR HGB CONC 32.2 g/dL (32.0-36.0); MEAN CORPUSCULAR VOLUME 83 fl (80-97); MONOCYTES % (AUTO) 7.8 % (3-13); PLATELET COUNT 218 10^3/uL (150-450); RED BLOOD COUNT 4.58 10^6/uL (3.72-5.28); RED CELL DISTRIBUTION WIDTH 14.4 % (11.5-14.0); TOTAL CELLS COUNTED % (AUTO) 100 %; WHITE BLOOD COUNT 4.9 10^3/uL (4.0-10.5)
[2019-01-07 11:11] LABS: ALBUMIN 4.2 g/dL (3.5-5.0); ALKALINE PHOSPHATASE 103 U/L (38-126); ANION GAP 11 (5-19); ASPARTATE AMINO TRANSFERASE 35 U/L (14-36); BILIRUBIN,DIRECT 0.3 mg/dL (0.0-0.4); BILIRUBIN,TOTAL 0.4 mg/dL (0.2-1.3); BLOOD UREA NITROGEN 13 mg/dL (7-20); CALCIUM 9.2 mg/dL (8.4-10.2); CARBON DIOXIDE 31 mmol/L (22-30); CHLORIDE 96 mmol/L (98-107); CREATINE KINASE 40 U/L (30-135); GLUCOSE 117 mg/dL (75-110); POTASSIUM 4.3 mmol/L (3.6-5.0); TOTAL PROTEIN 7.5 g/dL (6.3-8.2)
[2019-01-07 11:23] LABS: CREATINE KINASE MB 1.08 ng/mL (<4.55)
[2019-01-07 11:27] LABS: TROPONIN I < 0.012 ng/mL
--- NOTE | 2019-01-07 11:41 | ER Document Report ---
ED Syncope and Near Syncope - General Chief Complaint: Syncope Stated Complaint: WEAKNESS Time Seen by Provider: 01/07/19 11:10 Primary Care Provider: JAYY ESCOBAR MD [Primary Care Provider] - Follow up as needed Notes: Patient brought in by EMS after having had a syncopal episode. Patient is currently awake and able to provide a reliable history except she does not remember what happened when she passed out. Patient says that she was feeling lightheaded and dizzy while walking from her residence to her car and did not make it to the car and does not remember what happened after that. No family is here, but the episode was witnessed by 3 members of the family. EMS relates that the patient was unconscious when they arrived and responsive only to painful stimuli. Patient's blood pressure was 74/48 by EMS and her initial oxygen saturation was 79% on room air. Patient says that she did not have any c hest pain. No headache. No recent illness or fevers. She does have a history of pneumonias frequently. Has been on a ventilator once in the past. Patient has a history of COPD and is on oxygen at nighttime and as needed during the day. She was carrying it with her but not using her oxygen when this episode occurred. EMS gave saline bolus of 150 mL. TRAVEL OUTSIDE OF THE [place] IN LAST 30 DAYS: No - Related Data Allergies/Adverse Reactions: acetaminophen [From Tylenol] Allergy (Mild, Verified 05/16/18 20:52) GI upset Past Medical History - Social History Smoking Status: Current Every Day Smoker - Smokes vapes cigarettes Frequency of alcohol use: None - Stop drinking alcohol in 2017 Family History: Reviewed & Not Pertinent, DM Patient has suicidal ideation: No Patient has homicidal ideation: No - Past Medical History Cardiac Medical History: Reports: Hx Congestive Heart Failure - Chronic diastolic congestive heart failure per echocardiogram, Hx Hypertension Pulmonary Medical History: Reports: Hx COPD, Hx Pneumonia, Hx Respiratory Failure Denies: Hx Asthma Neurological Medical History: Denies: Hx Seizures Endocrine Medical History: Denies: Hx Diabetes Mellitus Type 1, Hx Diabetes Mellitus Type 2, Hx Hyperthyroidism, Hx Hypothyroidism Renal/ Medical History: Denies: Hx Peritoneal Dialysis GI Medical History: Reports: Hx Cirrhosis, Hx Gastroesophageal Reflux Disease, Hx Hepatitis - Hepatitis C, Hx Liver Failure. Denies: Hx Crohn's Disease, Hx Ulcerative Colitis Musculoskeletal Medical History: Denies Hx Arthritis, Denies Hx Gout, Reports Hx Musculoskeletal Deformity, Reports Hx Musculoskeletal Trauma Skin Medical History: Denies Hx Eczema, Denies Hx Psoriasis Psychiatric Medical History: Reports: Hx Anxiety, Hx Depression Infectious Medical History: Reports: Hx Hepatitis - Hepatitis C Past Surgical History: Reports: Hx Section, Hx Cholecystectomy, Hx Gynecologic Surgery - ovarian wedge., Hx Orthopedic Surgery - carpel tunnel, Hx Tonsillectomy, Other - Unable to obtain at this time since the patient is intubated and sedated.. Denies: Hx Hysterectomy - Immunizations Immunizations up to date: Yes Hx Diphtheria, Pertussis, Tetanus Vaccination: Yes Review of Systems - Review of Systems Notes: REVIEW OF SYSTEMS: CONSTITUTIONAL : Denies fever. EENT: Denies eye, ear, nose or mouth or throat pain or other symptoms. CARDIOVASCULAR: Denies chest pain. RESPIRATORY: Denies cough, chest congestion, but some shortness of breath. GASTROINTESTINAL: Denies abdominal pain or nausea, vomiting, or diarrhea. GENITOURINARY: Denies difficulty or painful urinating, urinary frequency, blood in urine. MUSCULOSKELETAL: Denies back or neck pain. Denies joint pain or swelling. SKIN: Denies rash or skin lesions. NEUROLOGICAL: See HPI. ALL OTHER SYSTEMS REVIEWED AND NEGATIVE. Physical Exam - Vital signs Vitals: Resp 18 01/07/19 10:39 Interpretation: Hypotensive - Minimal, probably normal for her, given her small stature. Notes: PHYSICAL EXAMINATION: GENERAL: in no acute distress. On O2. Answers questions appropriately. Oriented. HEAD: Atraumatic, normocephalic. EYES: Pupils equal round and reactive to light, extraocular movements intact. ENT: oropharynx clear without exudates. Moist mucous membranes. NECK: Normal range of motion, supple. No carotid bruits heard. Fluid LUNGS: Breath sounds clear and equal bilaterally. HEART: Regular rate and rhythm without murmurs. ABDOMEN: Soft, nontender. No guarding or rebound. No masses. BACK: No tenderness throughout entire back. EXTREMITIES: Normal range of motion without pain. NEUROLOGICAL: Normal speech, normal gait. Normal sensory, motor, and reflex exams. Awake, alert, and oriented x3. PSYCH: Normal mood, normal affect. SKIN: Warm, dry, no rashes. Course - Re-evaluation Re-evalutation: 01/07/19 14:20 Patient's pCO2 on a venous blood gas was 73. BiPAP was started. Patient has been previously intubated and I asked her if she wanted to be intubated again and she said no. I contacted hospitalist to have the patient admitted. - Vital Signs Vital signs: Temp Pulse Resp BP Pulse Ox 97.5 F 14 112/71 99 01/07/19 10:50 01/07/19 14:00 01/07/19 12:02 01/07/19 14:00 - Laboratory Result Diagrams: 01/07/19 10:09 01/07/19 10:09 Laboratory results interpreted by me: 01/07/19 01/07/19 01/07/19 10:09 10:09 13:12 MCH 26.8 L RDW 14.4 H VBG pH 7.24 L VBG pCO2 73.4 H* Chloride 96 L Carbon Dioxide 31 H Glucose 117 H - Diagnostic Test Radiology results interpreted by me: 01/07/19 14:22 Chest x-ray is normal. No acute findings. - EKG Interpretation by Me EKG shows normal: Sinus rhythm Rate: Normal Rhythm: NSR Critical Care Note - Critical Care Note Total time excluding time spent on procedures (mins): 15 Discharge - Discharge Clinical Impression: Syncope, Hypercarbia, COPD (chronic obstructive pulmonary disease) Condition: Stable Disposition: ADMITTED INPATIENT Admitting Provider: Malinda (Hospitalist) Unit Admitted: Telemetry Referrals: JAYY ESCOBAR MD [Primary Care Provider] - Follow up as needed
[2019-01-07 12:08] LABS: APPEARANCE,URINE CLEAR; BILIRUBIN,URINE NEGATIVE (NEGATIVE); COLOR,URINE YELLOW; GLUCOSE, URINE NEGATIVE (NEGATIVE); KETONES,URINE NEGATIVE (NEGATIVE); LEUKOCYTE ESTERASE,URINE NEGATIVE (NEGATIVE); NITRITE,URINE NEGATIVE (NEGATIVE); PROTEIN,URINE NEGATIVE (NEGATIVE); URINE SPECIFIC GRAVITY 1.009; UROBILINOGEN,URINE NEGATIVE mg/dL (<2.0)
[2019-01-07 12:23] LABS: URINE AMPHETAMINES SCREEN NEGATIVE; URINE BARBITURATES SCREEN NEGATIVE; URINE BENZODIAZEPINES SCREEN UNCONFIRMED POSITIVE; URINE COCAINE SCREEN NEGATIVE; URINE MARIJUANA (THC) SCREEN NEGATIVE; URINE METHADONE SCREEN NEGATIVE; URINE PHENCYCLIDINE SCREEN NEGATIVE
--- NOTE | 2019-01-07 12:33 | RADIOLOGY REPORT (SQ) ---
EXAM DESCRIPTION: CHEST SINGLE VIEW COMPLETED DATE/TIME: 01/07/2019 11:48 am REASON FOR STUDY: copd sob COMPARISON: 12/09/2018 EXAM PARAMETERS: NUMBER OF VIEWS: One view. TECHNIQUE: Single frontal radiographic view of the chest acquired. RADIATION DOSE: NA LIMITATIONS: None. FINDINGS: LUNGS AND PLEURA: Overall diminished interstitial markings demonstrated on comparison imag ing, noting chronic blunting of the bilateral costophrenic angles. No focal consolidation, large ple ural effusion, or pneumothorax. MEDIASTINUM AND HILAR STRUCTURES: No masses. Contour normal. HEART AND VASCULAR STRUCTURES: Heart normal in size. Normal vasculature. BONES: No acute findings. HARDWARE: None in the chest. OTHER: No other significant finding. IMPRESSION: NO ACUTE RADIOGRAPHIC FINDING IN THE CHEST. TECHNICAL DOCUMENTATION: JOB ID: [id number] [employer]- All Rights Reserved Reading location - IP/workstation name: [email or web address]
[2019-01-07 13:22] LABS: VENOUS BLOOD BASE EXCESS 1.9 mmol/L; VENOUS BLOOD PH 7.24 (7.30-7.42)
[2019-01-07 13:24] LABS: VENOUS BLOOD PCO2 73.4 mmHg (35-63)
[2019-01-07 14:30] LABS: ARTERIAL BLOOD BASE EXCESS 4.5 mmol/L; ARTERIAL BLOOD FIO2 2L; ARTERIAL BLOOD H2CO3 1.92 mmol/L (1.05-1.35); ARTERIAL BLOOD HCO3 32.1 mmol/L (20-24); ARTERIAL BLOOD O2 SATURATION 96.3 % (94-98); ARTERIAL BLOOD PCO2 63.9 mmHg (35-45); ARTERIAL BLOOD PH 7.32 (7.35-7.45); ARTERIAL BLOOD PO2 92.7 mmHg (80-100); ARTERIAL BLOOD TOTAL CO2 34.1 mmol/L (21-25)
[2019-01-07] MEDS ORDERED: MAGNESIUM HYDROXIDE SUSP 30 ML UDCUP PO PRN (14:36)
[2019-01-07] MEDS ORDERED: MAG HYDROX/AL HYDROX/SIMETH SUSP 30 ML UDCUP PO PRN (14:36)
[2019-01-07] MEDS ORDERED: ONDANSETRON HCL INJ/PF 4 MG/2 ML SDV IV PRN (14:36)
[2019-01-07] MEDS ORDERED: ACETAMINOPHEN 325 MG TABLET PO PRN (14:36)
[2019-01-07] MEDS ORDERED: ALBUTEROL SULFATE 0.083% NEB 2.5 MG/3 ML AMPUL NEB PRN (14:36)
[2019-01-07] MEDS: NORMAL SALINE 1000 ML 1,000 ML IV PRN (15:25)
[2019-01-07] MEDS: IPRATROPIUM/ALBUTEROL 0.5-2.5 MG/3 ML AMPUL NEB SCH (15:25)
--- NOTE | 2019-01-07 16:14 | RADIOLOGY REPORT (SQ) ---
EXAM DESCRIPTION: CT HEAD WITHOUT COMPLETED DATE/TIME: 01/07/2019 4:05 pm REASON FOR STUDY: SNYNCOPE COMPARISON: 11/04/2018 TECHNIQUE: Axial images acquired through the brain without intravenous contrast. Images reviewed wi th bone, brain and subdural windows. Additional sagittal and coronal reconstructions were generated. Images stored on PACS. All CT scanners at this facility use dose modulation, iterative reconstruction, and/or weight based d osing when appropriate to reduce radiation dose to as low as reasonably achievable (ALARA). [facility]: Dose Right [facility]: CareDose [facility]: Dose Right [facility]: Teradose 4D [facility]: TicTacTi RADIATION DOSE: mGy. LIMITATIONS: None. FINDINGS: VENTRICLES: Normal size and contour. CEREBRUM: No masses. No hemorrhage. No midline shift. No evidence for acute infarction. Normal gra y/white matter differentiation. No areas of low density in the white matter. CEREBELLUM: No masses. No hemorrhage. No alteration of density. No evidence for acute infarction. EXTRAAXIAL SPACES: No fluid collections. No masses. ORBITS AND GLOBE: No intra- or extraconal masses. Normal contour of globe without masses. CALVARIUM: No fracture. PARANASAL SINUSES: Minimal fluid right maxillary sinus. SOFT TISSUES: No mass or hematoma. OTHER: No other significant finding. IMPRESSION: NORMAL BRAIN CT WITHOUT CONTRAST. EVIDENCE OF ACUTE STROKE: NO. COMMENT: Quality ID # [id number]: Final reports with documentation of one or more dose reduction techniques (e.g., Automated exposure control, adjustment of the mA and/or kV according to patient size, use of iterative reconstruction technique) TECHNICAL DOCUMENTATION: JOB ID: [id number] [employer]- All Rights Reserved Reading location - IP/workstation name: [email or web address]
[2019-01-07] MEDS ORDERED: NICOTINE 7 MG/24 HR PATCH.TD24 TD PRN (18:13)
--- NOTE | 2019-01-07 18:13 | PDOC H&P ---
History of Present Illness Admission Date/PCP: 01/07/19 14:31 JAYY ESCOBAR Patient complains of: Syncopal episode with collapse History of Present Illness: ADY LOZA is a 63 year old female with a past medical history significant for COPD (oxygen dependent), hypertension, diastolic CHF, anxiety, depression, and opiate dependent chronic pain who presented to the emergency department via EMS today after a syncopal episode. Per EMS report, patient was walking to her car off oxygen when she had a witnessed syncopal event. Upon EMS arrival, patient was found to be hypotensive with a room air oxygen saturation in the mid 70s. She was placed on a nonrebreather and quickly became alert. Evaluation in the emergency department reveals hypotension (96/59) respiratory acidosis with hypercapnia, unremarkable chemistry, no normal troponin and ammonia, negative urinalysis, UDS positive for benzodiazepines (prescribed), EKG demonstrating sinus rhythm, benign chest x-ray and head CT. She is referred to the hospitalist service for admission and management of the above-stated complaints and findings. Past Medical History Cardiac Medical History: Reports: Congestive Heart Failure - Diastolic, Hypertension Denies: Atrial Fibrillation, Coronary Artery Disease, Myocardial Infarction, Hyperlipidema Pulmonary Medical History: Reports: Chronic Obstructive Pulmonary Disease (COPD), Pneumonia, Respiratory Failure Denies: Asthma EENT Medical History: Reports: None Neurological Medical History: Denies: Ischemic CVA, Seizures Endocrine Medical History: Reports: None Renal/ Medical History: Reports: None Malignancy Medical History: Reports: None GI Medical History: Reports: Cirrhosis, Gastroesophageal Reflux Disease, Other - Cirrhosis Denies: Crohn's Disease, Ulcerative Colitis Musculoskeltal Medical History: Denies: Arthritis, Gout Skin Medical History: Denies: Eczema, Psoriasis Psychiatric Medical History: Reports: Alcohol Dependency, Depression, General Anxiety Disorder, Tobacco Dependency Hematology: Reports: Anemia Denies: Bleeding Tendencies Infectious Medical History: Reports: Hepatitis C Past Surgical History Past Surgical History: Reports: Section, Cholecystectomy, Orthopedic Surgery - carpel tunnel, Tonsillectomy Denies: Hysterectomy Social History Information Source: Patient Lives with: Family Smoking Status: Current Every Day Smoker - Smokes vapes cigarettes Frequency of Alcohol Use: None Hx Recreational Drug Use: No Drugs: None, Other Hx Prescription Drug Abuse: No - Advance Directive Resuscitation Status: Full Code Surrogate healthcare decision maker:: Patient's daughter, Doris Loza Family History Family History: Reviewed & Not Pertinent, DM Parental Family History Reviewed: Yes Children Family History Reviewed: Yes Sibling(s) Family History Reviewed.: Yes Medication/Allergy Home Medications: Budesonide/Formoterol Fumarate [Symbicort HFA 160-4.5 mcg Inhaler 6 gm] 2 puff IH Q12 10/24/16 Omeprazole 20 mg PO DAILY 10/24/16 Alprazolam [Xanax 0.25 mg Tablet] 0.25 mg PO Q12HP PRN 05/16/18 Buspirone HCl [Buspar 10 mg Tablet] 10 mg PO Q8 05/16/18 Paroxetine HCl [Paxil] 30 mg PO QHS 05/16/18 Albuterol Sulfate [Proair HFA Inhalation Aerosol 8.5 gm MDI] 2 puff IH Q4HP PRN 11/05/18 Bupropion HCl [Wellbutrin 100 mg Tablet] 100 mg PO DAILY 11/05/18 Promethazine HCl [Phenergan 25 mg Tablet] 25 mg PO BIDP PRN 11/05/18 Ibuprofen [Motrin 800 mg Tablet] 800 mg PO Q8HP PRN 12/07/18 Ferrous Sulfate [Feosol 325 mg Tablet] 325 mg PO DAILY tablet 12/09/18 Lidocaine [Lidoderm 5% (700 mg) Transdermal Patch] 1 patch TP DAILY 30 Days #30 adh..patch 12/09/18 Multivitamin [Tab-A-Dread (Multiple Vitamin) Tablet] 1 tab PO DAILY tablet 12/09/18 Oxycodone HCl [Oxy-Ir 5 mg Tablet] 5 mg PO Q6HP PRN 01/07/19 Allergies/Adverse Reactions: acetaminophen [From Tylenol] Allergy (Mild, Verified 05/16/18 20:52) GI upset Review of Systems Constitutional: ABSENT: chills, fever(s), headache(s), weight gain, weight loss Eyes: ABSENT: visual disturbances Ears: ABSENT: hearing changes Cardiovascular: ABSENT: chest pain, dyspnea on exertion, edema, orthropnea, pa lpitations Respiratory: PRESENT: dyspnea. ABSENT: cough, hemoptysis Gastrointestinal: ABSENT: abdominal pain, constipation, diarrhea, hematemesis, hematochezia, nausea, vomiting Genitourinary: ABSENT: dysuria, hematuria Musculoskeletal: ABSENT: joint swelling Integumentary: ABSENT: rash, wounds Neurological: PRESENT: as per HPI, frequent falls, syncope. ABSENT: abnormal gait, abnormal speech, confusion, dizziness, focal weakness Psychiatric: ABSENT: anxiety, depression, homidical ideation, suicidal ideation Endocrine: ABSENT: cold intolerance, heat intolerance, polydipsia, polyuria Hematologic/Lymphatic: ABSENT: easy bleeding, easy bruising Physical Exam Vital Signs: Temp Pulse Resp BP Pulse Ox 98.4 F 74 15 99/66 L 98 01/07/19 16:42 01/07/19 15:29 01/07/19 15:34 01/07/19 15:34 01/07/19 15:34 Intake & Output 01/06/19 01/07/19 01/08/19 06:59 06:59 06:59 Weight 51 kg General appearance: PRESENT: no acute distress, disheveled, well-developed, well-nourished Head exam: PRESENT: atraumatic, normocephalic Eye exam: PRESENT: conjunctiva pink, EOMI, PERRLA. ABSENT: scleral icterus Ear exam: PRESENT: normal external ear exam Mouth exam: PRESENT: moist, tongue midline Teeth exam: PRESENT: poor dentation Neck exam: ABSENT: carotid bruit, JVD, lymphadenopathy, thyromegaly Respiratory exam: PRESENT: prolonged expiratory phas, symmetrical, unlabored, other - Supplemental oxygen via nasal cannula. ABSENT: rales, rhonchi, wheezes Cardiovascular exam: PRESENT: RRR, +S1, +S2. ABSENT: diastolic murmur, rubs, systolic murmur Pulses: PRESENT: normal dorsalis pedis pul Vascular exam: PRESENT: normal capillary refill GI/Abdominal exam: PRESENT: normal bowel sounds, soft. ABSENT: distended, guarding, mass, organolmegaly, rebound, tenderness Rectal exam: PRESENT: deferred Extremities exam: PRESENT: full ROM. ABSENT: calf tenderness, clubbing, pedal edema Neurological exam: PRESENT: alert, awake, oriented to person, oriented to place, oriented to time, oriented to situation, CN II-XII grossly intact. ABSENT: motor sensory deficit Psychiatric exam: PRESENT: appropriate affect, normal mood. ABSENT: homicidal ideation, suicidal ideation Skin exam: PRESENT: dry, intact, warm. ABSENT: cyanosis, rash Results Laboratory Results: 01/07/19 10:09 01/07/19 10:09 01/07/19 01/07/19 01/07/19 10:09 10:09 11:58 WBC 4.9 RBC 4.58 Hgb 12.3 Hct 38.2 MCV 83 MCH 26.8 L MCHC 32.2 RDW 14.4 H Plt Count 218 Seg Neutrophils % 69.0 Lymphocytes % 17.4 Monocytes % 7.8 Eosinophils % 5.3 Basophils % 0.5 Absolute Neutrophils 3.4 Absolute Lymphocytes 0.9 Absolute Monocytes 0.4 Absolute Eosinophils 0.3 Absolute Basophils 0.0 Carbonic Acid HCO3/H2CO3 Ratio ABG pH ABG pCO2 ABG pO2 ABG HCO3 ABG O2 Saturation ABG Base Excess VBG pH VBG pCO2 VBG HCO3 VBG Base Excess FiO2 Sodium 137.5 Potassium 4.3 Chloride 96 L Carbon Dioxide 31 H Anion Gap 11 BUN 13 Creatinine 0.88 Est GFR ( Amer) > 60 Est GFR (Non-Af Amer) > 60 Glucose 117 H Calcium 9.2 Total Bilirubin 0.4 AST 35 Alkaline Phosphatase 103 Ammonia Total Protein 7.5 Albumin 4.2 Urine Color YELLOW Urine Appearance CLEAR Urine pH 6.0 Ur Specific [place] 1.009 Urine Protein NEGATIVE Urine Glucose (UA) NEGATIVE Urine Ketones NEGATIVE Urine Blood NEGATIVE Urine Nitrite NEGATIVE Ur Leukocyte Esterase NEGATIVE Urine WBC (Auto) 0 01/07/19 01/07/19 01/07/19 13:12 14:16 15:27 WBC RBC Hgb Hct MCV MCH MCHC RDW Plt Count Seg Neutrophils % Lymphocytes % Monocytes % Eosinophils % Basophils % Absolute Neutrophils Absolute Lymphocytes Absolute Monocytes Absolute Eosinophils Absolute Basophils Carbonic Acid 1.92 H HCO3/H2CO3 Ratio 16:1 ABG pH 7.32 L ABG pCO2 63.9 H ABG pO2 92.7 ABG HCO3 32.1 H ABG O2 Saturation 96.3 ABG Base Excess 4.5 VBG pH 7.24 L VBG pCO2 73.4 H* VBG HCO3 31.0 VBG Base Excess 1.9 FiO2 2L Sodium Potassium Chloride Carbon Dioxide Anion Gap BUN Creatinine Est GFR ( Amer) Est GFR (Non-Af Amer) Glucose Calcium Total Bilirubin AST Alkaline Phosphatase Ammonia < 8.7 L Total Protein Albumin Urine Color Urine Appearance Urine pH Ur Specific [place] Urine Protein Urine Glucose (UA) Urine Ketones Urine Blood Urine Nitrite Ur Leukocyte Esterase Urine WBC (Auto) 01/07/19 01/07/19 10:09 10:09 Creatine Kinase 40 CK-MB (CK-2) 1.08 Troponin I < 0.012 Impressions: Head CT 01/07/19 00:00 IMPRESSION: NORMAL BRAIN CT WITHOUT CONTRAST. EVIDENCE OF ACUTE STROKE: NO. Chest X-Ray 01/07/19 11:30 IMPRESSION: NO ACUTE RADIOGRAPHIC FINDING IN THE CHEST. Assessment and Plan - Diagnosis (1) Syncope Is this a current diagnosis for this admission?: Yes Plan: Likely multifactorial secondary to hypoxia and orthostatic blood pressures. Patient was ambulating to her car off oxygen when she had a syncopal event. She is found to have blood pressure 70s/40s and SPO2 in the mid 70s on room air upon EMS arrival. She has orthostatic blood pressures in the emergency department today. Head CT is negative for acute findings. Chest x-ray is unremarkable. EKG demonstrates normal sinus rhythm without ischemic changes. Laboratory evaluation is unremarkable. Patient is admitted to the medical floor and continuous cardiac telemetry. She is provided an IV fluid bolus file by maintenance fluids for correction of h er orthostatic blood pressures. Echocardiogram pending. Management of COPD with chronic respiratory failure as below. Fall precautions. (2) Chronic obstructive pulmonary disease (COPD) Qualifiers: Is this a current diagnosis for this admission?: Yes Plan: ABG demonstrates respiratory acidosis with hypercapnia. Stable and without exacerbation at this time. Continue supplemental oxygen as needed to maintain saturations >89% BiPAP as needed. Continue home dose Symbicort. As needed nebulizer treatments. No indications for antibiotic or steroid therapy at this time. (3) Chronic diastolic congestive heart failure Is this a current diagnosis for this admission?: Yes Plan: Patient currently has orthostatic blood pressures. Echocardiogram from 2018 reveals Normal LVEF with borderline concentric LVH, and mild to moderate diastolic dysfunction with mild pulmonary hypertension. Repeat echocardiogram pending. She does not appear to be on any antihypertensive therapies. Once blood pressure allows, consider low-dose lisinopril/beta-jinny. Daily weights. (4) Chronic pain Qualifiers: Chronic pain type: other chronic pain Qualified Code(s): G89.29 - Other chronic pain Is this a current diagnosis for this admission?: Yes Plan: Opiate dependent chronic pain. UDS was negative for opiates but did reveal benzodiazepines. Patient appears to be prescribed oxycodone 5 mg every 6 hours and Lidoderm patches. Holding oxycodone at present secondary to hypotension and syncopal event. Continue Lidoderm patches and as needed Tylenol. (5) GERD (gastroesophageal reflux disease) Is this a current diagnosis for this admission?: Yes Plan: Twice daily Pepcid. (6) Tobacco abuse Is this a current diagnosis for this admission?: Yes Plan: Smoking cessation encouraged, nicotine replacement therapies provided. (7) DVT prophylaxis Is this a current diagnosis for this admission?: Yes Plan: Subcutaneous heparin. - Time Time Spent with patient: 35 or more minutes Medications reviewed and adjusted accordingly: Yes Anticipated discharge: Home with Homehealth Within: within 24 hours
[2019-01-07] MEDS ORDERED: NORMAL SALINE 1000 ML 1,000 ML IV ONE (20:30)
[2019-01-07] MEDS: PAROXETINE HCL 20 MG TABLET PO SCH (21:32)
[2019-01-07] MEDS: HEPARIN SOD (PORCINE) 5,000 UNIT/ML 1 ML VIAL SUBCUT SCH (21:32)
[2019-01-07] MEDS: FAMOTIDINE 20 MG TABLET PO SCH (21:32)
[2019-01-07] MEDS ORDERED: (PENDING PHARMACY ID) (Paroxetine Hcl [Paxil] 30 MG) PO SCH (22:00)
[2019-01-08] MEDS: IPRATROPIUM/ALBUTEROL 0.5-2.5 MG/3 ML AMPUL NEB SCH ×4 (00:13→23:37)
[2019-01-08 05:52] LABS: HEMATOCRIT 32.6 % (36.0-47.0); HEMOGLOBIN 10.7 g/dL (12.0-15.5); MEAN CORPUSCULAR HEMOGLOBIN 27.3 pg (27.0-33.4); MEAN CORPUSCULAR HGB CONC 32.9 g/dL (32.0-36.0); MEAN CORPUSCULAR VOLUME 83 fl (80-97); PLATELET COUNT 177 10^3/uL (150-450); RED BLOOD COUNT 3.93 10^6/uL (3.72-5.28); WHITE BLOOD COUNT 3.6 10^3/uL (4.0-10.5)
[2019-01-08] MEDS: HEPARIN SOD (PORCINE) 5,000 UNIT/ML 1 ML VIAL SUBCUT SCH ×3 (05:54→23:11)
[2019-01-08 06:17] LABS: ANION GAP 8 (5-19); BLOOD UREA NITROGEN 13 mg/dL (7-20); CALCIUM 8.6 mg/dL (8.4-10.2); CARBON DIOXIDE 31 mmol/L (22-30); CHLORIDE 99 mmol/L (98-107); GLUCOSE 123 mg/dL (75-110); POTASSIUM 4.3 mmol/L (3.6-5.0)
[2019-01-08] MEDS ORDERED: COSYNTROPIN INJ 0.25 MG VIAL IV ONE (09:30)
[2019-01-08 10:11] LABS: FREE T3 4.56 pg/mL (2.77-5.27); FREE T4 (FREE THYROXINE) 1.11 ng/dL (0.78-2.19)
--- NOTE | 2019-01-08 11:40 | EKG REPORT ---
SEVERITY:- NORMAL ECG - SINUS RHYTHM : Confirmed by: Zen Mancilla 08-Jan-2019 11:39:45
[2019-01-08] MEDS: FAMOTIDINE 20 MG TABLET PO SCH ×2 (12:24→23:11)
[2019-01-08] MEDS: FERROUS SULFATE 325 MG TABLET PO SCH (12:24)
[2019-01-08] MEDS: MULTIVITAMIN TABLET PO SCH (12:24)
[2019-01-08] MEDS: BUPROPION HCL 100 MG TABLET PO SCH (12:24)
[2019-01-08] MEDS: DOCUSATE SODIUM 100 MG CAPSULE PO SCH (12:25)
[2019-01-08] MEDS: LIDOCAINE 5% (700 MG) TRANSDERMAL ADH..PATCH TP SCH (12:26)
--- NOTE | 2019-01-08 18:11 | Progress Note Acknowledgement ---
Progress Note Acknowledgement Progess Note Acknowledgement: I, the undersigned member of the medical staff with appropriate privileges and with supervisory authority over Jennifer Redman, a [facility] practice allied health professional, acknowledge that I have reviewed the progress notes entered on this patient, and in my professional judgment believe that the assessment made and/or any care evidenced was appropriate
--- NOTE | 2019-01-08 18:21 | PDOC PROGRESS REPORT ---
Subjective Progress Note for:: 01/08/19 Subjective:: ADY YEUNG is a 63 year old female with a past medical history significant for COPD (oxygen dependent), hypertension, diastolic CHF, anxiety, depression, and opiate dependent chronic pain who was admitted 01/07/2019 for syncope. Patient was seen on morning rounds. She is found resting in bed comfortably on room air. She is noted to have an SPO2 of 89%. She did ambulate with physical therapy this morning utilizing front wheel walker on room air without dyspnea, unfortunately, oxygen saturations were not checked at that time. Patient reports that she is feeling well today; she denies headache, dizziness, near-syncope, chest pain, palpitations, dyspnea, cough, abdominal pain, nausea vomiting and diarrhea. She has no questions or concerns at this time; hopeful to discharge to home soon. No concerns per nursing. Reason For Visit: SYNCOPE,FALL Physical Exam Vital Signs: Temp Pulse Resp BP Pulse Ox 98.6 F 85 16 106/57 L 95 01/08/19 11:00 01/08/19 16:16 01/08/19 16:16 01/08/19 11:00 01/08/19 16:16 Intake & Output 01/07/19 01/08/19 01/09/19 06:59 06:59 06:59 Intake Total 240 Balance 240 Weight 52.1 kg General appearance: PRESENT: no acute distress, cooperative, disheveled, thin, well-developed Head exam: PRESENT: atraumatic, normocephalic Eye exam: PRESENT: conjunctiva pink, EOMI, PERRLA. ABSENT: scleral icterus Mouth exam: PRESENT: moist, tongue midline Teeth exam: PRESENT: poor dentation Neck exam: ABSENT: carotid bruit, JVD, lymphadenopathy, thyromegaly Respiratory exam: PRESENT: prolonged expiratory phas, rhonchi, symmetrical, unlabored. ABSENT: rales, wheezes Cardiovascular exam: PRESENT: RRR, +S1, +S2. ABSENT: diastolic murmur, rubs, systolic murmur Pulses: PRESENT: normal dorsalis pedis pul Vascular exam: PRESENT: normal capillary refill GI/Abdominal exam: PRESENT: normal bowel sounds, soft. ABSENT: distended, guarding, mass, organolmegaly, rebound, tenderness Rectal exam: PRESENT: deferred Extremities exam: PRESENT: full ROM. ABSENT: calf tenderness, clubbing, pedal edema Musculoskeletal exam: PRESENT: ambulatory - w/ front wheeled walker Neurological exam: PRESENT: alert, awake, oriented to person, oriented to place, oriented to time, oriented to situation, CN II-XII grossly intact. ABSENT: motor sensory deficit Psychiatric exam: PRESENT: appropriate affect, normal mood. ABSENT: homicidal ideation, suicidal ideation Skin exam: PRESENT: dry, intact, warm. ABSENT: cyanosis, rash Results Laboratory Results: 01/08/19 05:41 01/08/19 05:41 01/08/19 01/08/19 01/08/19 05:41 05:41 05:41 WBC 3.6 L RBC 3.93 Hgb 10.7 L Hct 32.6 L MCV 83 MCH 27.3 MCHC 32.9 RDW 14.0 Plt Count 177 Sodium 138.4 Potassium 4.3 Chloride 99 Carbon Dioxide 31 H Anion Gap 8 BUN 13 Creatinine 0.74 Est GFR ( Amer) > 60 Est GFR (Non-Af Amer) > 60 Glucose 123 H Calcium 8.6 TSH 6.28 H Free T4 Free T3 pg/mL 01/08/19 05:41 WBC RBC Hgb Hct MCV MCH MCHC RDW Plt Count Sodium Potassium Chloride Carbon Dioxide Anion Gap BUN Creatinine Est GFR ( Amer) Est GFR (Non-Af Amer) Glucose Calcium TSH Free T4 1.11 Free T3 pg/mL 4.56 01/07/19 01/07/19 10:09 10:09 Creatine Kinase 40 CK-MB (CK-2) 1.08 Troponin I < 0.012 Impressions: Head CT 01/07/19 00:00 IMPRESSION: NORMAL BRAIN CT WITHOUT CONTRAST. EVIDENCE OF ACUTE STROKE: NO. Chest X-Ray 01/07/19 11:30 IMPRESSION: NO ACUTE RADIOGRAPHIC FINDING IN THE CHEST. Assessment and Plan - Diagnosis (1) Syncope Is this a current diagnosis for this admission?: Yes Plan: Likely multifactorial secondary to hypoxia and orthostatic blood pressures. Patient was ambulating to her car off oxygen when she had a syncopal event. She is found to have blood pressure 70s/40s and SPO2 in the mid 70s on room air upon EMS arrival. She has orthostatic blood pressures in the emergency department; continues to have orthostatic pressures today though improved. Head CT is negative for acute findings. Chest x-ray is unremarkable. EKG demonstrates normal sinus rhythm without ischemic changes. Laboratory evaluation is unremarkable. AM cortisol is low; ACTH stimulation test nml. Patient is admitted to the medical floor and continuous cardiac telemetry. Continue gentle IV fluids. Echocardiogram pending. Start florinef in the morning. Management of COPD with chronic respiratory failure as below. Fall precautions. (2) Chronic obstructive pulmonary disease (COPD) Qualifiers: Is this a current diagnosis for this admission?: Yes Plan: ABG demonstrates respiratory acidosis with hypercapnia. Stable and without exacerbation at this time. Continue supplemental oxygen as needed to maintain saturations >89% BiPAP as needed. Continue home dose Symbicort. As needed nebulizer treatments. No indications for antibiotic or steroid therapy at this time. Will obtain O2 qualification testing tomorrow. (3) Chronic diastolic congestive heart failure Is this a current diagnosis for this admission?: Yes Plan: Patient currently has orthostatic blood pressures. Echocardiogram from 2018 reveals Normal LVEF with borderline concentric LVH, and mild to moderate diastolic dysfunction with mild pulmonary hypertension. Repeat echocardiogram pending. She does not appear to be on any antihypertensive therapies. Once blood pressure allows, consider low-dose lisinopril/beta-jinny. Daily weights. (4) Chronic pain Qualifiers: Chronic pain type: other chronic pain Qualified Code(s): G89.29 - Other chronic pain Is this a current diagnosis for this admission?: Yes Plan: Opiate dependent chronic pain. UDS was negative for opiates but did reveal benzodiazepines. Patient appears to be prescribed oxycodone 5 mg every 6 hours and Lidoderm patches. Holding oxycodone at present secondary to hypotension and syncopal event. Continue Lidoderm patches and as needed Tylenol. (5) GERD (gastroesophageal reflux disease) Is this a current diagnosis for this admission?: Yes Plan: Twice daily Pepcid. (6) Tobacco abuse Is this a current diagnosis for this admission?: Yes Plan: Smoking cessation encouraged, nicotine replacement therapies provided. (7) DVT prophylaxis Is this a current diagnosis for this admission?: Yes Plan: Subcutaneous heparin. - Time Time Spent with patient: 25-34 minutes Medications reviewed and adjusted accordingly: Yes Anticipated discharge: Home with Homehealth Within: within 24 hours
[2019-01-08] MEDS: PAROXETINE HCL 20 MG TABLET PO SCH (23:12)
[2019-01-08] MEDS: NORMAL SALINE 1000 ML 1,000 ML IV PRN (23:14)
[2019-01-09] MEDS: HEPARIN SOD (PORCINE) 5,000 UNIT/ML 1 ML VIAL SUBCUT SCH (05:40)
[2019-01-09] MEDS: IPRATROPIUM/ALBUTEROL 0.5-2.5 MG/3 ML AMPUL NEB SCH (07:58)
[2019-01-09] MEDS ORDERED: FLUDROCORTISONE ACETATE 0.1 MG TABLET PO SCH (10:00)
[2019-01-09] MEDS: FAMOTIDINE 20 MG TABLET PO SCH (10:09)
[2019-01-09] MEDS: MULTIVITAMIN TABLET PO SCH (10:09)
[2019-01-09] MEDS: FERROUS SULFATE 325 MG TABLET PO SCH (10:09)
[2019-01-09] MEDS: BUPROPION HCL 100 MG TABLET PO SCH (10:09)
[2019-01-09] MEDS: DOCUSATE SODIUM 100 MG CAPSULE PO SCH (10:09)
[2019-01-09] MEDS: LIDOCAINE 5% (700 MG) TRANSDERMAL ADH..PATCH TP SCH ×2 (10:10→11:15)
[2019-01-09 12:25] VITALS: BP 104/60
--- NOTE | 2019-01-11 12:23 | PDOC DISCHARGE SUMMARY ---
<STEPHANIE PORRAS 01/11/19 13:41> General - Admit/Disc Date/PCP Admission Date/Primary Care Provider: 01/10/19 17:56 JAYY ESCOBAR - Additional Information Home Medications: Budesonide/Formoterol Fumarate [Symbicort HFA 160-4.5 mcg Inhaler 6 gm] 2 puff IH Q12 10/24/16 Omeprazole 20 mg PO DAILY 10/24/16 Alprazolam [Xanax 0.25 mg Tablet] 0.25 mg PO Q12HP PRN 05/16/18 Buspirone HCl [Buspar 10 mg Tablet] 10 mg PO Q8 05/16/18 Paroxetine HCl [Paxil] 30 mg PO QHS 05/16/18 Albuterol Sulfate [Proair HFA Inhalation Aerosol 8.5 gm MDI] 2 puff IH Q4HP PRN 11/05/18 Bupropion HCl [Wellbutrin 100 mg Tablet] 100 mg PO DAILY 11/05/18 Ibuprofen [Motrin 800 mg Tablet] 800 mg PO Q8HP PRN 12/07/18 History of Present Illness History of Present Illness: ADY YEUNG is a 63 year old female Physical Exam Vital Signs: Temp Pulse Resp BP Pulse Ox 97.5 F 72 16 136/90 H 98 01/11/19 07:56 01/11/19 07:56 01/11/19 07:56 01/11/19 07:56 01/11/19 07:56 Intake & Output 01/10/19 01/11/19 01/12/19 11:59 11:59 11:59 Intake Total 500 Output Total 800 Balance -300 Weight 24.9 kg Results Laboratory Results: 01/10/19 15:42 01/10/19 15:42 01/10/19 01/10/19 01/10/19 14:00 15:42 15:42 WBC 5.0 RBC 3.80 Hgb 10.5 L Hct 32.3 L MCV 85 MCH 27.6 MCHC 32.5 RDW 14.1 H Plt Count 229 Seg Neutrophils % 69.8 Lymphocytes % 16.7 Monocytes % 7.9 Eosinophils % 5.0 Basophils % 0.6 Absolute Neutrophils 3.5 Absolute Lymphocytes 0.8 Absolute Monocytes 0.4 Absolute Eosinophils 0.3 Absolute Basophils 0.0 Carbonic Acid HCO3/H2CO3 Ratio ABG pH ABG pCO2 ABG pO2 ABG HCO3 ABG O2 Saturation ABG Base Excess VBG pH VBG pCO2 VBG HCO3 VBG Base Excess FiO2 Sodium 139.8 Potassium 4.6 Chloride 98 Carbon Dioxide 34 H Anion Gap 8 BUN 14 Creatinine 0.76 Est GFR ( Amer) > 60 Est GFR (Non-Af Amer) > 60 Glucose 88 Lactic Acid Calcium 9.1 Total Bilirubin 0.5 AST 37 H Alkaline Phosphatase 107 Ammonia Total Protein 7.1 Albumin 4.0 Urine Color STRAW Urine Appearance CLEAR Urine pH 6.0 Ur Specific Alta 1.004 Urine Protein NEGATIVE Urine Glucose (UA) NEGATIVE Urine Ketones NEGATIVE Urine Blood NEGATIVE Urine Nitrite NEGATIVE Ur Leukocyte Esterase NEGATIVE Urine WBC (Auto) 0 Urine RBC (Auto) 0 01/10/19 01/10/19 01/10/19 15:42 15:42 15:42 WBC RBC Hgb Hct MCV MCH MCHC RDW Plt Count Seg Neutrophils % Lymphocytes % Monocytes % Eosinophils % Basophils % Absolute Neutrophils Absolute Lymphocytes Absolute Monocytes Absolute Eosinophils Absolute Basophils Carbonic Acid HCO3/H2CO3 Ratio ABG pH ABG pCO2 ABG pO2 ABG HCO3 ABG O2 Saturation ABG Base Excess VBG pH 7.26 L VBG pCO2 83.6 H* VBG HCO3 36.9 H VBG Base Excess 7.6 FiO2 Sodium Potassium Chloride Carbon Dioxide Anion Gap BUN Creatinine Est GFR ( Amer) Est GFR (Non-Af Amer) Glucose Lactic Acid 0.8 Calcium Total Bilirubin AST Alkaline Phosphatase Ammonia < 8.7 L Total Protein Albumin Urine Color Urine Appearance Urine pH Ur Specific Alta Urine Protein Urine Glucose (UA) Urine Ketones Urine Blood Urine Nitrite Ur Leukocyte Esterase Urine WBC (Auto) Urine RBC (Auto) 01/10/19 23:05 WBC RBC Hgb Hct MCV MCH MCHC RDW Plt Count Seg Neutrophils % Lymphocytes % Monocytes % Eosinophils % Basophils % Absolute Neutrophils Absolute Lymphocytes Absolute Monocytes Absolute Eosinophils Absolute Basophils Carbonic Acid 1.88 H HCO3/H2CO3 Ratio 18:1 ABG pH 7.36 ABG pCO2 62.6 H ABG pO2 103.7 H ABG HCO3 34.3 H ABG O2 Saturation 97.4 ABG Base Excess 7.2 VBG pH VBG pCO2 VBG HCO3 VBG Base Excess FiO2 35% Sodium Potassium Chloride Carbon Dioxide Anion Gap BUN Creatinine Est GFR ( Amer) Est GFR (Non-Af Amer) Glucose Lactic Acid Calcium Total Bilirubin AST Alkaline Phosphatase Ammonia Total Protein Albumin Urine Color Urine Appearance Urine pH Ur Specific Alta Urine Protein Urine Glucose (UA) Urine Ketones Urine Blood Urine Nitrite Ur Leukocyte Esterase Urine WBC (Auto) Urine RBC (Auto) Impressions: Chest X-Ray 01/10/19 14:31 IMPRESSION: No interval change in the chest. <KELVIN BARRETO - Last Filed: 01/11/19 13:42> General - Admit/Disc Date/PCP Admission Date/Primary Care Provider: Correction: Patient was admitted on 01/07/19 and discharged on 01/19/19 01/07/19 JAYY ESCOBAR Discharge Date: 01/09/19 - Discharge Diagnosis (1) Tobacco abuse Is this a current diagnosis for this admission?: Yes Summary: Smoking cessation strongly encouraged. (2) GERD (gastroesophageal reflux disease) Is this a current diagnosis for this admission?: Yes Summary: Twice daily Pepcid (3) Chronic pain Is this a current diagnosis for this admission?: Yes Summary: Opiate dependent chronic pain. UDS was negative for opiates but did reveal benzodiazepines. Home medications include oxycodone 5 mg every 6 hours and Lidoderm patches. Patient requested refill of oxycodone; instructed to follow up with her PCP or pain management provider for her pain medication refills. (4) DVT prophylaxis Is this a current diagnosis for this admission?: Yes Summary: Subcutaneous heparin. (5) Chronic obstructive pulmonary disease (COPD) Is this a current diagnosis for this admission?: Yes Summary: ABG demonstrates compensated respiratory acidosis with hypercapnia. Stable and without exacerbation at this time; lung sounds are clear. Patient denies dyspnea and cough. She was supported with supplemental oxygen and BiPAP (which she refused). Continued her home dose symbicort. Patient was educated on the importance of tobacco cessation, medication and oxygen complaince. (6) Chronic diastolic congestive heart failure Is this a current diagnosis for this admission?: Yes Summary: Echocardiogram from 2018 reveals Normal LVEF with borderline concentric LVH, and mild to moderate diastolic dysfunction with mild pulmonary hypertension. EKG demonstrated NSR Troponin negative She does not appear to be on any antihypertensive therapies. Due to orthostatic blood pressures; BB and JAIDA were not initiated. Patient was placed on florinef. She is instructed to follow up with her PCP within 1 week. She may benefit from an outpatient cardiology consultation (7) Syncope Is this a current diagnosis for this admission?: Yes Summary: Likely multifactorial secondary to hypoxia and orthostatic blood pressures. Patient was ambulating to her car off oxygen when she had a syncopal event. She is found to have blood pressure 70s/40s and SPO2 in the mid 70s on room air upon EMS arrival. Othostatic blood pressures today are improved following IVF and start of florinef. Head CT is negative for acute findings. Chest x-ray is unremarkable. EKG demonstrates normal sinus rhythm without ischemic changes. Laboratory evaluation is unremarkable. AM cortisol is low; ACTH stimulation test nml. Patient requesting to be discharged home prior to obtaining echocardiogram. Patient was admitted to the medical floor and continuous cardiac telemetry; remained in NSR. She was provided gentle IV fluids but remained orthostatic without other signs of dehydration; started on florinef. Management of COPD with chronic respiratory failure as below. The patient has been ambulatory in the halls multiple times without feeling symptomatic. Physical therapy worked with the patient and advised use of front wheel walker (has one at home) and home PT services. Patient is discharged home in stable condition. She is instructed to use her supplemental oxygen at ALL times. She is advised to follow up with her PCP within 1 week and to return to the emergency department as needed for concerning symptoms. - Additional Information Resuscitation Status: Full Code Discharge Diet: Cardiac Discharge Activity: Activity As Tolerated, Balance Activity w/Rest History of Present Illness History of Present Illness: ADY YEUNG is a 63 year old female with a past medical history significant for COPD (oxygen dependent), hypertension, diastolic CHF, anxiety, depression, and opiate dependent chronic pain who presented to the emergency department via EMS today after a syncopal episode. Per EMS report, patient was walking to her car off oxygen when she had a witnessed syncopal event. Upon EMS arrival, patient was found to be hypotensive with a room air oxygen saturation in the mid 70s. She was placed on a nonrebreather and quickly became alert. Evaluation in the emergency department reveals hypotension (96/59) respiratory acidosis with hypercapnia, unremarkable chemistry, no normal troponin and ammonia, negative urinalysis, UDS positive for benzodiazepines (prescribed), EKG demonstrating sinus rhythm, benign chest x-ray and head CT. She is referred to the hospitalist service for admission and management of the above-stated complaints and findings. Physical Exam Vital Signs: Temp Pulse Resp BP Pulse Ox 97.9 F 19 100/59 L 100 01/10/19 16:00 01/10/19 16:23 01/10/19 16:00 01/10/19 16:23 Intake & Output 01/09/19 01/10/19 01/11/19 06:59 06:59 06:59 Intake Total 500 Balance 500 General appearance: PRESENT: no acute distress, cooperative, disheveled, thin, well-developed Head exam: PRESENT: atraumatic, normocephalic Eye exam: PRESENT: conjunctiva pink, EOMI, PERRLA. ABSENT: scleral icterus Ear exam: PRESENT: normal external ear exam Mouth exam: PRESENT: moist, tongue midline Teeth exam: PRESENT: poor dentation Neck exam: ABSENT: carotid bruit, JVD, lymphadenopathy, thyromegaly Respiratory exam: PRESENT: prolonged expiratory phas, rhonchi - slight, symmetrical, unlabored, other - supplemental oxygen at 2 lpm. ABSENT: rales, wheezes Cardiovascular exam: PRESENT: RRR. ABSENT: diastolic murmur, rubs, systolic murmur Pulses: PRESENT: normal dorsalis pedis pul Vascular exam: PRESENT: normal capillary refill GI/Abdominal exam: PRESENT: normal bowel sounds, soft. ABSENT: distended, guarding, mass, organolmegaly, rebound, tenderness Rectal exam: PRESENT: deferred Extremities exam: PRESENT: full ROM. ABSENT: calf tenderness, clubbing, pedal edema Neurological exam: PRESENT: alert, awake, oriented to person, oriented to place, oriented to time, oriented to situation, CN II-XII grossly intact. ABSENT: motor sensory deficit Psychiatric exam: PRESENT: appropriate affect, normal mood. ABSENT: homicidal ideation, suicidal ideation Skin exam: PRESENT: dry, intact, warm. ABSENT: cyanosis, rash Results Laboratory Results: 01/10/19 15:42 01/10/19 15:42 01/10/19 01/10/19 01/10/19 14:00 15:42 15:42 WBC 5.0 RBC 3.80 Hgb 10.5 L Hct 32.3 L MCV 85 MCH 27.6 MCHC 32.5 RDW 14.1 H Plt Count 229 Seg Neutrophils % 69.8 Lymphocytes % 16.7 Monocytes % 7.9 Eosinophils % 5.0 Basophils % 0.6 Absolute Neutrophils 3.5 Absolute Lymphocytes 0.8 Absolute Monocytes 0.4 Absolute Eosinophils 0.3 Absolute Basophils 0.0 VBG pH VBG pCO2 VBG HCO3 VBG Base Excess Sodium 139.8 Potassium 4.6 Chloride 98 Carbon Dioxide 34 H Anion Gap 8 BUN 14 Creatinine 0.76 Est GFR ( Amer) > 60 Est GFR (Non-Af Amer) > 60 Glucose 88 Lactic Acid Calcium 9.1 Total Bilirubin 0.5 AST 37 H Alkaline Phosphatase 107 Ammonia Total Protein 7.1 Albumin 4.0 Urine Color STRAW Urine Appearance CLEAR Urine pH 6.0 Ur Specific Alta 1.004 Urine Protein NEGATIVE Urine Glucose (UA) NEGATIVE Urine Ketones NEGATIVE Urine Blood NEGATIVE Urine Nitrite NEGATIVE Ur Leukocyte Esterase NEGATIVE Urine WBC (Auto) 0 Urine RBC (Auto) 0 01/10/19 01/10/19 01/10/19 15:42 15:42 15:42 WBC RBC Hgb Hct MCV MCH MCHC RDW Plt Count Seg Neutrophils % Lymphocytes % Monocytes % Eosinophils % Basophils % Absolute Neutrophils Absolute Lymphocytes Absolute Monocytes Absolute Eosinophils Absolute Basophils VBG pH 7.26 L VBG pCO2 83.6 H* VBG HCO3 36.9 H VBG Base Excess 7.6 Sodium Potassium Chloride Carbon Dioxide Anion Gap BUN Creatinine Est GFR ( Amer) Est GFR (Non-Af Amer) Glucose Lactic Acid 0.8 Calcium Total Bilirubin AST Alkaline Phosphatase Ammonia < 8.7 L Total Protein Albumin Urine Color Urine Appearance Urine pH Ur Specific Alta Urine Protein Urine Glucose (UA) Urine Ketones Urine Blood Urine Nitrite Ur Leukocyte Esterase Urine WBC (Auto) Urine RBC (Auto) Impressions: Chest X-Ray 01/10/19 14:31 IMPRESSION: No interval change in the chest. Qualifiers - * PATIENT BEING DISCHARGED WITH ANY OF THE FOLLOWING DIAGNOSIS: No Acute Heart Failure - Is this a Heart Failure Patient?: No Plan Discharge Plan: Patient is discharged to home with recommendations for home health nursing and physical therapy services, which she has declined. She is agreeable to speaking with Palliative Care nurse following discharge; referral placed. She is instructed to follow up with her primary care provider within 1 week. She is advised that her ambulating oxygen saturations indicate that she requires 24hr supplemental oxygen; she is instructed to wear her oxygen at all times. She is encouraged to STOP smoking. Discussed the importance of taking her medications as prescribed. She is instructed to return to the emergency department as needed for concerning symptoms. Time Spent: Greater than 30 Minutes
== END 2019-01-09 14:31 | disposition home health service (06) ==
LOC: ER 10:32 → INTOOBSV 14:31 → EH 14:31 → 5 16:56
PROVIDERS: ADMIT Internal Medicine; ATTEND Internal Medicine
DX: R55 Syncope and collapse (principal); E87.2 Acidosis; J44.9 Chronic obstructive pulmonary disease, unspecified; K21.9 Gastro-esophageal reflux disease without esophagitis; I27.20 Pulmonary hypertension, unspecified; I11.0 Hypertensive heart disease with heart failure; I50.32 Chronic diastolic (congestive) heart failure; J96.12 Chronic respiratory failure with hypercapnia; J96.11 Chronic respiratory failure with hypoxia; I95.9 Hypotension, unspecified; G89.29 Other chronic pain; F32.9 Major depressive disorder, single episode, unspecified; F41.1 Generalized anxiety disorder; F17.290 Nicotine dependence, other tobacco product, uncomplicated; Z79.891 Long term (current) use of opiate analgesic; Z79.899 Other long term (current) drug therapy; Z99.81 Dependence on supplemental oxygen; Z90.49 Acquired absence of other specified parts of digestive tract; Z86.19 Personal history of other infectious and parasitic diseases; Z91.81 History of falling
CPT/HCPCS: 93005; 99285; 36415 ×2; 84439; 82553; 80307 ×2; 82140; 82803 ×2; 82550; 84443; 85025; 85027; 80048; 80053; 81001; 84484; 84481; 82533 ×2; 71045; 70450; 93010; 94660 ×3; 94640 ×3; 97116; 97163; G0378 ×4; J1644; J3490 ×14; J0834; J7030 ×2; J7620 ×3

== ENCOUNTER 2019-01-10 13:46 | Inpatient (IN) | payer MEDICAID ==
[2019-01-10 14:29] LABS: APPEARANCE,URINE CLEAR; BILIRUBIN,URINE NEGATIVE (NEGATIVE); COLOR,URINE STRAW; GLUCOSE, URINE NEGATIVE (NEGATIVE); KETONES,URINE NEGATIVE (NEGATIVE); LEUKOCYTE ESTERASE,URINE NEGATIVE (NEGATIVE); NITRITE,URINE NEGATIVE (NEGATIVE); PROTEIN,URINE NEGATIVE (NEGATIVE); URINE SPECIFIC GRAVITY 1.004; UROBILINOGEN,URINE NEGATIVE mg/dL (<2.0)
[2019-01-10] MEDS ORDERED: NORMAL SALINE 500 ML IV ONE (14:32)
--- NOTE | 2019-01-10 14:58 | RADIOLOGY REPORT (SQ) ---
EXAM DESCRIPTION: CHEST SINGLE VIEW COMPLETED DATE/TIME: 01/10/2019 2:49 pm REASON FOR STUDY: altered mental status COMPARISON: 01/07/2019 NUMBER OF VIEWS: One view. TECHNIQUE: Single frontal radiographic image of the chest acquired. LIMITATIONS: None. FINDINGS: LUNGS AND PLEURA: Lung law are stable in appearance with slight blunting of the right c ostophrenic angle. Minimal airspace disease in the left base which could represent scar or atelectas is. Similar findings have been present dating back to November. MEDIASTINUM AND HILAR STRUCTURES: Stable in appearance. HEART AND VASCULAR STRUCTURES: Unchanged. SUPPORT DEVICES: None. BONES: No acute findings. OTHER: No other significant finding. IMPRESSION: No interval change in the chest. TECHNICAL DOCUMENTATION: JOB ID: [id number] [employer]- All Rights Reserved Reading location - IP/workstation name: [email or web address]
[2019-01-10 15:59] LABS: VENOUS BLOOD BASE EXCESS 7.6 mmol/L; VENOUS BLOOD HCO3 36.9 mmol/L (20-32); VENOUS BLOOD PH 7.26 (7.30-7.42)
[2019-01-10 16:00] LABS: ABSOLUTE EOSINOPHILS # (AUTO) 0.3 10^3/uL (0.0-0.6); ABSOLUTE LYMPHOCYTES (AUTO) 0.8 10^3/uL (0.5-4.7); ABSOLUTE MONOCYTES (AUTO) 0.4 10^3/uL (0.1-1.4); ABSOLUTE NEUT (AUTO) 3.5 10^3/uL (1.7-8.2); BASOPHILS % (AUTO) 0.6 % (0-2); HEMATOCRIT 32.3 % (36.0-47.0); HEMOGLOBIN 10.5 g/dL (12.0-15.5); LYMPHOCYTES % (AUTO) 16.7 % (13-45); MEAN CORPUSCULAR HEMOGLOBIN 27.6 pg (27.0-33.4); MEAN CORPUSCULAR HGB CONC 32.5 g/dL (32.0-36.0); MEAN CORPUSCULAR VOLUME 85 fl (80-97); MONOCYTES % (AUTO) 7.9 % (3-13); PLATELET COUNT 229 10^3/uL (150-450); RED CELL DISTRIBUTION WIDTH 14.1 % (11.5-14.0); SEGMENTED NEUTROPHILS % (AUTO) 69.8 % (42-78); TOTAL CELLS COUNTED % (AUTO) 100 %
[2019-01-10 16:09] LABS: INTERNATIONAL RATION (INR) 1.02; PROTHROMBIN TIME 13.4 SEC (11.4-15.4)
[2019-01-10 16:17] LABS: VENOUS BLOOD PCO2 83.6 mmHg (35-63)
[2019-01-10 16:22] LABS: ALKALINE PHOSPHATASE 107 U/L (38-126); ANION GAP 8 (5-19); ASPARTATE AMINO TRANSFERASE 37 U/L (14-36); BILIRUBIN,DIRECT 0.2 mg/dL (0.0-0.4); BILIRUBIN,TOTAL 0.5 mg/dL (0.2-1.3); BLOOD UREA NITROGEN 14 mg/dL (7-20); CALCIUM 9.1 mg/dL (8.4-10.2); CARBON DIOXIDE 34 mmol/L (22-30); CHLORIDE 98 mmol/L (98-107); GLUCOSE 88 mg/dL (75-110); POTASSIUM 4.6 mmol/L (3.6-5.0); TOTAL PROTEIN 7.1 g/dL (6.3-8.2)
--- NOTE | 2019-01-10 17:24 | ER Document Report ---
ED General - General Chief Complaint: Fall Stated Complaint: ALTERED MENTAL STATUS Time Seen by Provider: 01/10/19 14:18 Primary Care Provider: JAYY ESCOBAR MD [Primary Care Provider] - Follow up as needed TRAVEL OUTSIDE OF THE [place] IN LAST 30 DAYS: No - HPI Notes: Patient is a 63-year-old female who presents to the emergency department for evaluation of altered mental status, hypoxia, low blood pressure. Evidently this patient has a history of COPD, cirrhosis. She was admitted to the hospital for frequent falls and altered mental status. She was discharged yesterday. She was seen by her home health nurse this morning. Her home health nurse found her to be hypoxic and borderline low blood pressure. She also seemed very confused, so EMS was contacted. The patient denies any pain. She has no other issues at this time. She states she is taking her medications as prescribed. - Related Data Allergies/Adverse Reactions: acetaminophen [From Tylenol] Allergy (Mild, Verified 05/16/18 20:52) GI upset Past Medical History - General Information source: Patient, Relative - Vapes - Social History Smoking Status: Current Some Day Smoker Chew tobacco use (# tins/day): No Frequency of alcohol use: None Drug Abuse: None Family History: Reviewed & Not Pertinent, DM Patient has suicidal ideation: No Patient has homicidal ideation: No - Past Medical History Cardiac Medical History: Reports: Hx Congestive Heart Failure - Diastolic, Hx Hypertension Denies: Hx Atrial Fibrillation, Hx Coronary Artery Disease, Hx Heart Attack, Hx Hypercholesterolemia Pulmonary Medical History: Reports: Hx COPD, Hx Pneumonia, Hx Respiratory Failure Denies: Hx Asthma Neurological Medical History: Denies: Hx Seizures Endocrine Medical History: Denies: Hx Diabetes Mellitus Type 1, Hx Diabetes Mellitus Type 2, Hx Hyperthyroidism, Hx Hypothyroidism Renal/ Medical History: Denies: Hx Peritoneal Dialysis GI Medical History: Reports: Hx Cirrhosis, Hx Gastroesophageal Reflux Disease, Hx Hepatitis - Hepatitis C, Hx Liver Failure. Denies: Hx Crohn's Disease, Hx Ulcerative Colitis Musculoskeletal Medical History: Denies Hx Arthritis, Denies Hx Gout, Reports Hx Musculoskeletal Deformity, Reports Hx Musculoskeletal Trauma Skin Medical History: Denies Hx Eczema, Denies Hx Psoriasis Psychiatric Medical History: Reports: Hx Anxiety, Hx Depression Infectious Medical History: Reports: Hx Hepatitis - Hepatitis C Past Surgical History: Reports: Hx Section, Hx Cholecystectomy, Hx Gyne cologic Surgery - ovarian wedge., Hx Orthopedic Surgery - carpel tunnel, Hx Tonsillectomy, Other - Unable to obtain at this time since the patient is intubated and sedated.. Denies: Hx Hysterectomy - Immunizations Immunizations up to date: Yes Hx Diphtheria, Pertussis, Tetanus Vaccination: Yes Review of Systems - Review of Systems Constitutional: See HPI EENT: No symptoms reported Cardiovascular: No symptoms reported Respiratory: No symptoms reported Gastrointestinal: No symptoms reported Genitourinary: No symptoms reported Musculoskeletal: No symptoms reported Skin: No symptoms reported Neurological/Psychological: See HPI Physical Exam - Vital signs Vitals: Pulse Ox 100 01/10/19 13:56 - Notes Notes: This is a 63-year-old female who appears older than her stated age in no acute distress. Vital signs reviewed, please refer to chart. Head is normocephalic, atraumatic. Pupils equal round, reactive to light. Neck is supple without me ningismus. Heart is regular rate and rhythm. Lungs are clear to auscultation bilaterally. Abdomen is soft, nontender, with positive fluid wave, normoactive bowel sounds throughout. Extremities without cyanosis, clubbing. Posterior calves are nontender. Peripheral pulses are equal. Skin is warm and dry. Patient is drowsy but easily arouses to verbal stimulus. She is oriented to person, disoriented to place and time. No asterixis noted. Patient has some difficulty following all commands which she was all 4 extremity spontaneously. No gross facial asymmetry. She does have some mild dysarthria. Course - Re-evaluation Re-evalutation: 01/10/19 17:23 Patient presents emergency department for evaluation of altered mental status. Laboratory investigations were obtained. Ammonia found to be unremarkable. Her labs were really only remarkable for some CO2 retention. She is actually brought in here on 15 L nonrebreather. She had been placed down on 2 L and found to be retaining CO2. She is placed on BiPAP. She tolerated this well. No other significant etiology for her altered mental status was identified. I spoke with Dr. Montemayor, who agreed this patient required admission. [facility] will accept the patient for further care. - Vital Signs Vital signs: Temp Pulse Resp BP Pulse Ox 97.9 F 19 100/59 L 100 01/10/19 16:00 01/10/19 16:23 01/10/19 16:00 01/10/19 16:23 - Laboratory Result Diagrams: 01/10/19 15:42 01/10/19 15:42 Laboratory results interpreted by me: 01/10/19 01/10/19 01/10/19 15:42 15:42 15:42 Hgb 10.5 L Hct 32.3 L RDW 14.1 H VBG pH 7.26 L VBG pCO2 83.6 H* VBG HCO3 36.9 H Carbon Dioxide 34 H AST 37 H Ammonia 01/10/19 15:42 Hgb Hct RDW VBG pH VBG pCO2 VBG HCO3 Carbon Dioxide AST Ammonia < 8.7 L - Diagnostic Test Radiology reviewed: Reports reviewed Radiology results interpreted by me: 01/10/19 17:24 Chest X-Ray 01/10/19 14:31 IMPRESSION: No interval change in the chest. - EKG Interpretation by Me Additional EKG results interpreted by me: 01/10/19 17:24 Sinus mechanism with a rate of 78 bpm. Normal axis and intervals, no acute ST changes concerning for ischemia or infarction. Discharge - Discharge Clinical Impression: Hypercapnia, COPD exacerbation, Acute encephalopathy Condition: Stable Disposition: ADMITTED INPATIENT Admitting Provider: [facility] Admitted: Telemetry Referrals: JAYY ESCOBAR MD [Primary Care Provider] - Follow up as needed
--- NOTE | 2019-01-10 18:24 | PDOC DISCHARGE SUMMARY ---
<KELVIN BARRETO - Last Filed: 01/10/19 18:09> General - Admit/Disc Date/PCP Admission Date/Primary Care Provider: 01/10/19 17:56 JAYY ESCOBAR Discharge Date: 01/09/19 - Discharge Diagnosis (1) Syncope Is this a current diagnosis for this admission?: Yes Summary: Likely multifactorial secondary to hypoxia and orthostatic blood pressures. Patient was ambulating to her car off oxygen when she had a syncopal event. She is found to have blood pressure 70s/40s and SPO2 in the mid 70s on room air upon EMS arrival. Othostatic blood pressures today are improved following IVF and start of florinef. Head CT is negative for acute findings. Chest x-ray is unremarkable. EKG demonstrates normal sinus rhythm without ischemic changes. Laboratory evaluation is unremarkable. AM cortisol is low; ACTH stimulation test nml. Patient requesting to be discharged home prior to obtaining echocardiogram. Patient was admitted to the medical floor and continuous cardiac telemetry; remained in NSR. She was provided gentle IV fluids but remained orthostatic without other signs of dehydration; started on florinef. Management of COPD with chronic respiratory failure as below. The patient has been ambulatory in the halls multiple times without feeling symptomatic. Physical therapy worked with the patient and advised use of front wheel walker (has one at home) and home PT services. Patient is discharged home in stable condition. She is instructed to use her supplemental oxygen at ALL times. She is advised to follow up with her PCP within 1 week and to return to the emergency department as needed for concerning symptoms. (2) Chronic obstructive pulmonary disease (COPD) Is this a current diagnosis for this admission?: Yes Summary: ABG demonstrates compensated respiratory acidosis with hypercapnia. Stable and without exacerbation at this time; lung sounds are clear. Patient denies dyspnea and cough. She was supported with supplemental oxygen and BiPAP (which she refused). Continued her home dose symbicort. Patient was educated on the importance of tobacco cessation, medication and oxygen complaince. (3) Chronic diastolic congestive heart failure Is this a current diagnosis for this admission?: Yes Summary: Echocardiogram from 2018 reveals Normal LVEF with borderline concentric LVH, and mild to moderate diastolic dysfunction with mild pulmonary hypertension. EKG demonstrated NSR Troponin negative She does not appear to be on any antihypertensive therapies. Due to orthostatic blood pressures; BB and JAIDA were not initiated. Patient was placed on florinef. She is instructed to follow up with her PCP within 1 week. She may benefit from an outpatient cardiology consultation (4) Chronic pain Is this a current diagnosis for this admission?: Yes Summary: Opiate dependent chronic pain. UDS was negative for opiates but did reveal benzodiazepines. Home medications include oxycodone 5 mg every 6 hours and Lidoderm patches. Patient requested refill of oxycodone; instructed to follow up with her PCP or pain management provider for her pain medication refills. (5) GERD (gastroesophageal reflux disease) Is this a current diagnosis for this admission?: Yes Summary: Twice daily Pepcid (6) Tobacco abuse Is this a current diagnosis for this admission?: Yes Summary: Smoking cessation strongly encouraged. (7) DVT prophylaxis Is this a current diagnosis for this admission?: Yes Summary: Subcutaneous heparin. - Additional Information Resuscitation Status: Full Code Discharge Diet: Cardiac Discharge Activity: Activity As Tolerated, Balance Activity w/Rest Home Medications: Budesonide/Formoterol Fumarate [Symbicort HFA 160-4.5 mcg Inhaler 6 gm] 2 puff IH Q12 10/24/16 Omeprazole 20 mg PO DAILY 10/24/16 Alprazolam [Xanax 0.25 mg Tablet] 0.25 mg PO Q12HP PRN 05/16/18 Buspirone HCl [Buspar 10 mg Tablet] 10 mg PO Q8 05/16/18 Paroxetine HCl [Paxil] 30 mg PO QHS 05/16/18 Albuterol Sulfate [Proair HFA Inhalation Aerosol 8.5 gm MDI] 2 puff IH Q4HP PRN 11/05/18 Bupropion HCl [Wellbutrin 100 mg Tablet] 100 mg PO DAILY 11/05/18 Ibuprofen [Motrin 800 mg Tablet] 800 mg PO Q8HP PRN 12/07/18 History of Present Illness History of Present Illness: ADY YEUNG is a 63 year old female with a past medical history significant for COPD (oxygen dependent), hypertension, diastolic CHF, anxiety, depression, and opiate dependent chronic pain who presented to the emergency department via EMS today after a syncopal episode. Per EMS report, patient was walking to her car off oxygen when she had a witnessed syncopal event. Upon EMS arrival, patient was found to be hypotensive with a room air oxygen saturation in the mid 70s. She was placed on a nonrebreather and quickly became alert. Evaluation in the emergency department reveals hypotension (96/59) respiratory acidosis with hypercapnia, unremarkable chemistry, no normal troponin and ammonia, negative urinalysis, UDS positive for benzodiazepines (prescribed), EKG demonstrating sinus rhythm, benign chest x-ray and head CT. She is referred to the hospitalist service for admission and management of the above-stated complaints and findings. Physical Exam Vital Signs: Temp Pulse Resp BP Pulse Ox 97.9 F 19 100/59 L 100 01/10/19 16:00 01/10/19 16:23 01/10/19 16:00 01/10/19 16:23 Intake & Output 01/09/19 01/10/19 01/11/19 06:59 06:59 06:59 Intake Total 500 Balance 500 General appearance: PRESENT: no acute distress, cooperative, disheveled, thin, well-developed Head exam: PRESENT: atraumatic, normocephalic Eye exam: PRESENT: conjunctiva pink, EOMI, PERRLA. ABSENT: scleral icterus Ear exam: PRESENT: normal external ear exam Mouth exam: PRESENT: moist, tongue midline Teeth exam: PRESENT: poor dentation Neck exam: ABSENT: carotid bruit, JVD, lymphadenopathy, thyromegaly Respiratory exam: PRESENT: prolonged expiratory phas, rhonchi - slight, symmetrical, unlabored, other - supplemental oxygen at 2 lpm. ABSENT: rales, wheezes Cardiovascular exam: PRESENT: RRR. ABSENT: diastolic murmur, rubs, systolic murmur Pulses: PRESENT: normal dorsalis pedis pul Vascular exam: PRESENT: normal capillary refill GI/Abdominal exam: PRESENT: normal bowel sounds, soft. ABSENT: distended, guarding, mass, organolmegaly, rebound, tenderness Rectal exam: PRESENT: deferred Extremities exam: PRESENT: full ROM. ABSENT: calf tenderness, clubbing, pedal edema Neurological exam: PRESENT: alert, awake, oriented to person, oriented to place, oriented to time, oriented to situation, CN II-XII grossly intact. ABSENT: motor sensory deficit Psychiatric exam: PRESENT: appropriate affect, normal mood. ABSENT: homicidal ideation, suicidal ideation Skin exam: PRESENT: dry, intact, warm. ABSENT: cyanosis, rash Results Laboratory Results: 01/10/19 15:42 01/10/19 15:42 01/10/19 01/10/19 01/10/19 14:00 15:42 15:42 WBC 5.0 RBC 3.80 Hgb 10.5 L Hct 32.3 L MCV 85 MCH 27.6 MCHC 32.5 RDW 14.1 H Plt Count 229 Seg Neutrophils % 69.8 Lymphocytes % 16.7 Monocytes % 7.9 Eosinophils % 5.0 Basophils % 0.6 Absolute Neutrophils 3.5 Absolute Lymphocytes 0.8 Absolute Monocytes 0.4 Absolute Eosinophils 0.3 Absolute Basophils 0.0 VBG pH VBG pCO2 VBG HCO3 VBG Base Excess Sodium 139.8 Potassium 4.6 Chloride 98 Carbon Dioxide 34 H Anion Gap 8 BUN 14 Creatinine 0.76 Est GFR ( Amer) > 60 Est GFR (Non-Af Amer) > 60 Glucose 88 Lactic Acid Calcium 9.1 Total Bilirubin 0.5 AST 37 H Alkaline Phosphatase 107 Ammonia Total Protein 7.1 Albumin 4.0 Urine Color STRAW Urine Appearance CLEAR Urine pH 6.0 Ur Specific Doole 1.004 Urine Protein NEGATIVE Urine Glucose (UA) NEGATIVE Urine Ketones NEGATIVE Urine Blood NEGATIVE Urine Nitrite NEGATIVE Ur Leukocyte Esterase NEGATIVE Urine WBC (Auto) 0 Urine RBC (Auto) 0 01/10/19 01/10/19 01/10/19 15:42 15:42 15:42 WBC RBC Hgb Hct MCV MCH MCHC RDW Plt Count Seg Neutrophils % Lymphocytes % Monocytes % Eosinophils % Basophils % Absolute Neutrophils Absolute Lymphocytes Absolute Monocytes Absolute Eosinophils Absolute Basophils VBG pH 7.26 L VBG pCO2 83.6 H* VBG HCO3 36.9 H VBG Base Excess 7.6 Sodium Potassium Chloride Carbon Dioxide Anion Gap BUN Creatinine Est GFR ( Amer) Est GFR (Non-Af Amer) Glucose Lactic Acid 0.8 Calcium Total Bilirubin AST Alkaline Phosphatase Ammonia < 8.7 L Total Protein Albumin Urine Color Urine Appearance Urine pH Ur Specific Doole Urine Protein Urine Glucose (UA) Urine Ketones Urine Blood Urine Nitrite Ur Leukocyte Esterase Urine WBC (Auto) Urine RBC (Auto) Impressions: Chest X-Ray 01/10/19 14:31 IMPRESSION: No interval change in the chest. Qualifiers - * PATIENT BEING DISCHARGED WITH ANY OF THE FOLLOWING DIAGNOSIS: No Acute Heart Failure - Is this a Heart Failure Patient?: No Plan Discharge Plan: Patient is discharged to home with recommendations for home health nursing and physical therapy services, which she has declined. She is agreeable to speaking with Palliative Care nurse following discharge; referral placed. She is instructed to follow up with her primary care provider within 1 week. She is advised that her ambulating oxygen saturations indicate that she requires 24hr supplemental oxygen; she is instructed to wear her oxygen at all times. She is encouraged to STOP smoking. Discussed the importance of taking her medications as prescribed. She is instructed to return to the emergency department as needed for concerning symptoms. Time Spent: Greater than 30 Minutes <STEPHANIE PORRAS - Last Filed: 01/11/19 12:02> General - Admit/Disc Date/PCP Admission Date/Primary Care Provider: 01/10/19 17:56 JAYY ESCOBAR History of Present Illness History of Present Illness: ADY YEUNG is a 63 year old female Physical Exam Vital Signs: Temp Pulse Resp BP Pulse Ox 97.5 F 72 16 136/90 H 98 01/11/19 07:56 01/11/19 07:56 01/11/19 07:56 01/11/19 07:56 01/11/19 07:56 Intake & Output 01/10/19 01/11/19 01/12/19 11:59 11:59 11:59 Intake Total 500 Output Total 800 Balance -300 Weight 24.9 kg Results Laboratory Results: 01/10/19 15:42 01/10/19 15:42 01/10/19 01/10/19 01/10/19 14:00 15:42 15:42 WBC 5.0 RBC 3.80 Hgb 10.5 L Hct 32.3 L MCV 85 MCH 27.6 MCHC 32.5 RDW 14.1 H Plt Count 229 Seg Neutrophils % 69.8 Lymphocytes % 16.7 Monocytes % 7.9 Eosinophils % 5.0 Basophils % 0.6 Absolute Neutrophils 3.5 Absolute Lymphocytes 0.8 Absolute Monocytes 0.4 Absolute Eosinophils 0.3 Absolute Basophils 0.0 Carbonic Acid HCO3/H2CO3 Ratio ABG pH ABG pCO2 ABG pO2 ABG HCO3 ABG O2 Saturation ABG Base Excess VBG pH VBG pCO2 VBG HCO3 VBG Base Excess FiO2 Sodium 139.8 Potassium 4.6 Chloride 98 Carbon Dioxide 34 H Anion Gap 8 BUN 14 Creatinine 0.76 Est GFR ( Amer) > 60 Est GFR (Non-Af Amer) > 60 Glucose 88 Lactic Acid Calcium 9.1 Total Bilirubin 0.5 AST 37 H Alkaline Phosphatase 107 Ammonia Total Protein 7.1 Albumin 4.0 Urine Color STRAW Urine Appearance CLEAR Urine pH 6.0 Ur Specific Doole 1.004 Urine Protein NEGATIVE Urine Glucose (UA) NEGATIVE Urine Ketones NEGATIVE Urine Blood NEGATIVE Urine Nitrite NEGATIVE Ur Leukocyte Esterase NEGATIVE Urine WBC (Auto) 0 Urine RBC (Auto) 0 01/10/19 01/10/19 01/10/19 15:42 15:42 15:42 WBC RBC Hgb Hct MCV MCH MCHC RDW Plt Count Seg Neutrophils % Lymphocytes % Monocytes % Eosinophils % Basophils % Absolute Neutrophils Absolute Lymphocytes Absolute Monocytes Absolute Eosinophils Absolute Basophils Carbonic Acid HCO3/H2CO3 Ratio ABG pH ABG pCO2 ABG pO2 ABG HCO3 ABG O2 Saturation ABG Base Excess VBG pH 7.26 L VBG pCO2 83.6 H* VBG HCO3 36.9 H VBG Base Excess 7.6 FiO2 Sodium Potassium Chloride Carbon Dioxide Anion Gap BUN Creatinine Est GFR ( Amer) Est GFR (Non-Af Amer) Glucose Lactic Acid 0.8 Calcium Total Bilirubin AST Alkaline Phosphatase Ammonia < 8.7 L Total Protein Albumin Urine Color Urine Appearance Urine pH Ur Specific Doole Urine Protein Urine Glucose (UA) Urine Ketones Urine Blood Urine Nitrite Ur Leukocyte Esterase Urine WBC (Auto) Urine RBC (Auto) 01/10/19 23:05 WBC RBC Hgb Hct MCV MCH MCHC RDW Plt Count Seg Neutrophils % Lymphocytes % Monocytes % Eosinophils % Basophils % Absolute Neutrophils Absolute Lymphocytes Absolute Monocytes Absolute Eosinophils Absolute Basophils Carbonic Acid 1.88 H HCO3/H2CO3 Ratio 18:1 ABG pH 7.36 ABG pCO2 62.6 H ABG pO2 103.7 H ABG HCO3 34.3 H ABG O2 Saturation 97.4 ABG Base Excess 7.2 VBG pH VBG pCO2 VBG HCO3 VBG Base Excess FiO2 35% Sodium Potassium Chloride Carbon Dioxide Anion Gap BUN Creatinine Est GFR ( Amer) Est GFR (Non-Af Amer) Glucose Lactic Acid Calcium Total Bilirubin AST Alkaline Phosphatase Ammonia Total Protein Albumin Urine Color Urine Appearance Urine pH Ur Specific Doole Urine Protein Urine Glucose (UA) Urine Ketones Urine Blood Urine Nitrite Ur Leukocyte Esterase Urine WBC (Auto) Urine RBC (Auto) Impressions: Chest X-Ray 01/10/19 14:31
[2019-01-10] MEDS ORDERED: IPRATROPIUM/ALBUTEROL 0.5-2.5 MG/3 ML AMPUL NEB PRN (18:30)
--- NOTE | 2019-01-10 19:58 | EKG REPORT ---
SEVERITY:- NORMAL ECG - SINUS RHYTHM : Confirmed by: Kelsey Ding MD 10-Jan-2019 19:58:10
[2019-01-10] MEDS: PAROXETINE HCL 20 MG TABLET PO SCH (20:18)
[2019-01-10] MEDS: FLUTICASONE/VILANTEROL 100-25 MCG/DOSE IH SCH (20:28)
[2019-01-10] MEDS: OXYCODONE-ACETAMINOPHEN 5-325 MG TABLET PO PRN (20:29)
[2019-01-10] MEDS: HEPARIN SOD (PORCINE) 5,000 UNIT/ML 1 ML VIAL SUBCUT SCH (21:45)
[2019-01-10] MEDS: METHYLPREDNISOLONE INJ 40 MG/1 ML SDV IV SCH (21:45)
[2019-01-10 23:23] LABS: ARTERIAL BLOOD BASE EXCESS 7.2 mmol/L; ARTERIAL BLOOD H2CO3 1.88 mmol/L (1.05-1.35); ARTERIAL BLOOD HCO3 34.3 mmol/L (20-24); ARTERIAL BLOOD O2 SATURATION 97.4 % (94-98); ARTERIAL BLOOD PCO2 62.6 mmHg (35-45); ARTERIAL BLOOD PH 7.36 (7.35-7.45); ARTERIAL BLOOD PO2 103.7 mmHg (80-100); ARTERIAL BLOOD TOTAL CO2 36.2 mmol/L (21-25)
[2019-01-10 23:24] LABS: ARTERIAL BLOOD FIO2 35%
[2019-01-11] MEDS: HEPARIN SOD (PORCINE) 5,000 UNIT/ML 1 ML VIAL SUBCUT SCH ×4 (05:29→22:44)
--- NOTE | 2019-01-11 06:25 | PDOC H&P ---
History of Present Illness Admission Date/PCP: 01/10/19 17:56 JAYY ESCOBAR XT 3-year-old female admitted through the emergency room today for hypoxia, altered mental status, COPD exacerbation, cirrhosis. Patient was discharged home from the hospital yesterday after having been admitted 2 days prior according to the patient's daughter when the mother was discharged home she had to be carried into the house because she was so weak and short of breath History of Present Illness: ADY YEUNG is a 63 year old female 63-year-old female who is being admitted through the emergency room today for altered mental status, COPD exacerbation , hypoxia and cirrhosis.patient was admitted to the hospital on 01-07-19and discharged yesterday on 01/09/2019 had several admissions to the same complaint shortness of breath and hypoxia Past Medical History Cardiac Medical History: Reports: Congestive Heart Failure - Diastolic, Hypertension Denies: Atrial Fibrillation, Coronary Artery Disease, Myocardial Infarction, Hyperlipidema Pulmonary Medical History: Reports: Chronic Obstructive Pulmonary Disease (COPD), Pneumonia, Respiratory Failure Denies: Asthma Neurological Medical History: Denies: Seizures Endocrine Medical History: Denies: Diabetes Mellitus Type 1, Diabetes Mellitus Type 2, Hyperthyroidism, Hypothyroidism GI Medical History: Reports: Cirrhosis, Gastroesophageal Reflux Disease, Hepatitis - Hepatitis C Denies: Crohn's Disease, Ulcerative Colitis Musculoskeltal Medical History: Denies: Arthritis, Gout Skin Medical History: Denies: Eczema, Psoriasis Psychiatric Medical History: Reports: Depression Hematology: Reports: Anemia Denies: Bleeding Tendencies Past Surgical History Past Surgical History: Reports: Section, Cholecystectomy, Orthopedic Surgery - carpel tunnel, Tonsillectomy, Other - Unable to obtain at this time since the patient is intubated and sedated. Denies: Hysterectomy Social History Smoking Status: Current Some Day Smoker Frequency of Alcohol Use: None Hx Recreational Drug Use: No Drugs: None, Other Hx Prescription Drug Abuse: No - Advance Directive Resuscitation Status: Full Code Family History Family History: Reviewed & Not Pertinent, DM Parental Family History Reviewed: No Children Family History Reviewed: No Sibling(s) Family History Reviewed.: No Medication/Allergy Home Medications: Budesonide/Formoterol Fumarate [Symbicort HFA 160-4.5 mcg Inhaler 6 gm] 2 puff IH Q12 10/24/16 Omeprazole 20 mg PO DAILY 10/24/16 Alprazolam [Xanax 0.25 mg Tablet] 0.25 mg PO Q12HP PRN 05/16/18 Buspirone HCl [Buspar 10 mg Tablet] 10 mg PO Q8 05/16/18 Paroxetine HCl [Paxil] 30 mg PO QHS 05/16/18 Albuterol Sulfate [Proair HFA Inhalation Aerosol 8.5 gm MDI] 2 puff IH Q4HP PRN 11/05/18 Bupropion HCl [Wellbutrin 100 mg Tablet] 100 mg PO DAILY 11/05/18 Ibuprofen [Motrin 800 mg Tablet] 800 mg PO Q8HP PRN 12/07/18 Allergies/Adverse Reactions: acetaminophen [From Tylenol] Allergy (Mild, Verified 05/16/18 20:52) GI upset Physical Exam Vital Signs: Temp Pulse Resp BP Pulse Ox 97.9 F 19 100/59 L 100 01/10/19 16:00 01/10/19 16:23 01/10/19 16:00 01/10/19 16:23 Intake & Output 01/09/19 01/10/19 01/11/19 06:59 06:59 06:59 Intake Total 500 Balance 500 General appearance: PRESENT: mild distress Head exam: PRESENT: atraumatic, normocephalic Respiratory exam: PRESENT: decreased breath sounds, wheezes Cardiovascular exam: PRESENT: RRR. ABSENT: diastolic murmur, rubs, systolic murmur Neurological exam: PRESENT: altered, awake Psychiatric exam: PRESENT: appropriate affect, normal mood. ABSENT: homicidal ideation, suicidal ideation Results Laboratory Results: 01/10/19 15:42 01/10/19 15:42 01/10/19 01/10/19 01/10/19 14:00 15:42 15:42 WBC 5.0 RBC 3.80 Hgb 10.5 L Hct 32.3 L MCV 85 MCH 27.6 MCHC 32.5 RDW 14.1 H Plt Count 229 Seg Neutrophils % 69.8 Lymphocytes % 16.7 Monocytes % 7.9 Eosinophils % 5.0 Basophils % 0.6 Absolute Neutrophils 3.5 Absolute Lymphocytes 0.8 Absolute Monocytes 0.4 Absolute Eosinophils 0.3 Absolute Basophils 0.0 VBG pH VBG pCO2 VBG HCO3 VBG Base Excess Sodium 139.8 Potassium 4.6 Chloride 98 Carbon Dioxide 34 H Anion Gap 8 BUN 14 Creatinine 0.76 Est GFR ( Amer) > 60 Est GFR (Non-Af Amer) > 60 Glucose 88 Lactic Acid Calcium 9.1 Total Bilirubin 0.5 AST 37 H Alkaline Phosphatase 107 Ammonia Total Protein 7.1 Albumin 4.0 Urine Color STRAW Urine Appearance CLEAR Urine pH 6.0 Ur Specific [place] 1.004 Urine Protein NEGATIVE Urine Glucose (UA) NEGATIVE Urine Ketones NEGATIVE Urine Blood NEGATIVE Urine Nitrite NEGATIVE Ur Leukocyte Esterase NEGATIVE Urine WBC (Auto) 0 Urine RBC (Auto) 0 01/10/19 01/10/19 01/10/19 15:42 15:42 15:42 WBC RBC Hgb Hct MCV MCH MCHC RDW Plt Count Seg Neutrophils % Lymphocytes % Monocytes % Eosinophils % Basophils % Absolute Neutrophils Absolute Lymphocytes Absolute Monocytes Absolute Eosinophils Absolute Basophils VBG pH 7.26 L VBG pCO2 83.6 H* VBG HCO3 36.9 H VBG Base Excess 7.6 Sodium Potassium Chloride Carbon Dioxide Anion Gap BUN Creatinine Est GFR ( Amer) Est GFR (Non-Af Amer) Glucose Lactic Acid 0.8 Calcium Total Bilirubin AST Alkaline Phosphatase Ammonia < 8.7 L Total Protein Albumin Urine Color Urine Appearance Urine pH Ur Specific [place] Urine Protein Urine Glucose (UA) Urine Ketones Urine Blood Urine Nitrite Ur Leukocyte Esterase Urine WBC (Auto) Urine RBC (Auto) Impressions: Chest X-Ray 01/10/19 14:31 IMPRESSION: No interval change in the chest. Assessment and Plan - Diagnosis (1) COPD exacerbation Is this a current diagnosis for this admission?: Yes Plan: Patient was just discharged home from the hospital yesterday for the same complaint. The daughter states that when the mother came home she was still short of breath and had to be carried into the house because of weakness and shortness of breath patient will be treated with steroids and nebulizers. According to the daughter the mother is a full code (2) Anxiety Is this a current diagnosis for this admission?: Yes Plan: She takes multiple medications for her anxiety and depression BuSpar Wellbutrin Paxil and Xanax is also listed (3) COPD with acute exacerbation Is this a current diagnosis for this admission?: Yes Plan: Patient uses oxygen at home 2 L pretty much all the time. When EMS was called today the patient had fallen earlier this morning home health called EMS because of altered mental status. (4) Cirrhosis Qualifiers: Hepatic cirrhosis type: alcoholic cirrhosis Is this a current diagnosis for this admission?: Yes Plan: She stopped drinking alcohol 12 years ago. - Time Time Spent with patient: 25-34 minutes
[2019-01-11] MEDS: OXYCODONE-ACETAMINOPHEN 5-325 MG TABLET PO PRN ×2 (09:53→18:53)
[2019-01-11] MEDS: BUPROPION HCL 100 MG TABLET PO SCH (09:54)
[2019-01-11] MEDS: METHYLPREDNISOLONE INJ 40 MG/1 ML SDV IV SCH ×2 (09:54→22:44)
[2019-01-11] MEDS: PAROXETINE HCL 20 MG TABLET PO SCH (09:54)
[2019-01-11] MEDS: FLUTICASONE/VILANTEROL 100-25 MCG/DOSE IH SCH (09:54)
--- NOTE | 2019-01-11 12:19 | PDOC PROGRESS REPORT ---
Subjective Progress Note for:: 01/11/19 Subjective:: Patient is a 63-year-old female who was admitted yesterday through the emergency room for COPD exacerbation, hypoxia, altered mental status, cirrhosis. Patient is feeling much better this morning on BiPAP O2 sat is between 97 and 98% either on BiPAP or 1 L of oxygen nasal cannula vital signs are stable blood pressure 136/90 temperature 97.5, respirations 16 Reason For Visit: ACUTE EXACERBATION OF COPD Physical Exam Vital Signs: Temp Pulse Resp BP Pulse Ox 97.5 F 72 16 136/90 H 98 01/11/19 07:56 01/11/19 07:56 01/11/19 07:56 01/11/19 07:56 01/11/19 07:56 Intake & Output 01/10/19 01/11/19 01/12/19 06:59 06:59 06:59 Intake Total 500 Output Total 800 Balance -300 Weight 24.9 kg General appearance: PRESENT: mild distress Head exam: PRESENT: atraumatic, normocephalic Respiratory exam: PRESENT: crackles, decreased breath sounds Cardiovascular exam: PRESENT: RRR. ABSENT: diastolic murmur, rubs, systolic murmur Neurological exam: PRESENT: alert, awake, oriented to person, oriented to place, oriented to time, oriented to situation, CN II-XII grossly intact, other - Patient is awake and alert today no altered mental status today, complaining of back pain mostly, which is chronic. ABSENT: motor sensory deficit Psychiatric exam: PRESENT: appropriate affect, normal mood. ABSENT: homicidal ideation, suicidal ideation Results Laboratory Results: 01/10/19 15:42 01/10/19 15:42 01/10/19 01/10/19 01/10/19 14:00 15:42 15:42 WBC 5.0 RBC 3.80 Hgb 10.5 L Hct 32.3 L MCV 85 MCH 27.6 MCHC 32.5 RDW 14.1 H Plt Count 229 Seg Neutrophils % 69.8 Lymphocytes % 16.7 Monocytes % 7.9 Eosinophils % 5.0 Basophils % 0.6 Absolute Neutrophils 3.5 Absolute Lymphocytes 0.8 Absolute Monocytes 0.4 Absolute Eosinophils 0.3 Absolute Basophils 0.0 Carbonic Acid HCO3/H2CO3 Ratio ABG pH ABG pCO2 ABG pO2 ABG HCO3 ABG O2 Saturation ABG Base Excess VBG pH VBG pCO2 VBG HCO3 VBG Base Excess FiO2 Sodium 139.8 Potassium 4.6 Chloride 98 Carbon Dioxide 34 H Anion Gap 8 BUN 14 Creatinine 0.76 Est GFR ( Amer) > 60 Est GFR (Non-Af Amer) > 60 Glucose 88 Lactic Acid Calcium 9.1 Total Bilirubin 0.5 AST 37 H Alkaline Phosphatase 107 Ammonia Total Protein 7.1 Albumin 4.0 Urine Color STRAW Urine Appearance CLEAR Urine pH 6.0 Ur Specific [place] 1.004 Urine Protein NEGATIVE Urine Glucose (UA) NEGATIVE Urine Ketones NEGATIVE Urine Blood NEGATIVE Urine Nitrite NEGATIVE Ur Leukocyte Esterase NEGATIVE Urine WBC (Auto) 0 Urine RBC (Auto) 0 01/10/19 01/10/19 01/10/19 15:42 15:42 15:42 WBC RBC Hgb Hct MCV MCH MCHC RDW Plt Count Seg Neutrophils % Lymphocytes % Monocytes % Eosinophils % Basophils % Absolute Neutrophils Absolute Lymphocytes Absolute Monocytes Absolute Eosinophils Absolute Basophils Carbonic Acid HCO3/H2CO3 Ratio ABG pH ABG pCO2 ABG pO2 ABG HCO3 ABG O2 Saturation ABG Base Excess VBG pH 7.26 L VBG pCO2 83.6 H* VBG HCO3 36.9 H VBG Base Excess 7.6 FiO2 Sodium Potassium Chloride Carbon Dioxide Anion Gap BUN Creatinine Est GFR ( Amer) Est GFR (Non-Af Amer) Glucose Lactic Acid 0.8 Calcium Total Bilirubin AST Alkaline Phosphatase Ammonia < 8.7 L Total Protein Albumin Urine Color Urine Appearance Urine pH Ur Specific [place] Urine Protein Urine Glucose (UA) Urine Ketones Urine Blood Urine Nitrite Ur Leukocyte Esterase Urine WBC (Auto) Urine RBC (Auto) 01/10/19 23:05 WBC RBC Hgb Hct MCV MCH MCHC RDW Plt Count Seg Neutrophils % Lymphocytes % Monocytes % Eosinophils % Basophils % Absolute Neutrophils Absolute Lymphocytes Absolute Monocytes Absolute Eosinophils Absolute Basophils Carbonic Acid 1.88 H HCO3/H2CO3 Ratio 18:1 ABG pH 7.36 ABG pCO2 62.6 H ABG pO2 103.7 H ABG HCO3 34.3 H ABG O2 Saturation 97.4 ABG Base Excess 7.2 VBG pH VBG pCO2 VBG HCO3 VBG Base Excess FiO2 35% Sodium Potassium Chloride Carbon Dioxide Anion Gap BUN Creatinine Est GFR ( Amer) Est GFR (Non-Af Amer) Glucose Lactic Acid Calcium Total Bilirubin AST Alkaline Phosphatase Ammonia Total Protein Albumin Urine Color Urine Appearance Urine pH Ur Specific [place] Urine Protein Urine Glucose (UA) Urine Ketones Urine Blood Urine Nitrite Ur Leukocyte Esterase Urine WBC (Auto) Urine RBC (Auto) Impressions: Chest X-Ray 01/10/19 14:31 IMPRESSION: No interval change in the chest. Assessment and Plan - Diagnosis (1) COPD exacerbation Is this a current diagnosis for this admission?: Yes Plan: Patient was just discharged home from the hospital yesterday for the same complaint. The daughter states that when the mother came home she was still short of breath and had to be carried into the house because of weakness and shortness of breath patient will be treated with steroids and nebulizers. According to the daughter the mother is a full code 01/11/2019 IV Zithromax was added today, patient is currently also taking Solu- Medrol IV every 12 hours ,doing nebulizer treatments as well as BiPAP PRN (2) Anxiety Is this a current diagnosis for this admission?: Yes Plan: She takes multiple medications for her anxiety and depression BuSpar Wellbutrin Paxil and Xanax is also listed 01/11/2019 patient is having no issues with anxiety's time (3) COPD with acute exacerbation Is this a current diagnosis for this admission?: Yes Plan: Patient uses oxygen at home 2 L pretty much all the time. When EMS was called today the patient had fallen earlier this morning home health called EMS because of altered mental status. 01/11/2019 his O2 sats are being maintained on either oxygen by nasal cannula or BiPAP patient does not appear to be hypoxic and her mental status is cleared (4) Cirrhosis Qualifiers: Hepatic cirrhosis type: alcoholic cirrhosis Is this a current diagnosis for this admission?: Yes Plan: She stopped drinking alcohol 12 years ago. 01/11/2019 liver functions are normal ,ammonia is normal. - Time Time Spent with patient: 25-34 minutes
[2019-01-11] MEDS: AZITHROMYCIN 500 MG in DEXTROSE 5%-WATER 250 ML IV SCH (15:05)
[2019-01-12] MEDS: OXYCODONE-ACETAMINOPHEN 5-325 MG TABLET PO PRN ×3 (01:22→23:25)
[2019-01-12] MEDS: HEPARIN SOD (PORCINE) 5,000 UNIT/ML 1 ML VIAL SUBCUT SCH ×3 (06:34→22:40)
[2019-01-12] MEDS: BUPROPION HCL 100 MG TABLET PO SCH (09:54)
[2019-01-12] MEDS: PAROXETINE HCL 20 MG TABLET PO SCH (09:54)
[2019-01-12] MEDS: FLUTICASONE/VILANTEROL 100-25 MCG/DOSE IH SCH (09:54)
[2019-01-12] MEDS: METHYLPREDNISOLONE INJ 40 MG/1 ML SDV IV SCH ×2 (09:54→22:40)
[2019-01-12] MEDS: AZITHROMYCIN 500 MG in DEXTROSE 5%-WATER 250 ML IV SCH (09:55)
[2019-01-12] MEDS: BUSPIRONE HCL 10 MG TABLET PO PRN ×2 (09:56→22:40)
--- NOTE | 2019-01-12 12:16 | PDOC PROGRESS REPORT ---
Subjective Progress Note for:: 01/12/19 Subjective:: Patient is a 63-year-old female who was admitted yesterday through the emergency room for COPD exacerbation, hypoxia, altered mental status, cirrhosis. Patient is feeling much better this morning on BiPAP O2 sat is between 97 and 98% either on BiPAP or 1 L of oxygen nasal cannula vital signs are stable blood pressure 136/90 temperature 97.5, respirations 16 Patient's vital signs are once again stable today 121/55 temp 98 pulse 77 O2 sat 96% on nasal cannula 1 L. Patient's CBC and electrolytes are normal I am going to get physical therapy to walk her today, DC her BiPAP, and to discharge her tomorrow morning. We will continue Zithromax as an outpatient for 3 more days. Reason For Visit: ACUTE EXACERBATION OF COPD Physical Exam Vital Signs: Temp Pulse Resp BP Pulse Ox 98.0 F 77 15 121/55 L 96 01/12/19 07:33 01/12/19 07:33 01/12/19 07:33 01/12/19 07:33 01/12/19 08:00 Intake & Output 01/11/19 01/12/19 01/13/19 06:59 06:59 06:59 Intake Total 500 1546 Output Total 800 1200 Balance -300 346 Weight 24.9 kg General appearance: PRESENT: no acute distress, well-developed, well-nourished, other - During up talking in full sentences Respiratory exam: PRESENT: decreased breath sounds, other - However clear Cardiovascular exam: PRESENT: RRR. ABSENT: diastolic murmur, rubs, systolic murmur Neurological exam: PRESENT: alert, awake, oriented to person, oriented to place, oriented to time, oriented to situation, CN II-XII grossly intact, other - No sign of altered mental status. ABSENT: motor sensory deficit Psychiatric exam: PRESENT: appropriate affect, normal mood. ABSENT: homicidal ideation, suicidal ideation Results Laboratory Results: 01/10/19 15:42 01/10/19 15:42 01/10/19 14:00 Catheterized Urine Urine Culture - Final NO GROWTH 2 DAYS Impressions: Chest X-Ray 01/10/19 14:31 IMPRESSION: No interval change in the chest. Assessment and Plan - Diagnosis (1) COPD exacerbation Is this a current diagnosis for this admission?: Yes Plan: Patient was just discharged home from the hospital yesterday for the same complaint. The daughter states that when the mother came home she was still short of breath and had to be carried into the house because of weakness and howard rtness of breath patient will be treated with steroids and nebulizers. According to the daughter the mother is a full code 01/11/2019 IV Zithromax was added today, patient is currently also taking Solu- Medrol IV every 12 hours ,doing nebulizer treatments as well as BiPAP PRN 01/12/2019 patient still on Solu-Medrol 40 IV every 12 ALSOo day 2 of Zithromax IV. White count is normal 5000. Lungs sound much clear. Patient is on nasal cannula oxygen now (2) Anxiety Is this a current diagnosis for this admission?: Yes Plan: She takes multiple medications for her anxiety and depression BuSpar Wellbutrin Paxil and Xanax is also listed 01/11/2019 patient is having no issues with anxiety's time 01/12/2019 patient's medication that she was taking at home has been continued here in the hospital. Patient is having no issues with anxiety (3) COPD with acute exacerbation Is this a current diagnosis for this admission?: Yes (4) Cirrhosis Qualifiers: Hepatic cirrhosis type: alcoholic cirrhosis Is this a current diagnosis for this admission?: Yes Plan: She stopped drinking alcohol 12 years ago. 01/11/2019 liver functions are normal ,ammonia is normal. 01/12/2019 patient is having no complications of her history of cirrhosis - Time Time Spent with patient: 25-34 minutes
[2019-01-13] MEDS: HEPARIN SOD (PORCINE) 5,000 UNIT/ML 1 ML VIAL SUBCUT SCH ×2 (05:30→13:59)
[2019-01-13] MEDS: OXYCODONE-ACETAMINOPHEN 5-325 MG TABLET PO PRN (05:32)
[2019-01-13] MEDS: METHYLPREDNISOLONE INJ 40 MG/1 ML SDV IV SCH (09:05)
[2019-01-13] MEDS: AZITHROMYCIN 500 MG in DEXTROSE 5%-WATER 250 ML IV SCH (09:05)
[2019-01-13] MEDS: FLUTICASONE/VILANTEROL 100-25 MCG/DOSE IH SCH (09:12)
[2019-01-13] MEDS: PAROXETINE HCL 20 MG TABLET PO SCH (09:12)
[2019-01-13] MEDS: BUPROPION HCL 100 MG TABLET PO SCH (09:12)
--- NOTE | 2019-01-13 14:27 | RADIOLOGY REPORT (SQ) ---
EXAM DESCRIPTION: CT HEAD WITHOUT COMPLETED DATE/TIME: 01/13/2019 1:56 pm REASON FOR STUDY: altered mental status COMPARISON: 01/07/2019 TECHNIQUE: Axial images acquired through the brain without intravenous contrast. Images reviewed wit h bone, brain and subdural windows. Images stored on PACS. All CT scanners at this facility use dose modulation, iterative reconstruction, and/or weight based d osing when appropriate to reduce radiation dose to as low as reasonably achievable (ALARA). [facility]: Dose Right [facility]: CareDose [facility]: Dose Right [facility]: Teradose 4D [facility]: [employer] RADIATION DOSE: CT Rad equipment meets quality standard of care and radiation dose reduction techniq ues were employed. CTDIvol: 48.5 mGy. DLP: 879 mGy-cm.. LIMITATIONS: None. FINDINGS: VENTRICLES: Normal size and contour. CEREBRUM: No masses. No hemorrhage. No midline shift. Age appropriate white matter. No evidence for a cute infarction. CEREBELLUM: No masses. No hemorrhage. No alteration of density. No evidence for acute infarction. EXTRA-AXIAL SPACES: No fluid collections. ORBITS AND GLOBE: No intra- or extraconal masses. Normal contour of globe without masses. CALVARIUM: No fracture. PARANASAL SINUSES: Small amount of right maxillary fluid. SOFT TISSUES: No mass or hematoma. OTHER: No other significant finding. IMPRESSION: NO ACUTE INTRACRANIAL FINDINGS.Small amount of right maxillary fluid. EVIDENCE OF ACUTE STROKE: NO. TECHNICAL DOCUMENTATION: JOB ID: [id number] Quality ID # [id number]: Final reports with documentation of one or more dose reduction techniques (e.g., Au tomated exposure control, adjustment of the mA and/or kV according to patient size, use of iterative reconstruction technique) 2010 [employer]- All Rights Reserved Reading location - IP/workstation name: [employer]
[2019-01-13 15:47] VITALS: BP 103/51
--- NOTE | 2019-01-14 16:02 | PDOC DISCHARGE SUMMARY ---
General - Admit/Disc Date/PCP Admission Date/Primary Care Provider: 01/10/19 17:56 JAYY ESCOBAR Patient admitted approximately 1800 hrs. on 01/10/2019 Discharge Date: 01/13/19 - Discharge Diagnosis (1) COPD exacerbation Is this a current diagnosis for this admission?: Yes Summary: Patient comes in for exacerbation of COPD. Patient had just been discharged home from the hospital the day prior to this admission same complaint. Daughter brought the patient back in because of shortness of breath, altered mental status. Patient will be placed on IV steroids and nebulizer treatments (2) Anxiety Is this a current diagnosis for this admission?: Yes Summary: Patient has a history of anxiety and is on multiple medications including BuSpar, Wellbutrin, Paxil, and Xanax (3) COPD with acute exacerbation Is this a current diagnosis for this admission?: Yes (4) Cirrhosis Is this a current diagnosis for this admission?: Yes Summary: She has a past medical history of cirrhosis and alcohol. Patient reportedly stopped drinking alcohol 12 years ago. - Additional Information Resuscitation Status: Full Code Discharge Diet: As Tolerated Discharge Activity: Balance Activity w/Rest, No Driving, Energy Conservation Prescriptions: Azithromycin [Zithromax 250 mg Tablet] 250 mg PO DAILY #5 tablet Azithromycin [Zithromax Inj 500 mg Vial] 250 mg PO DAILY 5 Days #5 vial Home Medications: Budesonide/Formoterol Fumarate [Symbicort HFA 160-4.5 mcg Inhaler 6 gm] 2 puff IH Q12 10/24/16 Omeprazole 20 mg PO DAILY 10/24/16 Alprazolam [Xanax 0.25 mg Tablet] 0.25 mg PO Q12HP PRN 05/16/18 Buspirone HCl [Buspar 10 mg Tablet] 10 mg PO Q8 05/16/18 Paroxetine HCl [Paxil] 30 mg PO QHS 05/16/18 Albuterol Sulfate [Proair HFA Inhalation Aerosol 8.5 gm MDI] 2 puff IH Q4HP PRN 11/05/18 Bupropion HCl [Wellbutrin 100 mg Tablet] 100 mg PO DAILY 11/05/18 Ibuprofen [Motrin 800 mg Tablet] 800 mg PO Q8HP PRN 12/07/18 Azithromycin [Zithromax 250 mg Tablet] 250 mg PO DAILY #5 tablet 01/13/19 Azithromycin [Zithromax Inj 500 mg Vial] 250 mg PO DAILY 5 Days #5 vial 01/13/19 Bupropion HCl [Wellbutrin 100 mg Tablet] 100 mg PO DAILY tablet 01/13/19 Buspirone HCl [Buspar 10 mg Tablet] 10 mg PO Q8HP PRN tablet 01/13/19 Fluticasone/Vilanterol [Breo 100-25 Mcg Ellipta 14 Dose/Dpi] 1 inh IH DAILY inhaler 01/13/19 Ipratropium/Albuterol Sulfate [Duoneb 3 ml Ampul] 3 ml NEB RTQ4HP PRN vial.neb 01/13/19 Oxycodone HCl/Acetaminophen [Percocet 5-325 mg Tablet] 1 tab PO Q6HP PRN tablet 01/13/19 Paroxetine HCl [Paxil 20 mg Tablet] 20 mg PO DAILY tablet 01/13/19 History of Present Illness History of Present Illness: ADY YEUNG is a 63 year old female 63-year-old female who is being admitted through the emergency room today for altered mental status, COPD exacerbation , hypoxia and cirrhosis.patient was admitted to the hospital on 01-07-19and discharged yesterday on 01/09/2019 had several admissions to the same complaint shortness of breath and hypoxia Hospital Course Hospital Course: Patient's daughter was quite upset that her mother was discharged day before. She stated that her mother was so weak when she got home from the hospital that she had to be carried inside to the house. He also said that she was still short of breath at the time of discharge. Patient was admitted to the hospital placed on BiPAP she was also started on IV Zithromax IV steroids, she was continued on her home medications for anxiety and depression she improved quickly the point where the BiPAP was discontinued and she was placed on nasal cannula oxygen On admission patient had one reading of O2 sat was 89% done in the emergency room, but after that episode of hypoxia, her sats remained in the upper 90s the rest of her hospitalization. Patient was seen by physical therapy prior to discharge. Patient was seen up and ambulatory with very little assistance. Going to get the patient a walker and bedside commode. Patient was discharged on Zithromax 250 mg 5 tablets to finish out her course of antibiotics. At approximately noon time I was called by the nurses that the patient's mental status had changed and when I went into the room patient was slurring her words. About 20 to 30 minutes prior to that the patient's "boyfriend" come into the room to visit. He was sitting the chair beside the bed, lethargic, and when his eyes were open his pupils were pinpoint. I was suspicious that patient may have taking some sort of venous depressant. Nurses checked her vital signs which are stable sugar was approximately 220. I ordered a stat CT head scan which came back showing no acute changes. In a couple hours the patient started becoming more percent with less slurred speech. Patient was not hypoxic during this episode.. Patient's boyfriend was asked to leave the room by security. Time of discharge patient was back to her baseline. Patient does have a chronic pain syndrome in which she takes Percocet for this, as well as her antianxiety medicines Physical Exam Vital Signs: Temp Pulse Resp BP Pulse Ox 98.0 F 85 16 103/51 L 96 01/13/19 15:46 01/13/19 15:46 01/13/19 15:46 01/13/19 15:46 01/13/19 15:46 Intake & Output 01/13/19 01/14/19 01/15/19 06:59 06:59 06:59 Intake Total 1426 458 Output Total 1200 50 Balance 226 408 Weight 49.8 kg General appearance: PRESENT: no acute distress Head exam: PRESENT: atraumatic, normocephalic Respiratory exam: PRESENT: clear to auscultation madhavi. ABSENT: rales, rhonchi, wheezes Cardiovascular exam: PRESENT: RRR. ABSENT: diastolic murmur, rubs, systolic murmur Neurological exam: PRESENT: alert, awake, oriented to person, oriented to place, oriented to time, oriented to situation, CN II-XII grossly intact, other - May have an element of dementia that is chronic. ABSENT: motor sensory deficit Psychiatric exam: PRESENT: appropriate affect, normal mood. ABSENT: homicidal ideation, suicidal ideation Results Laboratory Results: 01/10/19 15:42 01/10/19 15:42 Impressions: Chest X-Ray 01/10/19 14:31 IMPRESSION: No interval change in the chest. Head CT 01/13/19 12:12 IMPRESSION: NO ACUTE INTRACRANIAL FINDINGS.Small amount of right maxillary fluid. EVIDENCE OF ACUTE STROKE: NO. Qualifiers - * PATIENT BEING DISCHARGED WITH ANY OF THE FOLLOWING DIAGNOSIS: No Acute Heart Failure - Is this a Heart Failure Patient?: No Plan Time Spent: Greater than 30 Minutes - Patient is to finish out the Zithromax. Patient is to use her walker and bedside commode as well as her home oxygen patient is to follow-up with her primary care provider. Unfortunately there may be a social situation here with the patient having to take care of her who is evidently frail and the patient herself is really in no condition to take care of herself either. This may be contributing to some of the patient's problems
== END 2019-01-13 16:10 | disposition home or self-care (01) | DRG 191 ==
LOC: ER 13:46 → EH 17:56 → 3W 22:13
PROVIDERS: ADMIT Hospitalist; ATTEND Hospitalist
DX: J44.1 Chronic obstructive pulmonary disease with (acute) exacerbation (principal); I50.30 Unspecified diastolic (congestive) heart failure; I11.0 Hypertensive heart disease with heart failure; K74.60 Unspecified cirrhosis of liver; F41.9 Anxiety disorder, unspecified; F32.9 Major depressive disorder, single episode, unspecified; G89.4 Chronic pain syndrome; K21.9 Gastro-esophageal reflux disease without esophagitis; B19.20 Unspecified viral hepatitis C without hepatic coma; D64.9 Anemia, unspecified; F17.200 Nicotine dependence, unspecified, uncomplicated; M54.9 Dorsalgia, unspecified; R47.1 Dysarthria and anarthria; R41.82 Altered mental status, unspecified; R09.02 Hypoxemia
CPT/HCPCS: 36415; 70450; 71045; 80053; 81001; 82140; 82803; 82962; 83605; 85025; 85610; 87040; 87086; 93005; 93010; 94660; 96360; 99285; J0456; J1644; J2920; J3490; J7040; J7060

== ENCOUNTER 2019-02-04 21:38 | Emergency (ER) | payer MEDICAID ==
--- NOTE | 2019-02-05 01:49 | ER Document Report ---
ED General - General Chief Complaint: Shortness Of Breath Stated Complaint: SHORTNESS OF BREATH Time Seen by Provider: 02/04/19 23:21 Primary Care Provider: JAYY ESCOBRA MD [Primary Care Provider] - Follow up as needed TRAVEL OUTSIDE OF THE [place] IN LAST 30 DAYS: No - HPI Notes: Patient is a 63-year-old female with a history of cirrhosis, alcohol dependence, COPD, who presents to the emergency department for evaluation. Evidently she felt short of breath earlier. She realized that she had broken part of her oxygen concentrator at home. She attempted to contact her medical supplier, which was closed. She then called 911. The patient states that her shortness of breath resolved with the administration of oxygen. She denies any fevers or chills. No coughing. No orthopnea or PND. She does continue to smoke and weight. Patient also admits to drinking alcohol this evening. She knows that she is not supposed to be drinking with cirrhosis, but relates that she "did not think it would hurt." - Related Data Allergies/Adverse Reactions: acetaminophen [From Tylenol] Allergy (Mild, Verified 05/16/18 20:52) GI upset Past Medical History - General Information source: [facility], [facility] - Social History Smoking Status: Current Every Day Smoker Frequency of alcohol use: Occasional Family History: Reviewed & Not Pertinent, DM Patient has suicidal ideation: No Patient has homicidal ideation: No - Past Medical History Cardiac Medical History: Reports: Hx Congestive Heart Failure - Diastolic, Hx Hypertension Denies: Hx Atrial Fibrillation, Hx Coronary Artery Disease, Hx Heart Attack, Hx Hypercholesterolemia Pulmonary Medical History: Reports: Hx COPD, Hx Pneumonia, Hx Respiratory Failure Denies: Hx Asthma Neurological Medical History: Denies: Hx Seizures Endocrine Medical History: Denies: Hx Diabetes Mellitus Type 1, Hx Diabetes Mellitus Type 2, Hx Hyperthyroidism, Hx Hypothyroidism Renal/ Medical History: Denies: Hx Peritoneal Dialysis GI Medical History: Reports: Hx Cirrhosis, Hx Gastroesophageal Reflux Disease, Hx Hepatitis - Hepatitis C, Hx Liver Failure. Denies: Hx Crohn's Disease, Hx Ulcerative Colitis Musculoskeletal Medical History: Denies Hx Arthritis, Denies Hx Gout, Reports Hx Musculoskeletal Deformity, Reports Hx Musculoskeletal Trauma Skin Medical History: Denies Hx Eczema, Denies Hx Psoriasis Psychiatric Medical History: Reports: Hx Anxiety, Hx Depression Infectious Medical History: Reports: Hx Hepatitis - Hepatitis C Past Surgical History: Reports: Hx Section, Hx Cholecystectomy, Hx Gynecologic Surgery - ovarian wedge., Hx Orthopedic Surgery - carpel tunnel, Hx Tonsillectomy, Other - Unable to obtain at this time since the patient is intubated and sedated.. Denies: Hx Hysterectomy - Immunizations Immunizations up to date: Yes Hx Diphtheria, Pertussis, Tetanus Vaccination: Yes Review of Systems - Review of Systems Constitutional: No symptoms reported EENT: No symptoms reported Cardiovascular: No symptoms reported Respiratory: See HPI Gastrointestinal: No symptoms reported Genitourinary: No symptoms reported Female Genitourinary: No symptoms reported Skin: No symptoms reported Neurological/Psychological: No symptoms reported Physical Exam - Vital signs Vitals: Temp Pulse Resp BP Pulse Ox 98.7 F 100 24 H 131/81 H 95 02/04/19 21:43 02/04/19 21:43 02/04/19 21:43 02/04/19 21:43 02/04/19 21:43 - Notes Notes: This is a 63-year-old female who appears much older than her stated age, in no acute distress. Vital signs reviewed, please refer to chart. Head is normocephalic, atraumatic. Pupils equal round, reactive to light. Neck is supple without meningismus. Heart is regular rate and rhythm. Lungs reveal mildly diminished breath sounds throughout but no wheezes, rales, rhonchi. Abdomen is soft, nontender, normoactive bowel sounds throughout. Extremities without cyanosis, clubbing. Posterior calves are nontender. Peripheral pulses are equal. Skin is warm and dry. Patient is awake, alert, neurological exam is nonfocal. Course - Re-evaluation Re-evalutation: 02/05/19 01:49 Patient presents emergency department for evaluation. She was short of breath when she did not have her oxygen. She is now no longer short of breath. Multiple attempts were made to contact her significant other, her daughter, to try to find out what exactly the problem with her oxygen concentrator was. No one was willing to travel to her current residence for evaluation of this issue at this time. After multiple attempts we were able to devise a plan. We were contacting her home health medical supplier. They will bring an emergency concentrator here to the apartment tomorrow morning. At that point she can be discharged home. The patient is amenable to this plan. Otherwise, she has in fact been ingesting alcohol, and it was explained to her that given her cirrhosis this could be significantly damaging. She voiced understanding to this. She is told to abstain from alcohol, follow-up with primary care next week. She is to return to the ED with worsening. - Vital Signs Vital signs: Temp Pulse Resp BP Pulse Ox 98.7 F 100 28 H 117/69 97 02/04/19 21:43 02/04/19 21:43 02/05/19 01:07 02/05/19 00:01 02/05/19 01:07 Discharge - Discharge Clinical Impression: Oxygen dependent COPD Dyspnea Qualifiers: Dyspnea type: unspecified Qualified Code(s): R06.00 - Dyspnea, unspecified Alcohol intoxication Qualifiers: Complication of substance-induced condition: with unspecified complication Qualified Code(s): F10.929 - Alcohol use, unspecified with intoxication, unspecified Condition: Stable Disposition: HOME, SELF-CARE Instructions: Dyspnea, Nonspecific ([facility]) Additional Instructions: You are being delivered a new oxygen concentrator. Follow-up with your primary care physician next week. Return to the emergency department with worsening or new concerning symptoms. Referrals: JAYY ESCOBAR MD [Primary Care Provider] - Follow up as needed
--- NOTE | 2019-02-05 09:15 | ER Document Report ---
Doctor's Note Notes: 02/05/19 09:15 Patient here as a social hold secondary to an oxygen concentrator broken at home. This will supposedly be supplied this morning. Vital signs are stable.
[2019-02-05 10:03] VITALS: BP 127/72
== END 2019-02-05 10:36 | disposition home or self-care (01) ==
LOC: ER 21:38
DX: J44.9 Chronic obstructive pulmonary disease, unspecified (principal); T41.5X6A Underdosing of therapeutic gases, initial encounter; Z91.128 Patient's intentional underdosing of medication regimen for other reason; Z91.14 Patient's other noncompliance with medication regimen; Z99.81 Dependence on supplemental oxygen; F10.129 Alcohol abuse with intoxication, unspecified; R06.02 Shortness of breath; K74.60 Unspecified cirrhosis of liver; F17.200 Nicotine dependence, unspecified, uncomplicated; I10 Essential (primary) hypertension; Z87.01 Personal history of pneumonia (recurrent)
CPT/HCPCS: 99284

== ENCOUNTER 2019-11-03 02:00 | Inpatient (IN) | payer MEDICAID ==
[2019-11-03 02:38] LABS: VENOUS BLOOD BASE EXCESS 3.1 mmol/L; VENOUS BLOOD HCO3 33.2 mmol/L (20-32); VENOUS BLOOD PH 7.22 (7.30-7.42)
[2019-11-03 02:41] LABS: INTERNATIONAL RATION (INR) 0.98
[2019-11-03 02:42] LABS: PARTIAL THROMBOPLASTIN TIME 26.4 SEC (23.5-35.8)
[2019-11-03 02:43] LABS: VENOUS BLOOD PCO2 82.7 mmHg (35-63)
[2019-11-03 02:45] LABS: ABSOLUTE EOSINOPHILS # (AUTO) 0.1 10^3/uL (0.0-0.6); ABSOLUTE LYMPHOCYTES (AUTO) 0.5 10^3/uL (0.5-4.7); ABSOLUTE MONOCYTES (AUTO) 0.2 10^3/uL (0.1-1.4); ABSOLUTE NEUT (AUTO) 2.6 10^3/uL (1.7-8.2); BASOPHILS % (AUTO) 0.2 % (0-2); EOSINOPHILS % (AUTO) 2.3 % (0-6); HEMATOCRIT 36.1 % (36.0-47.0); HEMOGLOBIN 11.9 g/dL (12.0-15.5); LYMPHOCYTES % (AUTO) 15.8 % (13-45); MEAN CORPUSCULAR HEMOGLOBIN 28.6 pg (27.0-33.4); MEAN CORPUSCULAR VOLUME 87 fl (80-97); MONOCYTES % (AUTO) 5.2 % (3-13); PLATELET COUNT 212 10^3/uL (150-450); RED BLOOD COUNT 4.16 10^6/uL (3.72-5.28); RED CELL DISTRIBUTION WIDTH 14.4 % (11.5-14.0); SEGMENTED NEUTROPHILS % (AUTO) 76.5 % (42-78); TOTAL CELLS COUNTED % (AUTO) 100 %; WHITE BLOOD COUNT 3.5 10^3/uL (4.0-10.5)
[2019-11-03 02:48] LABS: ALBUMIN 4.2 g/dL (3.5-5.0); ALKALINE PHOSPHATASE 131 U/L (38-126); ANION GAP 8 (5-19); ASPARTATE AMINO TRANSFERASE 24 U/L (14-36); BILIRUBIN,TOTAL 0.7 mg/dL (0.2-1.3); BLOOD UREA NITROGEN 8 mg/dL (7-20); CARBON DIOXIDE 32 mmol/L (22-30); CHLORIDE 97 mmol/L (98-107); GLUCOSE 219 mg/dL (75-110); TOTAL PROTEIN 7.4 g/dL (6.3-8.2)
--- NOTE | 2019-11-03 02:54 | ER Document Report ---
ED General - General Stated Complaint: RESPIRATORY DISTRESS TRAVEL OUTSIDE OF THE [place] IN LAST 30 DAYS: No - HPI Notes: 64-year-old female history of COPD with prior intubations on home O2 presents with shortness of breath and respiratory failure. Patient activated EMS herself or shortness of breath upon arrival of EMS patient was severely tachypneic with increased work of breathing and very poor air movement bilaterally, patient quickly became obtunded and patient was intubated in the field without complication by EMS. Patient was given Solu-Medrol, 3 DuoNeb's, 2 g of mag, ketamine, Versed, rocuronium in the field. History limited by patient acuity. - Related Data Allergies/Adverse Reactions: acetaminophen [From Tylenol] Allergy (Mild, Verified 05/16/18 20:52) GI upset Past Medical History - General Information source: Emergency Med Personnel, [facility] Records - Social History Smoking Status: Smoker,Current Status Unk Family History: DM, Other - unable 2/2 pt status - Past Medical History Cardiac Medical History: Reports: Hx Congestive Heart Failure - Diastolic, Hx Hypertension Denies: Hx Atrial Fibrillation, Hx Coronary Artery Disease, Hx Heart Attack, Hx Hypercholesterolemia Pulmonary Medical History: Reports: Hx COPD, Hx Pneumonia, Hx Respiratory Failure Denies: Hx Asthma Neurological Medical History: Denies: Hx Seizures Endocrine Medical History: Denies: Hx Diabetes Mellitus Type 1, Hx Diabetes Mellitus Type 2, Hx Hyperthyroidism, Hx Hypothyroidism Renal/ Medical History: Denies: Hx Peritoneal Dialysis GI Medical History: Reports: Hx Cirrhosis, Hx Gastroesophageal Reflux Disease, H x Hepatitis - Hepatitis C, Hx Liver Failure. Denies: Hx Crohn's Disease, Hx Ulcerative Colitis Musculoskeletal Medical History: Denies Hx Arthritis, Denies Hx Gout, Reports Hx Musculoskeletal Deformity, Reports Hx Musculoskeletal Trauma Skin Medical History: Denies Hx Eczema, Denies Hx Psoriasis Psychiatric Medical History: Reports: Hx Anxiety, Hx Depression Infectious Medical History: Reports: Hx Hepatitis - Hepatitis C Past Surgical History: Reports: Hx Section, Hx Cholecystectomy, Hx Gynecologic Surgery - ovarian wedge., Hx Orthopedic Surgery - carpel tunnel, Hx Tonsillectomy, Other - Unable to obtain at this time since the patient is intubated and sedated.. Denies: Hx Hysterectomy - Immunizations Immunizations up to date: Yes Hx Diphtheria, Pertussis, Tetanus Vaccination: Yes Review of Systems - Review of Systems -: Yes ROS unobtainable due to patient's medical condition Physical Exam - Vital signs Vitals: Pulse Ox 99 11/03/19 02:00 - Notes Notes: PHYSICAL EXAMINATION: GENERAL: Chronically ill-appearing woman appearing older than stated age intubated brought in by EMS HEAD: Atraumatic, normocephalic. EYES: Pupils equal round and appropriate constriction, sclera anicteric, conjunctiva are normal. ENT: nares patent, moist mucous membranes. NECK: Normal range of motion, supple without lymphadenopathy LUNGS: Intubated, bilateral breath sounds equal, poor air movement bilaterally, faint expiratory wheezing bilaterally HEART: Mildly tachycardic rate with regular rhythm without murmurs ABDOMEN: Soft, nontender, no guarding, no masses, no CVAT EXTREMITIES: Normal range of motion, no pitting or edema. No cyanosis. NEUROLOGICAL: Intubated and sedated SKIN: Warm, Dry, normal turgor, no rashes or lesions noted. Course - Re-evaluation Re-evalutation: 11/03/19 02:51 Lung exam consistent with respiratory failure secondary to COPD, patient hypotensive in the field prior to intubation, bilateral lung sounds present, rule out sepsis rule out ACS, electrolyte abnormalities, pneumonia. Chest x-ray, EKG, troponin, BNP, cultures, lactate, empiric antibiotics, admit to ICU. Discussed case with MARKUS Hurley who has accepted patient to ICU. - Vital Signs Vital signs: Temp Pulse Resp BP Pulse Ox 98.6 F 112 H 15 116/64 100 11/03/19 08:00 11/03/19 11:35 11/03/19 11:35 11/03/19 10:00 11/03/19 11:35 - Laboratory Result Diagrams: 11/03/19 02:20 11/03/19 02:20 Laboratory results interpreted by me: 11/03/19 11/03/19 11/03/19 02:20 02:20 02:20 WBC 3.5 L Hgb 11.9 L RDW 14.4 H VBG pH 7.22 L VBG pCO2 82.7 H* VBG HCO3 33.2 H Chloride 97 L Carbon Dioxide 32 H Glucose 219 H Alkaline Phosphatase 131 H NT-Pro-B Natriuret Pep 11/03/19 02:20 WBC Hgb RDW VBG pH VBG pCO2 VBG HCO3 Chloride Carbon Dioxide Glucose Alkaline Phosphatase NT-Pro-B Natriuret Pep 741 H - EKG Interpretation by Me Additional EKG results interpreted by me: 11/03/19 03:30 Heart rate 116, normal sinus rhythm, no significant ST elevations or d epressions, no significant T wave abnormalities, QTC 473 Discharge - Discharge Clinical Impression: COPD exacerbation, Respiratory failure requiring intubation Respiratory failure Qualifiers: Chronicity: acute Respiratory failure complication: hypercapnia Qualified Code(s): J96.02 - Acute respiratory failure with hypercapnia Condition: Critical Disposition: ADMITTED INPATIENT Admitting Provider: Dr. Emilia Holcomb/WATERPROOFING MACHINE OPERATOR Xavi Blount
[2019-11-03 03:00] LABS: NT PRO BNP 741 pg/mL (<125)
[2019-11-03 03:01] LABS: TROPONIN I < 0.012 ng/mL
--- NOTE | 2019-11-03 03:09 | RADIOLOGY REPORT (SQ) ---
EXAM DESCRIPTION: XR CHEST 1 VIEW COMPLETED DATE/TME: 11/03/2019 02:15 CLINICAL HISTORY: 64 years, Female, resp failure intubated COMPARISON: 01/10/2019 chest NUMBER OF VIEWS: 2 TECHNIQUE: Portable chest LIMITATIONS: None. FINDINGS: Heart size is normal. Endotracheal tube, the tip is 4.9 cm above the vane. Enteric tube with the tip in the stomach. Osteopenia. Tiny right effusion and/or pleural thickening. New airspace opacities of the right perihilar region consistent with pneumonia. No pneumothorax IMPRESSION: New right perihilar airspace opacities consistent with pneumonia. Endotracheal and enteric tubes are in place copyright 2010 [employer]- All Rights Reserved
[2019-11-03] MEDS ORDERED: LEVOFLOXACIN 750 MG/D5W RTU 750 MG/150 ML RTUPB IV ONE (03:10)
[2019-11-03] MEDS ORDERED: RINGERS SOLUTION,LACTATED 1,000 ML IV PRN (03:11)
[2019-11-03] MEDS ORDERED: PHARMACY COMMUNICATION ORDER MC NR ×2 (03:15→09:30)
[2019-11-03] MEDS ORDERED: MIDAZOLAM HCL 50 MG/100 ML RTUINJ IV PRN (03:38)
[2019-11-03] MEDS ORDERED: DEXTROSE 5%-WATER 250 ML with NOREPINEPHRINE BITARTRATE 4 MG IV PRN ×2 (03:53)
[2019-11-03] MEDS ORDERED: NOREPINEPHRINE BITARTRATE INJ/PF 4 MG/4 ML SDV IV ONE (03:55)
[2019-11-03] MEDS ORDERED: MIDAZOLAM 2 MG/2 ML INJ IV ONE ×2 (05:41→21:27)
--- NOTE | 2019-11-03 05:45 | CRITICAL CARE ADMISSION REPORT ---
HPI Date:: 11/03/19 Time:: 04:42 Reason for ICU Reason:: Acute on Chronic Respiratory Failure Admission Date/Time & PCP: Admission Date/Time: 11/03/19 03:45 Primary Care Provider: JAYY ESCOBAR HPI: Ms. Lelia Loza is a 64-year-old female with a history of COPD on O2 at 2 L nasal cannula at baseline, she has had multiple admissions and intubations for COPD exacerbation. History of cirrhosis secondary to hepatitis C and alcohol. She developed worsening shortness of breath today and activated EMS herself upon arrival of EMS patient was severely tachypneic with increased work of breathing, she quickly became obtunded and was given ketamine, Versed, rocuronium and intubated in the field with a #7 ETT 20 cm at the teeth. She was then given Solu-Medrol 3 duo nebs and 2 g of mag. Her blood pressure dropped to 60s over 40s Levophed was started. when EMS lifted her to the stretcher they noticed multiple bedbugs beneath and around her. Upon arrival to the ED he was placed on the ventilator, a venous blood gas was sent her pH was 7.22 PCO2 82.7 HCO3 33.2. Her chest x-ray showed right perihilar opacities. She was afebrile at 97.9 heart rate of 101 blood pressure 121/57 on 1 mcg/min. of Levophed. EKG showed sinus tachycardia troponins were less than 0.012 BNP 741 BUN and creatinine were normal at 8 and 0.74. She is admitted to the ICU for further management - Diagnosis/Plan (1) Acute and chronic respiratory failure with hypercapnia Is this a current diagnosis for this admission?: Yes Plan: We will maintain on mechanical ventilation and titrate settings per ABGs Solu-Medrol 40 mg every 8 hours Chest x-ray with right perihilar opacities will start cefepime had been given levofloxacin in the ED but given her QTC of 471 will switch to cefepime Chest x-ray daily Repeat ABGs this morning COVID-19 test sent and pending (2) Cirrhosis Qualifiers: Hepatic cirrhosis type: alcoholic cirrhosis Is this a current diagnosis for this admission?: Yes Plan: Secondary to alcohol and hepatitis C, currently compensated. T bili 0.7 AST 24 ALT 16 alk phos 131 Past Medical History Cardiac Medical History: Reports: Congestive Heart Failure - Diastolic, Hypertension Denies: Atrial Fibrillation, Coronary Artery Disease, Myocardial Infarction, Hyperlipidema Pulmonary Medical History: Reports: Chronic Obstructive Pulmonary Disease (COPD), Pneumonia, Respiratory Failure Denies: Asthma Neurological Medical History: Denies: Seizures Endocrine Medical History: Denies: Diabetes Mellitus Type 1, Diabetes Mellitus Type 2, Hyperthyroidism, Hypothyroidism GI Medical History: Reports: Cirrhosis, Gastroesophageal Reflux Disease, Hepatitis - Hepatitis C Denies: Crohn's Disease, Ulcerative Colitis Musculoskeltal Medical History: Denies: Arthritis, Gout Skin Medical History: Denies: Eczema, Psoriasis Psychiatric Medical History: Reports: Depression Hematology: Reports: Anemia Denies: Bleeding Tendencies Past Surgical History Past Surgical History: Reports: Section, Cholecystectomy, Orthopedic Surgery - carpel tunnel, Tonsillectomy, Other - Unable to obtain at this time since the patient is intubated and sedated. Denies: Hysterectomy Social/Family History - Social History Smoking Status: Unknown if Ever Smoked Frequency of Alcohol Use: None Hx Recreational Drug Use: No Drugs: None, Other Hx Prescription Drug Abuse: No - Medication/Allergies Home Medications: Budesonide/Formoterol Fumarate [Symbicort HFA 160-4.5 mcg Inhaler 6 gm] 2 puff IH Q12 10/24/16 Omeprazole 20 mg PO DAILY 10/24/16 Alprazolam [Xanax 0.25 mg Tablet] 0.25 mg PO Q12HP PRN 05/16/18 Buspirone HCl [Buspar 10 mg Tablet] 10 mg PO Q8 05/16/18 Paroxetine HCl [Paxil] 30 mg PO QHS 05/16/18 Albuterol Sulfate [Proair HFA Inhalation Aerosol 8.5 gm MDI] 2 puff IH Q4HP PRN 11/05/18 Bupropion HCl [Wellbutrin 100 mg Tablet] 100 mg PO DAILY 11/05/18 Ibuprofen [Motrin 800 mg Tablet] 800 mg PO Q8HP PRN 12/07/18 Azithromycin [Zithromax 250 mg Tablet] 250 mg PO DAILY #5 tablet 01/13/19 Azithromycin [Zithromax Inj 500 mg Vial] 250 mg PO DAILY 5 Days #5 vial 01/13/19 Bupropion HCl [Wellbutrin 100 mg Tablet] 100 mg PO DAILY tablet 01/13/19 Buspirone HCl [Buspar 10 mg Tablet] 10 mg PO Q8HP PRN tablet 01/13/19 Fluticasone/Vilanterol [Breo 100-25 Mcg Ellipta 14 Dose/Dpi] 1 inh IH DAILY inhaler 01/13/19 Ipratropium/Albuterol Sulfate [Duoneb 3 ml Ampul] 3 ml NEB RTQ4HP PRN vial.neb 01/13/19 Oxycodone HCl/Acetaminophen [Percocet 5-325 mg Tablet] 1 tab PO Q6HP PRN tablet 01/13/19 Paroxetine HCl [Paxil 20 mg Tablet] 20 mg PO DAILY tablet 01/13/19 Allergies/Adverse Reactions: acetaminophen [From Tylenol] Allergy (Mild, Verified 05/16/18 20:52) GI upset Review of Systems ROS unobtainable: Due to endotracheal tube Physical Exam Vital Signs: Temp Pulse Resp BP Pulse Ox 97.1 F 11/03/19 02:19 Intake & Output 11/01/19 11/02/19 11/03/19 06:59 06:59 06:59 Weight 56.699 kg Weight/Height Weight 56.699 kg General appearance: PRESENT: thin, other - sedate on vent Head exam: PRESENT: atraumatic Eye exam: PRESENT: PERRLA Mouth exam: PRESENT: moist, neck supple Neck exam: ABSENT: carotid bruit, JVD, lymphadenopathy, thyromegaly Respiratory exam: PRESENT: wheezes Cardiovascular exam: PRESENT: +S1, +S2 Pulses: PRESENT: normal radial pulses, normal femoral pulses GI/Abdominal exam: PRESENT: normal bowel sounds, soft Neurological exam: PRESENT: other - Sedated on Versed Laboratory/Radiographs Laboratory Results: 11/03/19 02:20 11/03/19 02:20 11/03/19 11/03/19 11/03/19 02:20 02:20 02:20 WBC 3.5 L RBC 4.16 Hgb 11.9 L Hct 36.1 MCV 87 MCH 28.6 MCHC 33.0 RDW 14.4 H Plt Count 212 Seg Neutrophils % 76.5 VBG pH 7.22 L VBG pCO2 82.7 H* VBG HCO3 33.2 H VBG Base Excess 3.1 Sodium 137.4 Potassium 4.0 Chloride 97 L Carbon Dioxide 32 H Anion Gap 8 BUN 8 Creatinine 0.74 Est GFR ( Amer) > 60 Glucose 219 H Lactic Acid Calcium 9.0 Total Bilirubin 0.7 AST 24 Alkaline Phosphatase 131 H Total Protein 7.4 Albumin 4.2 11/03/19 02:20 WBC RBC Hgb Hct MCV MCH MCHC RDW Plt Count Seg Neutrophils % VBG pH VBG pCO2 VBG HCO3 VBG Base Excess Sodium Potassium Chloride Carbon Dioxide Anion Gap BUN Creatinine Est GFR ( Amer) Glucose Lactic Acid 1.1 Calcium Total Bilirubin AST Alkaline Phosphatase Total Protein Albumin 11/03/19 02:20 Troponin I < 0.012 NT-Pro-B Natriuret Pep 741 H Impressions: Chest X-Ray 11/03/19 02:15 IMPRESSION: New right perihilar airspace opacities consistent with pneumonia. Endotracheal and enteric tubes are in place copyright 2011 [employer]- All Rights Reserved All labs, radiographs, diagnostic studies and EKGs were personally reviewed: Yes In addition, reports of radiographic and diagnostic studies were read: Yes Critical Time Critical Time (minutes): 65 -: The care of a critically ill patient is dynamic. This note represents a static moment in the admission process. Orders and treatments may be given simultaneously and urgently, and time is not scheduling representative of the treatment process. This patient requires Critical Care secondary to life threatening organ or limb dysfunction. Without Critical Care services, the patient is at risk for increased mortality and morbidity.
[2019-11-03] MEDS ORDERED: METHYLPREDNISOLONE INJ 40 MG/1 ML SDV IV SCH (06:00)
[2019-11-03] MEDS: HEPARIN SOD (PORCINE) 5,000 UNIT/ML 1 ML VIAL SUBCUT SCH ×3 (06:21→21:32)
[2019-11-03] MEDS: IPRATROPIUM/ALBUTEROL 0.5-2.5 MG/3 ML AMPUL NEB SCH ×6 (06:32→23:56)
[2019-11-03 09:09] LABS: ARTERIAL BLOOD BASE EXCESS 3.1 mmol/L; ARTERIAL BLOOD H2CO3 1.46 mmol/L (1.05-1.35); ARTERIAL BLOOD HCO3 28.6 mmol/L (20-24); ARTERIAL BLOOD O2 SATURATION 98.6 % (94-98); ARTERIAL BLOOD PCO2 48.5 mmHg (35-45); ARTERIAL BLOOD PH 7.39 (7.35-7.45); ARTERIAL BLOOD PO2 135.1 mmHg (80-100); ARTERIAL BLOOD TOTAL CO2 30.1 mmol/L (21-25)
[2019-11-03 09:15] LABS: ARTERIAL BLOOD FIO2 40%
[2019-11-03] MEDS ORDERED: CEFEPIME 1 GM/D5W RTU 1 GM/50 ML RTUPB IV SCH (10:00)
[2019-11-03] MEDS ORDERED: FOLIC ACID 1 MG TABLET NG ONE (10:00)
[2019-11-03] MEDS ORDERED: FAMOTIDINE 40 MG/5 ML SUSP 50 ML PO SCH (10:00)
[2019-11-03] MEDS: THIAMINE HCL 500 MG in NORMAL SALINE 250 ML IV SCH ×2 (10:28→21:57)
[2019-11-03] MEDS: PROPOFOL 1,000 MG/100 ML INFUS..BTL IV PRN ×2 (10:30→21:49)
[2019-11-03] MEDS: FAMOTIDINE 40 MG/5 ML SUSP 50 ML NG SCH ×2 (10:35→23:05)
--- NOTE | 2019-11-03 11:11 | Progress Note ---
Provider Note Provider Note: Patient seen after admission by the nighttime critical care service team. I received signout and assumed care after assuming ICU physician role after Dr. Holcomb's clinical week and activities have ended. I discussed the case with RN CHEMICAL DEPENDENCY Jose Alejandro. I am in agreement and endorsed her plan finding and care except were noted below. Patient has right middle and lower lobe infiltrate that appears consistent with pneumonia. There may be a postobstructive component and will need to evaluate this. She had originally been hypotensive and is now off Levophed. She has no elevation in her white blood cell count and no significant neutrophilic response. Have asked for HIV testing. Given the current pandemic status COVID testing has been done and are awaiting results. She is maintained in isolation because of this in with suspicion for bedbugs found at her home. Social discussions have disclosed that the patient often goes to live with her daughter after an illness and when at her own home with a boyfriend continues to have decline. I have asked our case management to have Adult Protective Services evaluate this case. Respiratory: Patient has pneumonia and have change antibiotics to Rocephin and azithromycin. Have asked for COVID testing and respiratory cultures and Gram stain. Ventilator has been changed to volume control and will evaluate for liberation when appropriate. Infectious: Awaiting Gram stain and culture. Patient does have evidence of sepsis with hypotension and shock which has now improved. Now on Rocephin and azithromycin. Procalcitonin levels are not returned in a reliable fashion and so I am unable to utilize this for de-escalation therapy. Cardiac: No active issues we will continue to monitor. She was hypotensive but much improved. Hematologic: Given her current status patient is somewhat pancytopenic. The white count diminution may be related to sepsis and viral in etiology. We will follow-up on HIV status. Endocrine: No active issues awaiting TSH and hemoglobin A1c. Patient is on steroids and have reduced it to every 12. Renal: No active issues. Continue to monitor and adjust accordingly Metabolic: Watch electrolyte profile closely. Have started on thiamine and folate. We will check vitamin D levels and follow her metabolic processes supportively Alimentary: We will begin nutrition. Given the patient's thin and emaciated state and I am concerned about protein calorie malnutrition. She has bitemporal muscle wasting and was found in a debilitated state prior to it admission Neurologic: Patient's neurological status appears to be intact although she is heavily sedated on Versed. Have changed to propofol to assist with early mechanical ventilation liberation in reduced delirium. Sedation: Versed to be switched to propofol Lines/Tubes: Peripheral IVs Other: We will attempt to discuss case and care with her family. Total critical care time: 45 minutes.
[2019-11-03] MEDS ORDERED: (PENDING PHARMACY ID) (Buspirone Hcl [Buspirone Hcl] 15 MG) PO SCH (14:45)
[2019-11-03] MEDS ORDERED: (PENDING PHARMACY ID) (Bupropion Hcl [Bupropion Xl] 150 MG) PO SCH (14:45)
[2019-11-03] MEDS ORDERED: GABAPENTIN 100 MG CAPSULE PO PRN (14:45)
[2019-11-03] MEDS: FENTANYL CITRATE INJ/PF 100 MCG/2 ML AMPUL IV PRN ×2 (15:05→19:30)
[2019-11-03] MEDS: OXYCODONE HCL IR 5 MG TABLET PO SCH ×3 (15:24→23:05)
[2019-11-03] MEDS: METHYLPREDNISOLONE INJ 40 MG/1 ML SDV IV SCH (18:43)
--- NOTE | 2019-11-03 19:08 | EKG REPORT ---
SEVERITY:- OTHERWISE NORMAL ECG - SINUS TACHYCARDIA LOW VOLTAGE IN FRONTAL LEADS : Confirmed by: Kelsey Ding MD 03-Nov-2019 19:07:12
[2019-11-03] MEDS ORDERED: MIDAZOLAM 2 MG/2 ML INJ ONE (21:20)
[2019-11-03] MEDS: PAROXETINE HCL 20 MG TABLET PO SCH (21:33)
[2019-11-03] MEDS: BUSPIRONE HCL 10 MG TABLET PO SCH (21:33)
[2019-11-03] MEDS: BUPROPION HCL 75 MG TABLET PO SCH (21:34)
[2019-11-03] MEDS ORDERED: (PENDING PHARMACY ID) (Paroxetine Hcl [Paxil] 30 MG) PO SCH (22:00)
[2019-11-04] MEDS: PROPOFOL 1,000 MG/100 ML INFUS..BTL IV PRN ×2 (01:21→08:00)
[2019-11-04] MEDS ORDERED: MIDAZOLAM 2 MG/2 ML INJ ONE (02:12)
[2019-11-04] MEDS ORDERED: MIDAZOLAM 2 MG/2 ML INJ IV ONE ×2 (03:30→03:45)
[2019-11-04] MEDS: IPRATROPIUM/ALBUTEROL 0.5-2.5 MG/3 ML AMPUL NEB SCH ×5 (04:00→19:50)
[2019-11-04 04:59] LABS: HEMATOCRIT 27.4 % (36.0-47.0); MEAN CORPUSCULAR HEMOGLOBIN 28.8 pg (27.0-33.4); MEAN CORPUSCULAR HGB CONC 33.5 g/dL (32.0-36.0); MEAN CORPUSCULAR VOLUME 86 fl (80-97); PLATELET COUNT 175 10^3/uL (150-450); RED BLOOD COUNT 3.19 10^6/uL (3.72-5.28); RED CELL DISTRIBUTION WIDTH 14.4 % (11.5-14.0); WHITE BLOOD COUNT 5.9 10^3/uL (4.0-10.5)
[2019-11-04 05:04] LABS: HEMOGLOBIN 9.2 g/dL (12.0-15.5)
[2019-11-04 05:19] LABS: ABSOLUTE LYMPHOCYTES# (MANUAL) 0.1 10^3/uL (0.5-4.7); ABSOLUTE MONOCYTES # (MANUAL) 0.2 10^3/uL (0.1-1.4); BAND NEUTROPHILS % (MANUAL) 9 % (3-5); BASOPHILS % (MANUAL) 0 % (0-2); EOSINOPHILS % (MANUAL) 0 % (0-6); LYMPHOCYTES % (MANUAL) 2 % (13-45); MONOCYTES % (MANUAL) 4 % (3-13); SEGMENTED NEUTROPHILS % (MAN) 85 % (42-78); TOTAL CELLS COUNTED 100
[2019-11-04 05:20] LABS: PLATELET COMMENT ADEQUATE; RBC MORPHOLOGY COMMENT NORMO-CYTIC/CHROMIC
[2019-11-04 05:21] LABS: ALBUMIN 3.1 g/dL (3.5-5.0); ALKALINE PHOSPHATASE 75 U/L (38-126); ANION GAP 6 (5-19); ASPARTATE AMINO TRANSFERASE 16 U/L (14-36); BILIRUBIN,TOTAL 0.4 mg/dL (0.2-1.3); BLOOD UREA NITROGEN 12 mg/dL (7-20); CALCIUM 8.7 mg/dL (8.4-10.2); CARBON DIOXIDE 27 mmol/L (22-30); CHLORIDE 98 mmol/L (98-107); GLUCOSE 264 mg/dL (75-110); PHOSPHORUS 2.8 mg/dL (2.5-4.5); TOTAL PROTEIN 5.9 g/dL (6.3-8.2)
[2019-11-04] MEDS: HEPARIN SOD (PORCINE) 5,000 UNIT/ML 1 ML VIAL SUBCUT SCH ×3 (05:59→21:38)
[2019-11-04] MEDS: METHYLPREDNISOLONE INJ 40 MG/1 ML SDV IV SCH ×2 (05:59→17:52)
[2019-11-04] MEDS: BUSPIRONE HCL 10 MG TABLET PO SCH ×3 (05:59→21:37)
--- NOTE | 2019-11-04 06:41 | RADIOLOGY REPORT (SQ) ---
CLINICAL HISTORY: Respiratory Failure COMPARISON: 11/03/2019. TECHNIQUE: XR CHEST 1 VIEW 11/04/2019 6:00 AM CDT FINDINGS: Cardiac silhouette is normal in size. There is minimal right basilar airspace disease. There is no pleural effusion. There is no pneumothorax. There are no acute osseous findings. Endotracheal and nasogastric tubes are essentially unchanged with the endotracheal tube slightly further within the trachea. IMPRESSION: Improving aeration of the right lung base.
[2019-11-04 07:27] LABS: ARTERIAL BLOOD BASE EXCESS 0.2 mmol/L; ARTERIAL BLOOD HCO3 24.8 mmol/L (20-24); ARTERIAL BLOOD PH 7.41 (7.35-7.45); ARTERIAL BLOOD PO2 151.2 mmHg (80-100); ARTERIAL BLOOD TOTAL CO2 26.1 mmol/L (21-25)
[2019-11-04 07:29] LABS: ARTERIAL BLOOD FIO2 35%
--- NOTE | 2019-11-04 10:04 | PDOC CRITICAL CARE PROG REPORT ---
General Date:: 11/04/19 ICU Day:: 2 Ventilator Day:: 2 Hospital Day:: 2 Resuscitation Status: Full Code Medical Power of Coach Wirer: Doris Loza, Daiana Events in the past 12 to 24 Hours:: 11.04.2019: Patient has had significant improvement in overall status. Rounds this morning she was placed on SBT and did require significant sedation for agitation. She has been hemodynamically labile and now off vasopressor therapy. She was started on nutritional support given her emaciated state on admission. ABGs have improved as well. Review of systems relevant to events:: 11.04.2019: Significant improvement in chest x-ray. COVID testing is still pendi ng and she has been maintained in a negative airflow room. No elevated pressures on the ventilator and she is tolerating pressure support wean. Cultures still pending from tracheal specimens and Gram stain's are still pending Reason for ICU Addmission:: Acute on Chronic Respiratory Failure - Medications: Medications reviewed and adjusted accordingly: Yes Vasopressors:: Now weaned off Sedation:: Propofol and fentanyl now discontinued in preparation for SBT Physical Exam Vital Signs: Temp Pulse Resp BP Pulse Ox 97.7 F 121 H 18 163/86 H 100 11/04/19 06:12 11/04/19 08:00 11/04/19 06:12 11/04/19 06:12 11/04/19 06:12 Intake & Output 11/03/19 11/04/19 11/05/19 06:59 06:59 06:59 Intake Total 11 1190 105 Output Total 925 200 Balance 11 265 -95 Weight 47.7 kg 48.7 kg Weight/Height Weight 48.7 kg Height 5 ft 2 in General appearance: PRESENT: no acute distress, cooperative, thin Exam: Intubated older appearing 64-year-old female in no active distress she is able to lift her head off the bed and follow commands Head exam: PRESENT: atraumatic, normocephalic, other - Bitemporal muscle wasting Eye exam: PRESENT: conjunctiva pink, EOMI, PERRLA. ABSENT: conjunctival injection, nystagmus, scleral icterus Mouth exam: PRESENT: moist, neck supple Teeth exam: PRESENT: edentulous Neck exam: ABSENT: carotid bruit, JVD, lymphadenopathy, thyromegaly, tracheal deviation Respiratory exam: PRESENT: clear to auscultation madhavi, unlabored. ABSENT: accessory muscle use, rales, rhonchi, tachypnea, wheezes Cardiovascular exam: PRESENT: RRR, +S1, +S2. ABSENT: rubs Pulses: ABSENT: normal dorsalis pedis pul Vascular exam: PRESENT: normal capillary refill. ABSENT: pallor GI/Abdominal exam: PRESENT: normal bowel sounds, soft. ABSENT: ascites, distended, guarding, mass, organolmegaly, rebound, tenderness Rectal exam: PRESENT: deferred Gentrourinary exam: PRESENT: indwelling catheter Extremities exam: ABSENT: joint swelling, pedal edema, tenderness Musculoskeletal exam: ABSENT: deformity, dislocation Neurological exam: PRESENT: altered. ABSENT: motor sensory deficit Psychiatric exam: PRESENT: appropriate affect Focused psych exam: PRESENT: restlessness. ABSENT: pressured speech, psychomo tor agitation Skin exam: PRESENT: dry, intact, warm. ABSENT: cyanosis, rash Tubes/Lines: PRESENT: Endotracheal Tube, Other - Orogastric tube, Joy Laboratory/Radiographs Laboratory Results: 11/04/19 03:55 11/04/19 03:55 11/03/19 11/04/19 11/04/19 02:20 03:55 03:55 WBC 5.9 RBC 3.19 L Hgb 9.2 L D Hct 27.4 L MCV 86 MCH 28.8 MCHC 33.5 RDW 14.4 H Plt Count 175 Seg Neutrophils % Not Reportable Carbonic Acid HCO3/H2CO3 Ratio ABG pH ABG pCO2 ABG pO2 ABG HCO3 ABG O2 Saturation ABG Base Excess FiO2 Sodium 131.4 L Potassium 4.0 Chloride 98 Carbon Dioxide 27 Anion Gap 6 BUN 12 Creatinine 0.62 Est GFR ( Amer) > 60 Glucose 264 H Calcium 8.7 Phosphorus 2.8 Magnesium 2.1 Total Bilirubin 0.4 AST 16 Alkaline Phosphatase 75 Total Protein 5.9 L Albumin 3.1 L Triglycerides 93 TSH 11/04/19 11/04/19 03:55 06:55 WBC RBC Hgb Hct MCV MCH MCHC RDW Plt Count Seg Neutrophils % Carbonic Acid 1.20 HCO3/H2CO3 Ratio 20:1 ABG pH 7.41 ABG pCO2 40.0 ABG pO2 151.2 H ABG HCO3 24.8 H ABG O2 Saturation 99.0 H ABG Base Excess 0.2 FiO2 35% Sodium Potassium Chloride Carbon Dioxide Anion Gap BUN Creatinine Est GFR ( Amer) Glucose Calcium Phosphorus Magnesium Total Bilirubin AST Alkaline Phosphatase Total Protein Albumin Triglycerides TSH 0.42 L 11/03/19 02:20 Troponin I < 0.012 NT-Pro-B Natriuret Pep 741 H Impressions: Chest X-Ray 11/04/19 06:00 IMPRESSION: Improving aeration of the right lung base. All labs, radiographs, diagnostic studies and EKGs were personally reviewed: Yes In addition, reports of radiographic and diagnostic studies were read: Yes Assessment and Plan - Diagnosis (1) Sepsis with acute hypoxic respiratory failure and septic shock Qualifiers: Sepsis type: sepsis due to unspecified organism Qualified Code(s): A41.9 - Sepsis, unspecified organism; R65.21 - Severe sepsis with septic shock; J96.01 - Acute respiratory failure with hypoxia Is this a current diagnosis for this admission?: Yes Plan: Improved (2) Acute respiratory failure with hypoxia and hypercapnia Is this a current diagnosis for this admission?: Yes Plan: Improved we will moved to liberate from mechanical ventilation (3) Community acquired pneumonia of right middle lobe of lung Is this a current diagnosis for this admission?: Yes Plan: Improved x-ray (4) Protein-calorie malnutrition, moderate Is this a current diagnosis for this admission?: Yes Plan: As evidenced by bitemporal muscle wasting, scaphoid appearance of the abdomen and generalized deconditioning. (5) Adult failure to thrive syndrome Is this a current diagnosis for this admission?: Yes Plan: Longstanding and present prior to admission. Have tried to contact daughter and have involved case management. (6) COPD exacerbation Is this a current diagnosis for this admission?: Yes (7) Acute encephalopathy Is this a current diagnosis for this admission?: Yes Plan: Resolved. Supportive care (8) Anemia, normocytic normochromic Is this a current diagnosis for this admission?: Yes (9) Chronic back pain Qualifiers: Back pain location: low back pain Back pain laterality: bilateral Sciati ca presence: without sciatica Qualified Code(s): M54.5 - Low back pain; G89.29 - Other chronic pain Is this a current diagnosis for this admission?: Yes (10) Cirrhosis Qualifiers: Hepatic cirrhosis type: alcoholic cirrhosis Is this a current diagnosis for this admission?: Yes (11) Pulmonary hypertension Is this a current diagnosis for this admission?: Yes Plan Summary: 6.13.2020: Respiratory: Patient has improved from the respiratory status. She does have oxygen dependent COPD and appears to have had a right middle lobe and lower lobe pneumonia which is improved on x-ray. We will continue Rocephin and azithromycin for at least 5 days. Patient will need outpatient COPD therapy but for now will continue on DuoNeb and IV steroids. Steroids have been reduced in dosage and should be discontinued after 4 days. Patient does have pulmonary hypertension which contributes to long-term complications and sequelae. She will need further antismoking counseling once extubated Infectious: Still awaiting COVID testing. However given her rapid improvement in x-ray and rapid improvement in overall findings and her clinical exam this does not appear to be a COVID related illness. We will still maintain her in a negative airflow room and to have positive confirmation. Awaiting Gram stain, cultures and viral PCR studies. Continue antibiotics for at least 5 days Cardiac: No active issues. She was hypotensive related to her sepsis on admission but this is now improved. Hematologic: Has baseline anemia and appeared to be hemoconcentrated on admissio n. Iron and ferritin studies would be ill advised during active infection phase but should be monitored prior to discharge from hospital. No need for any active transfusion or therapy at this time. Endocrine: Patient has low TSH. Have ordered free T4 and T3 as well as repeat TSH. Renal: No active issues related to reduced GFR. No active renal failure. Metabolic: Continue to monitor for electrolyte abnormalities. She is deconditioned both physically and nutritionally and will need to be mindful of any refeeding syndromes. Alimentary: Patient has been placed on tube feeds. She will need nutritional support and follow-up. Vigilance for refeeding syndromes will need to be maintained Neurologic: Patient has physical deconditioning present prior to admission with failure to thrive. Have enlisted the help of case management and will need nutritional support as well as 24-hour calorie count when she is liberated from mechanical ventilation. Patient does have a history of alcohol use and will need to watch for any withdrawal type symptoms. She also significant tobacco use history. Sedation: Propofol being weaned and fentanyl discontinued Lines/Tubes: Peripheral IV accessno central or arterial access Other: Made a call to medical power of oracle architect, daughter Doris. No contact made but have left a message. Addendum: Patient met suitability for liberation from mechanical ventilation and she was successfully extubated without difficulty. She is currently on 2 L nasal cannula. We will continue to monitor and updated notify family. Critical Time Critical Time (minutes): 60 Level of Care: ICU -: 1. The care of a critical patient is a dynamic process. This note is a rep resentative synopsis but static in nature. The timeframe for treatments given in order is not necessarily the actual time these treatments may have been done. 2. This patient requires critical care secondary to ongoing requirements for therapy not offered or safe outside the critical care environment. Transfer to a lower level of care will result in altered life or limb morbidity and mortality. 3. Multidisciplinary rounds completed. 4. ABCDE bundle addressed.
[2019-11-04] MEDS: THIAMINE HCL 500 MG in NORMAL SALINE 250 ML IV SCH ×2 (10:31→21:36)
[2019-11-04] MEDS: CEFTRIAXONE 2 GM/D5W RTU 2 GM/50 ML RTUPB IV SCH (10:31)
[2019-11-04] MEDS: OXYCODONE HCL IR 5 MG TABLET PO SCH ×4 (10:32→21:37)
[2019-11-04] MEDS: BUPROPION HCL 75 MG TABLET PO SCH ×2 (10:33→21:37)
[2019-11-04] MEDS ORDERED: AZITHROMYCIN 500 MG in DEXTROSE 5%-WATER 250 ML IV SCH (11:00)
[2019-11-04] MEDS ORDERED: GLUCAGON,HUMAN RECOMB 1 MG INJ IM PRN (11:44)
[2019-11-04] MEDS ORDERED: DEXTROSE 40% GEL 15 GM TUBE PO PRN ×2 (11:44)
[2019-11-04] MEDS ORDERED: DEXTROSE 50%-WATER 25 GM/50 ML DISP.SYRIN IV PRN ×2 (11:44)
[2019-11-04] MEDS: INSULIN REG, HUMAN 100 UNIT/ML 3 ML VIAL (PYX) SUBCUT SCH ×2 (12:58→17:53)
[2019-11-04] MEDS: PAROXETINE HCL 20 MG TABLET PO SCH (21:39)
[2019-11-05] MEDS: IPRATROPIUM/ALBUTEROL 0.5-2.5 MG/3 ML AMPUL NEB SCH ×4 (02:11→20:59)
[2019-11-05] MEDS ORDERED: OXYCODONE HCL IR 5 MG TABLET PO ONE (04:44)
[2019-11-05 05:00] LABS: ABSOLUTE LYMPHOCYTES (AUTO) 0.3 10^3/uL (0.5-4.7); ABSOLUTE MONOCYTES (AUTO) 0.4 10^3/uL (0.1-1.4); ABSOLUTE NEUT (AUTO) 5.2 10^3/uL (1.7-8.2); BASOPHILS % (AUTO) 0.1 % (0-2); HEMATOCRIT 28.9 % (36.0-47.0); HEMOGLOBIN 9.8 g/dL (12.0-15.5); LYMPHOCYTES % (AUTO) 5.5 % (13-45); MEAN CORPUSCULAR VOLUME 85 fl (80-97); MONOCYTES % (AUTO) 7.4 % (3-13); PLATELET COUNT 197 10^3/uL (150-450); RED BLOOD COUNT 3.38 10^6/uL (3.72-5.28); RED CELL DISTRIBUTION WIDTH 14.7 % (11.5-14.0); TOTAL CELLS COUNTED % (AUTO) 100 %
[2019-11-05 05:29] LABS: BLOOD UREA NITROGEN 13 mg/dL (7-20); CALCIUM 8.8 mg/dL (8.4-10.2); GLUCOSE 95 mg/dL (75-110); POTASSIUM 4.4 mmol/L (3.6-5.0)
[2019-11-05 05:34] LABS: ANION GAP 5 (5-19); CARBON DIOXIDE 27 mmol/L (22-30); CHLORIDE 103 mmol/L (98-107)
[2019-11-05] MEDS: BUSPIRONE HCL 10 MG TABLET PO SCH ×3 (05:34→21:10)
[2019-11-05] MEDS: HEPARIN SOD (PORCINE) 5,000 UNIT/ML 1 ML VIAL SUBCUT SCH ×3 (05:35→21:10)
[2019-11-05] MEDS: METHYLPREDNISOLONE INJ 40 MG/1 ML SDV IV SCH (05:35)
[2019-11-05 05:37] LABS: FREE T3 2.56 pg/mL (2.77-5.27); FREE T4 (FREE THYROXINE) 1.28 ng/dL (0.78-2.19)
[2019-11-05 05:51] LABS: THYROID STIMULATING HORMONE 0.38 uIU/mL (0.47-4.68)
--- NOTE | 2019-11-05 06:38 | RADIOLOGY REPORT (SQ) ---
EXAM DESCRIPTION: XR CHEST 1 VIEW COMPLETED DATE/TME: 11/05/2019 06:00 CLINICAL HISTORY: 64 years, Female, Respiratory Failure COMPARISON: 11/04/2019 chest NUMBER OF VIEWS: 1 TECHNIQUE: Portable chest LIMITATIONS: None. FINDINGS: Heart size normal. Interval extubation and removal of the enteric tube. Underlying COPD. Persistent right perihilar airspace opacity. Small right pleural effusion and suspected tiny left effusion as well. Subsegmental atelectasis left lung base. No pneumothorax. IMPRESSION: Extubation and removal of the enteric tube. Small bibasilar effusions. Persistent right perihilar airspace opacity copyright 2010 [employer]- All Rights Reserved
[2019-11-05] MEDS ORDERED: NICOTINE 7 MG/24 HR PATCH.TD24 TD ONE (07:39)
[2019-11-05] MEDS: INSULIN REG, HUMAN 100 UNIT/ML 3 ML VIAL (PYX) SUBCUT SCH ×3 (07:43→12:39)
--- NOTE | 2019-11-05 07:45 | PDOC CRITICAL CARE PROG REPORT ---
General Date:: 11/05/19 ICU Day:: 3 Hospital Day:: 3 Resuscitation Status: Full Code Medical Power of Area Field Worker: Doris Loza, Daughter Events in the past 12 to 24 Hours:: 11.05.2019: Patient was successfully extubated yesterday and has had no hypoxia following. In fact, she has not even used nasal cannula oxygen. Chest x-ray shows dramatic improvement as well. 11.04.2019: Patient has had significant improvement in overall status. Rounds this morning she was placed on SBT and did require significant sedation for agitation. She has been hemodynamically labile and now off vasopressor therapy. She was started on nutritional support given her emaciated state on admission. ABGs have improved as well. Review of systems relevant to events:: 11.05.2019: Hemodynamics have been non-labile. COVID 19 testing is negative. No significant abnormalities in laboratory data. Glucose has been slightly elevated but improved with reduction in steroids. Cultures are still pending and Gram stain has not shown any growth 11.04.2019: Significant improvement in chest x-ray. COVID testing is still pending and she has been maintained in a negative airflow room. No elevated pressures on the ventilator and she is tolerating pressure support wean. Cultures still pending from tracheal specimens and Gram stain's are still pending Reason for ICU Addmission:: Acute on Chronic Respiratory Failure - Medications: Vasopressors:: Now weaned off Sedation:: None Physical Exam Vital Signs: Temp Pulse Resp BP Pulse Ox 99.7 F 110 H 21 H 137/73 H 95 11/04/19 15:00 11/05/19 02:11 11/05/19 07:00 11/05/19 06:32 11/05/19 07:00 Intake & Output 11/04/19 11/05/19 11/06/19 06:59 06:59 06:59 Intake Total 1190 1995 Output Total 927 1965 Balance 265 -730 Weight 48.7 kg 48.2 kg Weight/Height Weight 48.2 kg Height 5 ft 2 in General appearance: PRESENT: no acute distress, thin Exam: Pleasant, not intubated, nontoxic older appearing 64-year-old white female in no acute distress. She is awake alert and oriented to time place and situation Eye exam: PRESENT: conjunctiva pink, EOMI, PERRLA. ABSENT: conjunctival injection, nystagmus, scleral icterus Mouth exam: PRESENT: moist, neck supple, tongue midline Teeth exam: PRESENT: edentulous Neck exam: ABSENT: carotid bruit, JVD, lymphadenopathy, thyromegaly, tracheal deviation Respiratory exam: PRESENT: clear to auscultation madhavi, unlabored, other - Has increased AP to lateral diameter with stigmata of emphysema. ABSENT: accessory muscle use, rales, rhonchi, tachypnea, wheezes Cardiovascular exam: PRESENT: RRR, +S1, +S2. ABSENT: clicks Pulses: PRESENT: normal dorsalis pedis pul Vascular exam: PRESENT: normal capillary refill. ABSENT: pallor GI/Abdominal exam: PRESENT: normal bowel sounds, soft. ABSENT: ascites, distended, guarding, mass, organolmegaly, rebound, tenderness Rectal exam: PRESENT: deferred Gentrourinary exam: ABSENT: indwelling catheter Extremities exam: ABSENT: pedal edema, tenderness Musculoskeletal exam: PRESENT: ambulatory. ABSENT: deformity, dislocation Neurological exam: PRESENT: alert, awake, oriented to person, oriented to place, oriented to time, oriented to situation, CN II-XII grossly intact. ABSENT: motor sensory deficit Psychiatric exam: PRESENT: appropriate affect, normal mood Focused psych exam: ABSENT: pressured speech, psychomotor agitation, restlessness Skin exam: PRESENT: dry, intact, normal color, warm. ABSENT: cyanosis, mottled, rash Tubes/Lines: ABSENT: Endotracheal Tube, Chest Tube, Central Line, Arterial Catheter, Dialysis catheter, Peg Tube, Nasogastic Tube, Other Laboratory/Radiographs Laboratory Results: 11/05/19 04:37 11/05/19 04:37 11/04/19 11/05/19 11/05/19 06:55 04:37 04:37 WBC 6.0 RBC 3.38 L Hgb 9.8 L Hct 28.9 L MCV 85 MCH 29.0 MCHC 34.0 RDW 14.7 H Plt Count 197 Seg Neutrophils % 87.0 H Carbonic Acid 1.20 HCO3/H2CO3 Ratio 20:1 ABG pH 7.41 ABG pCO2 40.0 ABG pO2 151.2 H ABG HCO3 24.8 H ABG O2 Saturation 99.0 H ABG Base Excess 0.2 FiO2 35% Sodium 134.8 L Potassium 4.4 Chloride 103 Carbon Dioxide 27 Anion Gap 5 BUN 13 Creatinine 0.61 Est GFR ( Amer) > 60 Glucose 95 Calcium 8.8 Phosphorus 3.0 Magnesium 2.0 TSH Free T4 Free T3 pg/mL 11/05/19 04:37 WBC RBC Hgb Hct MCV MCH MCHC RDW Plt Count Seg Neutrophils % Carbonic Acid HCO3/H2CO3 Ratio ABG pH ABG pCO2 ABG pO2 ABG HCO3 ABG O2 Saturation ABG Base Excess FiO2 Sodium Potassium Chloride Carbon Dioxide Anion Gap BUN Creatinine Est GFR ( Amer) Glucose Calcium Phosphorus Magnesium TSH 0.38 L Free T4 1.28 Free T3 pg/mL 2.56 L 11/03/19 02:20 Troponin I < 0.012 NT-Pro-B Natriuret Pep 741 H Impressions: Chest X-Ray 11/05/19 06:00 IMPRESSION: Extubation and removal of the enteric tube. Small bibasilar effusions. Persistent right perihilar airspace opacity copyright 2010 [employer]- All Rights Reserved All labs, radiographs, diagnostic studies and EKGs were personally reviewed: Yes In addition, reports of radiographic and diagnostic studies were read: Yes Assessment and Plan - Diagnosis (1) Sepsis with acute hypoxic respiratory failure and septic shock Qualifiers: Sepsis type: sepsis due to unspecified organism Qualified Code(s): A41.9 - Sepsis, unspecified organism; R65.21 - Severe sepsis with septic shock; J96.01 - Acute respiratory failure with hypoxia Is this a current diagnosis for this admission?: Yes (2) Acute respiratory failure with hypoxia and hypercapnia Is this a current diagnosis for this admission?: Yes (3) Vaping-related disorder Is this a current diagnosis for this admission?: Yes (4) Community acquired pneumonia of right middle lobe of lung Is this a current diagnosis for this admission?: Yes (5) Protein-calorie malnutrition, moderate Is this a current diagnosis for this admission?: Yes (6) Adult failure to thrive syndrome Is this a current diagnosis for this admission?: Yes (7) COPD exacerbation Is this a current diagnosis for this admission?: Yes (8) Acute encephalopathy Is this a current diagnosis for this admission?: Yes (9) Anemia, normocytic normochromic Is this a current diagnosis for this admission?: Yes (10) Chronic back pain Qualifiers: Back pain location: low back pain Back pain laterality: bilateral Sciatica presence: without sciatica Qualified Code(s): M54.5 - Low back pain; G89.29 - Other chronic pain Is this a current diagnosis for this admission?: Yes (11) Cirrhosis Qualifiers: Hepatic cirrhosis type: alcoholic cirrhosis Is this a current diagnosis for this admission?: Yes (12) Pulmonary hypertension Is this a current diagnosis for this admission?: Yes Plan Summary: 11.05.2019: Respiratory: Patient's respiratory status has improved. Given her longstanding smoking history, vaping and secondary exposures she will need a follow-up CT sc an. This can be done as an outpatient. Would consider placing patient on Trelegy before discharge as long as her symptoms overall have improved. Have decreased steroids and will continue for 4 to 5 days. Patient is on nasal cannula oxygen intermittently at home. We had a long lengthy discussion about the use of vaping as well as cigarettes. She is disclosed that she has been vaping to improve her use of nicotine and is down to a 0.2 concentration. We are encouraged that she is attempting to improve her overall status and encouraged her to stop vaping and to find alternative forms for nicotine withdrawal. Have added a small dose nicotine patch to her medications. Infectious: Patient appeared to have pneumonia based on chest x-ray and findings. She has had a significant improvement and will continue antibiotics. In that procalcitonin's are latent in resulting we are unable to use this to de- escalate. She has done significantly well to warrant 5-day course of antibiotics. Of course this will need to be augmented throughout her hospital course if she appears to be worsening. Have changed from IV azithromycin to p.o. and of continued Rocephin at current dose. White count has improved and her HIV status is negative. COVID testing is negative as well. Cardiac: Hemodynamics have improved and she is no longer hypotensive. Now off vasopressor therapy her sepsis crisis has resolved Hematologic: Please see infectious above. White blood cell count has improved but this may be related to the use of steroids. She will need follow-up if her white count continues to be problematic. Endocrine: Patient has had some elevation in her glucose with steroid use. With the reduction in steroids this has improved. Hemoglobin A1c is 5.6 and not supportive of active diabetes. Renal: No active issues continue to monitor. Please note that creatinine elevation may be minor in this woman who is of thin emaciated stature. Metabolic: Continue to follow electrolytes with nutritional support Alimentary: Patient is on p.o. diet and tolerating well. She had good urine output with Joy removed. Neurologic: Encephalopathy has improved. No active neurological dysfunction. Will need physical therapy to assess needs Sedation: None Lines/Tubes: Peripheral IVs Joy has been removed Other: Anticipate being able to be discharged home in 48 hours 11.04.2019: Respiratory: Patient has improved from the respiratory status. She does have oxygen dependent COPD and appears to have had a right middle lobe and lower lobe pneumonia which is improved on x-ray. We will continue Rocephin and azithromycin for at least 5 days. Patient will need outpatient COPD therapy but for now will continue on DuoNeb and IV steroids. Steroids have been reduced in dosage and should be discontinued after 4 days. Patient does have pulmonary hypertension which contributes to long-term complications and sequelae. She will need further antismoking counseling once extubated Infectious: Still awaiting COVID testing. However given her rapid improvement in x-ray and rapid improvement in overall findings and her clinical exam this does not appear to be a COVID related illness. We will still maintain her in a negative airflow room and to have positive confirmation. Awaiting Gram stain, cultures and viral PCR studies. Continue antibiotics for at least 5 days Cardiac: No active issues. She was hypotensive related to her sepsis on admission but this is now improved. Hematologic: Has baseline anemia and appeared to be hemoconcentrated on admission. Iron and ferritin studies would be ill advised during active infection phase but should be monitored prior to discharge from hospital. No need for any active transfusion or therapy at this time. Endocrine: Patient has low TSH. Have ordered free T4 and T3 as well as repeat TSH. Renal: No active issues related to reduced GFR. No active renal failure. Metabolic: Continue to monitor for electrolyte abnormalities. She is deconditioned both physically and nutritionally and will need to be mindful of any refeeding syndromes. Alimentary: Patient has been placed on tube feeds. She will need nutritional support and follow-up. Vigilance for refeeding syndromes will need to be tito ntained Neurologic: Patient has physical deconditioning present prior to admission with failure to thrive. Have enlisted the help of case management and will need nutritional support as well as 24-hour calorie count when she is liberated from mechanical ventilation. Patient does have a history of alcohol use and will need to watch for any withdrawal type symptoms. She also significant tobacco use history. Sedation: Propofol being weaned and fentanyl discontinued Lines/Tubes: Peripheral IV accessno central or arterial access Other: Made a call to medical power of divorce attorney, daughter Doris. No contact made but have left a message. Addendum: Patient met suitability for liberation from mechanical ventilation and she was successfully extubated without difficulty. She is currently on 2 L nasal cannula. We will continue to monitor and updated notify family. Critical Time Critical Time (minutes): 0 - [id number] Level of Care: MEDICAL Anticipated discharge: Home with Homehealth Within: within 48 hours -: 1. The care of a critical patient is a dynamic process. This note is a group sales representative synopsis but static in nature. The timeframe for treatments given in order is not necessarily the actual time these treatments may have been done. 2. This patient requires critical care secondary to ongoing requirements for therapy not offered or safe outside the critical care environment. Transfer to a lower level of care will result in altered life or limb morbidity and mortality. 3. Multidisciplinary rounds completed. 4. ABCDE bundle addressed.
[2019-11-05] MEDS: FOLIC ACID 1 MG TABLET PO SCH (09:17)
[2019-11-05] MEDS: CHOLECALCIFEROL (D3) 1,000 UNIT (25 MCG) TABLET PO SCH (09:17)
[2019-11-05] MEDS: OXYCODONE HCL IR 5 MG TABLET PO SCH ×3 (09:17→17:08)
[2019-11-05] MEDS: BUPROPION HCL 75 MG TABLET PO SCH ×2 (09:17→21:11)
[2019-11-05] MEDS: CEFTRIAXONE 2 GM/D5W RTU 2 GM/50 ML RTUPB IV SCH (09:18)
[2019-11-05] MEDS: PREDNISOLONE SOD PHOS 15 MG/5 ML ORAL SYRING PO SCH ×2 (09:36→17:09)
[2019-11-05] MEDS ORDERED: AZITHROMYCIN 250 MG TABLET PO SCH (10:00)
[2019-11-05] MEDS: THIAMINE HCL 100 MG TABLET PO SCH (21:11)
[2019-11-05] MEDS: PAROXETINE HCL 20 MG TABLET PO SCH (21:11)
[2019-11-05] MEDS ORDERED: THIAMINE HCL 100 MG TABLET NG SCH (22:00)
[2019-11-06] MEDS: IPRATROPIUM/ALBUTEROL 0.5-2.5 MG/3 ML AMPUL NEB SCH ×2 (02:20→08:25)
[2019-11-06] MEDS: HEPARIN SOD (PORCINE) 5,000 UNIT/ML 1 ML VIAL SUBCUT SCH ×2 (05:02→13:31)
[2019-11-06] MEDS: BUSPIRONE HCL 10 MG TABLET PO SCH ×2 (05:03→13:30)
[2019-11-06] MEDS: OXYCODONE HCL IR 5 MG TABLET PO PRN ×3 (05:03→14:00)
[2019-11-06 05:18] LABS: ABSOLUTE LYMPHOCYTES (AUTO) 0.9 10^3/uL (0.5-4.7); ABSOLUTE MONOCYTES (AUTO) 0.5 10^3/uL (0.1-1.4); ABSOLUTE NEUT (AUTO) 4.5 10^3/uL (1.7-8.2); BASOPHILS % (AUTO) 0.4 % (0-2); EOSINOPHILS % (AUTO) 0.1 % (0-6); HEMATOCRIT 29.1 % (36.0-47.0); HEMOGLOBIN 9.9 g/dL (12.0-15.5); MEAN CORPUSCULAR HEMOGLOBIN 29.1 pg (27.0-33.4); MEAN CORPUSCULAR VOLUME 86 fl (80-97); MONOCYTES % (AUTO) 8.4 % (3-13); PLATELET COUNT 197 10^3/uL (150-450); RED CELL DISTRIBUTION WIDTH 14.4 % (11.5-14.0); SEGMENTED NEUTROPHILS % (AUTO) 75.1 % (42-78); TOTAL CELLS COUNTED % (AUTO) 100 %; WHITE BLOOD COUNT 5.9 10^3/uL (4.0-10.5)
[2019-11-06 05:40] LABS: ANION GAP 5 (5-19); BLOOD UREA NITROGEN 17 mg/dL (7-20); CALCIUM 8.7 mg/dL (8.4-10.2); CARBON DIOXIDE 30 mmol/L (22-30); CHLORIDE 101 mmol/L (98-107); GLUCOSE 88 mg/dL (75-110); PHOSPHORUS 3.7 mg/dL (2.5-4.5); POTASSIUM 4.1 mmol/L (3.6-5.0)
[2019-11-06] MEDS: THIAMINE HCL 100 MG TABLET PO SCH (09:58)
[2019-11-06] MEDS: FOLIC ACID 1 MG TABLET PO SCH (09:59)
[2019-11-06] MEDS: CHOLECALCIFEROL (D3) 1,000 UNIT (25 MCG) TABLET PO SCH (09:59)
[2019-11-06] MEDS ORDERED: DOXYCYCLINE HYCLATE 100 MG TABLET PO SCH (10:00)
[2019-11-06] MEDS: PREDNISOLONE SOD PHOS 15 MG/5 ML ORAL SYRING PO SCH (10:00)
[2019-11-06] MEDS: BUPROPION HCL 75 MG TABLET PO SCH (10:00)
[2019-11-06 15:52] VITALS: BP 144/77
--- NOTE | 2019-11-08 09:20 | PDOC DISCHARGE SUMMARY ---
Impression - Admit/DC Date/PCP Admission Date/Primary Care Provider: 11/03/19 03:45 JAYY ESCOBAR Discharge Date: 11/06/19 - Discharge Diagnosis (1) Sepsis with acute hypoxic respiratory failure and septic shock Is this a current diagnosis for this admission?: Yes (2) Streptococcal pneumonia Is this a current diagnosis for this admission?: Yes (3) Acute respiratory failure with hypoxia and hypercapnia Is this a current diagnosis for this admission?: Yes (4) Vaping-related disorder Is this a current diagnosis for this admission?: Yes (5) Community acquired pneumonia of right middle lobe of lung Is this a current diagnosis for this admission?: Yes (6) Protein-calorie malnutrition, moderate Is this a current diagnosis for this admission?: Yes (7) Adult failure to thrive syndrome Is this a current diagnosis for this admission?: Yes (8) COPD exacerbation Is this a current diagnosis for this admission?: Yes (9) Acute encephalopathy Is this a current diagnosis for this admission?: Yes (10) Anemia, normocytic normochromic Is this a current diagnosis for this admission?: Yes (11) Chronic back pain Is this a current diagnosis for this admission?: Yes (12) Cirrhosis Is this a current diagnosis for this admission?: Yes (13) Pulmonary hypertension Is this a current diagnosis for this admission?: Yes - Additional Information Resuscitation Status: Full Code Discharge Diet: As Tolerated Discharge Activity: Activity As Tolerated, Balance Activity w/Rest, No Driving, Energy Conservation, No Lifting Over 10 Pounds, No Lifting/Push/Pulling, Slowly Increase Activity, Other - Use oxygen as directed Referrals: JAYY ESCOBAR MD [Primary Care Provider] - Follow up as needed Prescriptions: Alprazolam 0.25 mg PO BIDP PRN #15 PRN Reason: Anxiety Bupropion HCl [Bupropion Xl] 150 mg PO QAM #30 cap Buspirone HCl 15 mg PO TID #60 tab Folic Acid [Folvite 1 mg Tablet] 1 mg PO DAILY #30 tablet Gabapentin [Neurontin 100 mg Capsule] 100 mg PO HSP PRN #30 PRN Reason: For Pain Oxycodone HCl [Oxy-Ir 5 mg Tablet] 5 mg PO QID #30 Paroxetine HCl [Paxil] 30 mg PO QHS #30 Prednisolone Sod Phosphate [Prelone Soln 15 mg/5 ml Oral Syring] 10 mg PO BID #5 soln.pk.ml Doxycycline Hyclate [Vibramycin 100 mg Tablet] 100 mg PO Q12 #10 tablet Cholecalciferol (Vitamin D3) [Vitamin D3 1000 Unit Tablet] 5,000 unit PO DAILY #30 tablet Home Medications: Alprazolam 0.25 mg PO BIDP PRN #15 11/06/19 Bupropion HCl [Bupropion Xl] 150 mg PO QAM #30 cap 11/06/19 Buspirone HCl 15 mg PO TID #60 tab 11/06/19 Cholecalciferol (Vitamin D3) [Vitamin D3 1000 Unit Tablet] 5,000 unit PO DAILY #30 tablet 11/06/19 Doxycycline Hyclate [Vibramycin 100 mg Tablet] 100 mg PO Q12 #10 tablet 11/06/19 Folic Acid [Folvite 1 mg Tablet] 1 mg PO DAILY #30 tablet 11/06/19 Gabapentin [Neurontin 100 mg Capsule] 100 mg PO HSP PRN #30 11/06/19 Oxycodone HCl [Oxy-Ir 5 mg Tablet] 5 mg PO QID #30 11/06/19 Paroxetine HCl [Paxil] 30 mg PO QHS #30 11/06/19 Prednisolone Sod Phosphate [Prelone Soln 15 mg/5 ml Oral Syring] 10 mg PO BID #5 soln.pk.ml 11/06/19 Additional Information: Take Doxycycline for 5 more days at 100 mg twice/day Use Trelegy daily Albuterol HFA as needed Follow up with Drs. Mario and Sharon History of Present Illiness History of Present Illness: ADY LOZA is a 64 year old female admitted 2019 for acute hypoxic and hypercarbic respiratory failure and a chest x-ray consistent with right middle lobe pneumonia. She required mechanical ventilation because of her respiratory and neurological status and was transferred to the ICU. She is a longstanding history of oxygen dependent COPD but has inconsistent use of oxygen and her medications. Hospital Course Hospital Course: Patient was admitted to the ICU was started on treatment for community-acquired pneumonia. She was maintained on mechanical ventilation and was able to be successfully weaned and liberated November 04, 2019 in the afternoon. She will disclose that she had been vaping with nicotine in an effort to reduce her use of cigarettes. She had some hypotension on admission which resolved with IV fluids and her sepsis presentation improved as well. She tolerated extubation and did not require nasal cannula oxygenation while in the ICU. Originally transfer to medical floor bed capacity precluded her being transferred and she was discharged home from the ICU. Physical Exam Vital Signs: Temp Pulse Resp BP Pulse Ox 97.9 F 104 H 18 165/93 H 96 11/06/19 05:10 11/06/19 05:10 11/06/19 05:10 11/06/19 05:10 11/06/19 05:10 Intake & Output 11/05/19 11/06/19 11/07/19 06:59 06:59 06:59 Intake Total 1994 740 Output Total 2725 1410 Balance -730 -670 Weight 48.2 kg 47.8 kg General appearance: PRESENT: no acute distress, thin Exam: Pleasant, nontoxic older appearing 64-year-old white female no acute distress. She is ambulating in her room without gait dysfunction or neurological dysfunction Head exam: PRESENT: atraumatic, normocephalic Eye exam: PRESENT: conjunctiva pink, EOMI, PERRLA. ABSENT: nystagmus, scleral icterus Ear exam: PRESENT: normal external ear exam Mouth exam: PRESENT: dry mucosa, neck supple, tongue midline Teeth exam: PRESENT: edentulous Neck exam: PRESENT: full ROM. ABSENT: JVD, lymphadenopathy, thyromegaly Respiratory exam: PRESENT: clear to auscultation madhavi, prolonged expiratory phas, unlabored, other - Increased AP to lateral diameter noted. ABSENT: accessory muscle use, rales, rhonchi, tachypnea, wheezes Cardiovascular exam: PRESENT: RRR, +S1, +S2. ABSENT: rubs Pulses: PRESENT: other - Diminished pedal pulses no active ischemia Vascular exam: PRESENT: normal capillary refill. ABSENT: pallor GI/Abdominal exam: PRESENT: normal bowel sounds, soft. ABSENT: ascites, distended, guarding, mass, organolmegaly, rebound, tenderness Rectal exam: PRESENT: deferred Gentrourinary exam: ABSENT: indwelling catheter Extremities exam: ABSENT: pedal edema, +1 edema Musculoskeletal exam: PRESENT: ambulatory, normal inspection. ABSENT: deformity, dislocation Neurological exam: PRESENT: alert, awake, oriented to person, oriented to place, oriented to time, oriented to situation, CN II-XII grossly intact, normal gait. ABSENT: motor sensory deficit Psychiatric exam: PRESENT: appropriate affect, normal mood Skin exam: PRESENT: dry, intact, warm. ABSENT: cyanosis, rash Results Laboratory Results: WBC 5.9 10^3/uL (4.0-10.5) 11/06/19 04:53 RBC 3.40 10^6/uL (3.72-5.28) L 11/06/19 04:53 Hgb 9.9 g/dL (12.0-15.5) L 11/06/19 04:53 Hct 29.1 % (36.0-47.0) L 11/06/19 04:53 MCV 86 fl (80-97) 11/06/19 04:53 MCH 29.1 pg (27.0-33.4) 11/06/19 04:53 MCHC 34.0 g/dL (32.0-36.0) 11/06/19 04:53 RDW 14.4 % (11.5-14.0) H 11/06/19 04:53 Plt Count 197 10^3/uL (150-450) 11/06/19 04:53 Lymph % (Auto) 16.0 % (13-45) 11/06/19 04:53 [place] % (Auto) 8.4 % (3-13) 11/06/19 04:53 Eos % (Auto) 0.1 % (0-6) 11/06/19 04:53 Baso % (Auto) 0.4 % (0-2) 11/06/19 04:53 Absolute Neuts (auto) 4.5 10^3/uL (1.7-8.2) 11/06/19 04:53 Absolute Lymphs (auto) 0.9 10^3/uL (0.5-4.7) 11/06/19 04:53 Absolute Monos (auto) 0.5 10^3/uL (0.1-1.4) 11/06/19 04:53 Absolute Eos (auto) 0.0 10^3/uL (0.0-0.6) 11/06/19 04:53 Absolute Basos (auto) 0.0 10^3/uL (0.0-0.2) 11/06/19 04:53 Total Counted 100 11/04/19 03:55 Seg Neutrophils % 75.1 % (42-78) 11/06/19 04:53 Seg Neuts % (Manual) 85 % (42-78) H 11/04/19 03:55 Band Neutrophils % 9 % (3-5) H 11/04/19 03:55 Lymphocytes % (Manual) 2 % (13-45) L 11/04/19 03:55 Monocytes % (Manual) 4 % (3-13) 11/04/19 03:55 Eosinophils % (Manual) 0 % (0-6) 11/04/19 03:55 Basophils % (Manual) 0 % (0-2) 11/04/19 03:55 Abs Neuts (Manual) 5.5 10^3/uL (1.7-8.2) 11/04/19 03:55 Abs Lymphs (Manual) 0.1 10^3/uL (0.5-4.7) L 11/04/19 03:55 Abs Monocytes (Manual) 0.2 10^3/uL (0.1-1.4) 11/04/19 03:55 Absolute Eos (Manual) 0.0 10^3/uL (0.0-0.6) 11/04/19 03:55 Abs Basophils (Manual) 0.0 10^3/uL (0.0-0.2) 11/04/19 03:55 Platelet Comment ADEQUATE 11/04/19 03:55 RBC Morph Comment NORMO-CYTIC/CHROMIC 11/04/19 03:55 PT 13.0 SEC (11.4-15.4) 11/03/19 02:20 INR 0.98 11/03/19 02:20 APTT 26.4 SEC (23.5-35.8) 11/03/19 02:20 Carbonic Acid 1.20 mmol/L (1.05-1.35) 11/04/19 06:55 HCO3/H2CO3 Ratio 20:1 11/04/19 06:55 ABG pH 7.41 (7.35-7.45) 11/04/19 06:55 ABG pCO2 40.0 mmHg (35-45) 11/04/19 06:55 ABG pO2 151.2 mmHg (80-100) H 11/04/19 06:55 ABG HCO3 24.8 mmol/L (20-24) H 11/04/19 06:55 ABG Total CO2 26.1 mmol/L (21-25) H 11/04/19 06:55 ABG O2 Saturation 99.0 % (94-98) H 11/04/19 06:55 ABG Base Excess 0.2 mmol/L 11/04/19 06:55 VBG pH 7.22 (7.30-7.42) L 11/03/19 02:20 VBG pCO2 82.7 mmHg (35-63) H* 11/03/19 02:20 VBG HCO3 33.2 mmol/L (20-32) H 11/03/19 02:20 VBG Base Excess 3.1 mmol/L 11/03/19 02:20 FiO2 35% 11/04/19 06:55 Sodium 136.3 mmol/L (137-145) L 11/06/19 04:53 Potassium 4.1 mmol/L (3.6-5.0) 11/06/19 04:53 Chloride 101 mmol/L (98-107) 11/06/19 04:53 Carbon Dioxide 30 mmol/L (22-30) 11/06/19 04:53 Anion Gap 5 (5-19) 11/06/19 04:53 BUN 17 mg/dL (7-20) 11/06/19 04:53 Creatinine 0.82 mg/dL (0.52-1.25) 11/06/19 04:53 Est GFR ( Amer) > 60 (>60) 11/06/19 04:53 Est GFR (MDRD) Non-Af > 60 (>60) 11/06/19 04:53 Glucose 88 mg/dL (75-110) 11/06/19 04:53 POC Glucose 144 mg/dL (70-110) H 11/04/19 17:51 Hemoglobin A1c % 5.9 % (4.7-6.0) 11/04/19 03:55 Lactic Acid 1.1 mmol/L (0.7-2.1) 11/03/19 02:20 Calcium 8.7 mg/dL (8.4-10.2) 11/06/19 04:53 Phosphorus 3.7 mg/dL (2.5-4.5) 11/06/19 04:53 Magnesium 1.8 mg/dL (1.6-2.3) 11/06/19 04:53 Total Bilirubin 0.4 mg/dL (0.2-1.3) 11/04/19 03:55 Direct Bilirubin 0.0 mg/dL (0.0-0.4) 11/04/19 03:55 Neonat Total Bilirubin Not Reportable 11/04/19 03:55 Neonat Direct Bilirubin Not Reportable 11/04/19 03:55 Neonat Indirect Bili Not Reportable 11/04/19 03:55 AST 16 U/L (14-36) 11/04/19 03:55 ALT 12 U/L (<35) 11/04/19 03:55 Alkaline Phosphatase 75 U/L (38-126) 11/04/19 03:55 Troponin I < 0.012 ng/mL 11/03/19 02:20 NT-Pro-B Natriuret Pep 741 pg/mL (<125) H 11/03/19 02:20 Total Protein 5.9 g/dL (6.3-8.2) L 11/04/19 03:55 Albumin 3.1 g/dL (3.5-5.0) L 11/04/19 03:55 Triglycerides 93 mg/dL (<150) 11/03/19 02:20 Vitamin D 25-Hydroxy < 12.8 ng/mL (14.7-68.3) L 11/04/19 03:55 TSH 0.38 uIU/mL (0.47-4.68) L 11/05/19 04:37 Free T4 1.28 ng/dL (0.78-2.19) 11/05/19 04:37 Free T3 pg/mL 2.56 pg/mL (2.77-5.27) L 11/05/19 04:37 COVID-19 Source NASOPHARYNGEAL 11/03/19 04:29 COVID-19 (MILEY) NOT DETECTED 11/03/19 04:29 HIV 1&2 Antibody NEGATIVE (NEGATIVE) 11/04/19 03:55 Blood Type A POSITIVE 11/03/19 04:30 Antibody Screen NEGATIVE 11/03/19 04:30 11/03/19 02:20 Troponin I < 0.012 NT-Pro-B Natriuret Pep 741 H 11/03/19 10:40 Gram Stain - Preliminary Tracheal Aspirate Sputum Culture - Preliminary Streptococcus Pneumoniae C.albicans/C.dubliniensis Impressions: Chest X-Ray 11/03/19 02:15 IMPRESSION: New right perihilar airspace opacities consistent with pneumonia. Endotracheal and enteric tubes are in place copyright 2010 [employer]- All Rights Reserved Chest X-Ray 11/04/19 06:00 IMPRESSION: Improving aeration of the right lung base. Chest X-Ray 11/05/19 06:00 IMPRESSION: Extubation and removal of the enteric tube. Small bibasilar effusions. Persistent right perihilar airspace opacity copyright 2010 [employer]- All Rights Reserved Plan Health Concerns: Patient has history of COPD and longstanding tobacco use. Follow-up items will need to include outpatient CT scan for evaluation for malignancy. Continue nicotine patch in an effort to reduce vaping. Extensive counseling carried out regarding the use of vaping and nicotine products Patient has chronic back pain and anxiety which has been well controlled with her current medication. She will need follow-up with her lung doctor Dr. Mario and her family doctor. Of significant concern is her social issues. Her daughter Doris Loza has been concerned about the patient's cohabitation with a younger man who may not be assisting in this patient's care. Case management has been involved to assist. For her COPD I have elected to place her on Trelegy and she will be on as needed short acting beta agonist therapy. She will be on steroids for 2 more days. She has strep pneumonia and her sputum cultures and will continue doxycycline for 5 more days. She is to follow-up as noted above. Called and left a message with Dr. Escobar Critical Time: 0 - [id number] Level of Care: MEDICAL Stroke Is this a Stroke Patient?: No Acute Heart Failure - Is this a Heart Failure Patient?: No
== END 2019-11-06 16:18 | disposition home or self-care (01) | DRG 871 ==
LOC: ER 02:00 → EH 03:45 → ICU 05:56
PROVIDERS: ADMIT Anesthesiology; ATTEND Anesthesiology
PROC: 5A1945Z Respiratory Ventilation, 24-96 Consecutive Hours (ICD-10-PCS; principal; 2019-11-03)
DX: A41.9 Sepsis, unspecified organism (principal); J96.02 Acute respiratory failure with hypercapnia; J96.01 Acute respiratory failure with hypoxia; J13 Pneumonia due to Streptococcus pneumoniae; R65.21 Severe sepsis with septic shock; J44.1 Chronic obstructive pulmonary disease with (acute) exacerbation; I50.32 Chronic diastolic (congestive) heart failure; D61.818 Other pancytopenia; Z68.1 Body mass index [BMI] 19.9 or less, adult; E44.0 Moderate protein-calorie malnutrition; G93.40 Encephalopathy, unspecified; I11.0 Hypertensive heart disease with heart failure; R62.7 Adult failure to thrive; I27.20 Pulmonary hypertension, unspecified; D64.9 Anemia, unspecified; U07.0 Vaping-related disorder; K70.30 Alcoholic cirrhosis of liver without ascites; B19.20 Unspecified viral hepatitis C without hepatic coma; K21.9 Gastro-esophageal reflux disease without esophagitis; F41.8 Other specified anxiety disorders; F17.200 Nicotine dependence, unspecified, uncomplicated; Z99.81 Dependence on supplemental oxygen; Z03.818 Encounter for observation for suspected exposure to other biological agents ruled out; Z79.51 Long term (current) use of inhaled steroids; Z79.899 Other long term (current) drug therapy; Z71.6 Tobacco abuse counseling
CPT/HCPCS: 36415; 51702; 71045; 80048; 80053; 82306; 82652; 82803; 82962; 83036; 83605; 83735; 83880; 84100; 84439; 84443; 84478; 84481; 84484; 85025; 85610; 85730; 86701; 86850; 86900; 86901; 87040; 87070; 87077; 87205; 87252; 87635; 93005; 93010; 94002; 94003; 94799; 99221; 99238; 99285; 99291; 99292; C9803; J0456; J0696; J1644; J1956; J2250; J2704; J2920; J3010; J3411; J3490; J7050; J7060; J7510; J7620

== ENCOUNTER 2019-12-18 17:36 | Emergency (ER) | payer MEDICAID ==
[2019-12-18] MEDS ORDERED: NALOXONE HCL INJ 2 MG/2 ML DISP.SYRIN ONE (17:40)
[2019-12-18] MEDS ORDERED: NALOXONE HCL INJ 2 MG/2 ML DISP.SYRIN IV ONE (17:46)
[2019-12-18] MEDS ORDERED: NORMAL SALINE 1000 ML 1,000 ML IV ONE (17:50)
--- NOTE | 2019-12-18 17:57 | ER Document Report ---
ED General - General Chief Complaint: Unresponsive Stated Complaint: UNRESPONSIVE Time Seen by Provider: 12/18/19 17:46 Primary Care Provider: JAYY ESCOBAR MD [Primary Care Provider] - Follow up as needed TRAVEL OUTSIDE OF THE [place] IN LAST 30 DAYS: No - HPI Notes: Chief complaint: Altered mental status, breathing problems and hypotension History of present illness: 64-year-old female with history of COPD, chronic respiratory failure, chronic pain syndrome and cirrhosis transported here via EMS after family called them for altered mental status when she "did not wake up properly" from afternoon nap. Patient was noted to be hypotensive in the field with a pressure of 80 over palp. She was initially hypoxemic. Blood sugar by fingerstick was 105. EMS DID NOT ADMINISTER NARCAN IN THE FIELD. They gave 250 cc of normal saline IV during transport and no other intervention was rendered. Patient is followed by Dr. Jayy Escobar. She has history of COPD with ongoing smoking/vaping. She has a history of cirrhosis. She has a history of chronic pain syndrome and is on narcotic analgesics at home. Patient was hospitalized here last month in the ICU with pneumonia, respiratory failure and metabolic encephalopathy. Patient required intubation and mechanical ventilation during that admission. Medications at the time of discharge from recent hospitalization included: Alprazolam 0.25 mg PO BIDP PRN #15 PRN Reason: Anxiety Bupropion HCl [Bupropion Xl] 150 mg PO QAM #30 cap Buspirone HCl 15 mg PO TID #60 tab Folic Acid [Folvite 1 mg Tablet] 1 mg PO DAILY #30 tablet Gabapentin [Neurontin 100 mg Capsule] 100 mg PO HSP PRN #30 PRN Reason: For Pain Oxycodone HCl [Oxy-Ir 5 mg Tablet] 5 mg PO QID #30 Paroxetine HCl [Paxil] 30 mg PO QHS #30 Prednisolone Sod Phosphate [Prelone Soln 15 mg/5 ml Oral Syring] 10 mg PO BID #5 soln.pk.ml Doxycycline Hyclate [Vibramycin 100 mg Tablet] 100 mg PO Q12 #10 tablet Cholecalciferol (Vitamin D3) [Vitamin D3 1000 Unit Tablet] 5,000 unit PO DAILY #30 tablet - Related Data Allergies/Adverse Reactions: acetaminophen [From Tylenol] Allergy (Mild, Verified 12/18/19 18:16) GI upset Past Medical History - General Information source: [facility] Records Cannot obtain history due to: Altered mental status - Social History Smoking Status: Current Every Day Smoker Family History: DM, Other - unable 2/2 pt status - Past Medical History Cardiac Medical History: Reports: Hx Congestive Heart Failure - Diastolic, Hx Hypertension Denies: Hx Atrial Fibrillation, Hx Coronary Artery Disease, Hx Heart Attack, Hx Hypercholesterolemia Pulmonary Medical History: Reports: Hx COPD, Hx Pneumonia, Hx Respiratory Failure Denies: Hx Asthma Neurological Medical History: Denies: Hx Seizures Endocrine Medical History: Denies: Hx Diabetes Mellitus Type 1, Hx Diabetes Mellitus Type 2, Hx Hyperthyroidism, Hx Hypothyroidism Renal/ Medical History: Denies: Hx Peritoneal Dialysis GI Medical History: Reports: Hx Cirrhosis, Hx Gastroesophageal Reflux Disease, Hx Hepatitis - Hepatitis C, Hx Liver Failure. Denies: Hx Crohn's Disease, Hx Ulcerative Colitis Musculoskeletal Medical History: Denies Hx Arthritis, Denies Hx Gout, Reports Hx Musculoskeletal Deformity, Reports Hx Musculoskeletal Trauma Skin Medical History: Denies Hx Eczema, Denies Hx Psoriasis Psychiatric Medical History: Reports: Hx Anxiety, Hx Depression Infectious Medical History: Reports: Hx Hepatitis - Hepatitis C Past Surgical History: Reports: Hx Section, Hx Cholecystectomy, Hx Gynecologic Surgery - ovarian wedge., Hx Orthopedic Surgery - carpel tunnel, Hx Tonsillectomy, Other - Unable to obtain at this time since the patient is intubated and sedated.. Denies: Hx Hysterectomy - Immunizations Immunizations up to date: Yes Hx Diphtheria, Pertussis, Tetanus Vaccination: Yes Review of Systems - Review of Systems -: Yes ROS unobtainable due to patient's medical condition Physical Exam - Vital signs Vitals: Resp BP Pulse Ox 18 135/60 H 98 12/18/19 17:42 12/18/19 17:42 12/18/19 17:42 - Notes Notes: GENERAL: Frail chronically appearing elderly female minimally responsive to loud verbal stimuli with shallow respirations. SKIN: Decreased turgor no rashes. HEAD: Normocephalic atraumatic. EYES: PERRLA. EOMI. Conjunctivae and sclerae clear. EARS: CANALS AND TMS CLEAR. NOSE: CLEAR. MOUTH: Dry oral mucosa. Good dentition. No stridor or edema. No drooling. Gag reflex intact. NECK: Supple. No masses or thyromegaly. No adenopathy. Carotids 2+ without bruits. No JVD. BACK: Symmetrical without tenderness. CHEST: Respirations are shallow. Clear and symmetrical with poor air entry. HEART: Regular rhythm. No murmur gallop or rub. ABDOMEN: Soft nontender without masses, organomegaly or rebound. Bowel sounds normally active. No bruits. Healed low midline scar present GENITALIA: Deferred. EXTREMITIES: Tender over right ankle area with no obvious deformity or swelling. No edema. No calf tenderness. Cap refill less than 1.5 seconds. Dorsalis pedis and posterior tibial pulses2+ and symmetrical. NEUROLOGICAL: Opens eyes to loud verbal stimuli. Squeezes my hand in response to verbal commands. Unintelligible speech. GCS 11. Moving all extremities symmetrically. PSYCHIATRIC: Appropriate affect. Course - Re-evaluation Re-evalutation: 12/18/19 21:57 Patient came in with depressed respirations and altered mental status and reported initial hypotension per EMS. Interestingly they have not administered any Narcan to her in the field. Her blood pressure prior to transport was 80 systolic. Her blood sugar in the field was 125. EMS gave 500 cc of normal saline. At time of arrival here she was somnolent with agonal respirations. I gave her dose of Narcan. She showed immediate improvement. She is remained stable since then. Further work-up here showed urine positive for opiates and she is prescribed oxycodone immediate release by pain management clinic. Her recent discharge summary from the hospital here shows that someone had also had her on a benzodiazepine. I think probably a combination of these medications is primarily responsible for her presentation today. She had a head CT which was negative here and no focal findings on her neurologic exam. Her chest x-ray is remarkable only for COPD. No new findings on her EKG. Her other complaint had to do with her ankle which she had twisted at home yesterday. X-rays showed no fracture or dislocation although she does have some advanced degenerative changes. There is no evidence of disruption of the Achilles tendon clinically. I have placed her in an ankle stirrup and we have provided crutches for her. I talked with her about her pain medicines told her that she needs to be very careful about these and I suggest immediate follow-up with her pain management clinic. 12/18/19 22:03 Findings, clinical impression and plan of treatment have been discussed with patient/family. Understanding of current findings and recommendations has been acknowledged by them and there is agreement regarding disposition and follow-up. - Vital Signs Vital signs: Temp Pulse Resp BP Pulse Ox 97.8 F 18 139/82 H 95 12/18/19 17:45 12/18/19 21:01 12/18/19 21:00 12/18/19 21:01 - Laboratory Result Diagrams: 12/18/19 17:56 12/18/19 17:56 Laboratory results interpreted by me: 12/18/19 12/18/19 12/18/19 17:56 17:56 18:02 Hgb 11.6 L Hct 35.3 L RDW 15.1 H Carbonic Acid 1.63 H ABG pCO2 54.3 H ABG pO2 75.5 L ABG HCO3 29.5 H ABG Total CO2 31.2 H Glucose 118 H Ammonia Salicylates < 1.0 L Acetaminophen < 10 L 12/18/19 21:00 Hgb Hct RDW Carbonic Acid ABG pCO2 ABG pO2 ABG HCO3 ABG Total CO2 Glucose Ammonia < 8.7 L Salicylates Acetaminophen - Diagnostic Test Radiology reviewed: Reports reviewed - Normal noncontrast head CT per radiologist. Per radiologist the chest x-ray shows findings consistent with COPD with no acute changes. - EKG Interpretation by Me Additional EKG results interpreted by me: 12/18/19 21:56 Twelve-lead EKG from 1754 hrs. was reviewed contemporaneously by me demonstrating a normal sinus rhythm with a rate of 92 and a QRS axis of -12 degrees. She has low voltage in frontal leads consistent with COPD. No acute ST/T wave changes are noted. Overall appearance is unchanged from earlier tracing of 11/03/2019. Indication for current study: Altered mental status. Procedures - Immobilization Right Ankle Time completed: 22:00 Pre-Proc Neuro Vasc Exam: Normal Immobilizer type: Ankle stirrup, Crutches Performed by: PCT Post-Proc Neuro Vasc Exam: Normal Critical Care Note - Critical Care Note Total time excluding time spent on procedures (mins): 35 - Altered mental status requiring administration of Narcan and set up for possible intubation Discharge - Discharge Clinical Impression: Accidental opiate overdose, Altered mental status, Acute respiratory failure with hypoxia and hypercarbia Chronic obstructive pulmonary disease (COPD) Qualifiers: COPD type: unspecified COPD Qualified Code(s): J44.9 - Chronic obstructive pulmonary disease, unspecified Condition: Stable Disposition: HOME, SELF-CARE Additional Instructions: Exercise caution with your pain medication as we have discussed. Use crutches and splint for your ankle. Follow-up with your primary care provider and your pain management doctor within the next 48 hours. Referrals: JAYY ESCOBAR MD [Primary Care Provider] - Follow up as needed
[2019-12-18 18:24] LABS: INTERNATIONAL RATION (INR) 1.05; PROTHROMBIN TIME 13.7 SEC (11.4-15.4)
[2019-12-18 18:25] LABS: ARTERIAL BLOOD BASE EXCESS 3.1 mmol/L; ARTERIAL BLOOD H2CO3 1.63 mmol/L (1.05-1.35); ARTERIAL BLOOD HCO3 29.5 mmol/L (20-24); ARTERIAL BLOOD O2 SATURATION 94.3 % (94-98); ARTERIAL BLOOD PCO2 54.3 mmHg (35-45); ARTERIAL BLOOD PH 7.35 (7.35-7.45); ARTERIAL BLOOD PO2 75.5 mmHg (80-100); ARTERIAL BLOOD TOTAL CO2 31.2 mmol/L (21-25)
[2019-12-18 18:25] LABS: PARTIAL THROMBOPLASTIN TIME 27.8 SEC (23.5-35.8)
[2019-12-18 18:27] LABS: ABSOLUTE EOSINOPHILS # (AUTO) 0.2 10^3/uL (0.0-0.6); ABSOLUTE LYMPHOCYTES (AUTO) 0.9 10^3/uL (0.5-4.7); ABSOLUTE MONOCYTES (AUTO) 0.6 10^3/uL (0.1-1.4); ABSOLUTE NEUT (AUTO) 4.5 10^3/uL (1.7-8.2); BASOPHILS % (AUTO) 0.3 % (0-2); EOSINOPHILS % (AUTO) 3.7 % (0-6); HEMATOCRIT 35.3 % (36.0-47.0); HEMOGLOBIN 11.6 g/dL (12.0-15.5); LYMPHOCYTES % (AUTO) 14.2 % (13-45); MEAN CORPUSCULAR HEMOGLOBIN 28.3 pg (27.0-33.4); MEAN CORPUSCULAR HGB CONC 32.7 g/dL (32.0-36.0); MEAN CORPUSCULAR VOLUME 86 fl (80-97); MONOCYTES % (AUTO) 10.3 % (3-13); PLATELET COUNT 221 10^3/uL (150-450); RED BLOOD COUNT 4.09 10^6/uL (3.72-5.28); RED CELL DISTRIBUTION WIDTH 15.1 % (11.5-14.0); SEGMENTED NEUTROPHILS % (AUTO) 71.5 % (42-78); TOTAL CELLS COUNTED % (AUTO) 100 %; WHITE BLOOD COUNT 6.3 10^3/uL (4.0-10.5)
[2019-12-18 18:32] LABS: ARTERIAL BLOOD FIO2 ROOM AIR
[2019-12-18 18:44] LABS: ALBUMIN 3.8 g/dL (3.5-5.0); ALKALINE PHOSPHATASE 92 U/L (38-126); ANION GAP 6 (5-19); ASPARTATE AMINO TRANSFERASE 23 U/L (14-36); BILIRUBIN,TOTAL 0.4 mg/dL (0.2-1.3); BLOOD UREA NITROGEN 9 mg/dL (7-20); CALCIUM 8.8 mg/dL (8.4-10.2); CARBON DIOXIDE 30 mmol/L (22-30); CHLORIDE 101 mmol/L (98-107); GLUCOSE 118 mg/dL (75-110); POTASSIUM 4.4 mmol/L (3.6-5.0); TOTAL PROTEIN 7.2 g/dL (6.3-8.2)
[2019-12-18 18:45] LABS: ACETAMINOPHEN < 10 ug/mL (10-30); SALICYLATE < 1.0 mg/dL (2.0-20.0)
--- NOTE | 2019-12-18 18:54 | RADIOLOGY REPORT (SQ) ---
EXAM DESCRIPTION: CT HEAD WITHOUT IMAGES COMPLETED DATE/TIME: 12/18/2019 6:17 pm REASON FOR STUDY: ams COMPARISON: 01/13/2019 TECHNIQUE: Axial images acquired through the brain without intravenous contrast. Images reviewed wi th bone, brain and subdural windows. Additional sagittal and coronal reconstructions were generated. Images stored on PACS. All CT scanners at this facility use dose modulation, iterative reconstruction, and/or weight based d osing when appropriate to reduce radiation dose to as low as reasonably achievable (ALARA). [facility]: Dose Right [facility]: CareDose [facility]: Dose Right [facility]: Teradose 4D [facility]: [employer] RADIATION DOSE: CT Rad equipment meets quality standard of care and radiation dose reduction techniq ues were employed. CTDIvol: 53.2 mGy. DLP: 964 mGy-cm. mGy. LIMITATIONS: None. FINDINGS: VENTRICLES: Normal size and contour. CEREBRUM: No masses. No hemorrhage. No midline shift. No evidence for acute infarction. Normal gra y/white matter differentiation. No areas of low density in the white matter. CEREBELLUM: No masses. No hemorrhage. No alteration of density. No evidence for acute infarction. EXTRAAXIAL SPACES: No fluid collections. No masses. ORBITS AND GLOBE: No intra- or extraconal masses. Normal contour of globe without masses. CALVARIUM: No fracture. PARANASAL SINUSES: No fluid or mucosal thickening. SOFT TISSUES: No mass or hematoma. OTHER: No other significant finding. IMPRESSION: NORMAL BRAIN CT WITHOUT CONTRAST. EVIDENCE OF ACUTE STROKE: NO. COMMENT: Quality ID # [id number]: Final reports with documentation of one or more dose reduction techniques (e.g., Automated exposure control, adjustment of the mA and/or kV according to patient size, use of iterative reconstruction technique) TECHNICAL DOCUMENTATION: JOB ID: [id number] 2010 [employer]- All Rights Reserved Reading location - IP/workstation name: [email or web address]
--- NOTE | 2019-12-18 18:57 | RADIOLOGY REPORT (SQ) ---
EXAM DESCRIPTION: CHEST SINGLE VIEW IMAGES COMPLETED DATE/TIME: 12/18/2019 6:22 pm REASON FOR STUDY: ams COMPARISON: 11/05/2019 EXAM PARAMETERS: NUMBER OF VIEWS: One view. TECHNIQUE: Single frontal radiographic view of the chest acquired. RADIATION DOSE: NA LIMITATIONS: None. FINDINGS: LUNGS AND PLEURA: Hyperexpansion of the lungs. No infiltrate, effusion, or mass. MEDIASTINUM AND HILAR STRUCTURES: No masses. Contour normal. HEART AND VASCULAR STRUCTURES: Heart normal in size. Normal vasculature. BONES: No acute findings. HARDWARE: None in the chest. OTHER: No other significant finding. IMPRESSION: Chronic lung changes with no acute cardiopulmonary findings. TECHNICAL DOCUMENTATION: JOB ID: [id number] 2010 [employer]- All Rights Reserved Reading location - IP/workstation name: [email or web address]
--- NOTE | 2019-12-18 19:01 | RADIOLOGY REPORT (SQ) ---
EXAM DESCRIPTION: FOOT RIGHT COMPLETE IMAGES COMPLETED DATE/TIME: 12/18/2019 6:22 pm REASON FOR STUDY: PAIN COMPARISON: None. NUMBER OF VIEWS: Three views. TECHNIQUE: AP, lateral and oblique radiographic images acquired of the right foot. LIMITATIONS: None. FINDINGS: MINERALIZATION: Normal. BONES: No acute fracture or dislocation. JOINTS: Marked severe degenerative changes at the first metatarsal phalangeal joint with subchondral sclerosis, joint space narrowing and osteophytosis. SOFT TISSUES: No soft tissue swelling. No foreign body. OTHER: No other significant finding. IMPRESSION: 1. 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 2. No acute osseous findings. TECHNICAL DOCUMENTATION: JOB ID: [id number] 2010 [employer]- All Rights Reserved Reading location - IP/workstation name: [email or web address]
--- NOTE | 2019-12-18 19:02 | RADIOLOGY REPORT (SQ) ---
EXAM DESCRIPTION: ANKLE RIGHT COMPLETE IMAGES COMPLETED DATE/TIME: 12/18/2019 6:22 pm REASON FOR STUDY: trauma COMPARISON: None. NUMBER OF VIEWS: Three views. TECHNIQUE: AP, lateral, and oblique radiographic images acquired of the right ankle. LIMITATIONS: None. FINDINGS: MINERALIZATION: Normal. BONES: No acute fracture or dislocation. No worrisome bone lesions. JOINTS: No effusions. SOFT TISSUES: No soft tissue swelling. No foreign body. OTHER: No other significant finding. IMPRESSION: 1. No acute osseous findings. TECHNICAL DOCUMENTATION: JOB ID: [id number] 2010 [employer]- All Rights Reserved Reading location - IP/workstation name: [email or web address] SURGICAL TECH/FIRST ASSISTANT-[email or web address]
--- NOTE | 2019-12-18 19:48 | EKG REPORT ---
SEVERITY:- OTHERWISE NORMAL ECG - SINUS RHYTHM LOW VOLTAGE IN FRONTAL LEADS : Confirmed by: Kelsey Ding MD 18-Dec-2019 19:47:29
[2019-12-18 20:34] LABS: APPEARANCE,URINE SLIGHTLY-CLOUDY; BILIRUBIN,URINE NEGATIVE (NEGATIVE); COLOR,URINE YELLOW; GLUCOSE, URINE NEGATIVE (NEGATIVE); KETONES,URINE NEGATIVE (NEGATIVE); PROTEIN,URINE NEGATIVE (NEGATIVE); URINE SPECIFIC GRAVITY 1.008; UROBILINOGEN,URINE NEGATIVE mg/dL (<2.0)
[2019-12-18 20:52] LABS: URINE AMPHETAMINES SCREEN NEGATIVE; URINE BARBITURATES SCREEN NEGATIVE; URINE COCAINE SCREEN NEGATIVE; URINE MARIJUANA (THC) SCREEN NEGATIVE; URINE METHADONE SCREEN NEGATIVE; URINE PHENCYCLIDINE SCREEN NEGATIVE
[2019-12-18 20:54] LABS: URINE BENZODIAZEPINES SCREEN UNCONFIRMED POSITIVE
[2019-12-18 23:34] VITALS: BP 151/97
== END 2019-12-19 09:10 | disposition home or self-care (01) ==
LOC: ER 17:36
PROC: 2W3QX1Z Immobilization of Right Lower Leg using Splint (ICD-10-PCS; principal; 2019-12-19)
DX: T40.601A Poisoning by unspecified narcotics, accidental (unintentional), initial encounter (principal); R41.82 Altered mental status, unspecified; J96.02 Acute respiratory failure with hypercapnia; J96.01 Acute respiratory failure with hypoxia; J44.9 Chronic obstructive pulmonary disease, unspecified; S99.911A Unspecified injury of right ankle, initial encounter; G89.4 Chronic pain syndrome; X50.1XXA Overexertion from prolonged static or awkward postures, initial encounter; Y92.009 Unspecified place in unspecified non-institutional (private) residence as the place of occurrence of the external cause; F17.290 Nicotine dependence, other tobacco product, uncomplicated; Z79.899 Other long term (current) drug therapy; Z88.8 Allergy status to other drugs, medicaments and biological substances; I11.0 Hypertensive heart disease with heart failure; I50.9 Heart failure, unspecified
CPT/HCPCS: 93005; 99291; 96360; 36415; 82962; 82140; 82803; 83735; 80307 ×3; 85025; 85610; 85730; 80053; 81001; 73610; 71045; 73630; 70450; 93010; 29515; J7030

== ENCOUNTER 2020-01-10 00:49 | Inpatient (IN) | payer MEDICAID ==
[2020-01-10 01:39] LABS: ALBUMIN 4.4 g/dL (3.5-5.0); ALKALINE PHOSPHATASE 131 U/L (38-126); ANION GAP 12 (5-19); ASPARTATE AMINO TRANSFERASE 68 U/L (14-36); BILIRUBIN,TOTAL 0.9 mg/dL (0.2-1.3); BLOOD UREA NITROGEN 12 mg/dL (7-20); CALCIUM 9.1 mg/dL (8.4-10.2); CARBON DIOXIDE 28 mmol/L (22-30); CHLORIDE 74 mmol/L (98-107); GLUCOSE 151 mg/dL (75-110); POTASSIUM 4.2 mmol/L (3.6-5.0); TOTAL PROTEIN 7.6 g/dL (6.3-8.2)
--- NOTE | 2020-01-10 01:46 | ER Document Report ---
ED Respiratory Problem - General Chief Complaint: Shortness Of Breath Stated Complaint: DIFFICULTY BREATHING Time Seen by Provider: 01/10/20 01:24 Primary Care Provider: JAYY ESCOBAR MD [Primary Care Provider] - Follow up as needed Cannot obtain history due to: Altered mental status Notes: Patient is unable to give me any history. Apparently called EMS for trouble breathing. Knows that she is in the hospital but cannot tell me the month or the year. Denies alcohol or drug use. Very poor historian. EMS gave her 1 albuterol treatment and Solu-Medrol prior to arrival. Per medical records, multiple admissions for respiratory distress and failure with history of COPD. TRAVEL OUTSIDE OF THE [place] IN LAST 30 DAYS: No - HPI Onset: Just prior to arrival Duration: Better Pain Level: Denies - Related Data Allergies/Adverse Reactions: acetaminophen [From Tylenol] Allergy (Mild, Verified 12/18/19 18:16) GI upset Home Medications: albuterol Past Medical History - General Cannot obtain history due to: Altered mental status - Social History Smoking Status: Former Smoker Frequency of alcohol use: None Drug Abuse: None Family History: DM, Other - unable 2/2 pt status - Past Medical History Cardiac Medical History: Reports: Hx Congestive Heart Failure - Diastolic, Hx Hypertension Denies: Hx Atrial Fibrillation, Hx Coronary Artery Disease, Hx Heart Attack, Hx Hypercholesterolemia Pulmonary Medical History: Reports: Hx COPD, Hx Pneumonia, Hx Respiratory Failure Denies: Hx Asthma Neurological Medical History: Denies: Hx Seizures Endocrine Medical History: Denies: Hx Diabetes Mellitus Type 1, Hx Diabetes Mellitus Type 2, Hx Hyperthyroidism, Hx Hypothyroidism Renal/ Medical History: Denies: Hx Peritoneal Dialysis GI Medical History: Reports: Hx Cirrhosis, Hx Gastroesophageal Reflux Disease, Hx Hepatitis - Hepatitis C, Hx Liver Failure. Denies: Hx Crohn's Disease, Hx Ulcerative Colitis Musculoskeletal Medical History: Denies Hx Arthritis, Denies Hx Gout, Reports Hx Musculoskeletal Deformity, Reports Hx Musculoskeletal Trauma Skin Medical History: Denies Hx Eczema, Denies Hx Psoriasis Psychiatric Medical History: Reports: Hx Anxiety, Hx Depression Infectious Medical History: Reports: Hx Hepatitis - Hepatitis C Past Surgical History: Reports: Hx Section, Hx Cholecystectomy, Hx Gynecologic Surgery - ovarian wedge., Hx Orthopedic Surgery - carpel tunnel, Hx Tonsillectomy, Other - Unable to obtain at this time since the patient is intubated and sedated.. Denies: Hx Hysterectomy - Immunizations Immunizations up to date: Yes Hx Diphtheria, Pertussis, Tetanus Vaccination: Yes Review of Systems - Review of Systems Constitutional: No symptoms reported EENT: No symptoms reported Cardiovascular: No symptoms reported Respiratory: See HPI Gastrointestinal: No symptoms reported Genitourinary: No symptoms reported Female Genitourinary: No symptoms reported Musculoskeletal: No symptoms reported Skin: No symptoms reported Hematologic/Lymphatic: No symptoms reported Neurological/Psychological: See HPI, Confusion Physical Exam - Vital signs Vitals: Temp 98.1 F 01/10/20 00:49 Interpretation: Normal - General General appearance: Alert - HEENT Head: Normocephalic, Atraumatic Eyes: Normal Pupils: PERRL Mucous membranes: Dry - Respiratory Respiratory status: No respiratory distress Chest status: Nontender Breath sounds: Wheezing Chest palpation: Normal - Cardiovascular Rhythm: Regular Heart sounds: Normal auscultation Murmur: No - Abdominal Inspection: Normal Distension: No distension Bowel sounds: Normal Tenderness: Nontender Organomegaly: No organomegaly - Back Back: Normal, Nontender - Extremities General upper extremity: Normal inspection, Nontender, Normal color, Normal ROM, Normal temperature General lower extremity: Normal inspection, Nontender, Normal color, Normal ROM, Normal temperature, Normal weight bearing. No: Angus's sign - Neurological Neuro grossly intact: No Cognition: Normal, Confused Orientation: Disoriented to time, Disoriented to events [place] Coma Scale Eye Opening: Spontaneous [place] Coma Scale Verbal: Confused [place] Coma Scale Motor: Localizes to Pain [place] Coma Scale Total: 13 Speech: Normal Motor strength normal: LUE, RUE, LLE, RLE Sensory: Normal - Psychological Associated symptoms: Confused, Restlessness - Skin Skin Temperature: Warm Skin Moisture: Dry Skin Color: Normal Course - Re-evaluation Re-evalutation: 01/10/20 02:56 Patient with sodium of 114 that has been confirmed on a repeat. Normal saline at a rate of 353 initiated for correction. Discussed with ICU and will be admitted there. Patient is unable to provide history. She is confused. Denies any new medications or drug use. - Vital Signs Vital signs: Temp Pulse Resp BP Pulse Ox 98.1 F 98 01/10/20 00:49 01/10/20 01:35 - Laboratory Result Diagrams: 01/10/20 01:10 08/19/20 02:15 Laboratory results interpreted by me: 01/10/20 01/10/20 01/10/20 01:10 01:27 02:15 Sodium 114.2 L* 114.0 L* Chloride 74 L 75 L Glucose 151 H 166 H AST 68 H Alkaline Phosphatase 131 H Urine Ketones TRACE H Urine Blood SMALL H Ur Leukocyte Esterase TRACE H Discharge - Discharge Clinical Impression: COPD exacerbation, Acute encephalopathy, Hyponatremia Condition: Stable Disposition: ADMITTED INPATIENT Admitting Provider: Aicha (Escalator Installer) Unit Admitted: ICU Prescriptions: Prednisone [Deltasone 20 mg Tablet] 2 tab PO DAILY 4 Days #8 tablet Ipratropium/Albuterol Sulfate [Duoneb 3 ml Ampul] 3 ml NEB [id number] PRN #30 vial.neb PRN Reason: Referrals: JAYY ESCOBAR MD [Primary Care Provider] - Follow up as needed
[2020-01-10 01:54] LABS: APPEARANCE,URINE CLOUDY; BILIRUBIN,URINE NEGATIVE (NEGATIVE); COLOR,URINE YELLOW; GLUCOSE, URINE NEGATIVE (NEGATIVE); KETONES,URINE TRACE mg/dL (NEGATIVE); LEUKOCYTE ESTERASE,URINE TRACE (NEGATIVE); NITRITE,URINE NEGATIVE (NEGATIVE); PROTEIN,URINE NEGATIVE (NEGATIVE); URINE SPECIFIC GRAVITY 1.011; UROBILINOGEN,URINE NEGATIVE mg/dL (<2.0)
[2020-01-10] MEDS ORDERED: SODIUM CHLORIDE IV ONE (01:57)
[2020-01-10 02:37] LABS: ANION GAP 13 (5-19); BLOOD UREA NITROGEN 12 mg/dL (7-20); CALCIUM 9.4 mg/dL (8.4-10.2); CARBON DIOXIDE 26 mmol/L (22-30); CHLORIDE 75 mmol/L (98-107); GLUCOSE 166 mg/dL (75-110); POTASSIUM 4.2 mmol/L (3.6-5.0)
[2020-01-10 02:43] LABS: HEMATOCRIT 30.7 % (36.0-47.0); HEMOGLOBIN 10.7 g/dL (12.0-15.5); MEAN CORPUSCULAR HGB CONC 34.8 g/dL (32.0-36.0); PLATELET COUNT 356 10^3/uL (150-450); RED BLOOD COUNT 3.81 10^6/uL (3.72-5.28); RED CELL DISTRIBUTION WIDTH 14.9 % (11.5-14.0); WHITE BLOOD COUNT 9.6 10^3/uL (4.0-10.5)
[2020-01-10] MEDS ORDERED: NORMAL SALINE 1000 ML 1,000 ML IV PRN ×2 (02:46→06:02)
[2020-01-10 02:55] LABS: MEAN CORPUSCULAR VOLUME 81 fl (80-97)
[2020-01-10] MEDS: IPRATROPIUM/ALBUTEROL 0.5-2.5 MG/3 ML AMPUL NEB SCH ×4 (03:01→20:45)
[2020-01-10 03:06] LABS: ABSOLUTE LYMPHOCYTES# (MANUAL) 0.6 10^3/uL (0.5-4.7); BASOPHILS % (MANUAL) 0 % (0-2); EOSINOPHILS % (MANUAL) 1 % (0-6); LYMPHOCYTES % (MANUAL) 6 % (13-45); MONOCYTES % (MANUAL) 0 % (3-13); SEGMENTED NEUTROPHILS % (MAN) 93 % (42-78); TOTAL CELLS COUNTED 100
[2020-01-10 03:08] LABS: PLATELET COMMENT ADEQUATE; TEAR DROP CELLS SLIGHT
[2020-01-10] MEDS ORDERED: METHYLPREDNISOLONE INJ 40 MG/1 ML SDV IV ONE (03:15)
[2020-01-10 03:33] LABS: URINE AMPHETAMINES SCREEN NEGATIVE; URINE BARBITURATES SCREEN NEGATIVE; URINE BENZODIAZEPINES SCREEN NEGATIVE; URINE COCAINE SCREEN NEGATIVE; URINE MARIJUANA (THC) SCREEN NEGATIVE; URINE METHADONE SCREEN NEGATIVE; URINE PHENCYCLIDINE SCREEN NEGATIVE
--- NOTE | 2020-01-10 03:35 | RADIOLOGY REPORT (SQ) ---
EXAM DESCRIPTION: XR CHEST 1 VIEW COMPLETED DATE/TME: 01/10/2020 00:55 CLINICAL HISTORY: 64 years, Female, SOB COMPARISON: December 18, 2019 NUMBER OF VIEWS: 1 TECHNIQUE: Portable AP upright view the chest was obtained. LIMITATIONS: None. FINDINGS: The heart size is normal. There is mild bibasilar atelectasis or scarring. Granulomatous calcifications are identified. Lungs are otherwise clear. Aortic calcifications are noted. There is no evidence of pleural effusion or pneumothorax. There is partial visualization of nonspecific bowel distention within the abdomen. IMPRESSION: No acute abnormality within the chest. There is partial visualization of abdominal distention, nonspecific. Abdominal series might be considered. copyright 2010 [employer]- All Rights Reserved
--- NOTE | 2020-01-10 03:40 | CRITICAL CARE ADMISSION REPORT ---
ISSA Date:: 01/10/20 Time:: 03:20 Reason for ICU Reason:: hyponatremia Admission Date/Time & PCP: Admission Date/Time: Primary Care Provider: JAYY ESCOBAR Admitted to ICU for hyponatremia AMS attending Dr. Holcomb HPI: A 64 year old white female [facility]. The patient is a poor historian and all information in this note comes from ER records. The patient called EMS for SOB and enroute to the ER she was given solumedrol and albuterol. The patient has had multiple admissions for COPD exacerbations. Upon arrival to the ED the patient was found to be hyponatremic with a sodium level of 114. Per the records there has been no seizure activity however the patient is very confused. Critical care was consulted for admission due to low sodium. I examined the patient in the ED however a complete review of systems was unable to obtain due to her confusion. History obtained from:: ER record/old records - Diagnosis/Plan (1) Acute encephalopathy Is this a current diagnosis for this admission?: Yes (2) Hyponatremia Is this a current diagnosis for this admission?: Yes (3) Chronic respiratory failure not affecting current episode of care Is this a current diagnosis for this admission?: No (4) Chronic diastolic heart failure Is this a current diagnosis for this admission?: No Past Medical History Cardiac Medical History: Reports: Congestive Heart Failure - Diastolic, Hypertension Denies: Atrial Fibrillation, Coronary Artery Disease, Myocardial Infarction, Hyperlipidema Pulmonary Medical History: Reports: Chronic Obstructive Pulmonary Disease (COPD), Pneumonia, Respiratory Failure Denies: Asthma Neurological Medical History: Denies: Seizures Endocrine Medical History: Denies: Diabetes Mellitus Type 1, Diabetes Mellitus Type 2, Hyperthyroidism, Hypothyroidism GI Medical History: Reports: Cirrhosis, Gastroesophageal Reflux Disease, Hepatitis - Hepatitis C Denies: Crohn's Disease, Ulcerative Colitis Musculoskeltal Medical History: Denies: Arthritis, Gout Skin Medical History: Denies: Eczema, Psoriasis Psychiatric Medical History: Reports: Depression, Tobacco Dependency Hematology: Reports: Anemia Denies: Bleeding Tendencies Past Surgical History Past Surgical History: Reports: Section, Cholecystectomy, Orthopedic Surgery - carpel tunnel, Tonsillectomy, Other - Unable to obtain at this time since the patient is intubated and sedated. Denies: Hysterectomy Social/Family History - Social History Lives with: Family Smoking Status: Former Smoker Frequency of Alcohol Use: None Hx Recreational Drug Use: No Drugs: None, Other Hx Prescription Drug Abuse: No - Medication/Allergies Home Medications: Alprazolam 0.25 mg PO BIDP PRN #15 11/06/19 Bupropion HCl [Bupropion Xl] 150 mg PO QAM #30 cap 11/06/19 Buspirone HCl 15 mg PO TID #60 tab 11/06/19 Cholecalciferol (Vitamin D3) [Vitamin D3 1000 Unit Tablet] 5,000 unit PO DAILY #30 tablet 11/06/19 Doxycycline Hyclate [Vibramycin 100 mg Tablet] 100 mg PO Q12 #10 tablet 11/06/19 Folic Acid [Folvite 1 mg Tablet] 1 mg PO DAILY #30 tablet 11/06/19 Gabapentin [Neurontin 100 mg Capsule] 100 mg PO HSP PRN #30 11/06/19 Oxycodone HCl [Oxy-Ir 5 mg Tablet] 5 mg PO QID #30 11/06/19 Paroxetine HCl [Paxil] 30 mg PO QHS #30 11/06/19 Prednisolone Sod Phosphate [Prelone Soln 15 mg/5 ml Oral Syring] 10 mg PO BID #5 soln.pk.ml 11/06/19 Ipratropium/Albuterol Sulfate [Duoneb 3 ml Ampul] 3 ml NEB RTQ4HP PRN #30 vial.neb 01/10/20 Prednisone [Deltasone 20 mg Tablet] 2 tab PO DAILY 4 Days #8 tablet 01/10/20 Allergies/Adverse Reactions: acetaminophen [From Tylenol] Allergy (Mild, Verified 12/18/19 18:16) GI upset Review of Systems ROS unobtainable: Due to mental status Physical Exam Vital Signs: Temp Pulse Resp BP Pulse Ox 98.1 F 98 01/10/20 00:49 01/10/20 01:35 Intake & Output 01/08/20 01/09/20 01/10/20 06:59 06:59 06:59 Weight 54.431 kg Weight/Height Weight 54.431 kg Height 5 ft 2 in General appearance: PRESENT: no acute distress, cooperative, well-developed, well-nourished Head exam: PRESENT: atraumatic, normocephalic Eye exam: PRESENT: PERRLA Ear exam: PRESENT: normal external ear exam Mouth exam: PRESENT: dry mucosa, neck supple, tongue midline Respiratory exam: PRESENT: decreased breath sounds, symmetrical, unlabored Cardiovascular exam: PRESENT: RRR, +S1, +S2 Pulses: PRESENT: +2 pedal pulses bilateral GI/Abdominal exam: PRESENT: hyperactive bowel sounds, hypoactive bowel sounds Extremities exam: PRESENT: full ROM Musculoskeletal exam: PRESENT: full ROM Neurological exam: PRESENT: altered, oriented to person, reflexes normal Laboratory/Radiographs Laboratory Results: 01/10/20 02:31 01/10/20 02:15 01/10/20 01/10/20 01/10/20 01:10 01:10 01:27 WBC Cancelled RBC Cancelled Hgb Cancelled Hct Cancelled MCV Cancelled MCH Cancelled MCHC Cancelled RDW Cancelled Plt Count Cancelled Seg Neutrophils % Cancelled Sodium 114.2 L* Potassium 4.2 Chloride 74 L Carbon Dioxide 28 Anion Gap 12 BUN 12 Creatinine 0.93 Est GFR ( Amer) > 60 Glucose 151 H Serum Osmolality Calcium 9.1 Total Bilirubin 0.9 AST 68 H Alkaline Phosphatase 131 H Total Protein 7.6 Albumin 4.4 Urine Color YELLOW Urine Appearance CLOUDY Urine pH 6.0 Ur Specific [place] 1.011 Urine Protein NEGATIVE Urine Glucose (UA) NEGATIVE Urine Ketones TRACE H Urine Blood SMALL H Urine Nitrite NEGATIVE Ur Leukocyte Esterase TRACE H Urine WBC (Auto) 2 Urine RBC (Auto) 1 01/10/20 01/10/20 01/10/20 02:15 02:15 02:31 WBC 9.6 RBC 3.81 Hgb 10.7 L Hct 30.7 L MCV 81 D MCH 28.0 MCHC 34.8 RDW 14.9 H Plt Count 356 Seg Neutrophils % Not Reportable Sodium 114.0 L* Potassium 4.2 Chloride 75 L Carbon Dioxide 26 Anion Gap 13 BUN 12 Creatinine 0.86 Est GFR ( Amer) > 60 Glucose 166 H Serum Osmolality 238 L Calcium 9.4 Total Bilirubin AST Alkaline Phosphatase Total Protein Albumin Urine Color Urine Appearance Urine pH Ur Specific [place] Urine Protein Urine Glucose (UA) Urine Ketones Urine Blood Urine Nitrite Ur Leukocyte Esterase Urine WBC (Auto) Urine RBC (Auto) All labs, radiographs, diagnostic studies and EKGs were personally reviewed: Yes In addition, reports of radiographic and diagnostic studies were read: Yes Critical Time Critical Time (minutes): 55 -: The care of a critically ill patient is dynamic. This note represents a static moment in the admission process. Orders and treatments may be given simultaneously and urgently, and time is not banking representative of the treatment process. This patient requires Critical Care secondary to life threatening organ or limb dysfunction. Without Critical Care services, the patient is at risk for increased mortality and morbidity.
[2020-01-10 05:27] LABS: HEMATOCRIT 30.6 % (36.0-47.0); HEMOGLOBIN 10.6 g/dL (12.0-15.5); MEAN CORPUSCULAR HEMOGLOBIN 28.4 pg (27.0-33.4); MEAN CORPUSCULAR HGB CONC 34.7 g/dL (32.0-36.0); MEAN CORPUSCULAR VOLUME 82 fl (80-97); PLATELET COUNT 326 10^3/uL (150-450); RED BLOOD COUNT 3.74 10^6/uL (3.72-5.28); RED CELL DISTRIBUTION WIDTH 14.8 % (11.5-14.0); WHITE BLOOD COUNT 7.2 10^3/uL (4.0-10.5)
[2020-01-10 05:45] LABS: ALBUMIN 4.8 g/dL (3.5-5.0); ALKALINE PHOSPHATASE 130 U/L (38-126); ASPARTATE AMINO TRANSFERASE 74 U/L (14-36); BILIRUBIN,TOTAL 0.9 mg/dL (0.2-1.3); BLOOD UREA NITROGEN 12 mg/dL (7-20); CALCIUM 9.1 mg/dL (8.4-10.2); CARBON DIOXIDE 25 mmol/L (22-30); CHLORIDE 80 mmol/L (98-107); GLUCOSE 160 mg/dL (75-110); PHOSPHORUS 3.6 mg/dL (2.5-4.5); TOTAL PROTEIN 7.9 g/dL (6.3-8.2)
[2020-01-10 05:58] LABS: ANION GAP 15 (5-19)
--- NOTE | 2020-01-10 08:35 | EKG REPORT ---
SEVERITY:- ABNORMAL ECG - SINUS TACHYCARDIA BORDERLINE INFERIOR Q WAVES : Confirmed by: Zen Mancilla 10-Jan-2020 08:34:59
[2020-01-10] MEDS ORDERED: GABAPENTIN 100 MG CAPSULE PO PRN (11:22)
[2020-01-10] MEDS ORDERED: PROMETHAZINE HCL 25 MG TABLET PO PRN (11:22)
[2020-01-10] MEDS ORDERED: ALBUTEROL SULFATE HFA (90 MCG/PUFF) 8 GM MDI (1 MDI/ER DISP) IH PRN (11:22)
[2020-01-10] MEDS ORDERED: (PENDING PHARMACY ID) (Bupropion Hcl [Bupropion Xl] 150 MG) PO SCH (11:30)
--- NOTE | 2020-01-10 11:35 | Progress Note ---
Provider Note Provider Note: Patient has remained stable with no seizure activity or any evidence of ectopy. She has never been on 3% NS. Her sodium level is now 123 essentially without treatment. She is still confused which probably has a multitude of factors. One of which is hyponatremia. Exactly why remains a question. There is no evidence of lung CA on CXR but she should have a chest CT before leaving when she can lay still. She is only mildly SOB now. More appropriate. She does not need an ICU level of care.
[2020-01-10] MEDS: OXYCODONE HCL IR 5 MG TABLET PO PRN (11:55)
[2020-01-10] MEDS: ALPRAZOLAM 0.25 MG TABLET PO PRN (11:56)
[2020-01-10] MEDS ORDERED: (PENDING PHARMACY ID) (Buspirone Hcl [Buspirone Hcl] 15 MG) PO SCH (14:00)
[2020-01-10] MEDS: BUSPIRONE HCL 10 MG TABLET PO SCH ×2 (14:39→21:19)
[2020-01-10 19:40] LABS: ANION GAP 6 (5-19); BLOOD UREA NITROGEN 12 mg/dL (7-20); CALCIUM 8.9 mg/dL (8.4-10.2); CARBON DIOXIDE 30 mmol/L (22-30); CHLORIDE 90 mmol/L (98-107); GLUCOSE 212 mg/dL (75-110); POTASSIUM 4.3 mmol/L (3.6-5.0)
[2020-01-10] MEDS: BUPROPION HCL 75 MG TABLET PO SCH (21:19)
[2020-01-10] MEDS ORDERED: GABAPENTIN 100 MG CAPSULE PO SCH (22:00)
[2020-01-10] MEDS ORDERED: PAROXETINE HCL 20 MG TABLET PO SCH (22:00)
[2020-01-11] MEDS: IPRATROPIUM/ALBUTEROL 0.5-2.5 MG/3 ML AMPUL NEB SCH ×3 (04:29→13:50)
[2020-01-11 04:32] LABS: ANION GAP 8 (5-19); BLOOD UREA NITROGEN 10 mg/dL (7-20); CALCIUM 9.3 mg/dL (8.4-10.2); CARBON DIOXIDE 30 mmol/L (22-30); CHLORIDE 94 mmol/L (98-107); GLUCOSE 113 mg/dL (75-110); POTASSIUM 4.1 mmol/L (3.6-5.0)
[2020-01-11] MEDS: BUSPIRONE HCL 10 MG TABLET PO SCH ×2 (05:56→14:00)
[2020-01-11] MEDS ORDERED: PANTOPRAZOLE SODIUM 20 MG TABLET.DR PO SCH (08:00)
[2020-01-11] MEDS: BUPROPION HCL 75 MG TABLET PO SCH (09:16)
[2020-01-11] MEDS: OXYCODONE HCL IR 5 MG TABLET PO PRN (09:20)
[2020-01-11] MEDS: ALPRAZOLAM 0.25 MG TABLET PO PRN (09:21)
[2020-01-11 09:31] VITALS: BP 129/54
[2020-01-11] MEDS ORDERED: FLUTICASONE/VILANTEROL 200-25 MCG/DOSE IH SCH (10:00)
[2020-01-11] MEDS ORDERED: CHOLECALCIFEROL (D3) 1,000 UNIT (25 MCG) TABLET PO SCH (10:00)
[2020-01-11] MEDS ORDERED: FOLIC ACID 1 MG TABLET PO SCH (10:00)
[2020-01-11] MEDS ORDERED: METHYLPREDNISOLONE INJ 40 MG/1 ML SDV IV SCH (10:00)
--- NOTE | 2020-01-11 13:49 | RADIOLOGY REPORT (SQ) ---
EXAM DESCRIPTION: CT HEAD WITHOUT IMAGES COMPLETED DATE/TIME: 01/11/2020 1:21 pm REASON FOR STUDY: COPD and hyponatremia, ? SIADH, R/O CA COMPARISON: 12/18/2019 TECHNIQUE: Axial images acquired through the brain without intravenous contrast. Images reviewed wi th bone, brain and subdural windows. Images stored on PACS. All CT scanners at this facility use dose modulation, iterative reconstruction, and/or weight based d osing when appropriate to reduce radiation dose to as low as reasonably achievable (ALARA). [facility]: Dose Right [facility]: CareDose [facility]: Dose Right [facility]: Teradose 4D [facility]: [employer] RADIATION DOSE: CT Rad equipment meets quality standard of care and radiation dose reduction techniq ues were employed. CTDIvol: 48.6 mGy. DLP: 880 mGy-cm.mGy. LIMITATIONS: None. FINDINGS: VENTRICLES: Prominent. CEREBRUM: No masses. No hemorrhage. No midline shift. Areas of low density in the white matter mos t likely due to chronic micro-vascular ischemic change. No evidence for acute infarction. CEREBELLUM: No masses. No hemorrhage. No alteration of density. No evidence for acute infarction. EXTRAAXIAL SPACES: Age-related involutional change. No fluid collections. No masses. ORBITS AND GLOBE: No intra- or extraconal masses. Normal contour of globe without masses. CALVARIUM: No fracture. PARANASAL SINUSES: No fluid or mucosal thickening. SOFT TISSUES: No mass or hematoma. OTHER: No other significant finding. IMPRESSION: CHRONIC CHANGES OF ATROPHY AND MICROVASCULAR ISCHEMIA. NO ACUTE PROCESS. EVIDENCE OF ACUTE STROKE: NO. TECHNICAL DOCUMENTATION: JOB ID: [id number] Quality ID # [id number]: Final reports with documentation of one or more dose reduction techniques (e.g., Au tomated exposure control, adjustment of the mA and/or kV according to patient size, use of iterative reconstruction technique) 2010 [employer]- All Rights Reserved Reading location - IP/workstation name: [email or web address]
--- NOTE | 2020-01-11 13:52 | RADIOLOGY REPORT (SQ) ---
EXAM DESCRIPTION: CT CHEST WITHOUT IMAGES COMPLETED DATE/TIME: 01/11/2020 1:21 pm REASON FOR STUDY: COPD and hyponatremia look for lung CA. COMPARISON: None. TECHNIQUE: CT scan performed of the chest without intravenous contrast. Images reviewed with lung, soft tissue and bone windows. Reconstructed coronal and sagittal MPR images reviewed. All images st ored on PACS. All CT scanners at this facility use dose modulation, iterative reconstruction, and/or weight based d osing when appropriate to reduce radiation dose to as low as reasonably achievable (ALARA). [facility]: Dose Right [facility]: CareDose [facility]: Dose Right [facility]: Teradose 4D [facility]: [employer] RADIATION DOSE: CT Rad equipment meets quality standard of care and radiation dose reduction techniq ues were employed. CTDIvol: 4.2 mGy. DLP: 169 mGy-cm. mGy. LIMITATIONS: No technical limitations. FINDINGS: LUNGS AND PLEURA: Mild emphysema. Mild subpleural honeycombing. Dependent scarring super ior segment right lower lobe. HILAR AND MEDIASTINAL STRUCTURES: No identified masses or abnormal nodes. No obvious aneurysm. HEART AND VASCULAR STRUCTURES: No aneurysm. No pericardial effusion. UPPER ABDOMEN: Limited exam. Cirrhosis. Pancreatic calcifications. THYROID AND OTHER SOFT TISSUES: No masses. No adenopathy. BONES: No significant finding. HARDWARE: None in the chest. OTHER: No other significant findings. IMPRESSION: COPD. No acute findings. TECHNICAL DOCUMENTATION: JOB ID: [id number] Quality ID # [id number]: Final reports with documentation of one or more dose reduction techniques (e.g., Au tomated exposure control, adjustment of the mA and/or kV according to patient size, use of iterative reconstruction technique) 2010 [employer]- All Rights Reserved Reading location - IP/workstation name: [email or web address]
--- NOTE | 2020-01-11 14:17 | PDOC DISCHARGE SUMMARY ---
Impression - Admit/DC Date/PCP Admission Date/Primary Care Provider: 01/10/20 03:53 JAYY ESCOBAR Discharge Date: 01/11/20 - Assessment Summary: This patient is a 64 yo woman with O2 dependant COPD who came to the ED confused with a sodium level of 114. She has not been on 3 %NS. She is not suffering from polydipsia also confirmed by daughter. COPD mildly active with some SOB. Chronically on prednisone. Takes Wellbutrin. - Additional Information Resuscitation Status: Full Code Discharge Diet: Regular Discharge Activity: Activity As Tolerated Referrals: JAYY ESCOBAR MD [Primary Care Provider] - 01/22/20 10:15 am (FOLLOW-UP: APPOINTMENT MADE FOR 01-22-20 @ 1015) Prescriptions: Prednisone [Deltasone 20 mg Tablet] 2 tab PO DAILY 4 Days #8 tablet Ipratropium/Albuterol Sulfate [Duoneb 3 ml Ampul] 3 ml NEB RTQ4HP PRN #30 vial.neb PRN Reason: Home Medications: Alprazolam 0.25 mg PO BIDP PRN #15 11/06/19 Bupropion HCl [Bupropion Xl] 150 mg PO QAM #30 cap 11/06/19 Cholecalciferol (Vitamin D3) [Vitamin D3 1000 Unit Tablet] 5,000 unit PO DAILY #30 tablet 11/06/19 Folic Acid [Folvite 1 mg Tablet] 1 mg PO DAILY #30 tablet 11/06/19 Gabapentin [Neurontin 100 mg Capsule] 100 mg PO HSP PRN #30 11/06/19 Albuterol Sulfate [Albuterol Sulfate Hfa] 2 puff IH Q4HP PRN 01/10/20 Budesonide/Formoterol Fumarate [Symbicort HFA 160-4.5 mcg Inhaler 6 gm] 2 puff IH DAILY 01/10/20 Buspirone HCl 15 mg PO Q8 01/10/20 Ergocalciferol (Vitamin D2) [Drisdol 50,000 unit (1.25MG) Capsule] 50,000 unit PO SOLANO@1000 01/10/20 Ipratropium/Albuterol Sulfate [Duoneb 3 ml Ampul] 3 ml NEB RTQ4HP PRN #30 vial.neb 01/10/20 Omeprazole 20 mg PO Q6AM 01/10/20 Oxycodone HCl [Oxy-Ir 5 mg Tablet] 10 mg PO Q8HP PRN 01/10/20 Paroxetine HCl [Paxil] 40 mg PO QHS 01/10/20 Prednisone [Deltasone 20 mg Tablet] 2 tab PO DAILY 4 Days #8 tablet 01/10/20 Promethazine HCl [Phenergan 25 mg Tablet] 25 mg PO BIDP PRN 01/10/20 History of Present Illiness History of Present Illness: ADY YEUNG is a 64 year old female with hyponatremia to 114. Now 132 essentially with some NS and fluid restriction. Ct of head and chest reveals no lung cancer. Breathing at baseline. Stable for home. Lives now with daughter. Hospital Course Hospital Course: Confusing has resolved. Sodium back to 132. No symptoms. Eating, drinking, ambulating. No 3% NS. Resume prednisone and home meds. There is a component of reflux and perhaps aspiration as she says she has had 'pneumonia' frequently. This could be aspiration with active reflux. Will be on omeprezole as before. Aspiration and pneumonitis can look and present just as PNA. Put bed on 2" blocks as well. Physical Exam Vital Signs: Temp Pulse Resp BP Pulse Ox 98.6 F 95 20 129/54 H 98 01/11/20 09:27 01/11/20 13:51 01/11/20 13:51 01/11/20 09:27 01/11/20 13:51 Intake & Output 01/10/20 01/11/20 01/12/20 06:59 06:59 06:59 Intake Total 558 1095 Output Total 450 1350 800 Balance 108 -255 -800 Weight 45 kg 45.5 kg General appearance: PRESENT: no acute distress, cooperative, thin Head exam: PRESENT: atraumatic, normocephalic Eye exam: PRESENT: conjunctiva pink, EOMI, PERRLA. ABSENT: scleral icterus Ear exam: PRESENT: normal external ear exam Mouth exam: PRESENT: moist, tongue midline Respiratory exam: PRESENT: clear to auscultation madhavi, decreased breath sounds. ABSENT: rales, rhonchi, wheezes Cardiovascular exam: PRESENT: RRR. ABSENT: diastolic murmur, rubs, systolic murmur GI/Abdominal exam: PRESENT: normal bowel sounds, soft. ABSENT: distended, guarding, mass, organolmegaly, rebound, tenderness Rectal exam: PRESENT: deferred Extremities exam: PRESENT: full ROM. ABSENT: calf tenderness, clubbing, pedal edema Neurological exam: PRESENT: alert, awake, oriented to person, oriented to place, oriented to time, oriented to situation, CN II-XII grossly intact. ABSENT: motor sensory deficit Psychiatric exam: PRESENT: appropriate affect, normal mood. ABSENT: homicidal ideation, suicidal ideation Skin exam: PRESENT: dry, intact, warm. ABSENT: cyanosis, rash Results Laboratory Results: WBC 7.2 10^3/uL (4.0-10.5) 01/10/20 05:10 RBC 3.74 10^6/uL (3.72-5.28) 01/10/20 05:10 Hgb 10.6 g/dL (12.0-15.5) L 01/10/20 05:10 Hct 30.6 % (36.0-47.0) L 01/10/20 05:10 MCV 82 fl (80-97) 01/10/20 05:10 MCH 28.4 pg (27.0-33.4) 01/10/20 05:10 MCHC 34.7 g/dL (32.0-36.0) 01/10/20 05:10 RDW 14.8 % (11.5-14.0) H 01/10/20 05:10 Plt Count 326 10^3/uL (150-450) 01/10/20 05:10 Lymph % (Auto) Not Reportable 01/10/20 02:31 Coal % (Auto) Not Reportable 01/10/20 02:31 Eos % (Auto) Not Reportable 01/10/20 02:31 Baso % (Auto) Not Reportable 01/10/20 02:31 Absolute Neuts (auto) Not Reportable 01/10/20 02:31 Absolute Lymphs (auto) Not Reportable 01/10/20 02:31 Absolute Monos (auto) Not Reportable 01/10/20 02:31 Absolute Eos (auto) Not Reportable 01/10/20 02:31 Absolute Basos (auto) Not Reportable 01/10/20 02:31 Total Counted 100 01/10/20 02:31 Seg Neutrophils % Not Reportable 01/10/20 02:31 Seg Neuts % (Manual) 93 % (42-78) H 01/10/20 02:31 Lymphocytes % (Manual) 6 % (13-45) L 01/10/20 02:31 Monocytes % (Manual) 0 % (3-13) L 01/10/20 02:31 Eosinophils % (Manual) 1 % (0-6) 01/10/20 02:31 Basophils % (Manual) 0 % (0-2) 01/10/20 02:31 Abs Neuts (Manual) 8.9 10^3/uL (1.7-8.2) H 01/10/20 02:31 Abs Lymphs (Manual) 0.6 10^3/uL (0.5-4.7) 01/10/20 02:31 Abs Monocytes (Manual) 0.0 10^3/uL (0.1-1.4) L 01/10/20 02:31 Absolute Eos (Manual) 0.1 10^3/uL (0.0-0.6) 01/10/20 02:31 Abs Basophils (Manual) 0.0 10^3/uL (0.0-0.2) 01/10/20 02:31 Platelet Estimate Cancelled 01/10/20 01:10 Platelet Comment ADEQUATE 01/10/20 02:31 Tear Drop Cells SLIGHT 01/10/20 02:31 Sodium 132.0 mmol/L (137-145) L 01/11/20 04:06 Potassium 4.1 mmol/L (3.6-5.0) 01/11/20 04:06 Chloride 94 mmol/L (98-107) L 01/11/20 04:06 Carbon Dioxide 30 mmol/L (22-30) 01/11/20 04:06 Anion Gap 8 (5-19) 01/11/20 04:06 BUN 10 mg/dL (7-20) 01/11/20 04:06 Creatinine 0.74 mg/dL (0.52-1.25) 01/11/20 04:06 Est GFR ( Amer) > 60 (>60) 01/11/20 04:06 Est GFR (MDRD) Non-Af > 60 (>60) 01/11/20 04:06 Glucose 113 mg/dL (75-110) H 01/11/20 04:06 Serum Osmolality 238 mOsm/kg (275-301) L 01/10/20 02:15 Lactic Acid 2.1 mmol/L (0.7-2.1) 01/10/20 05:10 Calcium 9.3 mg/dL (8.4-10.2) 01/11/20 04:06 Phosphorus 3.6 mg/dL (2.5-4.5) 01/10/20 05:10 Magnesium 1.5 mg/dL (1.6-2.3) L 01/10/20 05:10 Total Bilirubin 0.9 mg/dL (0.2-1.3) 01/10/20 05:10 Direct Bilirubin 0.0 mg/dL (0.0-0.4) 01/10/20 05:10 Neonat Total Bilirubin Not Reportable 01/10/20 05:10 Neonat Direct Bilirubin Not Reportable 01/10/20 05:10 Neonat Indirect Bili Not Reportable 01/10/20 05:10 AST 74 U/L (14-36) H 01/10/20 05:10 ALT 25 U/L (<35) 01/10/20 05:10 Alkaline Phosphatase 130 U/L (38-126) H 01/10/20 05:10 Ammonia 13.4 umol/L (9-33) 01/10/20 19:10 Troponin I < 0.012 ng/mL 01/10/20 05:10 Total Protein 7.9 g/dL (6.3-8.2) 01/10/20 05:10 Albumin 4.8 g/dL (3.5-5.0) 01/10/20 05:10 Urine Color YELLOW 01/10/20 01:27 Urine Appearance CLOUDY 01/10/20 01:27 Urine pH 6.0 (5.0-9.0) 01/10/20 01:27 Ur Specific [place] 1.011 01/10/20 01:27 Urine Protein NEGATIVE mg/dL (NEGATIVE) 01/10/20 01:27 Urine Glucose (UA) NEGATIVE mg/dL (NEGATIVE) 01/10/20 01:27 Urine Ketones TRACE mg/dL (NEGATIVE) H 01/10/20 01:27 Urine Blood SMALL (NEGATIVE) H 01/10/20 01:27 Urine Nitrite NEGATIVE (NEGATIVE) 01/10/20 01:27 Urine Bilirubin NEGATIVE (NEGATIVE) 01/10/20 01:27 Urine Urobilinogen NEGATIVE mg/dL (<2.0) 01/10/20 01:27 Ur Leukocyte Esterase TRACE (NEGATIVE) H 01/10/20 01:27 Urine WBC (Auto) 2 /HPF 01/10/20 01:27 Urine RBC (Auto) 1 /HPF 01/10/20 01:27 Squamous Epi Cells Auto 23 /HPF 01/10/20 01:27 Urine Mucus (Auto) RARE /LPF 01/10/20 01:27 Urine Ascorbic Acid NEGATIVE (NEGATIVE) 01/10/20 01:27 Urine Opiates Screen UNCONFIRMED POSITIVE 01/10/20 03:10 Urine Methadone Screen NEGATIVE 01/10/20 03:10 Ur Barbiturates Screen NEGATIVE 01/10/20 03:10 Ur Phencyclidine Scrn NEGATIVE 01/10/20 03:10 Ur Amphetamines Screen NEGATIVE 01/10/20 03:10 U Benzodiazepines Scrn NEGATIVE 01/10/20 03:10 Urine Cocaine Screen NEGATIVE 01/10/20 03:10 U Marijuana (THC) Screen NEGATIVE 01/10/20 03:10 Serum Alcohol < 10 mg/dL (NONE DETECTED) 01/10/20 02:15 Slides for Path Review Cancelled 01/10/20 01:10 01/10/20 05:10 Troponin I < 0.012 EKG Comments: Mild ST at 95. Impressions: Chest X-Ray 01/10/20 00:55 IMPRESSION: No acute abnormality within the chest. There is partial visualization of abdominal distention, nonspecific. Abdominal series might be considered. copyright 2011 [email or web address]- All Rights Reserved Chest CT 01/11/20 00:00 IMPRESSION: COPD. No acute findings. Head CT 01/11/20 00:00 IMPRESSION: CHRONIC CHANGES OF ATROPHY AND MICROVASCULAR ISCHEMIA. NO ACUTE PROCESS. EVIDENCE OF ACUTE STROKE: NO. Plan Health Concerns: Recurrence of hyponatremia as cause still not clear. Worsening of COPD Plan of Treatment: Omeprazole 20mg a day. See Dr. Zuluaga at 01/21 at 10:15 AM. Goals: Reduce reflux and aspiration. Critical Time: 35 Level of Care: MEDICAL Stroke Is this a Stroke Patient?: No Acute Heart Failure - Is this a Heart Failure Patient?: No
[2020-01-12] MEDS ORDERED: ENOXAPARIN SODIUM INJ 40 MG/0.4 ML DISP.SYRIN SUBCUT SCH (10:00)
[2020-01-14] MEDS ORDERED: ERGOCALCIFEROL (VITAMIN D2) 50000 UNIT (1.25 MG) CAPSULE PO SCH (10:00)
== END 2020-01-11 14:59 | disposition home or self-care (01) | DRG 640 ==
LOC: ER 00:49 → EH 03:53 → ICU 05:52
PROVIDERS: ADMIT Anesthesiology; ATTEND Anesthesiology
DX: E87.1 Hypo-osmolality and hyponatremia (principal); G93.41 Metabolic encephalopathy; J96.10 Chronic respiratory failure, unspecified whether with hypoxia or hypercapnia; I50.32 Chronic diastolic (congestive) heart failure; J44.1 Chronic obstructive pulmonary disease with (acute) exacerbation; I11.0 Hypertensive heart disease with heart failure; F32.9 Major depressive disorder, single episode, unspecified; D64.9 Anemia, unspecified; K21.9 Gastro-esophageal reflux disease without esophagitis; F41.9 Anxiety disorder, unspecified; B19.20 Unspecified viral hepatitis C without hepatic coma; Z99.81 Dependence on supplemental oxygen; Z79.899 Other long term (current) drug therapy; Z87.891 Personal history of nicotine dependence; Z88.6 Allergy status to analgesic agent
CPT/HCPCS: 36415; 70450; 71045; 71250; 80048; 80053; 80307; 81001; 82140; 83605; 83735; 83930; 84100; 84295; 84484; 85025; 87070; 93005; 93010; 94640; 96361; 96374; 96376; 99238; 99285; 99291; J2920; J3490; J7030; J7050

== ENCOUNTER 2020-01-28 18:31 | Inpatient (IN) | payer MEDICAID ==
--- NOTE | 2020-01-28 18:45 | ER Document Report ---
ED General - General Chief Complaint: Breathing Difficulty Stated Complaint: DIFFICULTY BREATHING Primary Care Provider: JAYY ESCOBAR MD [Primary Care Provider] - Follow up as needed TRAVEL OUTSIDE OF THE [place] IN LAST 30 DAYS: No - HPI Notes: Chief complaint: Respiratory distress and altered mental status Chief complaint: Altered mental status, breathing problems and hypotension History of present illness: 64-year-old female with history of COPD, chronic respiratory failure, chronic pain syndrome and cirrhosis transported here via EMS after family called them for respiratory distress. EMS Medicaid crew reports that they found the patient with pink frothy in her mouth and severe respiratory distress and not adequately protecting her airway. They subsequently gave her ketamine and rocuronium and performed a rapid sequence intubation in the field. She was thereafter transported here. Other interventions provided by EMS during transport per their report: IV magnesium, IV Solu-Medrol and multiple albuterol nebulizer treatments. I know this lady well from prior ED encounters. She has severe COPD. Patient is followed by Dr. Jayy Escobar. She has history of COPD with ongoing smoking/vaping. She has a history of cirrhosis. She has a history of chronic pain syndrome and is on narcotic analgesics at home. Patient was hospitalized here last month in the ICU with pneumonia, respiratory failure hyponatremia and metabolic encephalopathy. Patient required intubation and mechanical ventilation during that admission. Chronically on prednisone. Takes Wellbutrin. - Additional Information Resuscitation Status: Full Code Home Medications: Alprazolam 0.25 mg PO BIDP PRN #15 11/06/19 Bupropion HCl [Bupropion Xl] 150 mg PO QAM #30 cap 11/06/19 Cholecalciferol (Vitamin D3) [Vitamin D3 1000 Unit Tablet] 5,000 unit PO DAILY #30 tablet 11/06/19 Folic Acid [Folvite 1 mg Tablet] 1 mg PO DAILY #30 tablet 11/06/19 Gabapentin [Neurontin 100 mg Capsule] 100 mg PO HSP PRN #30 11/06/19 Albuterol Sulfate [Albuterol Sulfate Hfa] 2 puff IH Q4HP PRN 01/10/20 Budesonide/Formoterol Fumarate [Symbicort HFA 160-4.5 mcg Inhaler 6 gm] 2 puff IH DAILY 01/10/20 Buspirone HCl 15 mg PO Q8 01/10/20 Ergocalciferol (Vitamin D2) [Drisdol 50,000 unit (1.25MG) Capsule] 50,000 unit PO SOLANO@1000 01/10/20 Ipratropium/Albuterol Sulfate [Duoneb 3 ml Ampul] 3 ml NEB RTQ4HP PRN #30 vial.neb 01/10/20 Omeprazole 20 mg PO Q6AM 01/10/20 Oxycodone HCl [Oxy-Ir 5 mg Tablet] 10 mg PO Q8HP PRN 01/10/20 Paroxetine HCl [Paxil] 40 mg PO QHS 01/10/20 Prednisone [Deltasone 20 mg Tablet] 2 tab PO DAILY 4 Days #8 tablet 01/10/20 Promethazine HCl [Phenergan 25 mg Tablet] 25 mg PO BIDP PRN 01/10/20 - Related Data Allergies/Adverse Reactions: acetaminophen [From Tylenol] Allergy (Mild, Verified 12/18/19 18:16) GI upset Past Medical History - General Information source: [facility] Records Cannot obtain history due to: Intubated, Altered mental status - Social History Smoking Status: Current Every Day Smoker Family History: DM, Other - unable 2/2 pt status - Past Medical History Cardiac Medical History: Reports: Hx Congestive Heart Failure - Diastolic, Hx H ypertension Denies: Hx Atrial Fibrillation, Hx Coronary Artery Disease, Hx Heart Attack, Hx Hypercholesterolemia Pulmonary Medical History: Reports: Hx COPD, Hx Pneumonia, Hx Respiratory Failure Denies: Hx Asthma Neurological Medical History: Denies: Hx Seizures Endocrine Medical History: Denies: Hx Diabetes Mellitus Type 1, Hx Diabetes Mellitus Type 2, Hx Hyperthyroidism, Hx Hypothyroidism Renal/ Medical History: Denies: Hx Peritoneal Dialysis GI Medical History: Reports: Hx Cirrhosis, Hx Gastroesophageal Reflux Disease, Hx Hepatitis - Hepatitis C, Hx Liver Failure. Denies: Hx Crohn's Disease, Hx Ulcerative Colitis Musculoskeletal Medical History: Denies Hx Arthritis, Denies Hx Gout, Reports Hx Musculoskeletal Deformity, Reports Hx Musculoskeletal Trauma Skin Medical History: Denies Hx Eczema, Denies Hx Psoriasis Psychiatric Medical History: Reports: Hx Anxiety, Hx Depression Infectious Medical History: Reports: Hx Hepatitis - Hepatitis C Past Surgical History: Reports: Hx Section, Hx Cholecystectomy, Hx Gynecologic Surgery - ovarian wedge., Hx Orthopedic Surgery - carpel tunnel, Hx Tonsillectomy, Other - Unable to obtain at this time since the patient is intubated and sedated.. Denies: Hx Hysterectomy - Immunizations Immunizations up to date: Yes Hx Diphtheria, Pertussis, Tetanus Vaccination: Yes Review of Systems - Review of Systems -: Yes ROS unobtainable due to patient's medical condition Physical Exam - Vital signs Vitals: Pulse Ox 100 01/28/20 18:50 - Notes Notes: GENERAL: Cachectic chronically ill-appearing female who looks much older than stated age orotracheally intubated and being mechanically ventilated at time of initial evaluation. SKIN: Pale and slightly warm. Dry. Good turgor no rashes. HEAD: Bitemporal wasting. EYES: Pupils are equal. Gaze is conjugate. Eyes are closed. Conjunctivae and sclerae clear. EARS: CANALS AND TMS CLEAR. NOSE: CLEAR. MOUTH: ET tube tube in the mouth at a depth of 23 cm's at the gum. NECK: Supple. No masses or thyromegaly. No adenopathy. Carotids 2+ without bruits. No JVD. CHEST: Patient is being mechanically ventilated. Scattered rhonchi and faint wheezes bilaterally with symmetrical breath sounds. HEART: Regular rhythm. No murmur gallop or rub. ABDOMEN: Soft, distended, nontender without masses, organomegaly or rebound. Bowel sounds normally active. No bruits. GENITALIA: Normal female EXTREMITIES: No edema. No calf tenderness. Cap refill less than 1.5 seconds. Dorsalis pedis and posterior tibial pulses 3+ and symmetrical. NEUROLOGICAL: Patient is intubated and unresponsive. Course - Re-evaluation Re-evalutation: 01/28/20 19:18 Appropriate position of ET tube has been confirmed. Patient is on mechanical ventilation here. Satisfactory oxygenation on 50% FiO2. No obvious infiltrates or pneumothorax on the chest x-ray. IV antibiotics ordered. Sepsis protocol initiated. Patient has been accepted for admission to service of Dr. Holcomb ICU. - Vital Signs Vital signs: Temp Pulse Resp BP Pulse Ox 100 01/28/20 18:50 - Laboratory Result Diagrams: 01/28/20 18:50 01/28/20 18:50 Critical Care Note - Critical Care Note Total time excluding time spent on procedures (mins): 35 - Respiratory failure with mechanical ventilation and AMS Discharge - Discharge Clinical Impression: COPD exacerbation Acute and chronic respiratory failure ([id number]) Qualifiers: Respiratory failure complication: unspecified whether with hypoxia or hypercapnia Qualified Code(s): J96.20 - Acute and chronic respiratory failure, unspecified whether with hypoxia or hypercapnia Condition: Critical Disposition: ADMITTED INPATIENT Admitting Provider: Aicha (Security Guard Dispatcher) Unit Admitted: ICU Referrals: JAYY ESCOBAR MD [Primary Care Provider] - Follow up as needed
[2020-01-28] MEDS ORDERED: PIPERACILLIN/TAZOBACTAM 3.375 GM VIAL IV ONE (19:14)
--- NOTE | 2020-01-28 19:14 | RADIOLOGY REPORT (SQ) ---
EXAM DESCRIPTION: CHEST SINGLE VIEW IMAGES COMPLETED DATE/TIME: 01/28/2020 7:03 pm REASON FOR STUDY: Respiratory failure COMPARISON: Chest x-ray 01/10/2020, 12/18/2019. EXAM PARAMETERS: NUMBER OF VIEWS: One view TECHNIQUE: Single frontal radiograph of the chest. RADIATION DOSE: N/A LIMITATIONS: The lung apices are partially excluded from the [id number]. FINDINGS: TEMPORARY SUPPORT DEVICES:ETT terminates approximately 3 cm above the vane. The enteric tube terminates at the left upper quadrant, in the expected location of the gastric fundus. LUNGS AND PLEURA: The lung apices are partially excluded from the [id number]. No consolidation, p leural effusion or obvious pneumothorax. Hyperlucent lungs are suggestive of emphysema. MEDIASTINUM AND HILAR STRUCTURES: No masses. Contour normal. HEART AND VASCULAR STRUCTURES: Heart size normal. Normal vascularity. Aorta normal for age BONES: No acute findings. IMPRESSION: EMPHYSEMA. NO ACUTE RADIOGRAPHIC FINDING IN THE CHEST. SUPPORT DEVICE(S) DESCRIBED ABOVE. TECHNICAL DOCUMENTATION: JOB ID: [id number]- All Rights Reserved Reading location - IP/workstation name: [email or web address]
[2020-01-28 19:18] LABS: ARTERIAL BLOOD BASE EXCESS 0.8 mmol/L; ARTERIAL BLOOD H2CO3 1.85 mmol/L (1.05-1.35); ARTERIAL BLOOD HCO3 28.4 mmol/L (20-24); ARTERIAL BLOOD O2 SATURATION 98.3 % (94-98); ARTERIAL BLOOD PCO2 61.5 mmHg (35-45); ARTERIAL BLOOD PH 7.28 (7.35-7.45); ARTERIAL BLOOD PO2 134.3 mmHg (80-100); ARTERIAL BLOOD TOTAL CO2 30.3 mmol/L (21-25)
[2020-01-28 19:19] LABS: ARTERIAL BLOOD FIO2 40%
[2020-01-28 19:24] LABS: INTERNATIONAL RATION (INR) 0.95; PROTHROMBIN TIME 12.9 SEC (11.4-15.4)
[2020-01-28 19:37] LABS: ALBUMIN 3.4 g/dL (3.5-5.0); ALKALINE PHOSPHATASE 103 U/L (38-126); ANION GAP 6 (5-19); ASPARTATE AMINO TRANSFERASE 39 U/L (14-36); BILIRUBIN,DIRECT 0.3 mg/dL (0.0-0.4); BILIRUBIN,TOTAL 0.4 mg/dL (0.2-1.3); BLOOD UREA NITROGEN 8 mg/dL (7-20); CARBON DIOXIDE 29 mmol/L (22-30); CHLORIDE 105 mmol/L (98-107); GLUCOSE 144 mg/dL (75-110); POTASSIUM 4.2 mmol/L (3.6-5.0); TOTAL PROTEIN 6.1 g/dL (6.3-8.2)
[2020-01-28 19:48] LABS: ABSOLUTE EOSINOPHILS # (AUTO) 0.1 10^3/uL (0.0-0.6); ABSOLUTE LYMPHOCYTES (AUTO) 0.3 10^3/uL (0.5-4.7); ABSOLUTE MONOCYTES (AUTO) 0.4 10^3/uL (0.1-1.4); ABSOLUTE NEUT (AUTO) 4.7 10^3/uL (1.7-8.2); BASOPHILS % (AUTO) 0.3 % (0-2); EOSINOPHILS % (AUTO) 1.7 % (0-6); HEMATOCRIT 27.9 % (36.0-47.0); HEMOGLOBIN 9.1 g/dL (12.0-15.5); LYMPHOCYTES % (AUTO) 5.4 % (13-45); MEAN CORPUSCULAR HEMOGLOBIN 28.5 pg (27.0-33.4); MEAN CORPUSCULAR HGB CONC 32.7 g/dL (32.0-36.0); MONOCYTES % (AUTO) 6.7 % (3-13); PLATELET COUNT 209 10^3/uL (150-450); RED CELL DISTRIBUTION WIDTH 15.9 % (11.5-14.0); SEGMENTED NEUTROPHILS % (AUTO) 85.9 % (42-78); TOTAL CELLS COUNTED % (AUTO) 100 %; WHITE BLOOD COUNT 5.5 10^3/uL (4.0-10.5)
[2020-01-28 19:54] LABS: MEAN CORPUSCULAR VOLUME 87 fl (80-97)
[2020-01-28] MEDS ORDERED: DEXTROSE 40% GEL 15 GM TUBE PO PRN ×2 (20:49)
[2020-01-28] MEDS ORDERED: DEXTROSE 50%-WATER 25 GM/50 ML DISP.SYRIN IV PRN ×2 (20:49)
[2020-01-28] MEDS ORDERED: GLUCAGON,HUMAN RECOMB 1 MG INJ SUBCUT PRN (20:49)
--- NOTE | 2020-01-28 20:49 | CRITICAL CARE ADMISSION REPORT ---
HPI Date:: 01/28/20 Time:: 20:00 Reason for ICU Reason:: AECOPD Admission Date/Time & PCP: Admission Date/Time: 01/28/20 19:40 Primary Care Provider: JAYY ESCOBAR HPI: 64-year-old female with a known history of COPD, diastolic CHF, HTN and hep C with liver cirrhosis. Patient has had multiple admissions for COPD exacerbation. She developed [place] distress at home and alerted EMS. Patient was intubated in the field and transported to the ED. Chest x-ray shows no clear evidence of infiltrates. I do not see any pulmonary function tests in our records, however, her latest CT scan of her chest shows severe emphysematous disease. Patient was started on steroids, duo nebs and antibiotics and is being transferred to the intensive care unit for further care. - Diagnosis/Plan (1) COPD with acute exacerbation Is this a current diagnosis for this admission?: Yes Plan: Continue mechanical ventilation. Will look to begin weaning ventilator in the a.m. Continue short acting bronchodilators with evaluation every 4 for wheezing. Continue IV steroids Continue antibiotics. (2) History of hepatitis C Is this a current diagnosis for this admission?: Yes Plan: Follow-up LFTs. No known acute issues at this time. Plan Summary: Patient with multiple, very similar admissions for acute exacerbation of COPD. Once liberated from ventilator, continue short acting bronchodilators as needed. Start on patient's home regimen of long-acting bronchodilators. Review patient's accessibility to these medications prior to discharge. Sound Effects Technician for nicotine dependence. Evaluate for candidacy for pulmonary rehab. Due to patient's multiple admissions with respiratory failure secondary to exacerbation of COPD, it is likely that her disease is approaching end-stage. Advanced directive conversation would be appropriate with patient and her family once liberated from the ventilator and prior to discharge. Past Medical History Cardiac Medical History: Reports: Congestive Heart Failure - Diastolic, Hyper tension Denies: Atrial Fibrillation, Coronary Artery Disease, Myocardial Infarction, Hyperlipidema Pulmonary Medical History: Reports: Chronic Obstructive Pulmonary Disease ( COPD), Pneumonia, Respiratory Failure Denies: Asthma Neurological Medical History: Denies: Seizures Endocrine Medical History: Denies: Diabetes Mellitus Type 1, Diabetes Mellitus Type 2, Hyperthyroidism, Hypothyroidism GI Medical History: Reports: Cirrhosis, Gastroesophageal Reflux Disease, Hepatitis - Hepatitis C Denies: Crohn's Disease, Ulcerative Colitis Musculoskeltal Medical History: Denies: Arthritis, Gout Skin Medical History: Denies: Eczema, Psoriasis Psychiatric Medical History: Reports: Depression Hematology: Reports: Anemia Denies: Bleeding Tendencies Past Surgical History Past Surgical History: Reports: Section, Cholecystectomy, Orthopedic Surgery - carpel tunnel, Tonsillectomy, Other - Unable to obtain at this time since the patient is intubated and sedated. Denies: Hysterectomy Social/Family History - Social History Smoking Status: Current Every Day Smoker Frequency of Alcohol Use: Occasional Hx Recreational Drug Use: Yes - ETOH abuse 13 y/a Drugs: None Hx Prescription Drug Abuse: No - Medication/Allergies Home Medications: Alprazolam 0.25 mg PO BIDP PRN #15 11/06/19 Bupropion HCl [Bupropion Xl] 150 mg PO QAM #30 cap 11/06/19 Cholecalciferol (Vitamin D3) [Vitamin D3 1000 Unit Tablet] 5,000 unit PO DAILY #30 tablet 11/06/19 Folic Acid [Folvite 1 mg Tablet] 1 mg PO DAILY #30 tablet 11/06/19 Gabapentin [Neurontin 100 mg Capsule] 100 mg PO HSP PRN #30 11/06/19 Albuterol Sulfate [Albuterol Sulfate Hfa] 2 puff IH Q4HP PRN 01/10/20 Budesonide/Formoterol Fumarate [Symbicort HFA 160-4.5 mcg Inhaler 6 gm] 2 puff IH DAILY 01/10/20 Buspirone HCl 15 mg PO Q8 01/10/20 Ergocalciferol (Vitamin D2) [Drisdol 50,000 unit (1.25MG) Capsule] 50,000 unit PO SOLANO@1000 01/10/20 Ipratropium/Albuterol Sulfate [Duoneb 3 ml Ampul] 3 ml NEB RTQ4HP PRN #30 vial.neb 01/10/20 Omeprazole 20 mg PO Q6AM 01/10/20 Oxycodone HCl [Oxy-Ir 5 mg Tablet] 10 mg PO Q8HP PRN 01/10/20 Paroxetine HCl [Paxil] 40 mg PO QHS 01/10/20 Prednisone [Deltasone 20 mg Tablet] 2 tab PO DAILY 4 Days #8 tablet 01/10/20 Promethazine HCl [Phenergan 25 mg Tablet] 25 mg PO BIDP PRN 01/10/20 Allergies/Adverse Reactions: acetaminophen [From Tylenol] Allergy (Mild, Verified 12/18/19 18:16) GI upset Review of Systems ROS unobtainable: Due to endotracheal tube Physical Exam Vital Signs: Temp Pulse Resp BP Pulse Ox 99.8 F 100 01/28/20 18:48 01/28/20 18:50 Intake & Output 01/27/20 01/28/20 01/29/20 06:59 06:59 06:59 Intake Total 100 Balance 100 Weight 49.5 kg Weight/Height Weight 49.5 kg General appearance: PRESENT: no acute distress Head exam: PRESENT: atraumatic, normocephalic Eye exam: PRESENT: EOMI, PERRLA Ear exam: PRESENT: normal external ear exam Mouth exam: PRESENT: moist Neck exam: PRESENT: full ROM. ABSENT: lymphadenopathy, tracheostomy Respiratory exam: PRESENT: prolonged expiratory phas, symmetrical. ABSENT: accessory muscle use, rhonchi, wheezes Cardiovascular exam: PRESENT: tachycardia - Sinus tachycardia Pulses: PRESENT: normal carotid pulses, normal radial pulses, +1 pedal pulses bilateral Vascular exam: PRESENT: normal capillary refill GI/Abdominal exam: PRESENT: hypoactive bowel sounds, soft. ABSENT: ascites Extremities exam: ABSENT: joint swelling, pedal edema Musculoskeletal exam: PRESENT: normal inspection Neurological exam: PRESENT: CN II-XII grossly intact, other - Sedated Skin exam: PRESENT: normal color. ABSENT: abrasion, rash, skin tears Tubes/Lines: PRESENT: Endotracheal Tube Laboratory/Radiographs Laboratory Results: 01/28/20 19:35 01/28/20 18:50 01/28/20 01/28/20 01/28/20 18:50 18:50 18:50 WBC Cancelled RBC Cancelled Hgb Cancelled Hct Cancelled MCV Cancelled MCH Cancelled MCHC Cancelled RDW Cancelled Plt Count Cancelled Seg Neutrophils % Cancelled Carbonic Acid HCO3/H2CO3 Ratio ABG pH ABG pCO2 ABG pO2 ABG HCO3 ABG O2 Saturation ABG Base Excess FiO2 Sodium 140.0 Potassium 4.2 Chloride 105 Carbon Dioxide 29 Anion Gap 6 BUN 8 Creatinine 0.59 Est GFR ( Amer) > 60 Glucose 144 H Lactic Acid 1.2 Calcium 8.0 L Total Bilirubin 0.4 AST 39 H Alkaline Phosphatase 103 Total Protein 6.1 L Albumin 3.4 L 01/28/20 01/28/20 19:02 19:35 WBC 5.5 RBC 3.20 L Hgb 9.1 L Hct 27.9 L MCV 87 D MCH 28.5 MCHC 32.7 RDW 15.9 H Plt Count 209 Seg Neutrophils % 85.9 H Carbonic Acid 1.85 H HCO3/H2CO3 Ratio 15:1 ABG pH 7.28 L ABG pCO2 61.5 H ABG pO2 134.3 H ABG HCO3 28.4 H ABG O2 Saturation 98.3 H ABG Base Excess 0.8 FiO2 40% Sodium Potassium Chloride Carbon Dioxide Anion Gap BUN Creatinine Est GFR ( Amer) Glucose Lactic Acid Calcium Total Bilirubin AST Alkaline Phosphatase Total Protein Albumin 01/28/20 18:50 Troponin I < 0.012 Impressions: Chest X-Ray 01/28/20 18:49 IMPRESSION: EMPHYSEMA. NO ACUTE RADIOGRAPHIC FINDING IN THE CHEST. SUPPORT DEVICE(S) DESCRIBED ABOVE. All labs, radiographs, diagnostic studies and EKGs were personally reviewed: Yes In addition, reports of radiographic and diagnostic studies were read: Yes Critical Time Critical Time (minutes): 73 -: The care of a critically ill patient is dynamic. This note represents a static moment in the admission process. Orders and treatments may be given simultaneously and urgently, and time is not pharmacy services representative of the treatment process. This patient requires Critical Care secondary to life threatening organ or limb dysfunction. Without Critical Care services, the patient is at risk for increased mortality and morbidity.
[2020-01-28 21:12] LABS: APPEARANCE,URINE CLEAR; BILIRUBIN,URINE NEGATIVE (NEGATIVE); COLOR,URINE STRAW; GLUCOSE, URINE 50 mg/dL (NEGATIVE); KETONES,URINE NEGATIVE (NEGATIVE); PROTEIN,URINE NEGATIVE (NEGATIVE); URINE SPECIFIC GRAVITY 1.008; UROBILINOGEN,URINE NEGATIVE mg/dL (<2.0)
[2020-01-28] MEDS: PROPOFOL 1,000 MG/100 ML INFUS..BTL IV PRN (21:31)
[2020-01-28] MEDS ORDERED: METHYLPREDNISOLONE INJ 125 MG/2 ML SDV IV ONE (22:30)
[2020-01-28] MEDS: RINGERS SOLUTION,LACTATED 1,000 ML IV PRN (22:37)
[2020-01-28] MEDS: HEPARIN SOD (PORCINE) 5,000 UNIT/ML 1 ML VIAL SUBCUT SCH (22:37)
[2020-01-28] MEDS: FAMOTIDINE INJ/PF 20 MG/2 ML SDV IV SCH (22:38)
[2020-01-29] MEDS: IPRATROPIUM/ALBUTEROL 0.5-2.5 MG/3 ML AMPUL NEB SCH ×8 (00:33→20:52)
[2020-01-29] MEDS ORDERED: MORPHINE SULFATE 10 MG/ML INJ ONE (01:41)
[2020-01-29] MEDS: CEFEPIME 1 GM/D5W RTU 1 GM/50 ML RTUPB IV SCH ×5 (02:12→22:15)
[2020-01-29] MEDS ORDERED: MORPHINE SULFATE 10 MG/ML INJ IV ONE (02:16)
[2020-01-29 03:38] LABS: ARTERIAL BLOOD BASE EXCESS -0.2 mmol/L; ARTERIAL BLOOD FIO2 40%; ARTERIAL BLOOD H2CO3 1.37 mmol/L (1.05-1.35); ARTERIAL BLOOD HCO3 25.3 mmol/L (20-24); ARTERIAL BLOOD O2 SATURATION 97.8 % (94-98); ARTERIAL BLOOD PCO2 45.4 mmHg (35-45); ARTERIAL BLOOD PH 7.36 (7.35-7.45); ARTERIAL BLOOD PO2 108.3 mmHg (80-100); ARTERIAL BLOOD TOTAL CO2 26.7 mmol/L (21-25)
[2020-01-29] MEDS: PROPOFOL 1,000 MG/100 ML INFUS..BTL IV PRN ×2 (05:00→10:41)
[2020-01-29 05:01] LABS: HEMATOCRIT 26.9 % (36.0-47.0); MEAN CORPUSCULAR HEMOGLOBIN 28.6 pg (27.0-33.4); MEAN CORPUSCULAR HGB CONC 33.4 g/dL (32.0-36.0); MEAN CORPUSCULAR VOLUME 86 fl (80-97); PLATELET COUNT 218 10^3/uL (150-450); RED BLOOD COUNT 3.14 10^6/uL (3.72-5.28); RED CELL DISTRIBUTION WIDTH 16.1 % (11.5-14.0); WHITE BLOOD COUNT 4.9 10^3/uL (4.0-10.5)
[2020-01-29 05:22] LABS: ALBUMIN 3.1 g/dL (3.5-5.0); ALKALINE PHOSPHATASE 106 U/L (38-126); ANION GAP 7 (5-19); ASPARTATE AMINO TRANSFERASE 76 U/L (14-36); BILIRUBIN,DIRECT 0.3 mg/dL (0.0-0.4); BILIRUBIN,TOTAL 0.5 mg/dL (0.2-1.3); BLOOD UREA NITROGEN 12 mg/dL (7-20); CALCIUM 8.2 mg/dL (8.4-10.2); CARBON DIOXIDE 26 mmol/L (22-30); CHLORIDE 103 mmol/L (98-107); GLUCOSE 196 mg/dL (75-110); POTASSIUM 4.8 mmol/L (3.6-5.0); TOTAL PROTEIN 5.5 g/dL (6.3-8.2)
[2020-01-29] MEDS: HEPARIN SOD (PORCINE) 5,000 UNIT/ML 1 ML VIAL SUBCUT SCH ×3 (05:32→22:34)
[2020-01-29] MEDS ORDERED: METHYLPREDNISOLONE INJ 125 MG/2 ML SDV IV SCH ×2 (06:00→14:00)
--- NOTE | 2020-01-29 07:55 | RADIOLOGY REPORT (SQ) ---
EXAM DESCRIPTION: CHEST SINGLE VIEW IMAGES COMPLETED DATE/TIME: 01/29/2020 6:10 am REASON FOR STUDY: RESP FAILURE COMPARISON: 01/28/2020 FINDINGS: One-view chest AP portable upright. No change. Endotracheal and nasogastric tubes remain in place, appropriate. Lungs are hyperinflated with chronic increased markings and scarring. No developing opacities. No s uggestion of congestive failure or pneumothorax. TECHNICAL DOCUMENTATION: JOB ID: [id number] Reading location - IP/workstation name: [email or web address]
[2020-01-29] MEDS ORDERED: FENTANYL CITRATE INJ/PF 100 MCG/2 ML AMPUL ONE ×2 (08:18→11:58)
[2020-01-29] MEDS ORDERED: FENTANYL CITRATE INJ/PF 100 MCG/2 ML AMPUL IV ONE ×3 (09:00→23:00)
[2020-01-29] MEDS: FAMOTIDINE INJ/PF 20 MG/2 ML SDV IV SCH ×2 (10:41→22:17)
[2020-01-29] MEDS: RINGERS SOLUTION,LACTATED 1,000 ML IV PRN (11:27)
[2020-01-29 12:30] LABS: ARTERIAL BLOOD BASE EXCESS 1.2 mmol/L; ARTERIAL BLOOD H2CO3 1.16 mmol/L (1.05-1.35); ARTERIAL BLOOD HCO3 25.4 mmol/L (20-24); ARTERIAL BLOOD O2 SATURATION 94.4 % (94-98); ARTERIAL BLOOD PCO2 38.6 mmHg (35-45); ARTERIAL BLOOD PH 7.44 (7.35-7.45); ARTERIAL BLOOD TOTAL CO2 26.6 mmol/L (21-25)
[2020-01-29 12:31] LABS: ARTERIAL BLOOD FIO2 30%
[2020-01-29] MEDS ORDERED: RINGERS SOLUTION,LACTATED 1,000 ML IV PRN (13:30)
[2020-01-29] MEDS: METHYLPREDNISOLONE INJ 40 MG/1 ML SDV IV SCH ×2 (13:48→22:17)
[2020-01-29] MEDS ORDERED: DEXMEDETOMIDINE IN 0.9 % NACL 400 MCG/100 ML RTUPB IV ONE (15:17)
[2020-01-29] MEDS ORDERED: DEXMEDETOMIDINE IN NS 400 MCG/100 ML RTUPB IV PRN (16:07)
[2020-01-29] MEDS: PAROXETINE HCL 20 MG TABLET PO SCH (16:16)
[2020-01-29] MEDS: BUSPIRONE HCL 10 MG TABLET PO SCH (17:23)
[2020-01-29] MEDS ORDERED: LORAZEPAM INJ 2 MG/1 ML VIAL IV ONE (17:30)
--- NOTE | 2020-01-29 17:46 | PDOC CRITICAL CARE PROG REPORT ---
General Date:: 01/29/20 ICU Day:: 2 Ventilator Day:: 2 Hospital Day:: 2 Resuscitation Status: Full Code Events in the past 12 to 24 Hours:: This 64-year-old female was admitted on 01/29/2020 with acute exacerbation of COPD. She was intubated in the field and transported to the emergency department. She has a known past history of COPD, diastolic dysfunction, hypertension and hepatitis C cirrhosis. 01/28: Remains intubated. Review of systems relevant to events:: Respiratory: Dyspnea, COPD/emphysema Neurologic: Altered mental status Cardiovascular: Diastolic dysfunction Gastrointestinal: Hepatitis C cirrhosis Reason for ICU Addmission:: COPD exacerbation - Medications: Medications reviewed and adjusted accordingly: Yes Sedation:: Propofol Physical Exam Vital Signs: Temp Pulse Resp BP Pulse Ox 96.3 F L 74 12 101/60 100 01/29/20 05:06 01/29/20 04:26 01/29/20 06:01 01/29/20 06:01 01/29/20 06:01 Intake & Output 01/28/20 01/29/20 01/30/20 06:59 06:59 06:59 Intake Total 328 Output Total 425 Balance -97 Weight 47.7 kg Weight/Height Weight 47.7 kg Height 1.55 m Laboratory/Radiographs Laboratory Results: 01/29/20 04:29 01/29/20 04:29 01/28/20 01/28/20 01/28/20 18:45 18:50 18:50 WBC Cancelled RBC Cancelled Hgb Cancelled Hct Cancelled MCV Cancelled MCH Cancelled MCHC Cancelled RDW Cancelled Plt Count Cancelled Seg Neutrophils % Cancelled Carbonic Acid HCO3/H2CO3 Ratio ABG pH ABG pCO2 ABG pO2 ABG HCO3 ABG O2 Saturation ABG Base Excess FiO2 Sodium 140.0 Potassium 4.2 Chloride 105 Carbon Dioxide 29 Anion Gap 6 BUN 8 Creatinine 0.59 Est GFR ( Amer) > 60 Glucose 144 H Lactic Acid Calcium 8.0 L Magnesium Total Bilirubin 0.4 AST 39 H Alkaline Phosphatase 103 Total Protein 6.1 L Albumin 3.4 L Urine Color STRAW Urine Appearance CLEAR Urine pH 6.0 Ur Specific [place] 1.008 Urine Protein NEGATIVE Urine Glucose (UA) 50 H Urine Ketones NEGATIVE Urine Blood NEGATIVE Urine RBC (Auto) 0 09/06/20 09/06/20 09/06/20 18:50 19:02 19:35 WBC 5.5 RBC 3.20 L Hgb 9.1 L Hct 27.9 L MCV 87 D MCH 28.5 MCHC 32.7 RDW 15.9 H Plt Count 209 Seg Neutrophils % 85.9 H Carbonic Acid 1.85 H HCO3/H2CO3 Ratio 15:1 ABG pH 7.28 L ABG pCO2 61.5 H ABG pO2 134.3 H ABG HCO3 28.4 H ABG O2 Saturation 98.3 H ABG Base Excess 0.8 FiO2 40% Sodium Potassium Chloride Carbon Dioxide Anion Gap BUN Creatinine Est GFR ( Amer) Glucose Lactic Acid 1.2 Calcium Magnesium Total Bilirubin AST Alkaline Phosphatase Total Protein Albumin Urine Color Urine Appearance Urine pH Ur Specific [place] Urine Protein Urine Glucose (UA) Urine Ketones Urine Blood Urine RBC (Auto) 01/28/20 01/29/20 01/29/20 20:39 01:02 01:26 WBC RBC Hgb Hct MCV MCH MCHC RDW Plt Count Seg Neutrophils % Carbonic Acid 1.37 H HCO3/H2CO3 Ratio 18:1 ABG pH 7.36 ABG pCO2 45.4 H ABG pO2 108.3 H ABG HCO3 25.3 H ABG O2 Saturation 97.8 ABG Base Excess -0.2 FiO2 40% Sodium Potassium Chloride Carbon Dioxide Anion Gap BUN Creatinine Est GFR ( Amer) Glucose Lactic Acid 2.7 H 3.7 H Calcium Magnesium Total Bilirubin AST Alkaline Phosphatase Total Protein Albumin Urine Color Urine Appearance Urine pH Ur Specific [place] Urine Protein Urine Glucose (UA) Urine Ketones Urine Blood Urine RBC (Auto) 01/29/20 01/29/20 04:29 04:29 WBC 4.9 RBC 3.14 L Hgb 9.0 L Hct 26.9 L MCV 86 MCH 28.6 MCHC 33.4 RDW 16.1 H Plt Count 218 Seg Neutrophils % Carbonic Acid HCO3/H2CO3 Ratio ABG pH ABG pCO2 ABG pO2 ABG HCO3 ABG O2 Saturation ABG Base Excess FiO2 Sodium 136.3 L Potassium 4.8 Chloride 103 Carbon Dioxide 26 Anion Gap 7 BUN 12 Creatinine 0.60 Est GFR ( Amer) > 60 Glucose 196 H Lactic Acid Calcium 8.2 L Magnesium 2.4 H Total Bilirubin 0.5 AST 76 H Alkaline Phosphatase 106 Total Protein 5.5 L Albumin 3.1 L Urine Color Urine Appearance Urine pH Ur Specific [place] Urine Protein Urine Glucose (UA) Urine Ketones Urine Blood Urine RBC (Auto) 01/28/20 18:50 Troponin I < 0.012 All labs, radiographs, diagnostic studies and EKGs were personally reviewed: Yes In addition, reports of radiographic and diagnostic studies were read: Yes Assessment and Plan - Diagnosis (1) Acute and chronic respiratory failure with hypercapnia Is this a current diagnosis for this admission?: Yes Plan: On empiric cefepime. Follow-up blood and tracheal aspirate cultures. (2) COPD exacerbation Is this a current diagnosis for this admission?: Yes Plan: Decrease steroids. Continue DuoNeb. Start budesonide. 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 The care of a critical patient is a dynamic process. This note is a circulation sales representative synopsis but static in nature. The timeframe for treatments given in order is not necessarily the actual time these treatments may have been done. 2. This patient requires critical care secondary to ongoing requirements for therapy not offered or safe outside the critical care environment. Transfer to a lower level of care will result in altered life or limb morbidity and mortality. 3. Multidisciplinary rounds completed. 4. ABCDE bundle addressed.
[2020-01-29] MEDS: BUDESONIDE NEB 0.25 MG/2 ML AMPUL NEB SCH (20:36)
[2020-01-30 04:23] LABS: HEMATOCRIT 28.5 % (36.0-47.0); HEMOGLOBIN 9.9 g/dL (12.0-15.5); MEAN CORPUSCULAR HEMOGLOBIN 29.3 pg (27.0-33.4); MEAN CORPUSCULAR HGB CONC 34.8 g/dL (32.0-36.0); MEAN CORPUSCULAR VOLUME 84 fl (80-97); PLATELET COUNT 265 10^3/uL (150-450); RED BLOOD COUNT 3.38 10^6/uL (3.72-5.28); RED CELL DISTRIBUTION WIDTH 16.2 % (11.5-14.0)
[2020-01-30 04:55] LABS: ANION GAP 6 (5-19); BLOOD UREA NITROGEN 19 mg/dL (7-20); CALCIUM 8.8 mg/dL (8.4-10.2); CARBON DIOXIDE 29 mmol/L (22-30); CHLORIDE 102 mmol/L (98-107); GLUCOSE 181 mg/dL (75-110); PHOSPHORUS 3.3 mg/dL (2.5-4.5); POTASSIUM 4.5 mmol/L (3.6-5.0)
[2020-01-30] MEDS: HEPARIN SOD (PORCINE) 5,000 UNIT/ML 1 ML VIAL SUBCUT SCH ×3 (06:01→21:46)
[2020-01-30] MEDS: METHYLPREDNISOLONE INJ 40 MG/1 ML SDV IV SCH (06:01)
[2020-01-30] MEDS ORDERED: FUROSEMIDE INJ/PF 20 MG/2 ML SDV IV ONE (08:00)
[2020-01-30] MEDS: BUDESONIDE NEB 0.25 MG/2 ML AMPUL NEB SCH ×2 (08:28→20:29)
[2020-01-30] MEDS: IPRATROPIUM/ALBUTEROL 0.5-2.5 MG/3 ML AMPUL NEB SCH ×4 (08:28→20:29)
--- NOTE | 2020-01-30 08:50 | EKG REPORT ---
SEVERITY:- OTHERWISE NORMAL ECG - SINUS TACHYCARDIA : Confirmed by: Jayden Lion MD 30-Jan-2020 08:48:52
--- NOTE | 2020-01-30 08:51 | RADIOLOGY REPORT (SQ) ---
EXAM DESCRIPTION: CHEST SINGLE VIEW IMAGES COMPLETED DATE/TIME: 01/30/2020 6:55 am REASON FOR STUDY: Respiratory failure COMPARISON: 01/29/2020 NUMBER OF VIEWS: One view. TECHNIQUE: Single frontal radiographic image of the chest acquired. LIMITATIONS: None. FINDINGS: LUNGS AND PLEURA: Emphysematous changes. No evidence of pulmonary edema or pneumonia. MEDIASTINUM AND HEART: Stable heart size and mediastinal structures. BONY STRUCTURES: No acute findings. HARDWARE: None. OTHER: Interval removal of nasogastric and endotracheal tubes. IMPRESSION: Stable chest status post extubation. TECHNICAL DOCUMENTATION: JOB ID: [id number] Reading location - IP/workstation name: [email or web address]
--- NOTE | 2020-01-30 09:03 | PDOC CRITICAL CARE PROG REPORT ---
General Date:: 01/30/20 ICU Day:: 3 Hospital Day:: 3 Resuscitation Status: Full Code Events in the past 12 to 24 Hours:: This 64-year-old female was admitted on 01/29/2020 with acute exacerbation of COPD. She was intubated in the field and transported to the emergency department. She has a known past history of COPD, diastolic dysfunction, hype rtension and hepatitis C cirrhosis. 01/28: Remains intubated. 01/29: Successfully extubated yesterday. Review of systems relevant to events:: Respiratory: Dyspnea, COPD/emphysema Neurologic: Altered mental status Cardiovascular: Diastolic dysfunction Gastrointestinal: Hepatitis C cirrhosis Reason for ICU Addmission:: COPD exacerbation - Medications: Medications reviewed and adjusted accordingly: Yes Physical Exam Vital Signs: Temp Pulse Resp BP Pulse Ox 98.5 F 98 14 154/89 H 97 01/30/20 08:00 01/30/20 08:00 01/30/20 08:00 01/30/20 08:00 01/30/20 08:00 Intake & Output 01/29/20 01/30/20 01/31/20 06:59 06:59 06:59 Intake Total 328 2304 Output Total 425 1205 0 Balance -97 1099 0 Weight 47.7 kg 49.3 kg Weight/Height Weight 49.3 kg Height 1.55 m General appearance: PRESENT: no acute distress, well-developed, well-nourished Head exam: PRESENT: atraumatic, normocephalic Eye exam: PRESENT: conjunctiva pink, EOMI, PERRLA. ABSENT: scleral icterus Mouth exam: PRESENT: moist, tongue midline Neck exam: ABSENT: carotid bruit, JVD, lymphadenopathy, thyromegaly Respiratory exam: PRESENT: crackles - Posterior, dependent. ABSENT: rhonchi, wheezes Cardiovascular exam: PRESENT: RRR. ABSENT: diastolic murmur, rubs, systolic murmur Pulses: PRESENT: normal dorsalis pedis pul GI/Abdominal exam: PRESENT: normal bowel sounds, soft. ABSENT: distended, guarding, mass, organolmegaly, rebound, tenderness Extremities exam: PRESENT: full ROM. ABSENT: calf tenderness, clubbing, pedal edema Neurological exam: PRESENT: alert, awake, oriented to person, oriented to place, oriented to time, oriented to situation, CN II-XII grossly intact. ABSENT: motor sensory deficit Psychiatric exam: PRESENT: anxious. ABSENT: homicidal ideation, suicidal ideation Skin exam: PRESENT: dry, intact, warm. ABSENT: cyanosis, rash Laboratory/Radiographs Laboratory Results: 01/30/20 04:01 01/30/20 04:01 01/29/20 01/30/20 01/30/20 12:23 04:01 04:01 WBC 7.0 RBC 3.38 L Hgb 9.9 L Hct 28.5 L MCV 84 MCH 29.3 MCHC 34.8 RDW 16.2 H Plt Count 265 Carbonic Acid 1.16 HCO3/H2CO3 Ratio 21:1 ABG pH 7.44 ABG pCO2 38.6 ABG pO2 69.0 L ABG HCO3 25.4 H ABG O2 Saturation 94.4 ABG Base Excess 1.2 FiO2 30% Sodium 136.8 L Potassium 4.5 Chloride 102 Carbon Dioxide 29 Anion Gap 6 BUN 19 Creatinine 1.00 Est GFR ( Amer) > 60 Glucose 181 H Calcium 8.8 Phosphorus 3.3 Magnesium 2.3 01/28/20 18:50 Blood Blood Culture (PCR) - Final Staphylococcus Species 01/28/20 01/30/20 18:50 04:01 Troponin I < 0.012 NT-Pro-B Natriuret Pep 2790 H Impressions: Chest X-Ray 01/30/20 06:00 IMPRESSION: Stable chest status post extubation. All labs, radiographs, diagnostic studies and EKGs were personally reviewed: Yes In addition, reports of radiographic and diagnostic studies were read: Yes Assessment and Plan - Diagnosis (1) Acute and chronic respiratory failure with hypercapnia Is this a current diagnosis for this admission?: Yes Plan: Continue cefepime. Blood cultures (01/27) isolated coag negative staph 1 of 2 bottles, contaminant. Trach aspirate showed 3+ PMNs, 3+ GPC in pairs and chains, few gram-positive cocci in clusters. (2) COPD exacerbation Is this a current diagnosis for this admission?: Yes Plan: Decrease steroids to Solu-Medrol 60 mg IV every 12 hours. Continue DuoNeb/budesonide. 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 Critical Time Critical Time (minutes): 45 Level of Care: ICU -: 1. The care of a critical patient is a dynamic process. This note is a traveling sales representative synopsis but static in nature. The timeframe for treatments given in order is not necessarily the actual time these treatments may have been done. 2. This patient requires critical care secondary to ongoing requirements for therapy not offered or safe outside the critical care environment. Transfer to a lower level of care will result in altered life or limb morbidity and mortality. 3. Multidisciplinary rounds completed. 4. ABCDE bundle addressed.
[2020-01-30] MEDS: PAROXETINE HCL 20 MG TABLET PO SCH (09:53)
[2020-01-30] MEDS: BUSPIRONE HCL 10 MG TABLET PO SCH ×3 (09:53→17:04)
[2020-01-30] MEDS: FAMOTIDINE INJ/PF 20 MG/2 ML SDV IV SCH (09:53)
[2020-01-30] MEDS: CEFEPIME 1 GM/D5W RTU 1 GM/50 ML RTUPB IV SCH (09:54)
[2020-01-30] MEDS ORDERED: METHYLPREDNISOLONE INJ 40 MG/1 ML SDV IV SCH (10:00)
[2020-01-30] MEDS: OXYCODONE HCL IR 5 MG TABLET PO PRN ×2 (10:05→18:08)
[2020-01-30] MEDS: ALPRAZOLAM 0.25 MG TABLET PO PRN (13:48)
[2020-01-30] MEDS: METHYLPREDNISOLONE INJ 125 MG/2 ML SDV IV SCH (18:09)
[2020-01-30] MEDS: FAMOTIDINE 20 MG TABLET PO SCH (21:46)
[2020-01-30] MEDS: CEFUROXIME 500 MG TABLET PO SCH (22:21)
[2020-01-31] MEDS: OXYCODONE HCL IR 5 MG TABLET PO PRN ×2 (02:50→11:07)
[2020-01-31] MEDS: HEPARIN SOD (PORCINE) 5,000 UNIT/ML 1 ML VIAL SUBCUT SCH (05:18)
[2020-01-31] MEDS: METHYLPREDNISOLONE INJ 125 MG/2 ML SDV IV SCH (05:18)
[2020-01-31 05:51] LABS: HEMATOCRIT 30.5 % (36.0-47.0); HEMOGLOBIN 10.4 g/dL (12.0-15.5); MEAN CORPUSCULAR HEMOGLOBIN 28.8 pg (27.0-33.4); MEAN CORPUSCULAR VOLUME 85 fl (80-97); PLATELET COUNT 275 10^3/uL (150-450); RED BLOOD COUNT 3.61 10^6/uL (3.72-5.28); RED CELL DISTRIBUTION WIDTH 16.2 % (11.5-14.0); WHITE BLOOD COUNT 5.2 10^3/uL (4.0-10.5)
[2020-01-31 06:07] LABS: ANION GAP 8 (5-19); BLOOD UREA NITROGEN 16 mg/dL (7-20); CALCIUM 8.7 mg/dL (8.4-10.2); CARBON DIOXIDE 31 mmol/L (22-30); CHLORIDE 101 mmol/L (98-107); GLUCOSE 119 mg/dL (75-110); POTASSIUM 3.7 mmol/L (3.6-5.0)
[2020-01-31] MEDS: ALPRAZOLAM 0.25 MG TABLET PO PRN (07:44)
--- NOTE | 2020-01-31 08:36 | RADIOLOGY REPORT (SQ) ---
EXAM DESCRIPTION: CHEST SINGLE VIEW IMAGES COMPLETED DATE/TIME: 01/31/2020 8:27 am REASON FOR STUDY: Respiratory failure COMPARISON: AP view of the chest from 01/30/2020. EXAM PARAMETERS: NUMBER OF VIEWS: One view. TECHNIQUE: An AP view of the chest was obtained. RADIATION DOSE: NA LIMITATIONS: None. FINDINGS: LUNGS AND PLEURA: COPD and increased pleural and parenchymal opacities in the inferior asp ect the right hemithorax that are associated with blunting of the lateral costophrenic sulcus. The l eft lateral costophrenic sulcus is also blunted. MEDIASTINUM AND HILAR STRUCTURES: No mediastinal or hilar contour abnormality. HEART AND VASCULAR STRUCTURES: The cardiac silhouette and pulmonary vasculature are within normal shell its. BONES: No acute findings. HARDWARE: None in the chest. OTHER: No other finding. IMPRESSION: Increased pleural and parenchymal opacities in the inferior aspect of the right hemithor ax that are associated with blunting of the lateral costophrenic sulcus. These opacities could repre sent a combination of pleural fluid and atelectasis. Trace left pleural effusion. TECHNICAL DOCUMENTATION: JOB ID: [id number] [employer]- All Rights Reserved Reading location - IP/workstation name: [email or web address]
[2020-01-31] MEDS: BUSPIRONE HCL 10 MG TABLET PO SCH (09:03)
[2020-01-31] MEDS: FAMOTIDINE 20 MG TABLET PO SCH (09:03)
[2020-01-31] MEDS: PAROXETINE HCL 20 MG TABLET PO SCH (09:04)
[2020-01-31] MEDS: CEFUROXIME 500 MG TABLET PO SCH (09:04)
[2020-01-31] MEDS: IPRATROPIUM/ALBUTEROL 0.5-2.5 MG/3 ML AMPUL NEB SCH (10:13)
[2020-01-31] MEDS: BUDESONIDE NEB 0.25 MG/2 ML AMPUL NEB SCH (10:13)
--- NOTE | 2020-01-31 11:56 | PDOC DISCHARGE SUMMARY ---
Impression - Admit/DC Date/PCP Admission Date/Primary Care Provider: 01/28/20 19:40 JAYY ESCOBAR Discharge Date: 01/31/20 - Discharge Diagnosis (1) Pneumonia Is this a current diagnosis for this admission?: Yes (2) Acute and chronic respiratory failure, unspecified whether with hypoxia or hypercapnia Is this a current diagnosis for this admission?: Yes (3) COPD exacerbation Is this a current diagnosis for this admission?: Yes (4) Hepatic cirrhosis due to chronic hepatitis C infection Is this a current diagnosis for this admission?: Yes (5) Lactic acidosis Is this a current diagnosis for this admission?: Yes (6) Acute encephalopathy Is this a current diagnosis for this admission?: Yes (7) Protein-calorie malnutrition, moderate Is this a current diagnosis for this admission?: Yes - Additional Information Resuscitation Status: Full Code Discharge Activity: Activity As Tolerated Referrals: JAYY ESCOBAR MD [Primary Care Provider] - 02/06/20 Prescriptions: Cefuroxime Axetil [Ceftin 500 mg Tablet] 500 mg PO Q12 #10 tablet Prednisone [Deltasone 20 mg Tablet] 2 tab PO DAILY 5 Days #8 tablet Home Medications: Bupropion HCl [Bupropion Xl] 150 mg PO QAM #30 cap 11/06/19 Albuterol Sulfate [Albuterol Sulfate Hfa] 2 puff IH Q4HP PRN 01/10/20 Budesonide/Formoterol Fumarate [Symbicort HFA 160-4.5 mcg Inhaler 6 gm] 2 puff IH DAILY 01/10/20 Buspirone HCl 15 mg PO Q8 01/10/20 Omeprazole 20 mg PO Q6AM 01/10/20 Paroxetine HCl [Paxil] 40 mg PO QHS 01/10/20 Promethazine HCl [Phenergan 25 mg Tablet] 25 mg PO BIDP PRN 01/10/20 Cefuroxime Axetil [Ceftin 500 mg Tablet] 500 mg PO Q12 #10 tablet 01/31/20 Prednisone [Deltasone 20 mg Tablet] 2 tab PO DAILY 5 Days #8 tablet 01/31/20 History of Present Illiness History of Present Illness: ADY YEUNG is a 64 year old female admitted to the intensive care unit initially with difficulty breathing and shortness of breath. She was diagnosed with COPD exacerbation Hospital Course Hospital Course: She was managed in the intensive care unit and was initially intubated in the field with successful extubation on January 28. She was treated with intravenous steroids which she is being changed to oral steroids at discharge. Blood cultures yielded Staphylococcus epidermidis 1 out of 4 bottles and subsequent cultures have been negative so this is thought to be a contaminant. Sputum culture did yield Streptococcus pneumonia as well as gram-positive cocci in clusters. Chest x-ray today is noted with increased pleural and parenchymal opacities in the inferior aspect of the right hemithorax with possibly pleural fluid and atelectasis. Patient is hemodynamically stable. She has been off oxygen. She is ambulating with no difficulties. There appears to be an issue with polypharmacy and patient is very protective and demanding of her medications. Physical Exam Vital Signs: Temp Pulse Resp BP Pulse Ox 98.6 F 97 18 133/64 H 98 01/31/20 08:54 01/31/20 00:00 01/31/20 00:00 01/31/20 00:00 01/31/20 00:00 Intake & Output 01/30/20 01/31/20 02/01/20 06:59 06:59 06:59 Intake Total 2304 1600 240 Output Total 1205 650 Balance 1099 950 240 Weight 49.3 kg 49.3 kg 49.3 kg General appearance: PRESENT: no acute distress, thin Head exam: PRESENT: atraumatic, normocephalic Eye exam: PRESENT: conjunctiva pink, EOMI, PERRLA. ABSENT: scleral icterus Ear exam: PRESENT: normal external ear exam Mouth exam: PRESENT: moist, tongue midline Neck exam: ABSENT: carotid bruit, JVD, lymphadenopathy, thyromegaly Respiratory exam: PRESENT: decreased breath sounds, unlabored. ABSENT: rales, rhonchi, wheezes Cardiovascular exam: PRESENT: RRR, +S1, +S2. ABSENT: diastolic murmur, rubs, systolic murmur Pulses: PRESENT: normal dorsalis pedis pul Vascular exam: PRESENT: normal capillary refill GI/Abdominal exam: PRESENT: normal bowel sounds, soft. ABSENT: distended, guarding, mass, organolmegaly, rebound, tenderness Rectal exam: PRESENT: deferred Extremities exam: PRESENT: full ROM. ABSENT: calf tenderness, clubbing, pedal edema Neurological exam: PRESENT: alert, awake, oriented to person, oriented to place, oriented to time, oriented to situation, CN II-XII grossly intact. ABSENT: motor sensory deficit Psychiatric exam: PRESENT: appropriate affect, normal mood. ABSENT: homicidal ideation, suicidal ideation Skin exam: PRESENT: dry, intact, warm. ABSENT: cyanosis, rash Results Laboratory Results: WBC 5.2 10^3/uL (4.0-10.5) 01/31/20 05:27 RBC 3.61 10^6/uL (3.72-5.28) L 01/31/20 05:27 Hgb 10.4 g/dL (12.0-15.5) L 01/31/20 05:27 Hct 30.5 % (36.0-47.0) L 01/31/20 05:27 MCV 85 fl (80-97) 01/31/20 05:27 MCH 28.8 pg (27.0-33.4) 01/31/20 05:27 MCHC 34.0 g/dL (32.0-36.0) 01/31/20 05:27 RDW 16.2 % (11.5-14.0) H 01/31/20 05:27 Plt Count 275 10^3/uL (150-450) 01/31/20 05:27 Lymph % (Auto) 5.4 % (13-45) L 01/28/20 19:35 Mcintosh % (Auto) 6.7 % (3-13) 01/28/20 19:35 Eos % (Auto) 1.7 % (0-6) 01/28/20 19:35 Baso % (Auto) 0.3 % (0-2) 01/28/20 19:35 Absolute Neuts (auto) 4.7 10^3/uL (1.7-8.2) 01/28/20 19:35 Absolute Lymphs (auto) 0.3 10^3/uL (0.5-4.7) L 01/28/20 19:35 Absolute Monos (auto) 0.4 10^3/uL (0.1-1.4) 01/28/20 19:35 Absolute Eos (auto) 0.1 10^3/uL (0.0-0.6) 01/28/20 19:35 Absolute Basos (auto) 0.0 10^3/uL (0.0-0.2) 01/28/20 19:35 Seg Neutrophils % 85.9 % (42-78) H 01/28/20 19:35 Platelet Estimate Cancelled 01/28/20 18:50 PT 12.9 SEC (11.4-15.4) 01/28/20 18:50 INR 0.95 01/28/20 18:50 Carbonic Acid 1.16 mmol/L (1.05-1.35) 01/29/20 12:23 HCO3/H2CO3 Ratio 21:1 01/29/20 12:23 ABG pH 7.44 (7.35-7.45) 01/29/20 12:23 ABG pCO2 38.6 mmHg (35-45) 01/29/20 12:23 ABG pO2 69.0 mmHg (80-100) L 01/29/20 12:23 ABG HCO3 25.4 mmol/L (20-24) H 01/29/20 12:23 ABG Total CO2 26.6 mmol/L (21-25) H 01/29/20 12:23 ABG O2 Saturation 94.4 % (94-98) 01/29/20 12:23 ABG Base Excess 1.2 mmol/L 01/29/20 12:23 FiO2 30% 01/29/20 12:23 Sodium 140.2 mmol/L (137-145) 01/31/20 05:27 Potassium 3.7 mmol/L (3.6-5.0) 01/31/20 05:27 Chloride 101 mmol/L (98-107) 01/31/20 05:27 Carbon Dioxide 31 mmol/L (22-30) H 01/31/20 05:27 Anion Gap 8 (5-19) 01/31/20 05:27 BUN 16 mg/dL (7-20) 01/31/20 05:27 Creatinine 0.63 mg/dL (0.52-1.25) 01/31/20 05:27 Est GFR ( Amer) > 60 (>60) 01/31/20 05:27 Est GFR (MDRD) Non-Af > 60 (>60) 01/31/20 05:27 Glucose 119 mg/dL (75-110) H 01/31/20 05:27 Lactic Acid 3.7 mmol/L (0.7-2.1) H 01/29/20 01:02 Calcium 8.7 mg/dL (8.4-10.2) 01/31/20 05:27 Phosphorus 3.3 mg/dL (2.5-4.5) 01/30/20 04:01 Magnesium 2.0 mg/dL (1.6-2.3) 01/31/20 05:27 Total Bilirubin 0.5 mg/dL (0.2-1.3) 01/29/20 04:29 Direct Bilirubin 0.3 mg/dL (0.0-0.4) 01/29/20 04:29 Neonat Total Bilirubin Not Reportable 01/29/20 04:29 Neonat Direct Bilirubin Not Reportable 01/29/20 04:29 Neonat Indirect Bili Not Reportable 01/29/20 04:29 AST 76 U/L (14-36) H 01/29/20 04:29 ALT 33 U/L (<35) 01/29/20 04:29 Alkaline Phosphatase 106 U/L (38-126) 01/29/20 04:29 Troponin I < 0.012 ng/mL 01/28/20 18:50 NT-Pro-B Natriuret Pep 2790 pg/mL (<125) H 01/30/20 04:01 Total Protein 5.5 g/dL (6.3-8.2) L 01/29/20 04:29 Albumin 3.1 g/dL (3.5-5.0) L 01/29/20 04:29 Urine Color STRAW 01/28/20 18:45 Urine Appearance CLEAR 01/28/20 18:45 Urine pH 6.0 (5.0-9.0) 01/28/20 18:45 Ur Specific [place] 1.008 01/28/20 18:45 Urine Protein NEGATIVE mg/dL (NEGATIVE) 01/28/20 18:45 Urine Glucose (UA) 50 mg/dL (NEGATIVE) H 01/28/20 18:45 Urine Ketones NEGATIVE mg/dL (NEGATIVE) 01/28/20 18:45 Urine Blood NEGATIVE (NEGATIVE) 01/28/20 18:45 Urine Nitrite (Reflex) NEGATIVE (NEGATIVE) 01/28/20 18:45 Urine Bilirubin NEGATIVE (NEGATIVE) 01/28/20 18:45 Urine Urobilinogen NEGATIVE mg/dL (<2.0) 01/28/20 18:45 Leukocyte Esterase Rfl NEGATIVE (NEGATIVE) 01/28/20 18:45 Urine RBC (Auto) 0 /HPF 01/28/20 18:45 U Hyaline Cast (Auto) 1 /LPF 01/28/20 18:45 Urine WBC (Reflex) < 1 /HPF 01/28/20 18:45 Squamous Epi Cells Auto 4 /HPF 01/28/20 18:45 Urine Mucus (Auto) RARE /LPF 01/28/20 18:45 Urine Ascorbic Acid NEGATIVE (NEGATIVE) 01/28/20 18:45 Slides for Path Review Cancelled 01/28/20 18:50 01/28/20 01/30/20 18:50 04:01 Troponin I < 0.012 NT-Pro-B Natriuret Pep 2790 H Impressions: Chest X-Ray 01/28/20 18:49 IMPRESSION: EMPHYSEMA. NO ACUTE RADIOGRAPHIC FINDING IN THE CHEST. SUPPORT DEVICE(S) DESCRIBED ABOVE. Chest X-Ray 01/30/20 06:00 IMPRESSION: Stable chest status post extubation. Chest X-Ray 01/31/20 06:00 IMPRESSION: Increased pleural and parenchymal opacities in the inferior aspect of the right hemithorax that are associated with blunting of the lateral costophrenic sulcus. These opacities could represent a combination of pleural fluid and atelectasis. Trace left pleural effusion. Plan Health Concerns: Acute respiratory failure likely secondary to Streptococcus pneumonia and COPD exacerbation Bacteremia, contaminant with no further treatment needed Strepcoccus pneumonia COPD exacerbation Time Spent: Greater than 30 Minutes Stroke Is this a Stroke Patient?: No Acute Heart Failure - Is this a Heart Failure Patient?: No
[2020-01-31 12:57] VITALS: BP 157/78
== END 2020-01-31 12:40 | disposition home or self-care (01) | DRG 208 ==
LOC: ER 18:31 → EH 19:40 → ICU 01-29 00:18 → 4W 01-30 13:20
PROVIDERS: ADMIT Anesthesiology; ATTEND Internal Medicine
PROC: 5A1935Z Respiratory Ventilation, Less than 24 Consecutive Hours (ICD-10-PCS; principal; 2020-01-28)
PROC: 0BH17EZ Insertion of Endotracheal Airway into Trachea, Via Natural or Artificial Opening (ICD-10-PCS; 2020-01-28)
DX: J43.9 Emphysema, unspecified (principal); J15.4 Pneumonia due to other streptococci; J96.22 Acute and chronic respiratory failure with hypercapnia; E87.2 Acidosis; E44.0 Moderate protein-calorie malnutrition; G93.40 Encephalopathy, unspecified; I50.32 Chronic diastolic (congestive) heart failure; Z68.1 Body mass index [BMI] 19.9 or less, adult; K74.69 Other cirrhosis of liver; B18.2 Chronic viral hepatitis C; I11.0 Hypertensive heart disease with heart failure; K21.9 Gastro-esophageal reflux disease without esophagitis; D64.9 Anemia, unspecified; F32.9 Major depressive disorder, single episode, unspecified; G89.4 Chronic pain syndrome; F17.210 Nicotine dependence, cigarettes, uncomplicated; Z79.899 Other long term (current) drug therapy; Z79.51 Long term (current) use of inhaled steroids; Z88.6 Allergy status to analgesic agent; F41.9 Anxiety disorder, unspecified
CPT/HCPCS: 36415; 71045; 80048; 80053; 80076; 81001; 82803; 83605; 83735; 83880; 84100; 84484; 85025; 85027; 85610; 87040; 87070; 87077; 87150; 87186; 87205; 93005; 93010; 94002; 94003; 94640; 99285; 99291; J0692; J1644; J1940; J2060; J2270; J2543; J2704; J2920; J2930; J3010; J3490; J7120; S0028